=== PATIENT | female | born 1990 | race Caucasian/White ===

== ENCOUNTER 2023-08-25 13:23 | Observation (INO) ==
--- OUTSIDE RECORDS SUMMARY | 2023-08-25 13:31 | External Medical Summary | Summary of Care ---
Author Name Unknown Organization [facility] Address [address] [place] [address] Phone [phone] Care Team Providers Care Cement Mixer Driver Name Role Phone Jennifer Rodrigez MD Primary Care Provider [phone] Encounter Details Date Type Department Care Team (Late st Contact Info) Description 07/26/2023 Result Scan Unspecified Department <No scans attached> Allergies Active Allergy Reactions Criticality Noted Date Comments Cefaclor Edema Other 02/13/2023 Iodinated Contrast Media Nausea/vomiting Medium 2022 documented as of this encounter (statuses as of 07/30/2023) Medications Medication Sig Dispensed Refills Start Date End Date Status Tylenol 325 MG Oral Capsule (Acetaminophen)Indic ations:Synovial cyst of sacral region,Midline low back pain without sciatica, unspecified chronicity 2 caps 3-4times/d, max 3gm/d 02/22/2023 Active Ibuprofen 200 MG Oral Tablet (Motrin IB)Indications:Synov ial cyst of sacral region,Midline low back pain without sciatica, unspecified chronicity Take 2 Tablets by mouth every 8 hours as needed for Pain, Moderate. 02/22/2023 Active Fexofenadine HCl 60 MG Oral Tablet (Mary Allergy) Take 1 Tablet by mouth in the morning. Active Cyclobenzaprine HCl 5 MG Oral Tablet (Flexeril)Indication s:Meningocele spinal (HCC),Tethering of spinal cord (HCC),Lipoma of other specified sites,History of sciatica,Chronic bilateral low back pain with right-sided sciatica,Spasm of muscle Take 1 Tablet by mouth 3 times a day as needed for Muscle spasms. 30 Tablet 04/16/2023 Active Gabapentin 400 MG Oral Capsule (Neurontin) Take 1 Capsule by mouth at bedtime. Takes once by mouth at night before bed 07/12/2023 Active Gabapentin 300 MG Oral Capsule (Neurontin) Take 1 Capsule by mouth 2 times a day. Takes twice a day in the morning by breakfast and at lunch 07/17/2023 Active Pantoprazole Sodium 40 MG Oral Tablet Delayed Release (Protonix) Take 1 Tablet by mouth. 07/12/2023 Active traMADol HCl 50 MG Oral Tablet (Ultram) Take 1 Tablet by mouth. 07/12/2023 Active Tamsulosin HCl 0.4 MG Oral Capsule (Flomax) Take 1 Capsule by mouth. 07/12/2023 Active Docusate Sodium 50 MG Oral Capsule Take by mouth 2 times a day. Active Fluticasone Propionate 50 MCG/ACT Nasal Suspension (Flonase Allergy Relief) Administer 1 [place] into nostril in the morning. Active Magnesium Hydroxide 400 MG/5ML Oral Suspension (Milk of Magnesia) Take by mouth daily as needed for Constipation. Active Polyethylene Glycol 3350 17 GM Oral Packet (MiraLax) Take 1 Packet by mouth in the morning. Active documented as of this encounter (statuses as of 07/30/2023) Active Problems Problem Noted Date Diagnosed Date Neurological symptoms 04/29/2023 History of tethered spinal cord 04/29/2023 Functional gait disorder 04/29/2023 Vitamin D deficiency 04/19/2023 IFG (impaired fasting glucose) 04/19/2023 Mixed dyslipidemia 04/19/2023 Body mass index (BMI) of 45.0 to 49.9 in adult 0 03/18/2023 Overview: Per Obesity protocol PCOS (polycystic ovarian syndrome) 02/13/2023 documented as of this encounter (statuses as of 07/30/2023) Immunizations Name Administration Dates Next Due DTWP HIB - Dipth/Tet/Whole C ell Pert/HIB 05/31/1997,08/24/1993,1992,06/01,1992 Hepatitis A Vaccine 03/29/2010 Hepatitis B, 0-19 yrs 1992,1992,01/10 MMR - Measles/Mumps/Rubella Vaccine 05/31/1997,0 05/16/1993 Meningococcal MCV4O Conjugat e Vaccine (Menveo) 03/29/2010 OPV - Polio Virus Vaccine (Oral) 997,08/24/1993,1992,04/06 Seasonal Influenza, PF, 6 M & above, IM , (FluLaval or Fluzone) 04/05/2023 TDAP (age 11 and older)(Adacel) 12/10/2022,12/02 Varicella Vaccine (Chicken Pox) 12/02/2009,11/20 documented as of this encounter Social History Tobacco Use Types Packs/Day Years Used Date Smoking Tobacco: Never Smokeless Tobacco: Never Alcohol Use Standard Drinks/Week Comments Yes 0 (1 standard drink = 0.6 oz pur e alcohol) PHQ-2 Answer Date Recorded PHQ Adult Total Score 0 03/05/2023 Hunger Vital Sign Answer Date Recorded Within the past 12 months, y ou worried that your food would run out before you got the money to buy more. Patient declined Within the past 12 months, t he food you bought just didn't last and you didn't have money to get more. Patient declined Sex and Gender Information Value Date Recorded Sex Assigned at Female 02/19/2023 8:02 PM EST Gender Identity Not on file Sexual Orientation Straight 02/19/2023 8: 02 PM EST Job Start Date Occupation Industry Not on file Not on file Not on file documented as of this encounter Plan of Treatment Upcoming Encounters Date Type Department Care Team (Late st Contact Info) Description 01/21/2024 4:40 PM EST Office Visit General Internal Medicine [place] Karla Rouse [address] [place] [id number] Jennifer Rodrigez MD [address] [place] [id number] Health Maintenance Due Date Last Done Comments Hepatitis B (4 of 4 - 4-dose series) 1992 1992, 1992, 1992 Pap Smear 02/04/2013 Cervical Cancer Screening 02/04/2022 HPV/Co-Test 02/04/2022 COVID-19 Vaccine ( season) 2022 12/15/2020, 04/12/2020, 03/25/2020 Depression Screening 03/05/2024 03/05/2023 DTaP,Tdap,and Td Vaccines (8 - Td or Tdap) 12/10/2032 12/10/2022, 12/02/2009, 05/31/1997, Additional history exists MENINGOCOCCAL (MENACTRA/MENVEO) Completed 03/29/2010, 03/29/2010 Influenza Vaccine (FLU shot) Completed 04/05/2023 GARDASIL-HPV IMMUNIZATION SERIES Aged Out No longer eligible based on patient's age to complete this topic Pneumococcal Vaccine: Pediatrics (0 to 5 Years) and At-Risk Patients (6 to 64 Years) Aged Out No longer eligible based on patient's age to complete this topic documented as of this encounter Medical Devices Not on filedocumented as of this encounter Procedures Procedure Name Priority Date/Time Associated Diagnosis Comments OUTSIDE LAB RESULTS 07/26/2023 documented in this encounter Results * OUTSIDE LAB RESULTS (07/26/2023) 07/26/2023 No Physician Data Unknown LABORATORY documented in this encounter Care Teams Cement Mixer Driver Relationship Specialty Start Date End Date Jennifer Rodrigez MD [facility] [place] [address] PCP - General Internal Medicine 04/05/23 documented as of this encounter
--- OUTSIDE RECORDS SUMMARY | 2023-08-25 13:31 | External Medical Summary | Summary of Care ---
Author Name Unknown Organization [facility] Address [address] [place] [address] Phone [phone] Care Team Providers Care Control Clerk Name Role Phone Jennifer Rodrigez MD Primary Care Provider Reason for Visit * Reason Onset Date Comments Hospital Follow-Up Patient had a surgery recently in [facility] Hospital Follow-Up 07/17/2023 Encounter Details Date Type Department Care Team (Late st Contact Info) Description 07/17/2023 4:00 PM EDT Office Visit General Internal Medicine [facility] [place] [address] [place] [address] Jennifer Rodrigez MD [address] [place] [address] Hospital discharge follow-up*; Tethering of spinal cord (HCC); S/P laminectomy; History of tethered spinal cord; Bilateral leg numbness; Endometrial thickening on ultrasound; PCOS (polycystic ovarian syndrome); Vitamin D deficiency; BMI 45.0-49.9, adult ([facility]) Allergies Active Allergy Reactions Criticality Noted Date Comments Cefaclor Edema Other 02/13/2023 Iodinated Contrast Media Nausea/vomiting Medium 2022 documented as of this encounter (statuses as of 07/30/2023) Medications Medication Sig Dispensed Refills Start Date End Date Status Tylenol 325 MG Oral Capsule (Acetaminophen)I ndications:Synov ial cyst of sacral region,Midline low back pain without sciatica, unspecified chronicity 2 caps 3-4times/d, max 3gm/d 3 Active Ibuprofen 200 MG Oral Tablet (Motrin IB)Indications:S ynovial cyst of sacral region,Midline low back pain without sciatica, unspecified chronicity Take 2 Tablets by mouth every 8 hours as needed for Pain, Moderate. 3 Active Fexofenadine HCl 60 MG Oral Tablet (Mary Allergy) Take 1 Tablet by mouth in the morning. Active Cyclobenzaprine HCl 5 MG Oral Tablet (Flexeril)Indica tions:Meningocel e spinal (HCC),Tethering of spinal cord (HCC),Lipoma of other specified sites,History of sciatica,Chronic bilateral low back pain with right-sided sciatica,Spasm of muscle Take 1 Tablet by mouth 3 times a day as needed for Muscle spasms. 30 Tablet 4 Active Gabapentin 400 MG Oral Capsule (Neurontin) Take 1 Capsule by mouth at bedtime. Takes once by mouth at night before bed 4 Active Gabapentin 300 MG Oral Capsule (Neurontin) Take 1 Capsule by mouth 2 times a day. Takes twice a day in the morning by breakfast and at lunch 4 Active Pantoprazole Sodium 40 MG Oral Tablet Delayed Release (Protonix) Take 1 Tablet by mouth. 4 Active traMADol HCl 50 MG Oral Tablet (Ultram) Take 1 Tablet by mouth. 4 Active Tamsulosin HCl 0.4 MG Oral Capsule (Flomax) Take 1 Capsule by mouth. 4 Active Docusate Sodium 50 MG Oral Capsule Take by mouth 2 times a day. Active Fluticasone Propionate 50 MCG/ACT Nasal Suspension (Flonase Allergy Relief) Administer 1 [place] into nostril in the morning. Active Magnesium Hydroxide 400 MG/5ML Oral Suspension (Milk of Magnesia) Take by mouth daily as needed for Constipation. Active Polyethylene Glycol 3350 17 GM Oral Packet (MiraLax) Take 1 Packet by mouth in the morning. Active predniSONE 50 MG Oral Tablet (Deltasone) Take one tablet 13 hours prior, one tablet 7 hours prior, and one tablet 1 hour prior to procedure 3 Tablet 4 07/17/19 24 Discontinued(End of Procedure) diphenhydrAMINE HCl 25 MG Oral Tablet (Benadryl Allergy) Take two tablets 1 hour prior to procedure 2 Tablet 4 07/17/19 24 Discontinued(End of Procedure) Lidocaine 4 % External Patch (Aspercreme) Place 1 Patch over 12 hours topically on the skin daily. 30 Patch 4 07/17/19 24 Discontinued(Med ication List Clean Up) Vitamin D3 1.25 MG (73484 UT) Oral CapsuleIndicatio ns:Vitamin D deficiency Take 1 Capsule by mouth once a week. St 04/19/2023, after 3 mths OTC Vit D 1000 units daily 12 Capsule 4 07/18/19 24 Mirabegron ER 50 MG Oral Tablet Extended Release 24 Hour (Myrbetriq) Take 1 Tablet by mouth in the morning. 30 Tablet 6 4 07/17/19 24 Discontinued(Med ication List Clean Up) Gabapentin 300 MG Oral Capsule (Neurontin) Take 1 Capsule by mouth in the morning and 1 Capsule at noon and 1 Capsule before bedtime. Takes twice a day in the morning by breakfast and noon at lunch. 4 07/17/19 24 Discontinued Senna-Time 8.6 MG Oral Tablet Take 2 Tablets by mouth in the morning. Twice in the morning. 4 07/17/19 24 Discontinued(Med ication/Dose Changed) documented as of this encounter (statuses as [...] A Vaccine 03/29/2010 Hepatitis B, 0-19 yrs 1992,1992,11/2 10/1991 MMR - Measles/Mumps/Rubella Vaccine 05/31/1997,0 05/16/1993 Meningococcal [...] Date Smoking Tobacco: Never Smokeless Tobacco: Never Tobacco Cessation:Counseling Given: Not Answered Alcohol Use Standard Drinks/Week Comments Yes 0 [...] on file documented as of this encounter Last Filed Vital Signs Vital Sign Reading Time Taken Comments Blood Pressure 108/50 07/17/2023 4:31 PM EDT Pulse 107 07/17/2023 4:31 PM EDT Temperature 36.9 C (98.5 F) 07/17/2023 4:31 PM ED T Respiratory Rate 16 07/17/2023 4:31 PM EDT Oxygen Saturation 99% 07/17/2023 4:31 PM EDT Inhaled Oxygen Concentration - - Weight 120.7 kg (266 lb 3.2 oz) 07/17/2023 4:31 PM EDT Height - - Body Mass Index 45.67 04/18/2023 8:06 AM EST documented in this encounter Progress Notes * Jarrod Garcia MED ASSIST - 07/17/2023 5:08 PM EDT Phone call was made to both [facility] and [facility] regarding her meds, medical records, and post opp surgery charts. Left a message to [facility], [facility] told me to fill out a medical record request form for the patient to fill out and fax. * Jennifer Rodrigez MD - 07/17/2023 4:38 PM EDT SUBJECTIVE: Jacklyn Aldana is a 33 year old female. Chief Complaint Patient presents with Hospital Follow-Up Patient had a surgery recently in [facility] Nursing Notes: Jarrod Garcia MED ASSIST 07/17/23 1633 Signed Chief Complaint Patient presents with Hospital Follow-Up Patient had a surgery recently in [facility] Tethered spinal chord surgery. Cannot feel slower stomach after surgery. Balance is pretty good, walking feels good, can stand on her heels now. Before she had to stand on her toes. 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 HPI: Patient presents today for hospital follow-up appointment. Wt Readings from Last 6 Encounters: 07/17/23 120.7 kg (266 lb 3.2 oz) 04/29/23 122.9 kg (271 lb) 04/29/23 123.2 kg (271 lb 9.6 oz) 04/26/23 117.9 kg (260 lb) 04/18/23 121.8 kg (268 lb 8.3 oz) 04/05/23 121.8 kg (268 lb 8 oz) BP Readings from Last 6 Encounters: 07/17/23 108/50 04/29/23 128/59 04/27/23 128/76 04/18/23 107/71 04/09/23 112/82 04/05/23 108/72 Reviewed available hospital records. We do not have a discharge summary from [facility] yet . Was admitted to [facility] for surgery 07/01- and discharged to [facility] Rehab from 07/08/23 to Jacklyn is being seen in our office since February 2023-see prior notes. H/o chronic low back pain with right-sided sciatica, numbness of the right leg now having numbness of both legs, difficulty with ambulation, diagnosed with a tethered spinal cord, meningocele. MRI 03/02. Had history of intermittent incontinence, no difficulty with urination normal postvoid residual, had seen Urology in [place] who had recommended urodynamic testing. [facility], diagnosed to have associated urinary retention on urodynamic studies. 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 Per note from [facility]-. Additional findings in combination with CT showed right sided sacral hemiagenesis with an anterior sacral meningocele.- Preoperative labs-06/26/2023-normal CBC, CMP except total protein 8, normal coags, A1c 5.8%. EKG showed normal sinus rhythm., low voltage --repeat labs shown a normal LFT -- underwent S3 laminectomy and Intradural exploration with lysis of fatty filum and tethered cord release using intra-operative neurophysiologic monitoring, microscope, and microsurgical technique with Dr Yusuf on 07/02/2023. --had rehab at [facility], discharge with home health [facility], currently walking with a cane, also useswalker for longer distances. -has a discharge med list with her from [facility], nurse to update -states pain is improved, still has numbness of her left leg which feels different than the right. She still can feel the urge to urinate, urinalysis was normal in [place], having 2-3 bowel movements per day -had postoperative follow-up 07/16/2023 in [place], has a small amount of blood-tinged discharge the proximal end of her incision, was given Bactrim twice daily for 10 days -states pain is improved. Attributes sl high A1c to steroids injections. - taking tramadol 1-2 per day, Tylenol as needed, gabapentin 300 mg breakfast and lunch and taking 400 mg at bedtime, tamsulosin 0.5 mg daily, Protonix 40 mg daily, Flexeril as needed, stool softeners Currently off vitamin-D as was told by [facility] team to hold , to ch with them at f/u next week. Regarding PCOS, endometrial thickening on MRI apr 2023, had preferred to have US in [place] - [facility] Hemoglobin AIC Results: No results found for: "HEMOGLOBIN A1C" TSH Results: Lab Results Component Value Date/Time TSH - JEFFREY 2.46 04/17/2023 09:37 AM Lipid Panel Results: Results for orders placed or performed in visit on 04/17/23 LIPID PANEL WITH DIRECT LDL IF TG IS HIGH Result Value Ref Range Triglycerides 243 (H) <=174 mg/dL Cholesterol 229 (H) <200 mg/dL HDL Cholesterol 39 (L) >49 mg/dL Non-HDL Cholesterol 190 (H) <=159 mg/dL LDL Cholesterol 141 (H) <=129 mg/dL Patient Active Problem List Diagnosis Code PCOS (polycystic ovarian syndrome) E28.2 Body mass index (BMI) of 45.0 to 49.9 in adult ([facility]) Z68.42 Vitamin D deficiency E55.9 IFG (impaired fasting glucose) R73.01 Mixed dyslipidemia E78.2 Neurological symptoms R29.90 History of tethered spinal cord Z86.69 Functional gait disorder R26.9 Current Outpatient Medications Medication Sig Dispense Refill Tylenol 325 MG Oral Capsule (Acetaminophen) 2 caps 3-4times/d, max 3gm/d Cyclobenzaprine HCl 5 MG Oral Tablet (Flexeril) Take 1 Tablet by mouth 3 times a day as needed for Muscle spasms. 30 Tablet 0 Gabapentin 300 MG Oral Capsule (Neurontin) Take 1 Capsule by mouth in the morning and 1 Capsule at noon and 1 Capsule before bedtime. Takes twice a day in the morning by breakfast and noon at lunch. Gabapentin 400 MG Oral Capsule (Neurontin) Take 1 Capsule by mouth at bedtime. Takes once by mouth at night before bed Senna-Time 8.6 MG Oral Tablet Take 2 Tablets by mouth in the morning. Twice in the morning. Ibuprofen 200 MG Oral Tablet (Motrin IB) Take 2 Tablets by mouth every 8 hours as needed for Pain, Moderate. predniSONE 50 MG Oral Tablet (Deltasone) Take one tablet 13 hours prior, one tablet 7 hours prior, and one tablet 1 hour prior to procedure (Patient not taking: Reported on 05/01/2023) 3 Tablet 0 diphenhydrAMINE HCl 25 MG Oral Tablet (Benadryl Allergy) Take two tablets 1 hour prior to procedure(Patient not taking: Reported on 05/01/2023) 2 Tablet 0 Fexofenadine HCl 60 MG Oral Tablet (Mary Allergy) Take 1 Tablet by mouth in the morning. Vitamin D3 1.25 MG (23391 UT) Oral Capsule Take 1 Capsule by mouth once a week. St 04/19/2023, after 3 mths OTC Vit D 1000 units daily 12 Capsule 0 No current facility-administered medications for this visit. Review of patient's allergies indicates: Allergen Reactions Iodinated Contrast Media Nausea/vomiting Ceclor [Cefaclor] Edema Other Immunization History Administered Date(s) Administered COVID-19 mRNA, LNP-s, No Preserve, 2-Dose Series (Vascular Closure) 04/12/2020, 12/15/2020 DTWP HIB - Dipth/Tet/Whole Cell Pert/HIB 1992, 1992, 1992, 08/24/1993, 05/31/1997 Hepatitis A Vaccine 03/29/2010 Hepatitis B, 0-19 yrs 1992, 1992, 1992 MMR - Measles/Mumps/Rubella Vaccine 05/16/1993, 05/31/1997 Meningococcal MCV4O Conjugate Vaccine (Menveo) 03/29/2010 OPV - Polio Virus Vaccine (Oral) 1992, 1992, 08/24/1993, 03/02/1997 Seasonal Influenza, PF, 6 M & above, IM , (FluLaval or Fluzone) 04/05/2023 TDAP (age 11 and older)(Adacel) 12/02/2009, 12/10/2022 Varicella Vaccine (Chicken Pox) 11/20/1996, 12/02/2009 OBJECTIVE: BP 108/50 | Pulse 107 | Temp 36.9 C (98.5 F) (Tympanic) | Resp 16 | Wt 120.7 kg (266 lb 3.2 oz)| SpO2 99% | BMI 45.67 kg/m | BSA 2.33 m PHYSICAL EXAM: General: alert, healthy, no distress, well developed, M obesity, +xs facial chin hair Heart: regular rhythm and rate,No murmurs. Lungs: lungs clear to auscultation Extremities: no edema Back--scar lumbar area, dressing sl wet at superior aspect Gait-normal ASSESSMENT/PLAN: Hospital discharge follow-up (Primary) - DISCH MED RECON CUR MED LIS - COMPREHENSIVE METABOLIC PANEL; Future; Expected date: 01/17/2024 Tethering of spinal cord (HCC) - DISCH MED RECON CUR MED LIS S/P laminectomy - DISCH MED RECON CUR MED LIS - COMPREHENSIVE METABOLIC PANEL; Future; Expected date: 01/17/2024 History of tethered spinal cord - DISCH MED RECON CUR MED LIS - COMPREHENSIVE METABOLIC PANEL; Future; Expected date: 01/17/2024 Bilateral leg numbness - COMPREHENSIVE METABOLIC PANEL; Future; Expected date: 01/17/2024 Endometrial thickening on ultrasound PCOS (polycystic ovarian syndrome) - HEMOGLOBIN A1C; Future; Expected date: 01/17/2024 - COMPREHENSIVE METABOLIC PANEL; Future; Expected date: 01/17/2024 Vitamin D deficiency - 25-HYDROXY VITAMIN D; Future; Expected date: 01/17/2024 BMI 45.0-49.9, adult (HCC) ct current meds Ct f/u [facility], if can resume vit d Ct efforts at wt loss. Await machine strap buckler eval Follow Up: Return in 6 months (on 01/17/2024), or if symptoms worsen or fail to improve, for Return with Physician, Fasting Labs 2-5 Days Before Next Visit. | For: Return with Physician, Fasting Labs 2-5 Days Before Next Visit (This note was completed using the dictation program Fluency Direct. As such, there may be misspellings, word substitutions, or other variations that should not change the essence of the clinical content of this encounter note. If there is need for further clarification, please direct questions to the provider listed above.) Patient and / caregiver verbalizes understanding of above instructions and agrees with plan of care. Jennifer Rodrigez MD 07/17/2023 documented in this encounter Nursing Notes * Jarrod Garcia, MED ASSIST - 07/17/2023 4:22 PM EDT Chief Complaint Patient presents with Hospital Follow-Up Patient had a surgery recently in [facility] Tethered spinal chord surgery. Cannot feel slower stomach after surgery. Balance is pretty good, walking feels good, can stand on her heels now. Before she had to stand on her toes. 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 documented in this encounter Plan of Treatment Upcoming Encounters Date Type Department Care Team (Late st Contact Info) Description 01/21/2024 4:40 PM EST Office Visit General Internal Medicine [address] [place] [address] [facility] [place] [address] Jennifer Rodrigez MD [address] [facility] [place] [address] Scheduled Orders Name Type Priority Associated Diagnoses Orde r Schedule HEMOGLOBIN A1C Lab Routine PCOS (polycystic ovarian syndrome) Expected: 01/17/2024 (Approximate), Expires: 07/16/2024 COMPREHENSIVE METABOLIC PANEL Lab Routine S/P laminectomy History of tethered spinal cord Hospital discharge follow-up Bilateral leg numbness PCOS (polycystic ovarian syndrome) Expected: 01/17/2024 (Approximate), Expires: 07/16/2024 25-HYDROXY VITAMIN D Lab Routine Vitamin D deficiency Expected: 01/17/2024 (Approximate), Expires: 07/16/2024 Health Maintenance Due Date Last Done Comments [...] Not on filedocumented as of this encounter Visit Diagnoses Diagnosis Hospital discharge follow-up- Primary Other follow-up examination 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
--- OUTSIDE RECORDS SUMMARY | 2023-08-25 13:31 | External Medical Summary | Summary of Care ---
Author Name Unknown Organization [facility] Address [address] [place] [address] Phone [phone] Care Team Providers Care Insulation Worker Interior Surface Name Role Phone Jennifer Rodrigez MD Primary Care Provider [phone] Encounter Details Date Type Department Care Team (Late st Contact Info) Description 07/30/2023 Orders Only General Internal Medicine [facility] [address] [place] [address] Jennifer Rodrigez MD [address] [place] [address] Allergies Active Allergy Reactions Criticality Noted Date [...] Nasal Suspension (Flonase Allergy Relief) Administer 1 [place] into nostril in the morning. Active Magnesium [...] A Vaccine 03/29/2010 Hepatitis B, 0-19 yrs 1992,1992,11/10/1991 MMR - Measles/Mumps/Rubella Vaccine 05/31/1997,0 05/16/1993 Meningococcal [...] General Internal Medicine [place] [facility] [address] [place] [address] Jennifer Rodrigez MD [address] [place] [address] Health Maintenance Due Date Last Done Comments Hepatitis B (4 of 4 - 4-dose series) 1992 1992, 1992, 1992 Pap Smear 02/04/2013 Cervical Cancer Screening 02/04/2022 HPV/Co-Test 02/04/2022 COVID-19 Vaccine (4 - season) 2022 12/15/2020, 04/12/2020, 03/25/2020 Depression Screening [...] Procedure Name Priority Date/Time Associated Diagnosis Comments CHEMISTRY-OUTSIDE Routine 07/28/2023 documented in this encounter Results * (ABNORMAL) CHEMISTRY-OUTSIDE (07/28/2023) Not all results display below - see scan for full detail OUTSIDE LAB (SEE SCANNED REPORT) Comment:SCAN INCLUDES: [facility] ED LABS - HCG QUAL URINE, UA, CBCD, CMP, LACTIC ACID, SED RATE, CRP CREATININE-OUTSID E LAB 0.90 0.40 - 1.50 MG/DL OUTSIDE LAB (SEE SCANNED REPORT) EGFR-OUTSIDE LAB 88 >=60 ML/MIN/1. 73M2 OUTSIDE LAB (SEE SCANNED REPORT) POTASSIUM-OUTSIDE LAB 4.3 3.6 - 5.0 MMOL/L OUTSIDE LAB (SEE SCANNED REPORT) GLUCOSE-OUTSIDE LAB 128(A) 65 - 110 MG/DL OUTSIDE LAB (SEE SCANNED REPORT) HOURS FASTING OUTSID E LAB (SEE SCANNED REPORT) TRIGLYCERIDES-OUT SIDE LAB OUTSIDE LAB (SEE SCANNED REPORT) CHOLESTEROL-OUTSI DE LAB OUTSIDE LAB (SEE SCANNED REPORT) HDL-OUTSIDE LAB OUTS [place] (SEE SCANNED REPORT) CHOL/HDL RATIO-OUTSIDE LAB OUTSIDE LA B (SEE SCANNED REPORT) LDL (CALCULATED)-OUTS [place] OUTSIDE LAB (SEE SCANNED REPORT) LDL (DIRECT MEASURE)-OUTSIDE LAB OUTSIDE LAB (SEE SCANNED REPORT) HEMOGLOBIN, D1C-CRADMFJ LAB OUTSIDE LAB (SEE SCANNED REPORT) PHOSPHORUS-OUTSID E LAB OUTSIDE LAB (SEE SCANNED REPORT) PTH-OUTSIDE LAB OUTS [place] (SEE SCANNED REPORT) MICROALBUMIN RATIO-OUTSIDE LAB OUTSIDE LA B (SEE SCANNED REPORT) PROTEIN, UA-OUTSIDE LAB TRACE(A) OUTSIDE LAB (SEE SCANNED REPORT) HGB 11.2(A) 12 - 16 GM/DL OUTSIDE LAB (SEE SCANNED REPORT) 07/28/2023 Juan Beth MD LABORATORY OUTSIDE LAB (SEE SCANNED REPORT) documented in this encounter Care Teams Insulation Worker Interior Surface Relationship Specialty Start Date End Date Jennifer Rodrigez MD [address] [place] [address] PCP - General Internal Medicine 04/05/23 documented as of this encounter
--- OUTSIDE RECORDS SUMMARY | 2023-08-25 13:31 | External Medical Summary | Summary of Care ---
Author Name Unknown Organization [facility] Address [address] [place] [address] Phone [phone] Care Team Providers Care Creative Developer Name Role Phone Jennifer Rodrigez MD Primary Care Provider [phone] Reason for Visit * Reason Onset Date Comments Advice 08/06/2023 Encounter Details Date Type Department Care Team (Late st Contact Info) Description 08/06/2023 Telephone General Internal Medicine [facility] [address] [facility] [place] [address] Jennifer Rodrigez MD [address] [place] [address] Advice Allergies Active Allergy Reactions Criticality Noted Date Comments Cefaclor Edema Other 02/13/2023 Iodinated Contrast Media Nausea/vomiting Medium 2022 documented as of this encounter (statuses as of 08/06/2023) Medications Medication Sig Dispensed Refills Start Date [...] Nasal Suspension (Flonase Allergy Relief) Administer 1 [place] into nostril in the morning. Active Magnesium Hydroxide 400 MG/5ML Oral Suspension (Milk of Magnesia) Take by mouth daily as needed for Constipation. Active Polyethylene Glycol 3350 17 GM Oral Packet (MiraLax) Take 1 Packet by mouth in the morning. Active documented as of this encounter (statuses as of 08/06/2023) Active Problems Problem Noted Date Diagnosed Date Neurological symptoms 04/29/2023 History of tethered spinal cord 04/29/2023 Functional gait disorder 04/29/2023 Vitamin D deficiency 04/19/2023 IFG (impaired fasting glucose) 04/19/2023 Mixed dyslipidemia 04/19/2023 Body mass index (BMI) of 45.0 to 49.9 in adult 0 03/18/2023 Overview: Per Obesity protocol PCOS (polycystic ovarian syndrome) 02/13/2023 documented as of this encounter (statuses as of 08/06/2023) Immunizations Name Administration Dates Next Due DTWP [...] on file documented as of this encounter Miscellaneous Notes * Telephone Encounter - Yesica Hernandez OSA - 08/06/2023 1:12 PM EDT HIGH ED UTILIZER Reason for Call: schedule hospital follow up. Outcome: Appt Schedule - No transfer required documented in this encounter Plan of Treatment Upcoming Encounters Date Type Department Care Team (Late st Contact Info) Description 08/12/2023 10:20 AM EDT Office Visit General Internal Medicine [facility] [address] [facility] [address] [place], [place] [address] Jennifer Rodrigez MD [address] [facility] [address] [facility] [address] 01/21/2024 4:40 PM EST Office Visit General Internal Medicine [facility] [address] [place] [address] Jennifer Rodrigez MD [address] [facility] [place] [address] Health Maintenance Due Date Last Done Comments [...] Not on filedocumented as of this encounter Care Teams Creative Developer Relationship Specialty Start Date End Date Jennifer Rodrigez MD [facility] [place] [address] PCP - General Internal Medicine 04/05/23 documented as of this encounter
--- OUTSIDE RECORDS SUMMARY | 2023-08-25 13:32 | External Medical Summary | Summary of Care ---
Author Name Unknown Organization [facility] Address [address] [place] [address] Phone [phone] Care Team Providers Care Scientific Database Curator Name Role Phone Jennifer Rodrigez MD Primary Care Provider [phone] Encounter Details Date Type Department Care Team (Late st Contact Info) Description 06/25/2023 Result Scan Unspecified Department <No scans attached> Allergies Active Allergy Reactions Criticality Noted Date Comments Cefaclor Edema Other 02/13/2023 Iodinated Contrast Media Nausea/vomiting Medium 2022 documented as of this encounter (statuses as of 06/26/2023) Medications Medication Sig Dispensed Refills Start Date End Date Status Tylenol 325 MG Oral Capsule (Acetaminophen)Ind ications:Synovial cyst of sacral region,Midline low back pain without sciatica, unspecified chronicity 2 caps 3-4times/d, max 3gm/d 0 02/22/2023 Active Ibuprofen 200 MG Oral Tablet (Motrin IB)Indications:Syn ovial cyst of sacral region,Midline low back pain without sciatica, unspecified chronicity Take 2 Tablets by mouth every 8 hours as needed for Pain, Moderate. 0 02/22/2023 Active predniSONE 50 MG Oral Tablet (Deltasone) Take one tablet 13 hours prior, one tablet 7 hours prior, and one tablet 1 hour prior to procedure 3 Tablet 0 03/20/2023 Active Additional Information Patient not taking.Reported on 05/01/2023 diphenhydrAMINE HCl 25 MG Oral Tablet (Benadryl Allergy) Take two tablets 1 hour prior to procedure 2 Tablet 0 03/20/2023 Active Additional Information Patient not taking.Reported on 05/01/2023 Fexofenadine HCl 60 MG Oral Tablet (Mary Allergy) Take 1 Tablet by mouth in the morning. 0 Active Lidocaine 4 % External Patch (Aspercreme) Place 1 Patch over 12 hours topically on the skin daily. 30 Patch 0 04/16/2023 Active Cyclobenzaprine HCl 5 MG Oral Tablet (Flexeril)Indicati ons:Meningocele spinal (HCC),Tethering of spinal cord (HCC),Lipoma of other specified sites,History of sciatica,Chronic bilateral low back pain with right-sided sciatica,Spasm of muscle Take 1 Tablet by mouth 3 times a day as needed for Muscle spasms. 30 Tablet 0 04/16/2023 Active Vitamin D3 1.25 MG (65379 UT) Oral CapsuleIndications :Vitamin D deficiency Take 1 Capsule by mouth once a week. St 04/19/2023, after 3 mths OTC Vit D 1000 units daily 12 Capsule 0 04/19/2023 07/18/2023 Active Mirabegron ER 50 MG Oral Tablet Extended Release 24 Hour (Myrbetriq) Take 1 Tablet by mouth in the morning. 30 Tablet 6 05/23/2023 Active documented as of this encounter (statuses as of 06/26/2023) Active Problems Problem Noted Date Diagnosed Date Neurological symptoms 04/29/2023 History of tethered spinal cord 04/29/2023 Functional gait disorder 04/29/2023 Vitamin D deficiency 04/19/2023 IFG (impaired fasting glucose) 04/19/2023 Mixed dyslipidemia 04/19/2023 Body mass index (BMI) of 45.0 to 49.9 in adult 0 03/18/2023 Overview: Per Obesity protocol PCOS (polycystic ovarian syndrome) 02/13/2023 documented as of this encounter (statuses as of 06/26/2023) Immunizations Name Administration Dates Next Due DTWP [...] as of this encounter Plan of Treatment Health Maintenance Due Date Last Done Comments Hepatitis B (4 of 4 - 4-dose series) 1992 1992, 1992, 1992 Pap Smear 02/04/2013 Cervical Cancer Screening 02/04/2022 HPV/Co-Test 02/04/2022 COVID-19 Vaccine (3 - season) 2022 12/15/2020, 04/12/2020 Depression Screening 03/05/2024 03/05/2023 DTaP,Tdap,and Td Vaccines (8 - Td or Tdap) 12/10/2032 12/10/2022, 12/02/2009, 05/31/1997, Additional history exists MENINGOCOCCAL (MENACTRA/MENVEO) Completed 03/29/2010 Influenza Vaccine (FLU shot) Completed 04/05/2023 [...] Procedure Name Priority Date/Time Associated Diagnosis Comments RADIOLOGY SCANNED RESULT 06/25/2023 documented in this encounter Results * RADIOLOGY SCANNED RESULT (06/25/2023) 06/25/2023 No Physician Data Unknown [facility] documented in this encounter Care Teams Scientific Database Curator Relationship Specialty Start Date End Date Jennifer Rodrigez MD [address] [place] [address] PCP - General Internal Medicine 04/05/23 documented as of this encounter
--- OUTSIDE RECORDS SUMMARY | 2023-08-25 13:32 | External Medical Summary | Summary of Care ---
Author Name Unknown Organization [facility] Address [address] [place] [address] Phone [phone] Care Team Providers Care Booster Operator Name Role Phone Jennifer Rodrigez MD Primary Care Provider [phone] Reason for Visit * Reason Onset Date Comments Appointment 04/30/2023 Encounter Details Date Type Department Care Team (Late st Contact Info) Description 04/30/2023 Telephone Vascular Surgery, [facility] [address] [facility] [place] [address] Horace Acosta PA-C [address] [place] [address] Appointment Allergies Active Allergy Reactions Criticality Noted Date Comments Cefaclor Edema Other 02/13/2023 Iodinated Contrast Media Nausea/vomiting Medium 2022 documented as of this encounter (statuses as of 04/30/2023) Medications Medication Sig Dispensed Refills Start Date End Date Status Tylenol 325 MG Oral Capsule (Acetaminophen)Gina cations:Synovial cyst of sacral region,Midline low back pain without sciatica, unspecified chronicity 2 caps 3-4times/d, max 3gm/d 0 02/22/2023 Active Ibuprofen 200 MG Oral Tablet (Motrin IB)Indications:Syno vial cyst of sacral region,Midline low back pain without sciatica, unspecified chronicity Take 2 Tablets by mouth every 8 hours as needed for Pain, Moderate. 0 02/22/2023 Active predniSONE 50 MG Oral Tablet (Deltasone) Take one tablet 13 hours prior, one tablet 7 hours prior, and one tablet 1 hour prior to procedure 3 Tablet 0 03/20/2023 Active diphenhydrAMINE HCl 25 MG Oral Tablet (Benadryl Allergy) Take two tablets 1 hour prior to procedure 2 Tablet 0 03/20/2023 Active Fexofenadine HCl 60 MG Oral Tablet (Mary Allergy) Take 1 Tablet by mouth in the morning. 0 Active Mirabegron ER 50 MG Oral Tablet Extended Release 24 Hour (Myrbetriq) Take 1 Tablet by mouth in the morning. 30 Tablet 6 04/09/2023 Active Lidocaine 4 % External Patch (Aspercreme) Place 1 Patch over 12 hours topically on the skin daily. 30 Patch 0 04/16/2023 Active Cyclobenzaprine HCl 5 MG Oral Tablet (Flexeril)Indicatio ns:Meningocele spinal (HCC),Tethering of spinal cord (HCC),Lipoma of other specified sites,History of sciatica,Chronic bilateral low back pain with right-sided sciatica,Spasm of muscle Take 1 Tablet by mouth 3 times a day as needed for Muscle spasms. 30 Tablet 0 04/16/2023 Active Vitamin D3 1.25 MG (31446 UT) Oral CapsuleIndications: Vitamin D deficiency Take 1 Capsule by mouth once a week. St 04/19/2023, after 3 mths OTC Vit D 1000 units daily 12 Capsule 0 04/19/2023 07/18/2023 Active documented as of this encounter (statuses as of 04/30/2023) Active Problems Problem Noted Date Diagnosed Date Neurological symptoms 04/29/2023 History of tethered spinal cord 04/29/2023 Functional gait disorder 04/29/2023 Vitamin D deficiency 04/19/2023 IFG (impaired fasting glucose) 04/19/2023 Mixed dyslipidemia 04/19/2023 Body mass index (BMI) of 45.0 to 49.9 in adult 0 03/18/2023 Overview: Per Obesity protocol PCOS (polycystic ovarian syndrome) 02/13/2023 documented as of this encounter (statuses as of 04/30/2023) Immunizations Name Administration Dates Next Due DTWP HIB - Dipth/Tet/Whole C ell Pert/HIB 05/31/1997,08/24/1993,1992,06/01,1992 Hepatitis A Vaccine 03/29/2010 Hepatitis B, 0-19 yrs 1992,1992,/10/1991 MMR - Measles/Mumps/Rubella Vaccine 05/31/1997,0 05/16/1993 Meningococcal [...] Recorded PHQ Adult Total Score 0 03/05/2023 Sex and Gender Information Value Date Recorded Sex Assigned at Female 02/19/2023 8:02 PM EST Gender Identity Not on file Sexual Orientation Straight 02/19/2023 8: 02 PM EST Job Start Date Occupation Industry Not on file Not on file Not on file documented as of this encounter Miscellaneous Notes * Telephone Encounter - Mica Gomez OSA - 04/30/2023 12:02 PM EST Now it looks like our schedulers just scheduled her for 05/02 at [facility] with Dr. Crews * Telephone Encounter - Horace Ac[place] PA-C - 04/30/2023 11:39 AM EST Please call patient to move her 05/08/[address] Ely to 05/22/[address] Luque, open spots available for 12:50 or 2:30 PM Someone, from scheduling, double booked patient for 05/08. She does not need to be seen urgently, noneed for double booking OR, she is also already scheduled to see Angie on 05/16/23 for same issue When you speak with her, ask if she wants 05/15 @ [facility] or 05/21 @ [facility] Thank you documented in this encounter Plan of Treatment Upcoming Encounters Date Type Department Care Team (Late st Contact Info) Description 05/02/2023 10:10 AM EST Office Visit [address], [address] [place] [address] London Crews MD [address] [place] [address] 05/03/2023 9:00 AM EST Office Visit Urology, [place] [facility] [address] [place] [address] 05/08/2023 5:00 PM EST Office Visit General Internal Medicine [facility] 200 [place] [address] Jennifer Rodrigez MD [address] [place] [address] 05/16/2023 12:30 PM EST Office Visit Vascular Surgery, [address] [place] [address] London Crews MD [address] [place] [address] 05/21/2023 1:30 PM EDT Office Visit Interventional Pain Center, [facility] [address] [place] [address] Bradly Jones MD [address] [facility] [place] [address] 07/04/2023 5:00 PM EDT Office Visit Gynecology/Obstetrics [facility] [address] [place] [address] Irina Silva MD [address] [place] [address] 10/11/2023 3:00 PM EDT Office Visit Urology, [place] [facility] [address] [place] [address] Horace Pearl PA-C [address] [place] [address] Health Maintenance Due Date Last Done Comments Hepatitis B (4 of 4 - 4-dose series) 1992 1992, 1992, 1992 Pap Smear 02/04/2013 Cervical Cancer Screening 02/04/2022 HPV/Co-Test 02/04/2022 COVID-19 Vaccine ( season) 2022 12/15/2020, 04/12/2020 Depression Screening 03/05/2024 [...] filedocumented as of this encounter Care Teams Booster Operator Relationship Specialty Start Date End Date Jennifer Rodrigez MD 200 [place] [address] PCP - General Internal Medicine 04/05/23 documented as of this encounter
--- OUTSIDE RECORDS SUMMARY | 2023-08-25 13:32 | External Medical Summary | Summary of Care ---
Author Name Unknown Organization [facility] Address [address] [place] [address] Phone [phone] Care Team Providers Care Tenant Relations Coordinator Name Role Phone Jennifer Rodrigez MD Primary Care Provider [phone] Reason for Visit * Reason Onset Date Comments TRIAGE 04/30/2023 Encounter Details Date Type Department Care Team (Late st Contact Info) Description 04/30/2023 Telephone Vascular Surg [facility] [address] [place] [address] Pavel Claros CRNP [address] [place] [address] TRIAGE Allergies Active Allergy Reactions Criticality Noted Date [...] 0 04/16/2023 Active Vitamin D3 1.25 MG (01089 UT) Oral CapsuleIndications: Vitamin D deficiency Take [...] encounter Miscellaneous Notes * Telephone Encounter - Pavel Claros CRNP - 04/30/2023 7:51 AM EST Order Questions Question Answer Referral Priority Within 10 days (routine) Where should this appointment be scheduled? [facility] What condition is the patient being seen for? Leg Claudication / PAD / Ischemia ED 04/29/23 HISTORY OF PRESENT ILLNESS Jacklyn Aldana is a 33 year old female who presents to the ED for evaluation of Numbness in Extremity (Right leg, upper left leg since 04/24). The patient was seen at 04/29/23 1525. 33 year old female with history of PCOS, HLD among others presenting for evaluation of lower extremity weakness/numbness, urinary incontinence. Pt reports RLE numbness/weakness starting Saturday. Now w/ left thigh numbness. Pt reports urinary symptoms- able to sense full bladder but cannot sense when she is voiding. 04/29/23: BLE Venous: NO DVT 04/26/23: MRI L Spine: IMPRESSION 1. Limited evaluation of the thoracic spine as patient was unable to complete the axial images for the thoracic spine, however there is no evidence of acute pathology. 2. No significant change in the lumbar spine compared to 02/28/2023 with findings suspicious for tethered cord but no new acute findings. 3. The endometrial complex is markedly thickened measuring 2.2 cm. Pelvic ultrasound may be helpful. documented in this encounter Plan of Treatment Upcoming Encounters Date Type Department Care Team (Late st Contact Info) Description 05/03/2023 9:00 AM EST Office Visit Urology, [place] [address] [place] [address] 05/08/2023 5:00 PM EST Office Visit General Internal Medicine [facility] [address] [facility] [place] [address] Jennifer Rodrigez MD [address] [place] [address] 05/16/2023 2:00 PM EST Office Visit Vascular Surgery, [address] [address] London Crews MD [address] [place] [address] 05/21/2023 1:30 PM EDT Office Visit Interventional Pain Center, [address] [place] [address] Bradly Jones MD [address] [facility] [place] [address] 07/04/2023 5:00 PM EDT Office Visit Gynecology/Obstetrics [address] [place] [address] Irina Silva MD [address] [facility] [place] [address] 10/11/2023 3:00 PM EDT Office Visit Urology, [place] [address] [place] [address] Horace Pearl PA-C [address] [place] [address] Health Maintenance Due Date Last Done Comments [...] filedocumented as of this encounter Care Teams Tenant Relations Coordinator Relationship Specialty Start Date End Date Jennifer Rodrigez MD 200 [facility] [place] [address] PCP - General Internal Medicine 04/05/23 documented as of this encounter
--- OUTSIDE RECORDS SUMMARY | 2023-08-25 13:32 | External Medical Summary | Summary of Care ---
Author Name Unknown Organization [facility] Address [address] [place] [address] Phone [phone] Care Team Providers Care Plasma Center Technician Name Role Phone Jennifer Rodrigez MD Primary Care Provider [phone] Reason for Visit * Reason Onset Date Comments Excuse for Absence 05/02/2023 Encounter Details Date Type Department Care Team (Late st Contact Info) Description 05/02/2023 Telephone General Internal Medicine [facility] [address] [place] [address] Jennifer Rodrigez MD [address] [place] [address] Excuse for Absence Allergies Active Allergy Reactions Criticality Noted Date Comments Cefaclor Edema Other 02/13/2023 Iodinated Contrast Media Nausea/vomiting Medium 2022 documented as of this encounter (statuses as of 05/02/2023) Medications Medication Sig Dispensed Refills Start Date [...] 0 04/16/2023 Active Vitamin D3 1.25 MG (05106 UT) Oral CapsuleIndications :Vitamin D deficiency Take 1 Capsule by mouth once a week. St 04/19/2023, after 3 mths OTC Vit D 1000 units daily 12 Capsule 0 04/19/2023 07/18/2023 Active documented as of this encounter (statuses as of 05/02/2023) Active Problems Problem Noted Date Diagnosed Date Neurological symptoms 04/29/2023 History of tethered spinal cord 04/29/2023 Functional gait disorder 04/29/2023 Vitamin D deficiency 04/19/2023 IFG (impaired fasting glucose) 04/19/2023 Mixed dyslipidemia 04/19/2023 Body mass index (BMI) of 45.0 to 49.9 in adult 0 03/18/2023 Overview: Per Obesity protocol PCOS (polycystic ovarian syndrome) 02/13/2023 documented as of this encounter (statuses as of 05/02/2023) Immunizations Name Administration Dates Next Due DTWP [...] encounter Miscellaneous Notes * Telephone Encounter - Tyler Bryant LPN - 05/02/2023 12:59 PM EST Work excuse signed and sent as requested. documented in this encounter Plan of Treatment Upcoming Encounters Date Type Department Care Team (Late st Contact Info) Description 05/08/2023 5:00 PM EST Office Visit General Internal Medicine [address] [address] [place] [address] [place] [address] Jennifer Rodrigez MD 200 [place] [address] 05/16/2023 2:10 PM EST Office Visit Vascular Surgery, [address] [address] London Crews MD [address] [place] [address] 05/21/2023 1:30 PM EDT Office Visit Interventional Pain Center, [address] [address] Bradly Jones MD [address] [place] [phone] 07/04/2023 5:00 PM EDT Office Visit Gynecology/Obstetrics, [address] [address] Irina Silva MD [address] [place] [phone] 10/11/2023 3:00 PM EDT Office Visit Urology, [place] [address] [place], [place] [phone] Horace Pearl PA-C [address] [place] [address] Health Maintenance Due Date Last [...] filedocumented as of this encounter Care Teams Plasma Center Technician Relationship Specialty Start Date End Date Jennifer Rodrigez MD [address] [place] [address] PCP - General Internal Medicine 04/05/23 documented as of this encounter
--- OUTSIDE RECORDS SUMMARY | 2023-08-25 13:32 | External Medical Summary | Summary of Care ---
Author Name Unknown Organization [facility] Address [address] [place] [address] Phone [phone] Care Team Providers Care Tobacco Classer Name Role Phone Jennifer Rodrigez MD Primary Care Provider [phone] Reason for Visit * Reason Onset Date Comments Precert Denied 04/09/2023 Mri Brain, T Spi ne, C Spine denied, please call for p2p Encounter Details Date Type Department Care Team (Late st Contact Info) Description 04/09/2023 Telephone Neurosurgery, [place] [address] [place] [address] Matthias Newell MD [address] [place] [address] Precert Denied (Mri Brain, T Spine, C Spin... Allergies Active Allergy Reactions Criticality Noted Date Comments Cefaclor Edema Other 02/13/2023 Iodinated Contrast Media Nausea/vomiting Medium 2022 documented as of this encounter (statuses as of 07/09/2023) Medications Medication Sig Dispensed Refills Start Date [...] by mouth in the morning. 0 Active documented as of this encounter (statuses as of 07/09/2023) Active Problems Problem Noted Date Diagnosed Date Neurological symptoms 04/29/2023 History of tethered spinal cord 04/29/2023 Functional gait disorder 04/29/2023 Vitamin D deficiency 04/19/2023 IFG (impaired fasting glucose) 04/19/2023 Mixed dyslipidemia 04/19/2023 Body mass index (BMI) of 45.0 to 49.9 in adult 0 03/18/2023 Overview: Per Obesity protocol PCOS (polycystic ovarian syndrome) 02/13/2023 documented as of this encounter (statuses as of 07/09/2023) Immunizations Name Administration Dates Next Due DTWP [...] encounter Miscellaneous Notes * Telephone Encounter - Amandeep Stovall OSA - 04/09/2023 4:20 PM EST The Brain, C Spine and T Spine requested for Jacklyn Aldana is currently in Peer to Peer Review withNIA. Please have a Nurse, NETTIE, DRAG SEINER or Physician call , reference tracking # [id number] and speak with a Physician Reviewer to procure the required authorization. After reviewing your clinical notes, a Peer to Peer Review is required prior to approval of the requested study. Please call to obtain authorization. Alternatively, if the Peer to Peer will not be completed, please have a Clinician contact this patient to provide an alternative treatment plan. LINDSAY Uribe 04/09/2023, 4:20 PM documented in this encounter Plan of Treatment Health Maintenance [...] filedocumented as of this encounter Care Teams Tobacco Classer Relationship Specialty Start Date End Date Jennifer Rodrigez MD [address] [place] [address] PCP - General Internal Medicine 04/05/23 documented as of this encounter
--- OUTSIDE RECORDS SUMMARY | 2023-08-25 13:32 | External Medical Summary | Summary of Care ---
Author Name Unknown Organization [facility] Address [address] [place] [address] Phone [phone] Care Team Providers Care Publicity Person Name Role Phone Jennifer Rodrigez MD Primary Care Provider [phone] Reason for Referral * (Within 10 days (routine)) - Pending Review Specialty Diagnoses / Procedures Referred By Contac t Referred To Contact Radiology Diagnoses Endometrial thickening on ultrasound Procedures US PELVIS TRANS-VAGINAL NON-OB Jennifer Rodrigez MD [address] [place] [address] Referral ID Status Reason Start Date Expiration Date V isits Requested Visits Authorized [id number] Pending Review 05/01/2023 999 999 * (Within 10 days (routine)) - Pending Review Specialty Diagnoses / Procedures Referred By Contac t Referred To Contact Radiology Diagnoses Endometrial thickening on ultrasound Procedures US PELVIS TRANS-ABDOMINAL Jennifer Rodrigez MD [address] [place] [address] Referral ID Status Reason Start Date Expiration Date V isits Requested Visits Authorized [id number] Pending Review 05/01/2023 999 999 Reason for Visit * Reason Comments Return To Work Encounter Details Date Type Department Care Team (Late st Contact Info) Description 05/01/2023 4:00 PM EST Telemedicine General Internal Medicine [address] [place], [place] [address] Jennifer Rodrigez MD [address] [place], [place] [address] Tethering of spinal cord (HCC)*; Meningocele spinal (HCC); Endometrial thickening on ultrasound; Chronic bilateral low back pain with right-sided sciatica; Bilateral leg numbness Allergies Active Allergy Reactions Criticality Noted Date Comments Cefaclor Edema Other 02/13/2023 Iodinated Contrast Media Nausea/vomiting Medium 2022 documented as of this encounter (statuses as of 05/01/2023) Medications Medication Sig Dispensed Refills Start Date [...] 0 04/16/2023 Active Vitamin D3 1.25 MG (92389 UT) Oral CapsuleIndications :Vitamin D deficiency Take 1 Capsule by mouth once a week. St 04/19/2023, after 3 mths OTC Vit D 1000 units daily 12 Capsule 0 04/19/2023 07/18/2023 Active documented as of this encounter (statuses as of 05/01/2023) Active Problems Problem Noted Date Diagnosed Date Neurological symptoms 04/29/2023 History of tethered spinal cord 04/29/2023 Functional gait disorder 04/29/2023 Vitamin D deficiency 04/19/2023 IFG (impaired fasting glucose) 04/19/2023 Mixed dyslipidemia 04/19/2023 Body mass index (BMI) of 45.0 to 49.9 in adult 0 03/18/2023 Overview: Per Obesity protocol PCOS (polycystic ovarian syndrome) 02/13/2023 documented as of this encounter (statuses as of 05/01/2023) Immunizations Name Administration Dates Next Due DTWP [...] on file documented as of this encounter Progress Notes * Jennifer Rodrigez MD - 05/01/2023 4:23 PM EST SUBJECTIVE: Jacklyn Aldana is a 33 year old female. Chief Complaint Patient presents with Return To Work Nursing Notes: Liz Kelly, MASON 05/01/23 1610 Signed Patient presents today for issues with her leg and needing to get a note for her job. I was in a hospital or clinic location. After connecting through televideo, patient was verified with two unique identifiers. Patient (or authorized legal territory service representative) was then informed that this was a Telemedicine visit and being conducted confidentially over secure lines. Methods to assure confidentiality were taken. Patient acknowledged consent and understanding of privacy and security of the Telemedicine visit. The patient agreed to participate. HPI: This clinic encounter was completed utilizing remote or virtual means secondary to the COVID-19 outbreak. Patient with a history of chronic low back pain with right-sided sciatica, numbness of the right leg now having numbness of both legs, difficulty with ambulation, diagnosed with a tethered spinal cord, meningocele. 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 -was referred to spine clinic has appointment in July, was also referred for physical therapy and given Flexeril to use as needed for muscle spasm TM visit 03/19/23 after ER 03/18/23-h symptoms of right leg numbness and tingling after bending down tohelp her kid put on shoes. Was noted to have decreased sensation and strength of the right leg, numbness in her buttocks, no history of bowel dysfunction, intermittent bladder incontinence , no difficulty with urination, postvoid residual was normal. X-ray of the lumbar spine was normal, was given steroid injection and discharged on Medrol Dosepak. Appointment with pain clinic moves moved to 03/20/23.--saw Dr. Jones, is scheduled for L5-S1 interlaminar RAVINDER on 04/18/2023. Dr. Zapata evaluation 03/28/2023, refer to Neurosurgery. Neurosurgery TM evaluation 04/03/2023-recommended MRI brain, cervical thoracic spine--wild 04/17/23 Has urodynamic testing with Urology appointment 04/09/2023- Plan: Discussed neuro's concern for NGB given her recent worsening neurologic issues in the setting of a tethered cord and lifelong history of urgency/frequency. Her frequency is bothersome at this time, will start a trial of Mirabegron to see if this gives her any improvement although at this point a large part of this voiding is likely behavioral. Recent CT with a normal appearing bladder and no hydro bilaterally. Will schedule for CMG as requested by neuro, plan for 6 month follow up to review along with symptom check. Pt in agreement. Was seen in by Neurosurgery April 29 and sent to ED for evaluation, they repeated studies Specific workup as above in ED course- labs were unremarkable. Neurology was consulted as directed by neurosurgery team- recommended no further inpatient workup at this time but recommended rule out DVT. Bilateral duplex was obtained and was unremarkable- no evidence of DVT. Discussed w/ neurosurgery who recommended further workup as an outpatient. Urology appointment scheduled for this Saturday. Neurosurg to arrange further follow up with their team. MR I Ts and LS 1. Limited evaluation of the thoracic spine [...] 2.2 cm. Pelvic ultrasound may be helpful. LMP-04/17/2023, has appointment with nurse office in June, she prefers to have an ultrasound done at [place] and would like the orders placed sent to her. Advised that sometimes a machine adjuster leader case trim like to see the ultrasound films she would still like to have it done in [place]. Continues to have low back pain, numbness of both legs They need a work note that she is unable to return to work, they want an end date but I can not provide an end date given her recurrent symptoms until she is seen by the all the subspecialty. Had some swelling of the lower extremity felt to be dependent, has appointment with vascular tomorrow and also for urodynamic testing on May 03 Aunt says they are also looking into going to [facility] in [place] for 3 hr comprehensive evaluation . Immunization History Administered Date(s) Administered COVID-19 mRNA, LNP-s, No Preserve, 2-Dose Series (Lab4[facility]) 04/12/2020, 12/15/2020 DTWP HIB - Dipth/Tet/Whole Cell [...] 12/10/2022 Varicella Vaccine (Chicken Pox) 11/20/1996, 12/02/2009 Patient Active Problem List Diagnosis Code PCOS (polycystic ovarian syndrome) E28.2 Body mass index (BMI) of 45.0 to 49.9 in adult ([facility]) Z68.42 Vitamin D deficiency E55.9 IFG (impaired fasting glucose) R73.01 Mixed dyslipidemia E78.2 Neurological symptoms R29.90 History of tethered spinal cord Z86.69 Functional gait disorder R26.9 Current Outpatient Medications Medication Sig Dispense Refill Tylenol 325 MG Oral Capsule (Acetaminophen) 2 caps 3-4times/d, max 3gm/d Ibuprofen 200 MG Oral Tablet (Motrin IB) Take 2 Tablets by mouth every 8 hours as needed for Pain, Moderate. Fexofenadine HCl 60 MG Oral Tablet (Mary Allergy) Take 1 Tablet by mouth in the morning. Mirabegron ER 50 MG Oral Tablet Extended Release 24 Hour (Myrbetriq) Take 1 Tablet by mouth in the morning. 30 Tablet 6 Lidocaine 4 % External Patch (Aspercreme) Place 1 Patch over 12 hours topically on the skin daily. 30 Patch 0 Cyclobenzaprine HCl 5 MG Oral Tablet (Flexeril) Take 1 Tablet by mouth 3 times a day as needed for Muscle spasms. 30 Tablet 0 Vitamin D3 1.25 MG (28863 UT) Oral Capsule Take 1 Capsule by mouth once a week. St 04/19/2023, after 3 mths OTC Vit D 1000 units daily 12 Capsule 0 predniSONE 50 MG Oral Tablet (Deltasone) Take one tablet 13 hours prior, one tablet 7 hours prior, and one tablet 1 hour prior to procedure (Patient not taking: Reported on 05/01/2023) 3 Tablet 0 diphenhydrAMINE HCl 25 MG Oral Tablet (Benadryl Allergy) Take two tablets 1 hour prior to procedure(Patient not taking: Reported on 05/01/2023) 2 Tablet 0 No current facility-administered medications for this visit. Review of patient's allergies indicates: Allergen Reactions Iodinated Contrast Media Nausea/vomiting Ceclor [Cefaclor] Edema Other OBJECTIVE: No vitals were obtained for this appointment PHYSICAL EXAM: General: alert, healthy, no distress Head-normocephalic, no erythema or tenderness on patient exam Neuro-alert with fluent speech ASSESSMENT/PLAN: Tethering of spinal cord (HCC) (Primary) - RETURN TO WORK OR SCHOOL Meningocele spinal (HCC) - RETURN TO WORK OR SCHOOL Endometrial thickening on ultrasound - US PELVIS TRANS-ABDOMINAL - US PELVIS TRANS-VAGINAL NON-OB - RETURN TO WORK OR SCHOOL Chronic bilateral low back pain with right-sided sciatica - RETURN TO WORK OR SCHOOL Bilateral leg numbness - RETURN TO WORK OR SCHOOL Have A1c done soon Follow-up: Return if symptoms worsen or fail to improve. | Check-out note: Mail copy of US and email RTW note (This note was completed using the dictation [...] with plan of care. Jennifer Rodrigez MD 05/01/2023 documented in this encounter Nursing Notes * Liz Kelly LPN - 05/01/2023 4:09 PM EST Patient presents today for issues with her leg and needing to get a note for her job. documented in this encounter Plan of Treatment Upcoming Encounters Date Type Department Care Team (Late st Contact Info) Description 05/08/2023 5:00 PM EST Office Visit General Internal Medicine [facility] [address] [facility] [place] [address] Jennifer Rodrigez MD [address] [place] [address] 05/21/2023 1:30 PM EDT Office Visit Interventional Pain Center, [address] [address] Bradly Jones MD [address] [place] [address] 07/04/2023 5:00 PM EDT Office Visit Gynecology/Obstetrics [address] [address] Irina Silva MD [address] [place] [id number] 10/11/2023 3:00 PM EDT Office Visit Urology, [place] [address] [place], [place] [phone] Horace Pearl PA-C [address] [place], [place] [phone] Scheduled Orders Name Type Priority Associated Diagnoses Orde r Schedule US PELVIS TRANS-ABDOMINAL Medical Imaging Routine Endometrial thickening on ultrasound Ordered: 05/01/2023 US PELVIS TRANS-VAGINAL NON-OB Medical Imaging Routine Endometrial thickening on ultrasound Ordered: 05/01/2023 Health Maintenance Due Date Last Done Comments [...] as of this encounter Visit Diagnoses Diagnosis Tethering of spinal cord (HCC)- Primary 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
--- OUTSIDE RECORDS SUMMARY | 2023-08-25 13:32 | External Medical Summary | Summary of Care ---
Author Name Unknown Organization [facility] Address [address] [place] [address] Phone [phone] Care Team Providers Care Precision Layout Worker Name Role Phone Jennifer Rodrigez MD Primary Care Provider [phone] Encounter Details Date Type Department Care Team (Late st Contact Info) Description 04/15/2023 Telephone Neurosurgery, [place] [address] [place], [place] [id number] Services, [facility] [address] [place] [address] Allergies Active Allergy Reactions Criticality Noted Date Comments Cefaclor Edema Other 02/13/2023 Iodinated Contrast Media Nausea/vomiting Medium 2022 documented as of this encounter (statuses as of 07/12/2023) Medications Medication Sig Dispensed Refills Start Date [...] as of this encounter (statuses as of 07/12/2023) Active Problems Problem Noted Date Diagnosed Date Neurological symptoms 04/29/2023 History of tethered spinal cord 04/29/2023 Functional gait disorder 04/29/2023 Vitamin D deficiency 04/19/2023 IFG (impaired fasting glucose) 04/19/2023 Mixed dyslipidemia 04/19/2023 Body mass index (BMI) of 45.0 to 49.9 in adult 0 03/18/2023 Overview: Per Obesity protocol PCOS (polycystic ovarian syndrome) 02/13/2023 documented as of this encounter (statuses as of 07/12/2023) Immunizations Name Administration Dates Next Due DTWP [...] encounter Miscellaneous Notes * Telephone Encounter - Lubna Reeves OSA - 04/15/2023 12:14 PM EST Pts insurance [employer] needs a letter faxed to specify medically necessary the 3 tests scheduledin May. Can please call PT for any questions in regards Fax is [phone] documented in this encounter Plan of Treatment Upcoming Encounters Date Type Department Care Team (Late st Contact Info) Description 07/17/2023 4:00 PM EDT Office Visit General Internal Medicine [facility] 200 [facility] [place] [address] Jennifer Rodrigez MD [address] [place] [address] Health Maintenance Due Date Last Done Comments Hepatitis B (4 of 4 - 4-dose series) 1992 1992, 1992, 1992 Pap Smear 02/04/2013 Cervical Cancer Screening 02/04/2022 HPV/Co-Test 02/04/2022 COVID-19 Vaccine ( - season) 2022 12/15/2020, 04/12/2020, 03/25/2020 Depression [...] filedocumented as of this encounter Care Teams Precision Layout Worker Relationship Specialty Start Date End Date Jennifer Rodrigez MD 200 [place] [address] PCP - General Internal Medicine 04/05/23 documented as of this encounter
--- OUTSIDE RECORDS SUMMARY | 2023-08-25 13:32 | External Medical Summary ---
Author Name Unknown Address Unknown Organization K09[facility] [place] [address] Laboratory Report Ordering Provider Test Date Status SHANNAN CURRAN 07/09/2023 05:35:00 Final Observation Date Value Abnormality Reference (Units ) Status WBC, Total 07/09/2023 05:35:00 13.43 Above high normal 4 .00-10.80 (K/uL) Final RBC 07/09/2023 05:35:00 4.42 3.85-5.15 (M/uL) Final Hemoglobin 07/09/2023 05:35:00 12.0 12.0-15.3 (g/dL) Final HCT 07/09/2023 05:35:00 39.6 36.0-45.2 (%) Final MCV 07/09/2023 05:35:00 89.6 81.5-97.5 (fL) Final MCH 07/09/2023 05:35:00 27.1 27.0-34.0 (pg) Final MCHC 07/09/2023 05:35:00 30.3 32.0-36.0 (g/dL) Final RDW 07/09/2023 05:35:00 14.5 11.5-15.5 (%) Final Platelets 07/09/2023 05:35:00 404 Above high normal 14 0-400 (K/uL) Final MPV 07/09/2023 05:35:00 9.8 6.6-11.1 ( fL) Final Performing Location [facility] [place] [address]
--- OUTSIDE RECORDS SUMMARY | 2023-08-25 13:32 | External Medical Summary | Summary of Care ---
Author Name Unknown Organization [facility] Address [address] [place] [address] Phone [phone] Care Team Providers Care Air Purifier Servicer Name Role Phone Jennifer Rodrigez MD Primary Care Provider [phone] Reason for Visit * Reason Onset Date Comments Urinary Tract Infection Symptoms 05/01/2023 Encounter Details Date Type Department Care Team (Late st Contact Info) Description 05/01/2023 Telephone [facility]) Emergency Department ([facility]) [address] [place], [place] [phone] Terrance Toussaint, DO [address] [place], [place] [phone] Urinary Tract Infection Symptoms Allergies Active Allergy Reactions Criticality Noted Date [...] 0 04/16/2023 Active Vitamin D3 1.25 MG (13373 UT) Oral CapsuleIndications: Vitamin D deficiency Take [...] encounter Miscellaneous Notes * Telephone Encounter - Kenny Wakefield RPh - 05/01/2023 1:54 PM EST Patient has no symptoms, most likely a contaminant. Thanks, Kenny Wakefield, PharmD Clinical Pharmacist [facility] ([facility] (formerly Telepharm[facility]) [phone] 05/01/2023, 1:54 PM documented in this encounter Plan of Treatment Upcoming Encounters Date Type Department Care Team (Late st Contact Info) Description 05/01/2023 4:00 PM EST Telemedicine General Internal Medicine [address] [place] [address] Jennifer Rodrigez MD [address] [place] [address] 05/02/2023 10:10 AM EST Office Visit Vascular Surgery, [address] [address] London Crews MD [address] [place], [place] [phone] 05/03/2023 9:00 AM EST Office Visit Urology, [address] [phone] 05/08/2023 5:00 PM EST Office Visit General Internal Medicine [facility] [address] [place] [address] Jennifer Rodrigez MD [address] [place] [address] 05/21/2023 1:30 PM EDT Office Visit Interventional Pain Center, [address] [address] Bradly Jones MD [address] [place] [address] 07/04/2023 5:00 PM EDT Office Visit Gynecology/Obstetrics [address] [address] rIina Silva MD [address] [place] [address] 10/11/2023 3:00 PM EDT Office Visit Urology, [place] [address] [place], [place] [phone] Horace Pearl PA-C [address] [place] [address] Health Maintenance Due Date Last [...] as of this encounter Visit Diagnoses Diagnosis Suspected UTI- Primary documented in this encounter Care Teams Air Purifier Servicer Relationship Specialty Start Date End Date Jennifer Rodrigez MD [address] [place] [address] PCP - General Internal Medicine 04/05/23 documented as of this encounter
--- OUTSIDE RECORDS SUMMARY | 2023-08-25 13:32 | External Medical Summary | Summary of Care ---
Author Name Unknown Organization [facility] Address [address] [place] [address] Phone [phone] Care Team Providers Care Inset Cutter Name Role Phone Jennifer Rodrigez MD Primary Care Provider [phone] Reason for Visit * Reason Onset Date Comments Letter Requests 04/30/2023 Encounter Details Date Type Department Care Team (Late st Contact Info) Description 04/30/2023 Telephone General Internal Medicine [facility] [address] [facility] [place] [address] Jennifer Rodrigez MD [address] [place] [address] Letter Requests Allergies Active Allergy Reactions Criticality Noted Date [...] 0 04/16/2023 Active Vitamin D3 1.25 MG (61254 UT) Oral CapsuleIndications: Vitamin D deficiency Take [...] encounter Miscellaneous Notes * Telephone Encounter - Li Isabel LPN - 04/30/2023 4:14 PM EST Rescheduled to see Dr. Rodrigez 05/01 * Telephone Encounter - Jennifer Rodrigez MD - 04/30/2023 4:05 PM EST Has appt in office today for er f/u. * Telephone Encounter - Afshan Benedict OSA - 04/30/2023 1:23 PM EST Type of letter requested: excused from work due to health conditions Does the letter need to provide any specific information: pain in back and right leg, numbness and swelling , unable to perform work duties and every day tasks, difficulty walking. Excused from work from 05-01-23 until cleared by pcp. Would you like letter faxed or picked up?: submit in pt portal Fax number: - Number to be called when ready to be picked up: - Date needed: DERICK documented in this encounter Plan of Treatment Upcoming Encounters Date Type Department Care Team (Late st Contact Info) Description 05/01/2023 4:00 PM EST Telemedicine General Internal Medicine [facility] [address] [facility] [place] [address] Jennifer Rodrigez MD [address] [place] [address] 05/02/2023 10:10 AM EST Office Visit Vascular Surgery, [address] [address] London Crews MD [address] [place], [place] [phone] 05/03/2023 9:00 AM EST Office Visit Urology, [place] [address] [place] [address] 05/08/2023 5:00 PM EST Office Visit General Internal Medicine [facility] [address] [facility] [place] [address] Jennifer Rodrigez MD [address] [place] [address], [place] [address] 05/16/2023 12:30 PM EST Office Visit Vascular Surgery, [address] [address] London Crews MD [address] [place] [address] 05/21/2023 1:30 PM EDT Office Visit Interventional Pain Center, [address] [address] Bradly Jones MD [address] [place] [address] 07/04/2023 5:00 PM EDT Office Visit Gynecology/Obstetrics [address] [phone] Irina Silva MD [address] [place] [id number] 10/11/2023 3:00 PM EDT Office Visit Urology, [place] [address] [place], [place] [phone] Horace Pearl PA-C [address] [place], [place] [phone] Health Maintenance Due Date Last Done Comments [...] filedocumented as of this encounter Care Teams Inset Cutter Relationship Specialty Start Date End Date Jennifer Rodrigez MD 200 [place] [address] PCP - General Internal Medicine 04/05/23 documented as of this encounter
--- OUTSIDE RECORDS SUMMARY | 2023-08-25 13:32 | External Medical Summary | Summary of Care ---
Author Name Unknown Organization [facility] Address [address] [place] [address] Phone [phone] Care Team Providers Care Tufting Machine Fixer Name Role Phone Jennifer Rodrigez MD Primary Care Provider [phone] Reason for Visit * Reason Onset Date Comments Order Request 04/10/2023 Encounter Details Date Type Department Care Team (Late st Contact Info) Description 04/10/2023 Telephone General Internal Medicine [facility] [address] [place] [address] Jennifer Rodrigez MD [address] [place] [address] Order Request Allergies Active Allergy Reactions Criticality Noted Date Comments Cefaclor Edema Other 02/13/2023 Iodinated Contrast Media Nausea/vomiting Medium 2022 documented as of this encounter (statuses as of 07/10/2023) Medications Medication Sig Dispensed Refills Start Date [...] as of this encounter (statuses as of 07/10/2023) Active Problems Problem Noted Date Diagnosed Date Neurological symptoms 04/29/2023 History of tethered spinal cord 04/29/2023 Functional gait disorder 04/29/2023 Vitamin D deficiency 04/19/2023 IFG (impaired fasting glucose) 04/19/2023 Mixed dyslipidemia 04/19/2023 Body mass index (BMI) of 45.0 to 49.9 in adult 0 03/18/2023 Overview: Per Obesity protocol PCOS (polycystic ovarian syndrome) 02/13/2023 documented as of this encounter (statuses as of 07/10/2023) Immunizations Name Administration Dates Next Due DTWP HIB - Dipth/Tet/Whole C ell Pert/HIB 05/31/1997,08/24/1993,1992,06/01,1992 Hepatitis A Vaccine 03/29/2010 Hepatitis B, 0-19 yrs 1992,1992,1110/1991 MMR - Measles/Mumps/Rubella Vaccine 05/31/1997,0 05/16/1993 Meningococcal [...] encounter Miscellaneous Notes * Telephone Encounter - Renata Perdomo LPN - 04/11/2023 12:00 PM EST Patient calling. Informed order signed. Faxed to [facility] in [place] with confirmed receipt. * Telephone Encounter - Jennifer Rodrigez MD - 04/10/2023 1:38 PM EST She had said they have one at home. New dme signed.-pl fax * Telephone Encounter - Sara Dickson LPN - 04/10/2023 11:46 AM EST Patient calling back. She stated that her right leg has been going numb, she has fallen [address] Rodrigez told her that she should go from using a cane to a walker. Rollator Walker Pended for approval. Please fax to [facility] In [place] * Telephone Encounter - Tyler Bryant LPN - 04/10/2023 11:01 AM EST Order pended, LM for pt to call back to obtain more information * Telephone Encounter - Pepe Armenta OSA - 04/10/2023 7:31 AM EST An order was requested for this patient. Name of Requesting Provider: patient Order Requested: a rolling walker with wheels Diagnosis/Reason for Request: pt's R leg gives out If order request is for Mammogram: Is the patient having any breast symptoms? N/A Is there a chance of ? N/A Has the patient had any breast problems in the past? NA What location AND department does the patient wish to have their order completed at? [facility] Fax Number, if applicable: Call Back Number: [phone] If the caller is not a current patient, please advise the patient to call their current PCP to havethe order's prior to being seen in our office. The patient was informed that our providers would not order anything (medication, labs, etc.) prior to being seen. documented in this encounter Plan of Treatment [...] Other specified congenital anomaly of spinal cord Transient right leg weakness Numbness in right leg Disturbance of skin sensation Midline low back pain without sciatica, unspecified chronicity Meningocele (HCC) Spina bifida without mention of hydrocephalus, unspecified region Personal history of fall documented in this encounter Care Teams Tufting Machine Fixer Relationship Specialty Start Date End Date Jennifer Rodrigez MD [address] [place] [address] PCP - General Internal Medicine 04/05/23 documented as of this encounter
--- OUTSIDE RECORDS SUMMARY | 2023-08-25 13:32 | External Medical Summary | Summary of Care ---
Author Name Unknown Organization [facility] Address [address] [place] [address] Phone [phone] Care Team Providers Care Manager Machine Name Role Phone Jennifer Rodrigez MD Primary Care Provider [phone] Encounter Details Date Type Department Care Team (Late st Contact Info) Description 05/16/2023 Orders Only General Internal Medicine [facility] [address] [place] [address] Jennifer Rodrigez MD [address] [place] [address] Allergies Active Allergy Reactions Criticality Noted Date Comments Cefaclor Edema Other 02/13/2023 Iodinated Contrast Media Nausea/vomiting Medium 2022 documented as of this encounter (statuses as of 05/16/2023) Medications Medication Sig Dispensed Refills Start Date [...] 0 04/16/2023 Active Vitamin D3 1.25 MG (22857 UT) Oral CapsuleIndications :Vitamin D deficiency Take 1 Capsule by mouth once a week. St 04/19/2023, after 3 mths OTC Vit D 1000 units daily 12 Capsule 0 04/19/2023 07/18/2023 Active documented as of this encounter (statuses as of 05/16/2023) Active Problems Problem Noted Date Diagnosed Date Neurological symptoms 04/29/2023 History of tethered spinal cord 04/29/2023 Functional gait disorder 04/29/2023 Vitamin D deficiency 04/19/2023 IFG (impaired fasting glucose) 04/19/2023 Mixed dyslipidemia 04/19/2023 Body mass index (BMI) of 45.0 to 49.9 in adult 0 03/18/2023 Overview: Per Obesity protocol PCOS (polycystic ovarian syndrome) 02/13/2023 documented as of this encounter (statuses as of 05/16/2023) Immunizations Name Administration Dates Next Due DTWP [...] Care Team (Late st Contact Info) Description 07/04/2023 5:00 PM EDT Office Visit Gynecology/Obstetrics, [place] [address] [address] Irina Silva MD [address] [address] Health Maintenance Due Date Last Done Comments Hepatitis B (4 of 4 - 4-dose series) 1992 1992, 1992, 1992 Pap Smear 02/04/2013 Cervical Cancer Screening 02/04/2022 HPV/Co-Test 02/04/2022 COVID-19 Vaccine (3 season) 2022 12/15/2020, 04/12/2020 Depression Screening 03/05/2024 [...] Priority Date/Time Associated Diagnosis Comments CHEMISTRY-OUTSIDE Routine 04/24/2023 documented in this encounter Results * CHEMISTRY-OUTSIDE (04/24/2023) Not all results display below - see scan for full detail OUTSIDE LAB (SEE SCANNED REPORT) Comment:SCAN INCLUDES - HCG URINE, UA, CBCD, SED RATE, CMP, CRP CREATININE-OUTSI DE LAB 0.90 0.40 - 1.50 MG/DL OUTSIDE LAB (SEE SCANNED REPORT) EGFR-OUTSIDE LAB 88 >=60 ML/MIN O UTSIDE LAB (SEE SCANNED REPORT) POTASSIUM-OUTSID E LAB 3.7 3.6 - 5.0 MMOL/L OUTSIDE LAB (SEE SCANNED REPORT) GLUCOSE-OUTSIDE LAB 107 65 - 110 MG/DL OUTSIDE LAB (SEE SCANNED REPORT) HOURS FASTING OUTSID E LAB (SEE SCANNED REPORT) TRIGLYCERIDES-OU TSIDE LAB OUTSIDE LAB (SEE SCANNED REPORT) CHOLESTEROL-OUTS [place] [facility] OUTSIDE LAB (SEE SCANNED REPORT) HDL-OUTSIDE LAB OUTS [place] [facility] (SEE SCANNED REPORT) CHOL/HDL RATIO-OUTSIDE LAB OUTSIDE LAB (SEE SCANNED REPORT) LDL (CALCULATED)-OUT SIDE LAB OUTSIDE LAB (SEE SCANNED REPORT) LDL (DIRECT MEASURE)-OUTSIDE LAB OUTSIDE LAB (SEE SCANNED REPORT) HEMOGLOBIN, T3X-POMBIQH LAB OUTSIDE LAB (SEE SCANNED REPORT) PHOSPHORUS-OUTSI DE LAB OUTSIDE LAB (SEE SCANNED REPORT) PTH-OUTSIDE LAB OUTS [place] [facility] (SEE SCANNED REPORT) MICROALBUMIN RATIO-OUTSIDE LAB OUTSIDE LAB (SEE SCANNED REPORT) PROTEIN, UA-OUTSIDE LAB NEGATIVE NEGATIVE OUTSIDE LAB (SEE SCANNED REPORT) HEMOGLOBIN-OUTSI DE LAB 13.9 12.0 - 16.0 GM/DL OUTSIDE LAB (SEE SCANNED REPORT) 04/24/2023 Venu Guzman PA-C LABORATORY OUTSIDE LAB (SEE SCANNED REPORT) documented in this encounter Care Teams Manager Machine Relationship Specialty Start Date End Date Jennifer Rodrigez MD [address] [place] [address] PCP - General Internal Medicine 04/05/23 documented as of this encounter
--- OUTSIDE RECORDS SUMMARY | 2023-08-25 13:32 | External Medical Summary | Summary of Care ---
Author Name Unknown Organization [facility] Address [address] [place] [address] Phone [phone] Care Team Providers Care Production Lead Name Role Phone Jennifer Rodrigez MD Primary Care Provider [phone] Reason for Visit * Reason Onset Date Comments Appointment 04/30/2023 Encounter Details Date Type Department Care Team (Late st Contact Info) Description 04/30/2023 Telephone Vascular Surgery, [facility] [address] [facility] [place] [address] Horace Acosat PA-C [address] [place] [address] Appointment Allergies Active Allergy Reactions [...] 0 04/16/2023 Active Vitamin D3 1.25 MG (21401 UT) Oral CapsuleIndications: Vitamin D deficiency Take [...] encounter Miscellaneous Notes * Telephone Encounter - Horace Acosta PA-C [...] her, ask if she wants 05/15 @ [place] or 05/21 @ [facility] Thank you documented in this encounter Plan of Treatment Upcoming Encounters Date Type Department Care Team (Late st Contact Info) Description 05/02/2023 10:10 AM EST Office Visit Vascular Surgery, [address] [address] London Crews MD [address] [place] [address] 05/03/2023 9:00 AM EST Office Visit Urology, [place] [address] [place] [address] 05/08/2023 5:00 PM EST Office Visit General Internal Medicine [facility] [address] [place] [address] Jennifer Rodrigez MD [address] [place] [address] 05/16/2023 12:30 PM EST Office Visit Vascular Surgery, [address] [address] London Crews MD [address] [place] [address] 05/21/2023 1:30 PM EDT Office Visit Interventional Pain Center, [address] [address] Bradly Jones MD [address] [place] [address] 07/04/2023 5:00 PM EDT Office Visit Gynecology/Obstetrics [address] [address] Irina Silva MD [address] [place] [address] 10/11/2023 3:00 PM EDT Office Visit Urology, [place] [address] [place] [address] Horace Pearl PA-C [address] [place] [address] Health Maintenance Due Date Last Done Comments [...] filedocumented as of this encounter Care Teams Production Lead Relationship Specialty Start Date End Date Jennifer Rodrigez MD [address] [place] [address] PCP - General Internal Medicine 04/05/23 documented as of this encounter
--- OUTSIDE RECORDS SUMMARY | 2023-08-25 13:32 | External Medical Summary | Summary of Care ---
Author Name Unknown Organization [facility] Address [address] [place] [address] Phone [phone] Care Team Providers Care Equipment Tester Name Role Phone Jennifer Rodrigez MD Primary Care Provider [phone] Reason for Visit * Reason Onset Date Comments Advice 02/14/2023 Encounter Details Date Type Department Care Team (Late st Contact Info) Description 02/14/2023 Telephone General Internal Medicine [facility] 200 [facility] [place] [address] Sri Wiseman MD [address] [place] [address] Advice Allergies Active Allergy Reactions Criticality Noted Date Comments Cefaclor Edema Other 02/13/2023 Iodinated Contrast Media Nausea/vomiting Medium 2022 documented as of this encounter (statuses as of 05/16/2023) Medications Medication Sig Dispensed Refills Start Date End Date Status levoFLOXacin 750 MG Oral Tablet (Levaquin) Take 1 Tablet by mouth in the morning. 0 02/11/2023 02/22/2023 Discontinued documented as of this encounter (statuses as [...] OPV - Polio Virus Vaccine (Oral) 997,08/24/1993,1992,04/06 TDAP (age 11 and older)(Adacel) 12/10/2022,12/02 Varicella [...] Telephone Encounter - Tyler Bryant LPN - 02/15/2023 3:57 PM EST Pt agreeable to go to ED/urgent care. * Telephone Encounter - Jennifer Rodrigez MD - 02/15/2023 3:51 PM EST She needs pelvic exam--have her go to urgent care or ER * Telephone Encounter - Prosper Felix CMA - 02/15/2023 1:23 PM EST Patient aware and verbalized understanding, patient states she feels like something is getting stuck when she is trying to urinate and is in a lot of pain still, denied pain around ribs or in that region * Telephone Encounter - Jennifer Rodrigez MD - 02/15/2023 12:18 PM EST Labs-normal CBC, CMP, UA NO blood, urine culture negative, hep C antibody and HIV antibody negative. X-ray KUB suggestion of a nondisplaced fracture of the right 12th rib. There is no definite renal calculus. -office noticed pending but was seen for follow-up from urgent care for burning [facility] -check if any history of falls and where is location of pain; If yes--she will need right rib series with chest x-ray, please pend order if so * Telephone Encounter - Sara Dickson LPN - 02/14/2023 4:42 PM EST Patient calling in asking if her results are in. Advised that her culture is still in process but the rest of her labs are finalized but Sri Wiseman MD has not reviewed them yet. Patient stated that she thinks that she has a kidney stone that has not passed as she is in a lot of pain. Please review resulted labs. documented in this encounter Plan of Treatment Upcoming Encounters Date Type Department Care Team (Late st Contact Info) Description 07/04/2023 5:00 PM EDT Office Visit Gynecology/Obstetrics, [place] [address] [address] Irina Silva MD [address] [place] [address] [place] [id number] Health Maintenance Due Date Last Done Comments [...] filedocumented as of this encounter Care Teams Equipment Tester Relationship Specialty Start Date End Date Jennifer Rodrigez MD [address] [place] [address] PCP - General Internal Medicine 04/05/23 documented as of this encounter
--- OUTSIDE RECORDS SUMMARY | 2023-08-25 13:32 | External Medical Summary | Summary of Care ---
Author Name Unknown Organization [facility] Address [address] [place] [address] Phone [phone] Care Team Providers Care Media Assistant Name Role Phone Jennifer Rodrigez MD Primary Care Provider [phone] Reason for Visit * Reason Onset Date Comments Appointment 04/30/2023 Encounter Details Date Type Department Care Team (Late st Contact Info) Description 04/30/2023 Telephone Vascular Surgery, [facility] [address] [facility] [place] [address] Horace Acosta PA-C [address] [place] [address] Appointment Allergies Active Allergy Reactions [...] 0 04/16/2023 Active Vitamin D3 1.25 MG (11281 UT) Oral CapsuleIndications: Vitamin D deficiency Take [...] schedulers just scheduled her for 05/[address] [facility] with Dr. Crews and Jose L Benedict appts cancelled. * Telephone Encounter - Horace Acosta PA-C [...] her, ask if she wants 05/15 @ [facility] or 05/21 @ [facility] Thank you documented in this encounter Plan of Treatment Upcoming Encounters Date Type Department Care Team (Late st Contact Info) Description 05/02/2023 10:10 AM EST Office Visit Vascular Surgery, [address] [place] [address] London Crews MD [address] [place] [address] 05/03/2023 9:00 AM EST Office Visit Urology, [place] [address] [place] [address] 05/08/2023 5:00 PM EST Office Visit General Internal Medicine [facility] [address] [facility] [place] [address] Jennifer Rodrigez MD 200 [place] [address] 05/16/2023 12:30 PM EST Office Visit Vascular Surgery, [address] [place] [address] London Crews MD [address] [place] [address] 05/21/2023 1:30 PM EDT Office Visit Interventional Pain Center, [address] [place] [address] Bradly Jones MD [address] [place] [address] 07/04/2023 5:00 PM EDT Office Visit Gynecology/Obstetrics [facility] 400 [facility] [place] [phone] Irina Silva MD [address] [place], [place] [phone] 10/11/2023 3:00 PM EDT Office Visit Urology, [place] [address] [place] [address] Horace Pearl PA-C [address] [place] [address] Health Maintenance Due Date Last Done Comments [...] filedocumented as of this encounter Care Teams Media Assistant Relationship Specialty Start Date End Date Jennifer Rodrigez MD 200 [place] [address] PCP - General Internal Medicine 04/05/23 documented as of this encounter
--- OUTSIDE RECORDS SUMMARY | 2023-08-25 13:32 | External Medical Summary | Summary of Care ---
Author Name Unknown Organization [facility] Address [address] [place] [address] Phone [phone] Care Team Providers Care Narcotics Agent Name Role Phone Jennifer Rodrigez MD Primary Care Provider [phone] Reason for Visit * Reason Onset Date Comments Films 05/01/2023 Encounter Details Date Type Department Care Team (Late st Contact Info) Description 05/01/2023 Telephone Radiology Film File [address] [place], [place] [address] Jennifer Rodrigez MD [address] [place] [address] Films Allergies Active Allergy Reactions Criticality Noted Date [...] 0 04/16/2023 Active Vitamin D3 1.25 MG (10883 UT) Oral CapsuleIndications: Vitamin D deficiency Take [...] encounter Miscellaneous Notes * Telephone Encounter - Sara Croft OSA - 05/01/2023 8:50 AM EST Person identifying herself as a personal traffic workforce representative of patient (VIVIAN ALDANA per caller ID) requesting all [facility] be sent to [facility] in [place]. Person reports patient is with her and can give consent if necessary. [place] Authorization to Release form on file. Images pushed through PACS to [facility] All Sites. documented in this encounter Plan of Treatment Upcoming Encounters Date Type Department Care Team (Late st Contact Info) Description 05/01/2023 4:00 PM EST Telemedicine [facility] 200 [place] [address] Jennifer Rodrigez MD [address] [place] [address] 05/02/2023 10:10 AM EST Office Visit Vascular Surgery, [address] [address] London Crews MD [address] [place], [place] [phone] 05/03/2023 9:00 AM EST Office Visit Urology, [address] [phone] 05/08/2023 5:00 PM EST Office Visit General Internal Medicine [facility] [address] [place] [address] Jennifer Rodrigez MD [address] [place] [address] 05/21/2023 1:30 PM EDT Office Visit Interventional Pain Center, [address] [address] Bradly Jones MD [address] [place] [address] 07/04/2023 5:00 PM EDT Office Visit Gynecology/Obstetrics [address] [address] Irina Silva MD [address] [place] [address] 10/11/2023 3:00 PM EDT Office Visit Urology, [place] [address] [place] [address] Horace Pearl PA-C [address] [place], [place] [phone] Health Maintenance Due Date Last Done Comments [...] filedocumented as of this encounter Care Teams Narcotics Agent Relationship Specialty Start Date End Date Jennifer Rodrigez MD [address] [place] [address], [place] [address] PCP - General Internal Medicine 04/05/23 documented as of this encounter
--- OUTSIDE RECORDS SUMMARY | 2023-08-25 13:32 | External Medical Summary | Summary of Care ---
Author Name Unknown Organization [facility] Address [address] [place] [address] Phone [phone] Care Team Providers Care Product Marketing Engineer Name Role Phone Jennifer Rodrigez MD Primary Care Provider [phone] Reason for Visit * Reason Onset Date Comments Advice 07/15/2023 Home Health 07/15/2023 Encounter Details Date Type Department Care Team (Late st Contact Info) Description 07/15/2023 Telephone General Internal Medicine [facility] [address] [place] [address] Jennifer Rodrigez MD [address] [place] [address] Advice; Home Health Allergies Active Allergy Reactions Criticality Noted Date Comments Cefaclor Edema Other 02/13/2023 Iodinated Contrast Media Nausea/vomiting Medium 2022 documented as of this encounter (statuses as of 07/15/2023) Medications Medication Sig Dispensed Refills Start Date [...] 0 04/16/2023 Active Vitamin D3 1.25 MG (91050 UT) Oral CapsuleIndications :Vitamin D deficiency Take 1 Capsule by mouth once a week. St 04/19/2023, after 3 mths OTC Vit D 1000 units daily 12 Capsule 0 04/19/2023 07/18/2023 Active Mirabegron ER 50 MG Oral Tablet Extended Release 24 Hour (Myrbetriq) Take 1 Tablet by mouth in the morning. 30 Tablet 6 05/23/2023 Active documented as of this encounter (statuses as of 07/15/2023) Active Problems Problem Noted Date Diagnosed Date Neurological symptoms 04/29/2023 History of tethered spinal cord 04/29/2023 Functional gait disorder 04/29/2023 Vitamin D deficiency 04/19/2023 IFG (impaired fasting glucose) 04/19/2023 Mixed dyslipidemia 04/19/2023 Body mass index (BMI) of 45.0 to 49.9 in adult 0 03/18/2023 Overview: Per Obesity protocol PCOS (polycystic ovarian syndrome) 02/13/2023 documented as of this encounter (statuses as of 07/15/2023) Immunizations Name Administration Dates Next Due DTWP [...] Miscellaneous Notes * Telephone Encounter - Sara Dickson LPN - 07/15/2023 2:25 PM EDT HH Admission/Start of Care Admission/Start of Care: Paiton RN, Calling from: [facility] Referral ordered by: Lawson Referral received for: Longterm and PT Planned start of care date:Yes, Date 07/14 Start of care completed on: YES Report/Concerns of:None Symptoms: none Vitals: T 98.4 P 94 RR 18 BP 112/70 SP O2 98% RA Pain--None They will call with any updates or additional concerns from the upcoming HH visit. Last Office Visit: 04/05/2023 Has patient been scheduled or seen in the office for a follow up visit: Yes- on07/17/2023 Advised that orders will be signed by Jennifer Rodrigez MD and to fax to the office for signature. * Telephone Encounter - Cristela Silva OSA - 07/15/2023 2:23 PM EDT Reason for patient's call: [facility] HH Caller was transferred to Sara at the nurse line. documented in this encounter Plan of Treatment Upcoming Encounters Date Type Department Care Team (Late st Contact Info) Description 07/17/2023 4:00 PM EDT Office Visit General Internal Medicine [facility] [place] 200 [place] [address] Jennifer Rodrigez MD 200 [place] [address] Health Maintenance Due Date Last Done Comments Hepatitis B (4 of 4 - 4-dose series) 1992 1992, 1992, 1992 Pap Smear 02/04/2013 Cervical Cancer Screening 02/04/2022 HPV/Co-Test 02/04/2022 COVID-19 Vaccine ( - 2022- season) 2022 12/15/2020, 04/12/2020, 03/25/2020 Depression Screening [...] filedocumented as of this encounter Care Teams Product Marketing Engineer Relationship Specialty Start Date End Date Jennifer Rodrigez MD 200 [place] [address] PCP - General Internal Medicine 04/05/23 documented as of this encounter
--- OUTSIDE RECORDS SUMMARY | 2023-08-25 13:32 | External Medical Summary | Summary of Care ---
Author Name Unknown Organization [facility] Address [address] [place] [address] Phone [phone] Care Team Providers Care Chef Broiler Or Fry Name Role Phone Jennifer Rodrigez MD Primary Care Provider Reason for Visit * Reason Onset Date Comments Medication Refill 05/23/2023 Encounter Details Date Type Department Care Team (Late st Contact Info) Description 05/23/2023 Refill Urology, [place] [address] [place] [address] Horace Boone PA-C [address] [place], [place] [id number] Allergies Active Allergy Reactions Criticality Noted Date Comments Cefaclor Edema Other 02/13/2023 Iodinated Contrast Media Nausea/vomiting Medium 2022 documented as of this encounter (statuses as of 05/23/2023) Medications Medication Sig Dispensed Refills Start Date End Date Status Tylenol 325 MG Oral Capsule (Acetaminophen)In dications:Synovia l cyst of sacral region,Midline low back pain without sciatica, unspecified chronicity 2 caps 3-4times/d, max 3gm/d 0 02/22/2023 Active Ibuprofen 200 MG Oral Tablet (Motrin IB)Indications:Sy novial cyst of sacral region,Midline low back pain [...] Active Cyclobenzaprine HCl 5 MG Oral Tablet (Flexeril)Indicat ions:Meningocele spinal (HCC),Tethering of spinal cord (HCC),Lipoma of other specified sites,History of sciatica,Chronic bilateral low back pain with right-sided sciatica,Spasm of muscle Take 1 Tablet by mouth 3 times a day as needed for Muscle spasms. 30 Tablet 0 04/16/2023 Active Vitamin D3 1.25 MG (90819 UT) Oral CapsuleIndication s:Vitamin D deficiency Take 1 Capsule by mouth once a week. St 04/19/2023, after 3 mths OTC Vit D 1000 units daily 12 Capsule 0 04/19/2023 4 Active Mirabegron ER 50 MG Oral Tablet Extended Release 24 Hour (Myrbetriq) Take 1 Tablet by mouth in the morning. 30 Tablet 6 05/23/2023 Active Mirabegron ER 50 MG Oral Tablet Extended Release 24 Hour (Myrbetriq) Take 1 Tablet by mouth in the morning. 30 Tablet 6 04/09/2023 4 Discontinue d(Refill) documented as of this encounter (statuses as of 05/23/2023) Active Problems Problem Noted Date Diagnosed Date Neurological symptoms 04/29/2023 History of tethered spinal cord 04/29/2023 Functional gait disorder 04/29/2023 Vitamin D deficiency 04/19/2023 IFG (impaired fasting glucose) 04/19/2023 Mixed dyslipidemia 04/19/2023 Body mass index (BMI) of 45.0 to 49.9 in adult 0 03/18/2023 Overview: Per Obesity protocol PCOS (polycystic ovarian syndrome) 02/13/2023 documented as of this encounter (statuses as of 05/23/2023) Immunizations Name Administration Dates Next Due DTWP [...] Miscellaneous Notes * Telephone Encounter - Horace Boone PA-C - 05/23/2023 3:09 PM EDT Signed Prescriptions: Disp Refills Mirabegron ER 50 MG Oral Tablet Extended R*30 Tab*6 Sig: Take 1 Tablet by mouth in the morning. Authorizing Provider: HORACE BOONE * Telephone Encounter - Karuna Silva OSA - 05/23/2023 3:07 PM EDTPending Prescriptions: Disp Refills Mirabegron ER 50 MG Oral Tablet Extended R*30 Tab*6 Sig: Take 1Tablet by mouth in the morning. documented in this encounter Plan of Treatment Upcoming Encounters Date Type Department Care Team (Late st Contact Info) Description 07/04/2023 5:00 PM EDT Office Visit Gynecology/Obstetrics, [place] [address] [id number] Irina Silva MD [address] [id number] Health Maintenance Due Date Last Done Comments [...] filedocumented as of this encounter Care Teams Chef Broiler Or Fry Relationship Specialty Start Date End Date Jennifer Rodrigez MD [address] [facility] [place] [address] PCP - General Internal Medicine 04/05/23 documented as of this encounter
--- OUTSIDE RECORDS SUMMARY | 2023-08-25 13:32 | External Medical Summary | Summary of Care ---
Author Name Unknown Organization [facility] Address [address] [place] [address] Phone [phone] Care Team Providers Care Purchasing Coordinator Name Role Phone Jennifer Rodrigez MD Primary Care Provider [phone] Reason for Visit * Reason Onset Date Comments Advice 04/05/2023 Dr Jones Encounter Details Date Type Department Care Team (Late st Contact Info) Description 04/05/2023 Telephone Interventional [facility], [address] [address] Bradly Jones MD [address] [place] [phone] Advice ( Dr Jones) Allergies Active Allergy Reactions Criticality Noted Date Comments Cefaclor Edema Other 02/13/2023 Iodinated Contrast Media Nausea/vomiting Medium 2022 documented as of this encounter (statuses as of 07/01/2023) Medications Medication Sig Dispensed Refills Start Date [...] as of this encounter (statuses as of 07/01/2023) Active Problems Problem Noted Date Diagnosed Date Neurological symptoms 04/29/2023 History of tethered spinal cord 04/29/2023 Functional gait disorder 04/29/2023 Vitamin D deficiency 04/19/2023 IFG (impaired fasting glucose) 04/19/2023 Mixed dyslipidemia 04/19/2023 Body mass index (BMI) of 45.0 to 49.9 in adult 0 03/18/2023 Overview: Per Obesity protocol PCOS (polycystic ovarian syndrome) 02/13/2023 documented as of this encounter (statuses as of 07/01/2023) Immunizations Name Administration Dates Next Due DTWP [...] encounter Miscellaneous Notes * Telephone Encounter - Yolanda Vaca OSA - 04/05/2023 12:47 PM EST Pt calling in about injection please advise documented in this encounter Plan of Treatment [...] filedocumented as of this encounter Care Teams Purchasing Coordinator Relationship Specialty Start Date End Date Jennifer Rodrigez MD [address] [place] [address] PCP - General Internal Medicine 04/05/23 documented as of this encounter
--- OUTSIDE RECORDS SUMMARY | 2023-08-25 13:32 | External Medical Summary ---
Author Name Unknown Address Unknown Organization K09:[facility] [place] [address] Laboratory Report Ordering Provider Test Date Status SHANNAN CURRAN 07/09/2023 05:35:00 Final Observation Date Value Abnormality Reference (Units ) Status BUN 07/09/2023 05:35:00 18 6-20 (mg/dL) Final Creatinine 07/09/2023 05:35:00 0.8 0.5-1.0 (mg/dL) Final Glomerular filtration rate/1.73 sq M.predicted [Volume Rate/Area] in Serum, Plasma or Blood by Creatinine-based formula (CKD-EPI) 07/09/2023 05:35:00 >90 >=60 (mL/min) Final eGFR is calculated based on the CKD-EPI 2020 equation Sodium 07/09/2023 05:35:00 137 135-146 (m mol/L) Final Potassium 07/09/2023 05:35:00 4.8 3.5-5.1 (m mol/L) Final Cl 07/09/2023 05:35:00 101 98-107 (mm ol/L) Final CO2 07/09/2023 05:35:00 24 22-32 (mmo l/L) Final Anion gap 07/09/2023 05:35:00 12 7-15 (mmol /L) Final Glucose 07/09/2023 05:35:00 159 Above high normal 70 -120 (mg/dL) Final Calcium 07/09/2023 05:35:00 9.0 8.4-10.2 ( mg/dL) Final Performing Location [facility] [place] [address]
--- OUTSIDE RECORDS SUMMARY | 2023-08-25 13:32 | External Medical Summary | Summary of Care ---
Author Name Unknown Organization [facility] Address [address] [place] [address] Phone [phone] Care Team Providers Care Commercial Journeyman Electrician Name Role Phone Jennifer Rodrigez MD Primary Care Provider [phone] Reason for Visit * Reason Onset Date Comments Advice 03/18/2023 Pt is calling in about note off from work Encounter Details Date Type Department Care Team (Late st Contact Info) Description 03/18/2023 Telephone General Internal Medicine [facility] [address] [place] [address] Sri Wiseman MD [address] [place], [place] [phone] Advice (Pt is calling in about note off fr... Allergies Active Allergy Reactions Criticality Noted Date Comments Cefaclor Edema Other 02/13/2023 Iodinated Contrast Media Nausea/vomiting Medium 2022 documented as of this encounter (statuses as of 06/17/2023) Medications Medication Sig Dispensed Refills Start Date End Date Status Tylenol 325 MG Oral Capsule (Acetaminophen)Indicat ions:Synovial cyst of sacral region,Midline low back pain without sciatica, unspecified chronicity 2 caps 3-4times/d, max 3gm/d 0 02/22/2023 Active Ibuprofen 200 MG Oral Tablet (Motrin IB)Indications:Synovia l cyst of sacral region,Midline low back pain without sciatica, unspecified chronicity Take 2 Tablets by mouth every 8 hours as needed for Pain, Moderate. 0 02/22/2023 Active documented as of this encounter (statuses as of 06/17/2023) Active Problems Problem Noted Date Diagnosed Date Neurological symptoms 04/29/2023 History of tethered spinal cord 04/29/2023 Functional gait disorder 04/29/2023 Vitamin D deficiency 04/19/2023 IFG (impaired fasting glucose) 04/19/2023 Mixed dyslipidemia 04/19/2023 Body mass index (BMI) of 45.0 to 49.9 in adult 0 03/18/2023 Overview: Per Obesity protocol PCOS (polycystic ovarian syndrome) 02/13/2023 documented as of this encounter (statuses as of 06/17/2023) Immunizations Name Administration Dates Next Due DTWP [...] encounter Miscellaneous Notes * Telephone Encounter - Bridget Graham OSA - 03/18/2023 8:03 AM EST Patient calling states she has an appointment with Dr. Zapata on 08/02/23 for back pain and is requesting a sooner appointment. Patient was seen in physical therapy and was advised that it is her spinecausing the pain and to request a sooner appointment. Please advise: [phone] documented in this encounter Plan of Treatment [...] filedocumented as of this encounter Care Teams Commercial Journeyman Electrician Relationship Specialty Start Date End Date Jennifer Rodrigez MD [address] [place] [address] PCP - General Internal Medicine 04/05/23 documented as of this encounter
--- OUTSIDE RECORDS SUMMARY | 2023-08-25 13:33 | External Medical Summary ---
Author Name Unknown Address Unknown Organization K01:[facility] - [facility] [address] [facility] [place] [address] Laboratory Report Ordering Provider Test Date Status CHAYITO AMEZQUITA 04/29/2023 15:02:00 Final Observation Date Value Abnormality Reference (Units ) Status WBC, Total 04/29/2023 15:02:00 11.13 Above high normal 4.00-10.80 (K/uL) Final RBC 04/29/2023 15:02:00 4.95 3.85-5.15 (M/uL) Final Hemoglobin 04/29/2023 15:02:00 14.0 12.0-15.3 (g/dL) Final HCT 04/29/2023 15:02:00 43.3 36.0-45.2 (%) Final MCV 04/29/2023 15:02:00 87.5 81.5-97.5 (fL) Final MCH 04/29/2023 15:02:00 28.3 27.0-34.0 (pg) Final MCHC 04/29/2023 15:02:00 32.3 32.0-36.0 (g/dL) Final RDW 04/29/2023 15:02:00 13.9 11.5-15.5 (%) Final Platelets 04/29/2023 15:02:00 312 140-400 (K/uL) Final MPV 04/29/2023 15:02:00 9.6 6.6-11.1 (fL) Final Nucleated erythrocytes/100 leukocytes [Ratio] in Blood by Automated count 04/29/2023 15:02:00 0 <=0 (/100 WBCs) Final Performing Location [facility] - [address] [place] [address]
--- OUTSIDE RECORDS SUMMARY | 2023-08-25 13:33 | External Medical Summary | Summary of Care ---
Author Name Unknown Organization [facility] Address [address] [place] [address] Phone [phone] Care Team Providers Care House Servant Name Role Phone Jennifer Rodrigez MD Primary Care Provider Reason for Visit * Reason Onset Date Comments Appointment 04/29/2023 Today's appointm ent- returning phone call Encounter Details Date Type Department Care Team (Late st Contact Info) Description 04/29/2023 Telephone Neurosurgery, [place] [address] [place] [address] Services, [facility] [address] [place] [address] Appointment (Today's appointment- returnin... Allergies Active Allergy Reactions Criticality Noted Date Comments Cefaclor Edema Other 02/13/2023 Iodinated Contrast Media Nausea/vomiting Medium 2022 documented as of this encounter (statuses as of 04/29/2023) Medications Medication Sig Dispensed Refills Start Date [...] 0 04/16/2023 Active Vitamin D3 1.25 MG (85954 UT) Oral CapsuleIndications: Vitamin D deficiency Take 1 Capsule by mouth once a week. St 04/19/2023, after 3 mths OTC Vit D 1000 units daily 12 Capsule 0 04/19/2023 07/18/2023 Active documented as of this encounter (statuses as of 04/29/2023) Active Problems Problem Noted Date Diagnosed Date Vitamin D deficiency 04/19/2023 IFG (impaired fasting glucose) 04/19/2023 Mixed dyslipidemia 04/19/2023 Body mass index (BMI) of 45.0 to 49.9 in adult 0 03/18/2023 Overview: Per Obesity protocol PCOS (polycystic ovarian syndrome) 02/13/2023 documented as of this encounter (statuses as of 04/29/2023) Immunizations Name Administration Dates Next Due DTWP [...] encounter Miscellaneous Notes * Telephone Encounter - Lou Cardoso RN - 04/29/2023 12:07 PM EST Called patient back, she is arriving at hospital for visit. * Telephone Encounter - Nilsa Smith OSA - 04/29/2023 9:47 AM EST Requested Information from caller: Who is calling patient Provider patient is established with: Reece What is the concern or issue they are having: missed a phone call in regards to todays appointment.No notes found. States its a [address] so they are about to leave. Requests urgent phone call back with details as to why they are being called. How long has the issue been going on: n/a Any additional details to add: no Pts phone number for nurse to call back: [phone] Please make sure you verify pharmacy for anything medication related. Form to be used for established patients only (not new patients) documented in this encounter Plan of Treatment Upcoming Encounters Date Type Department Care Team (Late st Contact Info) Description 04/29/2023 1:00 PM EST Office Visit Neurosurgery, [place] [address] [place] [address] Matthias Newell MD [address] [place] [address] 05/03/2023 9:00 AM EST Office Visit Urology, [place] [address] [place] [address] 05/08/2023 5:00 PM EST Office Visit General Internal Medicine [facility] [address] [facility] [place] [address] Jennifer Rodrigez MD [address] [place] [address] 05/21/2023 1:30 PM EDT Office Visit Interventional Pain Center, [address] [address] Bradly Jones MD [address] [place] [address] 07/04/2023 5:00 PM EDT Office Visit Gynecology/Obstetrics [address] [address] Irina Silva MD [address] [place] [address] 10/11/2023 3:00 PM EDT Office Visit Urology, [place] [address] [place] [address] Horace Pearl PA-C [address] [place] [address] Health Maintenance Due Date Last Done Comments [...] filedocumented as of this encounter Care Teams House Servant Relationship Specialty Start Date End Date Jennifer Rodrigez MD [address] [facility] [place] [address] PCP - General Internal Medicine 04/05/23 documented as of this encounter
--- OUTSIDE RECORDS SUMMARY | 2023-08-25 13:33 | External Medical Summary | Summary of Care ---
Author Name Unknown Organization [facility] Address [address] [place] [address] Phone [phone] Care Team Providers Care Emergency Medical Services Coordinator Name Role Phone Jennifer Rodrigez MD Primary Care Provider [phone] Reason for Referral * Evaluate & Treat - Unlimited Visits (Within 10 days (routine)) - Pending Review Specialty Diagnoses / Procedures Referred By Contact Referred To Contact Vascular Surgery / Cardiovascular Surgery Tiera Connelly MD [address] [place] [address] Referral ID Status Reason Start Date Expiration Date Visits Requested Visits Authorized [id number] Pending Review Specialty Services Required 04/29/[phone] Question Answer Referral Priority Within 10 days (routine) Where should this appointment be scheduled? [facility] What condition is the patient being seen for? Leg Claudication / PAD / Ischemia Comments Discharge Order Reason for Visit * Reason Comments Numbness in Extremity Right leg, upper l eft leg since 04/24 * Auth/Cert Specialty Diagnoses / Procedures Referred By Contac t Referred To Contact Diagnoses Lower Extremity Weakness Referral ID Status Reason Start Date Expiration Date Visits Re quested Visits Authorized [id number] Encounter Details Date Type Department Care Team (Late st Contact Info) Description 04/29/2023 3:16 PM EST - 04/29/2023 6:28 PM EST Emergency [facility]) Emergency Department ([facility]) [address] [place] [address] Terrance Toussaint, DO [address] [place] [address] Discharge Disposition: Home - Self Care Allergies Active Allergy Reactions Criticality Noted Date [...] 0 04/16/2023 Active Vitamin D3 1.25 MG (02816 UT) Oral CapsuleIndications: Vitamin D deficiency Take [...] Sign Reading Time Taken Comments Blood Pressure 128/59 04/29/2023 6:26 PM EST Pulse 104 04/29/2023 6:26 PM EST Temperature 36.7 C (98.1 F) 04/29/2023 6:26 PM ES T Respiratory Rate 20 04/29/2023 6:26 PM EST Oxygen Saturation 94% 04/29/2023 6:26 PM EST Inhaled Oxygen Concentration - - Weight 122.9 kg (271 lb) 04/29/2023 2:55 PM EST Height - - Body Mass Index 46.49 04/18/2023 8:06 AM EST documented in this encounter Discharge Instructions * Discharge Instructions* Tiera Connelly MD - 04/29/2023 5:22 PM EST You have been evaluated in the Emergency Department today. You were evaluated by our neurology teamwho recommends no further inpatient workup at this time. You should follow up with urology and neurosurgery as scheduled. Return to the Emergency Department if you experience any ongoing symptoms concerning to you. Thank you for choosing us for your care. documented in this encounter Consult Notes * Clayton Jose MD - 04/29/2023 5:23 PM ESTAssociated Order(s): NEUROLOGY CONSULT IP CONSULT - Neurology [facility] [address] Name: Jacklyn Aldana Location: H02/X Date: 04/29/2023 Time: 5:23 PM Date and Time Neurology Team Notified of Consult: 04/29/2023 at 1500 REQUESTING SERVICE: Emergency Medicine REASON FOR CONSULT: weakness, gait disorder Person Providing History: Patient, Family, Chart Review HPI: 33 year old female with a hx of PCOS who is being seen by neurology for evaluation of LE weakness and numbness. She reports symptoms started in 02/2023 which RLE weakness and numbness that was intermittent at first, occurring a few times a weak involving the entire RLE. Symptoms progressively worsened, now affect the LLE from the knee up to the hip (non-dermatomal) with preserved sensation below the knee. She is also reporting numbness below the level of the umbilicus. She reports numbnesswhen she is wiping after using the bathroom denies incontinence or retention. She had MRI Brain, C,T L spine which showed a stable chronic tethered cord. Repeat MRI has shown no change in tethered cord but her symptoms continue to progress. She was seen by [facility] who recommended patient come to ED for further evaluation. Patient denies episodes of vision loss, symptoms with neck flexion, worseningof symptoms with change in temperature. She reports toes in her LLE will sometimes become blue. Aimeehaserge had some falls associated with weakness in her LE, walking with a walker now. PAST MEDICAL HISTORY: No past medical history on file. PAST SURGICAL HISTORY: Past Surgical History: Procedure Laterality Date INJECT DX/THER SUBSTANCE INTERLAMINAR LUMBAR/SACRAL W IMAGE GUIDE N/A 04/18/2023 INJECTION SPINE LUMBAR OR SACRAL performed by Bradly Jones MD at OR [facility] FAMILY HISTORY: No family history on file. SOCIAL HISTORY: Social History Tobacco Use Smoking status: Never Smokeless tobacco: Never Vaping Use Vaping Use: Never used Substance Use Topics Alcohol use: Yes Drug use: Never ALLERGIES: Iodinated contrast media and Ceclor [cefaclor] CURRENT MEDICATIONS: Note that completed medications (per the MAR) continue to display for 24 hours. Ordered medicationsto be given in the future also display. No current facility-administered medications for this encounter. Current Outpatient Medications Medication Vitamin D3 1.25 MG (13338 UT) Oral Capsule Cyclobenzaprine HCl 5 MG Oral Tablet (Flexeril) Lidocaine 4 % External Patch (Aspercreme) Mirabegron ER 50 MG Oral Tablet Extended Release 24 Hour (Myrbetriq) Fexofenadine HCl 60 MG Oral Tablet (Mary Allergy) diphenhydrAMINE HCl 25 MG Oral Tablet (Benadryl Allergy) predniSONE 50 MG Oral Tablet (Deltasone) Ibuprofen 200 MG Oral Tablet (Motrin IB) Tylenol 325 MG Oral Capsule (Acetaminophen) ROS: All negative other than as noted in HPI PHYSICAL EXAMINATION: Most Recent Vital Signs: BP: 133 mmHg/89 mmHg (04/29/231454) Pulse: 112 (04/29/231454) Temp: 37.39 C (04/29/231454) Temp Summary: Temp Min: 37.4 C (99.3 F) Max: 37.4 C (99.3 F) SpO2: 100 % (04/29/231454) O2 flow rate: Supplemental O2 Delivery: Room Air, None (04/29/231454) Weight: 122.9 kg (271 lb) (04/29/231454) Body mass index is 46.49 kg/m. Vital Signs Last 24 Hours: Systolic BP: Most Recent Systolic BP Av mmHg Min: 133 mmHg Max: 133 mmHg Temperature: Most Recent Temperature Av.39 C Min: 37.39 C Max: 37.39 C Pulse: Pulse Av Min: 112 Max: 112 Respirations: Resp Av Min: 20 Max: 20 SpO2: SpO2 Av % Min: 100 % Max: 100 % General Examination: Constitutional: appearance normally developed Head and Face: normocephalic and atraumatic Eyes: normal lids, normal schlera and normal conjunctiva Neck: symmetrical Respiratory: normal effort Cardiovascular: RRR Psychiatric: normal judgement and insight, normal mood and normal affect Neurologic Examination: Appearance: no acute distress Orientation: awake, alert and oriented x 3 Mental Status: alert Attention: normal Knowledge: appropriate Language: no aphasia Speech: no dysarthria Cranial Nerves: CN 2 - no visual defect on confrontation and pupils round, equal, reactive to light CN 3, 4, 6 - extra-ocular movements intact and no nystagmus CN 5 - facial sensation intact CN 7 - no facial asymmetry CN 8 - intact hearing CN 9, 10 - palate symmetric CN 11 - good shoulder shrug CN 12 - tongue midline Gait: walks on her toes in the LLE, exaggerating foot slapping in the RLE. Coordination: no ataxia with finger to nose testing Sensory: reduced to pinprick in the entire LLE, and RLE from hip to knee with intact sensation below the knee in the RLE. Reduced sensation below the umbilicus anteriorly and to the level of PSIS posteriorly. Admits to feeling noxious stim in the LLE. Muscle Tone: slightly increased in the LLE. Muscle Exam: Give away weakness in the LLE that improves with encouragement Arm Right Left Leg Right Left Deltoid 5/5 5/5 Iliopsoas 5/5 5/5 Biceps 5/5 5/5 Quads 5/5 5/5 Triceps 5/5 5/5 Hamstrings 5/5 5/5 Wrist Extension 5/5 5/5 Ankle Dorsi Flexion 5/5 5/5 Wrist Flexion 5/5 5/5 Ankle Plantar Flexion 5/5 5/5 Interossei 5/5 5/5 Abductor Pollicis Brevis (APB) 5/5 5/5 Reflexes: +cross adductor Brachioradialis Biceps Triceps Patellar Achilles Plantars Kd's Right 2+ 2+ 2+ 2+ 2+ Downgoing present Left 2+ 2+ 2+ 2+ 2+ Down going Present STUDIES: Labs: CBC, CMP, UA - unremarkable Imaging: MRI brain, C spine WO- No acute intracranial abnormalities MRI T L spine - tethered cord, 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 Symptoms started with LLE numbness and weakness, spread to the RLE but only above the knee in a non- dermatomal pattern and over the past 10 days reports perineal numbness without associated incontinence or retention. MRI of her neuroaxis shows tethered cord and congential abnormalities which is likely chronic and had been stable on subsequent imaging despite progression of her symptoms. Neurologic exam shows full strength in LE with intact reflexes. Entire LLE numbness, RLE upper leg numbness which does not fit dermatomal pattern. She reports sensory level that appears to be T10 when testing the anterior abdominal wall and L4 when testing posteriorly and gaitappears to be suggestive of a functional neurologic disorder. Normal reflexes, non-length dependent pattern makes neuropathy such as CIDP, GBS or nutritional def. causing neuropathy unlikely. Normal MRI Brain and C spine makes MS or tumor unlikely. Its possibletethered cord is contributing to symptoms but one would expect more obvious abnormalities in the physical exam such as abnormal reflexes or weakness which are not appreciated. Patients symptoms and presentation is suggestive of a functional neurologic disorder, with that said, I cannot say she doesnot have some degree of underlying weakness/numbness from tethered cord. RECOMMENDATIONS / PLAN: - Obtain B12 level - Consider LE doppler for LLE discoloration - Agree with urodynamic studies (ordered and scheduled for 05/03/23) - No role for EMG or LP at this time - Continue PT/OT The patient was examined and was discussed with Dr. Hall. Associated attestation - Julio Hall DO - 04/29/2023 6:56 PM EST I saw and evaluated the patient today. I have reviewed the trainee note and agree. 33 year old femaile with hx recently recognized tethered cord on imaging presenting with progressive neurologic deficits, referred by neurosurgery to ER for expedited additional eval. She reports worsening of symptoms 7-10 days after a spinal epidural L5-S1 injection 04/18/23. She has perineal saddle anesthesia by description, and mild single episode of incontinence and inability to sense voiding. She reports numbness of entire right leg and left leg to knee circumferentially. Her numbness does not fit with a physiologic neurologic pattern of dysfunction. She has fluctuation of her signs such as variable motor weakness and giveaway weakness that improves with best effort. She originally had sensory level at the umbilicus, but on pinprick testing her sensory level receded to her underwear line. Reflexes are intact and toes are downgoing bilaterally. Additionally her gait appears most consistent with a functional neurologic disorder. There may be antalgia contributing some portion to her gait. I cannot explain her pain and numbness other than the possible tethered cord on imaging. Her numbness in her left leg to the level of her knee circumferentially does not fit with typical expected symptoms of tethered cord due to lack of peripheral or dermatomal pattern of representation. Assessment is radiographic tethered cord, functional numbness and weakness. She may have anatomopathology that is overlayed with functional neurologic signs. To exclude additional causes of her symptoms I agree with the resident's recommendations and plans. After discussion with Dr. Newell, it appears urodynamics are a priority study. If for some reason the urodynamics test is unable to be completed while inpatient, then I would allow the patient if safe to be discharged in a time (05/02/23) that would allow her to get that test as a priority on an outpatient basis (scheduled 05/03/23). I spent a total of 60 minutes coordinating, documenting, and providing care for this patient excluding time spent in the performance of separately billed services or time spent by another provider/QHP. Julio Hall DO [facility] Emergency Department ([facility]) [address] [place] [address] documented in this encounter Miscellaneous Notes * Ancillary Progress Note - Ren Henry RVT - 04/29/2023 6:22 PM EST PROCEDURE - Vascular Lab [facility] [address] Name: Jacklyn Aldana [facility] Date: 04/29/2023 Time: 6:22 PM FINAL PHYSICIAN REPORT TO FOLLOW. PROCEDURE: Right side: Lower extremity venous duplex negative: no evidence of deep vein thrombosis Left side: Lower extremity venous duplex negative: no evidence of deep vein thrombosis TECH NAME: Ren Henry RVT documented in this encounter Plan of Treatment Upcoming Encounters Date Type Department Care Team (Late st Contact Info) Description 05/03/2023 9:00 AM EST Office Visit Urology, [place] [address] [place] [address] 05/08/2023 5:00 PM EST Office Visit General Internal Medicine [facility] [place] [address] [place] [address] Jennifer Rodrigez MD [address] [facility] [place] [address] 05/16/2023 2:00 PM EST Office Visit Vascular Surgery, [address] [place] [address] London Crews MD [address] [place] [address] 05/21/2023 1:30 PM EDT Office Visit [facility], [address] [address] Bradly Jones MD [address] [place] [address] 07/04/2023 5:00 PM EDT Office Visit Gynecology/Obstetrics [address] [address] Irina Silva MD [address] [place] [address] 10/11/2023 3:00 PM EDT Office Visit Urology, [place] [address] [place] [address] Horace Pearl PA-C [address], [place] [phone] Pending Results Name Type Priority Associated Diagnoses Date /Time CULTURE, URINE, QUANTITATIVE Lab STAT 04/29/2023 2:58 PM EST VASC DUPLEX VENOUS LE BILAT Medical Imaging STAT 04/29/2023 6:22 PM EST Scheduled Orders Name Type Priority Associated Diagnoses Order Schedule SPIROMETRY B/A BRONCHODILATOR Procedures Routine One Time for 1 Occurrences starting 04/29/2023 until 04/29/2023 CULTURE, URINE, QUANTITATIVE Lab STAT One Time for 1 Occurrences starting 04/29/2023 until 04/29/2023 VITAMIN B12 Lab Add-on Perform Now f or 1 Occurrences starting 04/29/2023 until 04/29/2023 VASC DUPLEX VENOUS LE BILAT Medical Imaging STAT One Time for 1 Occurrences starting 04/29/2023 until 04/29/2023 Scheduled Referrals Name Type Priority Associated Diagnoses Orde r Schedule VASCULAR SURGERY REFERRAL OP Referral Within 10 days (routine) Ordered: 04/29/2023 Health Maintenance Due Date Last Done Comments [...] Procedure Name Priority Date/Time Associated Diagnosis Comments DIFFERENTIAL, AUTOMATED STAT 04/29/2023 3:02 PM EST BETA-HCG, QUANTITATIVE STAT 3:02 PM EST COMPREHENSIVE METABOLIC PANEL STAT 04/29/2023 3:02 PM EST CBC STAT 04/29/2023 3:02 PM EST CBC STAT 04/29/2023 3:02 PM EST URINALYSIS, REFLEX TO CULTURE STAT 04/29/2023 2:58 PM EST URINALYSIS, REFLEX TO CULTURE (CUP ONLY) STAT 04/29/2023 2:58 PM EST URINALYSIS, REFLEX TO CULTURE (NOT FOR NEUTROPENIC PATIENTS) STAT 04/29/2023 2:58 PM EST documented in this encounter Results * (ABNORMAL) DIFFERENTIAL, AUTOMATED (04/29/2023 3:02 PM EST) WBC 11.13(H) 4.00 - 10.80 K/uL 04/29/2023 3:26 PM EST [facility] Neutrophils % 71.0 40.0 - 75.0 % 04/29/2023 3:26 PM EST [facility] Lymphocytes % 23.5 18.0 - 42.0 % 04/29/2023 3:26 PM EST [facility] Monocytes % 4.2 1.0 - 11.0 % 04/29/2023 3:26 PM EST [facility] Eosinophils % 0.5 0.0 - 6.0 % 04/29/2023 3:26 PM EST [facility] Basophils % 0.4 0.0 - 2.0 % 04/29/2023 3:26 PM EST [facility] Immature Granulocytes % 0.4 0.0 - 2.0 % 04/29/2023 3:26 PM EST [facility] Absolute Neutrophils 7.89(H) 1.80 - 7.70 K/uL 04/29/2023 3:26 PM EST [facility] Absolute Lymphocytes 2.62 1.00 - 4.80 K/ul 04/29/2023 3:26 PM EST [facility] Absolute Monocytes 0.47 0.00 - 1.10 K/uL 04/29/2023 3:26 PM EST [facility] Absolute Eosinophils 0.06 0.00 - 0.70 K/uL 04/29/2023 3:26 PM EST [facility] Absolute Basophils 0.04 0.00 - 0.20 K/uL 04/29/2023 3:26 PM EST [facility] Absolute Immature Granulocytes 0.05 0.00 - 0.20 K/uL 04/29/2023 3:26 PM EST [facility] Blood Venous blood specimen / Unknown Venipuncture / Unknown 04/29/2023 3:02 PM EST 04/29/2023 3:13 PM EST Lea Hall PA-C LAB BLOOD ORDERABL ES [facility] [address] [place] [address] * (ABNORMAL) CBC (04/29/2023 3:02 PM EST) WBC 11.13(H) 4.00 - 10.80 K/uL 04/29/2023 3:26 PM EST [facility] RBC 4.95 3.85 - 5.15 M/uL 04/29/2023 3:26 PM EST [facility] HGB 14.0 12.0 - 15.3 g/dL 04/29/2023 3:26 PM EST [facility] HCT 43.3 36.0 - 45.2 % 04/29/2023 3:26 PM EST [facility] MCV 87.5 81.5 - 97.5 fL 04/29/2023 3:26 PM EST [facility] MCH 28.3 27.0 - 34.0 pg 04/29/2023 3:26 PM EST [facility] MCHC 32.3 32.0 - 36.0 g/dL 04/29/2023 3:26 PM EST [facility] RDW 13.9 11.5 - 15.5 % 04/29/2023 3:26 PM EST [facility] PLT 312 140 - 400 K/uL 04/29/2023 3:26 PM EST [facility] MPV 9.6 6.6 - 11.1 fL 04/29/2023 3:26 PM EST [facility] nRBCs 0 <=0 /100 WBCs 04/29/2023 3:26 PM EST [facility] Blood Venous blood specimen / Unknown Venipuncture / Unknown 04/29/2023 3:02 PM EST 04/29/2023 3:13 PM EST Lea Hall PA-C LAB BLOOD ORDERABL ES [facility] [address] [place] [address] * BETA-HCG, QUANTITATIVE (04/29/2023 3:02 PM EST) Pathologist [facility] Beta-HCG, Quantitative <0.6 <=1.0 mIU/mL 04/29/2023 3:46 PM EST [facility] Blood Venous blood specimen / Unknown Venipuncture / Unknown 04/29/2023 3:02 PM EST 04/29/2023 3:[address] [facility] LAB[facility]ATORY [facility] - 04/29/2023 3:46 PM EST hCG can serve as a screening assay for . However, early may not give a positive hCG test result. In addition, some non- women may have a hCG result slightly higher than the reference limit. Careful interpretation of the hCG with clinical history is required to determine whether the patient may be . Lea Hall PA-C LAB BLOOD ORDERABL LABORATORY [facility] [address] [place] [address] * (ABNORMAL) COMPREHENSIVE METABOLIC PANEL (04/29/2023 3:02 PM EST) BUN 11 6 - 20 mg/dL 04/29/2023 3:40 PM EST LABORATORY [facility] Creatinine 0.8 0.5 - 1.0 mg/dL 04/29/2023 3:40 PM EST LAB[facility]ATORY [facility] Estimated Glomerular Filtration Rate >90 >=60 mL/min 04/29/2023 3:40 PM EST LABORATORY [facility] Comment:eGFR is calculated b ased on the CKD-EPI 2020 equation Sodium 137 135 - 146 mmol/L 04/29/2023 3:40 PM EST [facility] Potassium 4.2 3.5 - 5.1 mmol/L 04/29/2023 3:40 PM EST [facility] Chloride 101 98 - 107 mmol/L 04/29/2023 3:40 PM EST [facility] CO2 20(L) 22 - 32 mmol/L 04/29/2023 3:40 PM EST [facility] Anion Gap 16(H) 7 - 15 mmol/L 04/29/2023 3:40 PM EST [facility] Glucose 94 70 - 120 mg/dL 04/29/2023 3:40 PM EST [facility] Albumin 4.6 3.8 - 5.0 g/dL 04/29/2023 3:40 PM EST [facility] AST 32 10 - 35 U/L 04/29/2023 3:40 PM EST [facility] Alkaline Phosphatase 72 35 - 130 U/L 04/29/2023 3:40 PM EST [facility] Bilirubin, Total 0.3 <=1.2 mg/dL 04/29/2023 3:40 PM EST [facility] Calcium 10.0 8.4 - 10.2 mg/dL 04/29/2023 3:40 PM EST [facility] Protein 7.8 6.0 - 8.3 g/dL 04/29/2023 3:40 PM EST [facility] ALT 45(H) 10 - 35 U/L 04/29/2023 3:40 PM EST [facility] Blood Venous blood specimen / Unknown Venipuncture / Unknown 04/29/2023 3:02 PM EST 04/29/2023 3:13 PM EST Lea Hall PA-C LAB BLOOD ORDERABL ES LAB[facility]ATORY [facility] [address] [place] [address] * (ABNORMAL) URINALYSIS, REFLEX TO CULTURE (04/29/2023 2:58 PM EST) Color, Urine Colorless Colorless, Light Yellow, Yellow, Dark Yellow 04/29/2023 3:36 PM EST [facility] Clarity, Urine Clear Clear 04/29/2023 3:36 PM EST [facility] Glucose, Urine Negative Negative mg/dL 04/29/2023 3:36 PM EST [facility] Bilirubin, Urine Negative Negative 04/29/2023 3:36 PM EST [facility] Ketone, Urine Negative Negative mg/dL 04/29/2023 3:36 PM EST [facility] Specific [place], Urine 1.007 1.003 - 1.030 04/29/2023 3:36 PM EST [facility] Blood, Urine Negative Negative 04/29/2023 3:36 PM EST [facility] pH, Urine 6.5 5.0 - 7.5 Units 04/29/2023 3:36 PM EST [facility] Protein, Urine Negative Negative mg/dL 04/29/2023 3:36 PM EST [facility] Urobilinogen, Urine Normal Normal mg/dL 04/29/2023 3:36 PM EST [facility] Nitrite, Urine Negative Negative 04/29/2023 3:36 PM EST [facility] Esterase, Urine Small(A) Negative 04/29/2023 3:36 PM EST [facility] RBC, Urine 0-2 0 - 2 /HPF 04/29/2023 3:36 PM EST [facility] WBC, Urine 10-19(A) 0 - 2 /HPF 04/29/2023 3:36 PM EST [facility] Bacteria, Urine 51-100(A) 0 - 25 /HPF 04/29/2023 3:36 PM EST [facility] Culture, Urine 04/29/2023 3:36 PM EST [facility] Comment:Quantitative urine c ulture to be performed Urine Urine specimen obtained by clean catch procedure / Unknown 04/29/2023 2:58 PM EST 04/29/2023 3:05 PM EST Lea Hall PA-C LAB URINE ORDERABL ES Performing Organization Address City/[facility]/ZIP Co de Phone Number LABORATORY [facility] [address] [place] [address] * URINALYSIS, REFLEX TO CULTURE (CUP ONLY) (04/29/2023 2:58 PM EST) Urinalysis, Reflex to Culture Specimen Specimen collected and received 04/29/2023 5:01 PM EST LAB[facility]ATORY [facility] Urine Urine specimen obtained by clean catch procedure / Unknown 04/29/2023 2:58 PM EST 04/29/2023 3:05 PM EST Lea Hall PA-C LAB URINE ORDERABL ES Performing Organization Address City/[facility]/ZIP Co de Phone Number LABORATORY [facility] [address] [place] [address] documented in this encounter Care Teams Emergency Medical Services Coordinator Relationship Specialty Start Date End Date Jennifer Rodrigez MD [address] [place] [address] PCP - General Internal Medicine 04/05/23 documented as of this encounter
--- OUTSIDE RECORDS SUMMARY | 2023-08-25 13:33 | External Medical Summary ---
Author Name Unknown Address Unknown Organization K01:[facility] [address] [facility] [place] [address] Laboratory Report Ordering Provider Test Date Status ALIRIOSTRATTON 04/29/2023 15:02:00 Final Observation Date Value Abnormality Reference (Units ) Status BUN 04/29/2023 15:02:00 11 6-20 (mg/dL) Final Creatinine 04/29/2023 15:02:00 0.8 0.5-1.0 (mg/dL) Final Glomerular filtration rate/1.73 sq M.predicted [Volume Rate/Area] in Serum, Plasma or Blood by Creatinine-based formula (CKD-EPI) 04/29/2023 15:02:00 >90 >=60 (mL/min) Final eGFR is calculated based on the CKD-EPI 2020 equation SODIUM 04/29/2023 15:02:00 137 135-146 (m mol/L) Final Potassium 04/29/2023 15:02:00 4.2 3.5-5.1 (m mol/L) Final Cl 04/29/2023 15:02:00 101 98-107 (mm ol/L) Final CO2 04/29/2023 15:02:00 20 Below low normal 22- 32 (mmol/L) Final Anion gap 04/29/2023 15:02:00 16 Above high normal 7- 15 (mmol/L) Final Glucose 04/29/2023 15:02:00 94 70-120 (mg /dL) Final Albumin 04/29/2023 15:02:00 4.6 3.8-5.0 (g /dL) Final AST (Aspartate aminotransferase) 04/29/2023 15:02:00 32 10-35 (U/L) Fin al Alk Phos 04/29/2023 15:02:00 72 35-130 (U/ L) Final Bilirubin, Total 04/29/2023 15:02:00 0.3 <=1 .2 (mg/dL) Final Calcium 04/29/2023 15:02:00 10.0 8.4-10.2 ( mg/dL) Final Protein 04/29/2023 15:02:00 7.8 6.0-8.3 (g /dL) Final ALT (Alanine aminotransferase) 04/29/2023 15:02:00 45 Above high normal 10-35 (U/L) Final Performing Location LABORATORY [facility] [place] - [facility] [address]. [facility] [id number]
--- OUTSIDE RECORDS SUMMARY | 2023-08-25 13:33 | External Medical Summary ---
Author Name Unknown Address Unknown Organization K01:LABORATORY [facility] - [facility] [address] [facility] [place] [address] Laboratory Report Ordering Provider Test Date Status KASSIDY TOMLINSON 04/26/2023 19:43:44 Final Observation Date Value Abnormality Reference (Units ) Status Screen, Urine 04/26/2023 19:43:44 Negative Negative Final Performing Location LAB[facility]ATORY [facility] - [address] [facility] [address]
--- OUTSIDE RECORDS SUMMARY | 2023-08-25 13:33 | External Medical Summary | Summary of Care ---
Author Name Unknown Organization [facility] Address [address] [place] [address] Phone [phone] Care Team Providers Care Director Of Industrial Relations Name Role Phone Jennifer Rodrigez MD Primary Care Provider [phone] Reason for Visit * Reason Onset Date Comments TRIAGE 04/26/2023 Encounter Details Date Type Department Care Team (Late st Contact Info) Description 04/26/2023 Telephone Neurosurgery, [place] [address], [place] [id number] Services, [facility] [address] [place] [address] TRIAGE Allergies Active Allergy Reactions Criticality Noted Date Comments Cefaclor Edema Other 02/13/2023 Iodinated Contrast Media Nausea/vomiting Medium 2022 documented as of this encounter (statuses as of 04/26/2023) Medications Medication Sig Dispensed Refills Start Date [...] 0 04/16/2023 Active Vitamin D3 1.25 MG (07291 UT) Oral CapsuleIndications: Vitamin D deficiency Take 1 Capsule by mouth once a week. St 04/19/2023, after 3 mths OTC Vit D 1000 units daily 12 Capsule 0 04/19/2023 07/18/2023 Active documented as of this encounter (statuses as of 04/26/2023) Active Problems Problem Noted Date Diagnosed Date Vitamin D deficiency 04/19/2023 IFG (impaired fasting glucose) 04/19/2023 Mixed dyslipidemia 04/19/2023 Body mass index (BMI) of 45.0 to 49.9 in adult 0 03/18/2023 Overview: Per Obesity protocol PCOS (polycystic ovarian syndrome) 02/13/2023 documented as of this encounter (statuses as of 04/26/2023) Immunizations Name Administration Dates Next Due DTWP [...] encounter Miscellaneous Notes * Telephone Encounter - Jayden Ndiaye IV, PA-C - 04/26/2023 1:12 PM EST Called and spoke to Jacklyn directly. Patient states that she has been experiencing bladder incontinence and numbness in the groin area since this morning. She also reports accompanying left lower extremity numbness. She states she was on her way to the ED and I confirmed this as the correct choice given the persistence of her bladder incontinence and groin/ left leg numbness. She did not say thatbowel incontinence is accompanying her symptoms. Her most recent MRI L-spine did not show any significant compression on the conus or cauda equina. Jayden Ndiaye IV, PA-C * Telephone Encounter - Mona Costa OSA - 04/26/2023 10:39 AM EST Who is calling: Jacklyn Aldana R Pt is established with: Dr Newell Reason for call: Pt calling for status of return call from medical staff member. States has lost all feeling and can no longer control her bladder. Pt is requesting urgent return call. How long issue has been going on: began yesterday, is continuing to worsen Additional details: Call back number: [phone] Pharmacy (if applicable): * Telephone Encounter - Sara Wakefield OSA - 04/26/2023 8:33 AM EST Neuroscience Phone Call Form- Clinic has 24-48 hours to respond to caller If caller is calling back before that timeframe- There is no need to send another message to the pool, update current TE [facility] Neurology Pool- All messages go through the [facility] Neuro [place]- [id number] Neurology Pool Numbers- [place] and [place] patients - follow normal process Ops req [facility] [place] ([place])- [id number] Ops req ID Neurology ([place]- [facility] and [facility] clinics Only)- [id number] Neurosurgery Pool Numbers- [place] patients- follow normal process Ops req Neurosurgery [facility] [place])- [id number] Ops req Neurosurgery [facility] ([place] Only) [id number] Requested Information from caller: Who is calling patient Provider patient is established with: Dr Newell What is the concern or issue they are having: pt states that her rt leg and foot are numb and she can feel when she sits down to go to the bathroom How long has the issue been going on: for 2 months but got worse yesterday Any additional details to add: no Pts phone number for nurse to call back: [phone] Please make sure you verify pharmacy for anything medication related. Form to be used for established patients only (not new patients) documented in this encounter Plan of Treatment Upcoming Encounters Date Type Department Care Team (Late st Contact Info) Description 05/08/2023 5:00 PM EST Office Visit General Internal Medicine [facility] [address] [place] [address] Jennifer Rodrigez MD [address] [place] [place] [address] 05/09/2023 3:30 PM EST Office Visit Neurosurgery, [place] [address] [place] [address] Matthias Newell MD [address], [place] [id number] 05/21/2023 1:30 PM EDT Office Visit Interventional Pain Center, [address] [address] Bradly Jones MD [address] [place], [place] [phone] 07/04/2023 5:00 PM EDT Office Visit Gynecology/Obstetrics [address] [address] Irina Silva MD [address] [place] [phone] 10/11/2023 1:00 PM EDT Office Visit Urology, [place] [address], [place] [phone] 10/11/2023 3:00 PM EDT Office Visit Urology, [place] [address] [place] [address] Horace Pearl PA-C [address], [place] [phone] Health Maintenance Due Date Last Done Comments [...] filedocumented as of this encounter Care Teams Director Of Industrial Relations Relationship Specialty Start Date End Date Jennifer Rodrigez MD [address] [place] [address] PCP - General Internal Medicine 04/05/23 documented as of this encounter
--- OUTSIDE RECORDS SUMMARY | 2023-08-25 13:33 | External Medical Summary | Summary of Care ---
Author Name Unknown Organization [facility] Address [address] [place] [address] Phone [phone] Care Team Providers Care Piano Mechanic Name Role Phone Jennifer Rodrigez MD Primary Care Provider Reason for Visit * Reason Onset Date Comments Test Results 04/23/2023 Encounter Details Date Type Department Care Team (Late st Contact Info) Description 04/23/2023 Telephone Neurosurgery, [place] [address] [place] [address] Services, [facility] [address] [place] [address] Test Results Allergies Active Allergy Reactions Criticality Noted Date Comments Cefaclor Edema Other 02/13/2023 Iodinated Contrast Media Nausea/vomiting Medium 2022 documented as of this encounter (statuses as of 04/24/2023) Medications Medication Sig Dispensed Refills Start Date [...] 0 04/16/2023 Active Vitamin D3 1.25 MG (44636 UT) Oral CapsuleIndications: Vitamin D deficiency Take 1 Capsule by mouth once a week. St 04/19/2023, after 3 mths OTC Vit D 1000 units daily 12 Capsule 0 04/19/2023 07/18/2023 Active documented as of this encounter (statuses as of 04/24/2023) Active Problems Problem Noted Date Diagnosed Date Vitamin D deficiency 04/19/2023 IFG (impaired fasting glucose) 04/19/2023 Mixed dyslipidemia 04/19/2023 Body mass index (BMI) of 45.0 to 49.9 in adult 0 03/18/2023 Overview: Per Obesity protocol PCOS (polycystic ovarian syndrome) 02/13/2023 documented as of this encounter (statuses as of 04/24/2023) Immunizations Name Administration Dates Next Due DTWP [...] encounter Miscellaneous Notes * Telephone Encounter - Melyssa Roper RN - 04/24/2023 1:35 PM EST Nothing sooner at this time * Telephone Encounter - Shaina Carpio OSA - 04/24/2023 12:40 PM EST Scheduled video appt w Dr Newell. Pain is stating is having shooting pains up her legs. If cause for concern , please advise of a sooner appt for her. She is sched for 1st available for 05/09/23 as the soonest. * Telephone Encounter - Jacklyn Couch OSA - 04/23/2023 12:05 PM EST Neuroscience Phone Call Form- Clinic has 24-48 hours to respond to caller If caller is calling back before that timeframe- There is no need to send another message to the pool, update current TE [facility] Neurology Pool- All messages go through the [facility] Neuro [place]- [id number] Neurology Pool Numbers- [place] patients - follow normal process Ops req C Neurology ([place])- [id number] Ops req NE Neurology ([place]- [facility] and [facility] clinics Only)- [id number] Neurosurgery Pool Numbers- [place] patients- follow normal process Ops req Neurosurgery [facility] ([place])- [id number] Ops req Neurosurgery [facility] ([place] Only) [id number] Requested Information from caller: Who is calling Jacklyn (Patient) Provider patient is established with: Dr Newell What is the concern or issue they are having: Requesting MRI imaging results Pts phone number for nurse to call back: [phone] Please make sure you verify pharmacy for anything medication related. Form to be used for established patients only (not new patients) documented in this encounter Plan of Treatment Upcoming Encounters Date Type Department Care Team (Late st Contact Info) Description 05/08/2023 5:00 PM EST Office Visit General Internal Medicine [facility] [address] [facility] [place] [address] Jennifer Rodrigez MD [address] [facility] [place] [address] 05/09/2023 3:30 PM EST Telemedicine Neurosurgery, [place] [address] [place] [address] Matthias Newell MD [address] [place] [address] 05/21/2023 1:30 PM EDT Office Visit Interventional Pain Center, [address] [address] Bradly Jones MD [address] [place] [address] 07/04/2023 5:00 PM EDT Office Visit Gynecology/Obstetrics [address] [address] Irina Silva MD [address] [place] [id number] 10/11/2023 1:00 PM EDT Office Visit Urology, [place] [address] [place] [address] 10/11/2023 3:00 PM EDT Office Visit Urology, [place] [address] [place], [place] [phone] Horace Pearl PA-C [address] [place], [place] [phone] Health Maintenance Due Date Last Done Comments [...] filedocumented as of this encounter Care Teams Piano Mechanic Relationship Specialty Start Date End Date Jennifer Rodrigez MD [address] [place] [address] PCP - General Internal Medicine 04/05/23 documented as of this encounter
--- OUTSIDE RECORDS SUMMARY | 2023-08-25 13:33 | External Medical Summary ---
Author Name Unknown Address Unknown Organization K01:LABORATORY [facility] - [address] [place] [address] Laboratory Report Ordering Provider Test Date Status KASSIDY TOMLINSON 04/26/2023 15:48:00 Final Observation Date Value Abnormality Reference (Units ) Status CRP, low-sensitivity 04/26/2023 15:48:00 13 Above high normal <=5 (mg/L) Final Performing Location LABORATORY [facility] - [address] [place] [address]
--- OUTSIDE RECORDS SUMMARY | 2023-08-25 13:33 | External Medical Summary | Summary of Care ---
Author Name Unknown Organization [facility] Address [address] [place] [address] Phone [phone] Care Team Providers Care Warehouse Logistics Manager Name Role Phone Jennifer Rodrigez MD Primary Care Provider [phone] Reason for Visit * Reason Comments Tingling Bilateral legs Pain Back Pain Lower back * Auth/Cert Specialty Diagnoses / Procedures Referred By Selvin wright Referred To Contact Referral ID Status Reason Start Date Expiration Date Visits Re quested Visits Authorized [id number] Encounter Details Date Type Department Care Team (Late st Contact Info) Description 04/26/2023 7:23 PM EST - 04/27/2023 1:23 AM EST Emergency [facility] ([place] ([facility]) [address], [place] [id number] Paul Mcnamara, DO [facility] [place] [address] Numbness and tingling (Primary Dx) Discharge Disposition: Home - Self Care Allergies Active Allergy Reactions Criticality Noted Date Comments Cefaclor Edema Other 02/13/2023 Iodinated Contrast Media Nausea/vomiting Medium 2022 documented as of this encounter (statuses as of 04/27/2023) Medications Medication Sig Dispensed Refills Start Date [...] Active Fexofenadine HCl 60 MG Oral Tablet ([facility] Allergy) Take 1 Tablet by mouth in [...] 0 04/16/2023 Active Vitamin D3 1.25 MG (68005 UT) Oral CapsuleIndications: Vitamin D deficiency Take 1 Capsule by mouth once a week. St 04/19/2023, after 3 mths OTC Vit D 1000 units daily 12 Capsule 0 04/19/2023 07/18/2023 Active documented as of this encounter (statuses as of 04/27/2023) Active Problems Problem Noted Date Diagnosed Date Vitamin D deficiency 04/19/2023 IFG (impaired fasting glucose) 04/19/2023 Mixed dyslipidemia 04/19/2023 Body mass index (BMI) of 45.0 to 49.9 in adult 0 03/18/2023 Overview: Per Obesity protocol PCOS (polycystic ovarian syndrome) 02/13/2023 documented as of this encounter (statuses as of 04/27/2023) Immunizations Name Administration Dates Next Due DTWP [...] Sign Reading Time Taken Comments Blood Pressure 128/76 04/27/2023 1:00 AM EST Pulse 75 04/27/2023 1:00 AM EST Temperature 36.3 C (97.3 F) 04/27/2023 1:00 AM ES T Respiratory Rate 16 04/27/2023 1:00 AM EST Oxygen Saturation 98% 04/27/2023 1:00 AM EST Inhaled Oxygen Concentration - - Weight 117.9 kg (260 lb) 04/26/2023 3:35 PM EST Height - - Body Mass Index 44.61 04/18/2023 8:06 AM EST documented in this encounter Discharge Instructions * Discharge Instructions* Matthias Da Silva DO - 04/27/2023 12:06 AM EST You were seen in the ED for numbness and tingling. With the MRI was stable with no acute findings. 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 Neurosurgery will attempt to see you next week. Return to the ED if experience worsening headache, chest pain, shortness of breath or any other concerning features. documented in this encounter Plan of Treatment Upcoming Encounters Date Type Department Care Team (Late st Contact Info) Description 04/30/2023 10:30 AM EST [facility] [address] [place] [address] Matthias Newell MD [address] [place] [address] 05/08/2023 5:00 PM EST Office Visit General Internal Medicine [facility] [address] [place] [address] Jennifer Rodrigez MD [address] [place] [address] 05/21/2023 1:30 PM EDT Office Visit [facility], [address] [address] Bradly Jones MD [address] [place] [address] 07/04/2023 5:00 PM EDT Office Visit Gynecology/Obstetrics [address] [address] Irina Silva MD [address] [place] [id number] 10/11/2023 1:00 PM EDT Office Visit Urology, [place] [address] [place] [address] 10/11/2023 3:00 PM EDT Office Visit Urology, [place] [address] [place] [address] Horace Pearl PA-C [address] [place] [address] Health Maintenance Due Date Last Done Comments [...] Procedure Name Priority Date/Time Associated Diagnosis Comments GLUCOSE METER, POINT OF CARE DERICK 04/26/2023 10:01 PM EST MRI T SPINE WO CONTRAST STAT 04/26/2023 9:39 PM EST MRI L SPINE WO CONTRAST STAT 04/26/2023 9:38 PM EST URINALYSIS, REFLEX TO CULTURE STAT 04/26/2023 7:43 PM EST URINALYSIS, REFLEX TO CULTURE (CUP ONLY) STAT 04/26/2023 7:43 PM EST URINALYSIS, REFLEX TO CULTURE (NOT FOR NEUTROPENIC PATIENTS) STAT 04/26/2023 7:43 PM EST HCG QUALITATIVE, URINE STAT 7:43 PM EST LYME DISEASE ANTIBODY SCREEN STAT 04/26/2023 3:48 PM EST DIFFERENTIAL, AUTOMATED STAT 04/26/2023 3:48 PM EST LYME DISEASE ANTIBODY SCREEN WITH REFLEX TO CONFIRMATION STAT 04/26/2023 3:48 PM EST CRP (INFLAMMATORY MARKER) STAT 04/26/2023 3:48 PM EST COMPREHENSIVE METABOLIC PANEL STAT 04/26/2023 3:48 PM EST CBC STAT 04/26/2023 3:48 PM EST ERYTHROCYTE SEDIMENTATION RATE (ESR) STAT 04/26/2023 3:48 PM EST CBC STAT 04/26/2023 3:48 PM EST documented in this encounter Results * GLUCOSE METER, POINT OF CARE (04/26/2023 10:01 PM EST) [facility] Signature Glucose Meter 97 70 - 120 mg/dL 04/26/2023 10:05 PM EST [facility] [employer] Blood Whole blood specimen / Unknown 04/26/2023 10:01 PM EST 04/26/2023 10:05 PM EST Paul Mcnamara DO LAB POINT OF C ARE TEST DOCKED DEVICE UNSOLICITED RESULTS [facility] [address] [place] [address] * MRI T SPINE WO CONTRAST (04/26/2023 9:39 PM EST) Anatomical Region Laterality Modality Vertebra, Tspine Magnetic Resona nce 04/26/2023 10:3 3 PM EST Impressions 04/26/2023 10:50 PM EST IMPRESSION 1. Limited evaluation of the thoracic [...] 2.2 cm. Pelvic ultrasound may be helpful. I have personally reviewed this examination and agree with the resident/fellow physician's interpretation. Narrative 04/26/2023 10:50 PM EST EXAM MRI T SPINE WO CONTRAST; MRI L SPINE WO CONTRAST - 04/26/2023 HISTORY Worsening of neurologic symptoms post operatively; mid lumbar back pain with new bladder incontinence and saddle anesthesia COMPARISON MR lumbar spine dated 02/28/[address] dated 06/21/2021 CT abdomen/pelvis dated 01/24/2018 TECHNIQUE Multiplanar, multisequence MRI of the thoracic and lumbar spine was performed without contrast. The patient was unable to complete the axial images for the thoracic spine. FINDINGS THORACIC SPINE: Alignment is preserved. Vertebral bodies are normal in height. Probable hemangioma in the T9 vertebral body. No suspicious marrow lesion. The disc spaces are preserved. Probable posterior/inferior disc extrusion at the T1-T2 level with indentation on the thecal sac. The thoracic spinal cord is normal in size and signal intensity without discrete lesions on these sagittal only images. The visualized prevertebral and paraspinal soft tissues are unremarkable. LUMBAR SPINE: There are 5 [id number], lumbar-type vertebrae. Alignment is maintained with preservation of the normal lumbar lordosis. Lumbar vertebral bodies are maintained in height. There is disc desiccation at L4-L5 and L5-S1 with mild T2 hyperintensity in the endplates, consistent with degenerative disc disease. There are mild posterior disc bulges at L3-4-L5 and L5-S1. There is no significant spinal canal stenosis or neural foraminal narrowing at any level. The conus medullaris appears to be low lying, terminating at the L3-L4 disc space, similar to prior. 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 The endometrial complex is markedly thickened measuring 2.2 cm. Pelvic ultrasound may be helpful. Visualized prevertebral and paraspinal soft tissues are otherwise unremarkable. Procedure Note Zaira Delvalle MD - 04/26/2023 EXAM MRI T SPINE WO CONTRAST; MRI L SPINE WO CONTRAST - 04/26/2023 HISTORY Worsening of neurologic symptoms post operatively; mid lumbar back painwith new bladder incontinence and saddle anesthesia COMPARISON MR lumbar spine dated 02/28/[address] dated 06/21/2021 CT abdomen/pelvis dated 01/24/2018 TECHNIQUE Multiplanar, multisequence MRI of the thoracic and lumbar spine wasperformed without contrast. The patient was unable to complete the axialimages for the thoracic spine. FINDINGS THORACIC SPINE: Alignment is preserved. Vertebral bodies are normal in height. Probablehemangioma in the T9 vertebral body. No suspicious marrow lesion. Thedisc spaces are preserved. Probable posterior/inferior disc extrusion atthe T1-T2 level with indentation on the thecal sac. The thoracic spinalcord is normal in size and signal intensity without discrete lesions onthese sagittal only images. The visualized prevertebral and paraspinal soft tissues areunremarkable. LUMBAR SPINE: There are 5 ugm-ekj-rtoydap, lumbar-type vertebrae. Alignment ismaintained with preservation of the normal lumbar lordosis. Lumbarvertebral bodies are maintained in height. There is disc desiccation atL4-L5 and L5-S1 with mild T2 hyperintensity in the endplates, consistentwith degenerative disc disease. There are mild posterior disc bulges atL3-4-L5 and L5-S1. There is no significant spinal canal stenosis orneural foraminal narrowing at any level. The conus medullaris appears to be low lying, terminating at the L3-L4disc space, similar to prior. 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 Similar filum terminalislipoma. The endometrial complex is markedly thickened measuring 2.2 cm. Pelvicultrasound may be helpful. Visualized prevertebral and paraspinal softtissues are otherwise unremarkable. IMPRESSION IMPRESSION 1. Limited evaluation of the thoracic spine as patient was unable tocomplete the axial images for the thoracic spine, however there is noevidence of acute pathology. 2. No significant change in the lumbar spine compared to 02/28/2023 withfindings suspicious for tethered cord but no new acute findings. 3. The endometrial complex is markedly thickened measuring 2.2 cm. Pelvicultrasound may be helpful. I have personally reviewed this examination and agree with the resident/fellow physician's interpretation. Paul Veronika Lopeztha RAD MRI-MRA * MRI L SPINE WO CONTRAST (04/26/2023 9:38 PM EST) Anatomical Region Laterality Modality Vertebra, Lspine Magnetic Resona nce 04/26/2023 10:3 3 PM EST Impressions 04/26/2023 10:50 PM EST IMPRESSION 1. Limited evaluation of the thoracic [...] 2.2 cm. Pelvic ultrasound may be helpful. I have personally reviewed this examination and agree with the resident/fellow physician's interpretation. Narrative 04/26/2023 10:50 PM EST EXAM MRI T SPINE WO CONTRAST; MRI L SPINE WO CONTRAST - 04/26/2023 HISTORY Worsening of neurologic symptoms post operatively; mid lumbar back pain with new bladder incontinence and saddle anesthesia COMPARISON MR lumbar spine dated 02/28/[address] dated 06/21/2021 CT abdomen/pelvis dated 01/24/2018 TECHNIQUE Multiplanar, multisequence MRI of the thoracic and lumbar spine was performed without contrast. The patient was unable to complete the axial images for the thoracic spine. FINDINGS THORACIC SPINE: Alignment is preserved. Vertebral bodies are normal in height. Probable hemangioma in the T9 vertebral body. No suspicious marrow lesion. The disc spaces are preserved. Probable posterior/inferior disc extrusion at the T1-T2 level with indentation on the thecal sac. The thoracic spinal cord is normal in size and signal intensity without discrete lesions on these sagittal only images. The visualized prevertebral and paraspinal soft tissues are unremarkable. LUMBAR SPINE: There are 5 saj-law-vurwlty, lumbar-type vertebrae. Alignment is maintained with preservation of the normal lumbar lordosis. Lumbar vertebral bodies are maintained in height. There is disc desiccation at L4-L5 and L5-S1 with mild T2 hyperintensity in the endplates, consistent with degenerative disc disease. There are mild posterior disc bulges at L3-4-L5 and L5-S1. There is no significant spinal canal stenosis or neural foraminal narrowing at any level. The conus medullaris appears to be low lying, terminating at the L3-L4 disc space, similar to prior. 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 The endometrial complex is markedly thickened measuring 2.2 cm. Pelvic ultrasound may be helpful. Visualized prevertebral and paraspinal soft tissues are otherwise unremarkable. Procedure Note Zaira Delvalle MD - 04/26/2023 EXAM MRI T SPINE WO CONTRAST; MRI L SPINE WO CONTRAST - 04/26/2023 HISTORY Worsening of neurologic symptoms post operatively; mid lumbar back painwith new bladder incontinence and saddle anesthesia COMPARISON MR lumbar spine dated 02/28/[address] dated 06/21/2021 CT abdomen/pelvis dated 01/24/2018 TECHNIQUE Multiplanar, multisequence MRI of the thoracic and lumbar spine wasperformed without contrast. The patient was unable to complete the axialimages for the thoracic spine. FINDINGS THORACIC SPINE: Alignment is preserved. Vertebral bodies are normal in height. Probablehemangioma in the T9 vertebral body. No suspicious marrow lesion. Thedisc spaces are preserved. Probable posterior/inferior disc extrusion atthe T1-T2 level with indentation on the thecal sac. The thoracic spinalcord is normal in size and signal intensity without discrete lesions onthese sagittal only images. The visualized prevertebral and paraspinal soft tissues areunremarkable. LUMBAR SPINE: There are 5 [id number]-[id number], lumbar-type vertebrae. Alignment ismaintained with preservation of the normal lumbar lordosis. Lumbarvertebral bodies are maintained in height. There is disc desiccation atL4-L5 and L5-S1 with mild T2 hyperintensity in the endplates, consistentwith degenerative disc disease. There are mild posterior disc bulges atL3-4-L5 and L5-S1. There is no significant spinal canal stenosis orneural foraminal narrowing at any level. The conus medullaris appears to be low lying, terminating at the L3-L4disc space, similar to prior. 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 Similar filum terminalislipoma. The endometrial complex is markedly thickened measuring 2.2 cm. Pelvicultrasound may be helpful. Visualized prevertebral and paraspinal softtissues are otherwise unremarkable. IMPRESSION IMPRESSION 1. Limited evaluation of the thoracic spine as patient was unable tocomplete the axial images for the thoracic spine, however there is noevidence of acute pathology. 2. No significant change in the lumbar spine compared to 02/28/2023 withfindings suspicious for tethered cord but no new acute findings. 3. The endometrial complex is markedly thickened measuring 2.2 cm. Pelvicultrasound may be helpful. I have personally reviewed this examination and agree with the resident/fellow physician's interpretation. Gerry Verduzco DO RAD MRI-[facility] * HCG QUALITATIVE, URINE (04/26/2023 7:43 PM EST) HCG Qualitative, Urine Negative Negative 04/26/2023 8:39 PM EST [facility] Urine Urine specimen obtained by clean catch procedure / Unknown Non-blood Collection / Unknown 04/26/2023 7:43 PM EST 04/26/2023 7:50 PM EST Gerry Verduzco DO [facility] URINE ORDERABLES Performing Organization Address City/State/[facility] Co de Phone Number [facility] [address] [place] [address] * (ABNORMAL) URINALYSIS, REFLEX TO CULTURE (04/26/2023 7:43 PM EST) Color, Urine Light Yellow Colorless, Light Yellow, Yellow, Dark Yellow 04/26/2023 8:05 PM EST [facility] Clarity, Urine Clear Clear 04/26/2023 8:05 PM EST [facility] Glucose, Urine Negative Negative mg/dL 04/26/2023 8:05 PM EST LABORATORY [facility] Bilirubin, Urine Negative Negative 04/26/2023 8:05 PM EST LABORATORY C Ketone, Urine Negative Negative mg/dL 04/26/2023 8:05 PM EST [facility] Specific [place], Urine 1.016 1.003 - 1.030 04/26/2023 8:05 PM EST [facility] Blood, Urine Trace(A) Negative 04/26/2023 8:05 PM EST [facility] pH, Urine 5.5 5.0 - 7.5 Units 04/26/2023 8:05 PM EST [facility] Protein, Urine Negative Negative mg/dL 04/26/2023 8:05 PM EST [facility] Urobilinogen, Urine Normal Normal mg/dL 04/26/2023 8:05 PM EST [facility] Nitrite, Urine Negative Negative 04/26/2023 8:05 PM EST [facility] Esterase, Urine Negative Negative 04/26/2023 8:05 PM EST [facility] RBC, Urine 3-5(A) 0 - 2 /HPF 04/26/2023 8:05 PM EST [facility] WBC, Urine 0-2 0 - 2 /HPF 04/26/2023 8:05 PM EST [facility] Bacteria, Urine 0-25 0 - 25 /HPF 04/26/2023 8:05 PM EST [facility] Culture, Urine 04/26/2023 8:05 PM EST [facility] Comment:Culture not indicate d by urinalysis results Urine Urine specimen obtained by clean catch procedure / Unknown Non-blood Collection / Unknown 04/26/2023 7:43 PM EST 04/26/2023 7:49 PM EST Gerry Verduzco DO LAB URINE ORDERABLES Performing Organization Address City/State/[facility] Co de Phone Number [facility] [address] [place] [address] * URINALYSIS, REFLEX TO CULTURE (CUP ONLY) (04/26/2023 7:43 PM EST) Urinalysis, Reflex to Culture Specimen Specimen collected and received 04/26/2023 9:01 PM EST [facility] Urine Urine specimen obtained by clean catch procedure / Unknown Non-blood Collection / Unknown 04/26/2023 7:43 PM EST 04/26/2023 7:50 PM EST [facility] LAB URINE ORDERABLES [facility] [address] [place] [address] * LYME DISEASE ANTIBODY SCREEN (04/26/2023 3:48 PM EST) [facility] Lyme Disease Antibody Screen Negative Negative 04/27/2023 12:09 PM EST [facility] Blood Venous blood specimen / Unknown Venipuncture / Unknown 04/26/2023 3:48 PM EST 04/26/2023 3:54 PM EST [facility] BLOOD ORDERABLES Performing Organization Address City/[facility] Co de Phone Number [facility] [address] [place] [address] * DIFFERENTIAL, AUTOMATED (04/26/2023 3:48 PM EST) [facility] WBC 8.69 4.00 - 10.80 K/uL 04/26/2023 3:59 PM EST [facility] Neutrophils % 53.5 40.0 - 75.0 % 04/26/2023 3:59 PM EST [facility] Lymphocytes % 39.4 18.0 - 42.0 % 04/26/2023 3:59 PM EST [facility] Monocytes % 5.3 1.0 - 11.0 % 04/26/2023 3:59 PM EST [facility] Eosinophils % 0.8 0.0 - 6.0 % 04/26/2023 3:59 PM EST [facility] Basophils % 0.5 0.0 - 2.0 % 04/26/2023 3:59 PM EST [facility] Immature Granulocytes % 0.5 0.0 - 2.0 % 04/26/2023 3:59 PM EST [facility] Absolute Neutrophils 4.66 1.80 - 7.70 K/uL 04/26/2023 3:59 PM EST [facility] Absolute Lymphocytes 3.42 1.00 - 4.80 K/ul 04/26/2023 3:59 PM EST [facility] Absolute Monocytes 0.46 0.00 - 1.10 K/uL 04/26/2023 3:59 PM EST [facility] Absolute Eosinophils 0.07 0.00 - 0.70 K/uL 04/26/2023 3:59 PM EST [facility] Absolute Basophils 0.04 0.00 - 0.20 K/uL 04/26/2023 3:59 PM EST [facility] Absolute Immature Granulocytes 0.04 0.00 - 0.20 K/uL 04/26/2023 3:59 PM EST [facility] Blood Venous blood specimen / Unknown Venipuncture / Unknown 04/26/2023 3:48 PM EST 04/26/2023 3:54 PM EST Gerry Verduzco LAB BLOOD ORDERABLES [facility] [address] [place] [address] * CBC (04/26/2023 3:48 PM EST) WBC 8.69 4.00 - 10.80 K/uL 04/26/2023 3:59 PM EST [facility] RBC 4.90 3.85 - 5.15 M/uL 04/26/2023 3:59 PM EST [facility] HGB 13.7 12.0 - 15.3 g/dL 04/26/2023 3:59 PM EST [facility] HCT 43.8 36.0 - 45.2 % 04/26/2023 3:59 PM EST [facility] MCV 89.4 81.5 - 97.5 fL 04/26/2023 3:59 PM EST [facility] MCH 28.0 27.0 - 34.0 pg 04/26/2023 3:59 PM EST [facility] MCHC 31.3 32.0 - 36.0 g/dL 04/26/2023 3:59 PM EST [facility] RDW 14.4 11.5 - 15.5 % 04/26/2023 3:59 PM EST [facility] PLT 299 140 - 400 K/uL 04/26/2023 3:59 PM EST [facility] MPV 9.4 6.6 - 11.1 fL 04/26/2023 3:59 PM EST [facility] nRBCs 0 <=0 /100 WBCs 04/26/2023 3:59 PM EST [facility] Blood Venous blood specimen / Unknown Venipuncture / Unknown 04/26/2023 3:48 PM EST 04/26/2023 3:54 PM EST Gerry Verduzco DO LAB BLOOD ORDERABLES Performing Organization Address [facility] Co de Phone Number [facility] [address] [place] [address] * (ABNORMAL) CRP (INFLAMMATORY MARKER) (04/26/2023 3:48 PM EST) CRP (Inflammatory Marker) 13(H) <=5 mg/L 04/26/2023 4:14 PM EST [facility] Blood Venous blood specimen / Unknown Venipuncture / Unknown 04/26/2023 3:48 PM EST 04/26/2023 3:54 PM EST Gerry Verduzco DO LAB BLOOD ORDERABLES Performing Organization Address [facility] de Phone Number LABORATORY [facility] [address] [place] [address] * (ABNORMAL) ERYTHROCYTE SEDIMENTATION RATE (ESR) (04/26/2023 3:48 PM EST) ESR 39(H) <20 mm/hour 04/26/2023 4:05 PM EST [facility] Blood Venous blood specimen / Unknown Venipuncture / Unknown 04/26/2023 3:48 PM EST 04/26/2023 3:54 PM EST Gerry Verduzco DO LAB BLOOD ORDERABLES Performing Organization Address [facility] de Phone Number [facility]ORY [facility] [address] [place] [address] * COMPREHENSIVE METABOLIC PANEL (04/26/2023 3:48 PM EST) BUN 13 6 - 20 mg/dL 04/26/2023 4:14 PM EST [facility] Creatinine 0.8 0.5 - 1.0 mg/dL 04/26/2023 4:14 PM EST LABORATORY [facility] Estimated Glomerular Filtration Rate >90 >=60 mL/min 04/26/2023 4:14 PM EST [facility] Comment:eGFR is calculated b ased on the CKD-EPI 2020 equation Sodium 138 135 - 146 mmol/L 04/26/2023 4:14 PM EST [facility] Potassium 4.4 3.5 - 5.1 mmol/L 04/26/2023 4:14 PM EST [facility] Chloride 101 98 - 107 mmol/L 04/26/2023 4:14 PM EST [facility] CO2 23 22 - 32 mmol/L 04/26/2023 4:14 PM EST [facility] Anion Gap 14 7 - 15 mmol/L 04/26/2023 4:14 PM EST [facility] Glucose 98 70 - 120 mg/dL 04/26/2023 4:14 PM EST [facility] Albumin 4.5 3.8 - 5.0 g/dL 04/26/2023 4:14 PM EST [facility] AST 28 10 - 35 U/L 04/26/2023 4:14 PM EST [facility] Comment:Result may be falsel y elevated due to hemolysis. Alkaline Phosphatase 64 35 - 130 U/L 04/26/2023 4:14 PM EST [facility] Bilirubin, Total 0.2 <=1.2 mg/dL 04/26/2023 4:14 PM EST [facility] Calcium 10.2 8.4 - 10.2 mg/dL 04/26/2023 4:14 PM EST [facility] Protein 7.0 6.0 - 8.3 g/dL 04/26/2023 4:14 PM EST [facility] ALT 33 10 - 35 U/L 04/26/2023 4:14 PM EST [facility] Blood Venous blood specimen / Unknown Venipuncture / Unknown 04/26/2023 3:48 PM EST 04/26/2023 3:54 PM EST Gerry Dax LAB BLOOD ORDERABLES [facility] [address] [place] [address] documented in this encounter Visit Diagnoses Diagnosis Numbness and tingling- Primary Disturbance of skin sensation documented in this encounter Administered Medications Inactive Administered Medications - up to 3 most recent administrations Medication Order MAR Action Action Date Dose Rate Site Acetaminophen (Tylenol) tab 975 mg 975 mg, Oral, ONCE, On Sat04/26/23 at 2245, For 1 dose, Maximum of 4 grams (4000 mg) per day. Given 04/26/2023 10:18 PM EST 975 mg documented in this encounter Active and Recently Administered Medications Times are shown in EST. Scheduled Medication Order 04/25/2023 04/26/2023 04/27/2023 Acetaminophen (Tylenol) tab 975 mg (COMPLETED) 975 mg, Oral, ONCE, On Sat04/26/23 at 2245, For 1 dose, Maximum of 4 grams (4000 mg) per day. 2216 (Given - Provider: Rhiannon Leyva RN) documented in this encounter Care Teams Warehouse Logistics Manager Relationship Specialty Start Date End Date Jennifer Rodrigez MD [address] [place] [address] PCP - General Internal Medicine 04/05/23 documented as of this encounter
--- OUTSIDE RECORDS SUMMARY | 2023-08-25 13:33 | External Medical Summary | Summary of Care ---
Author Name Unknown Organization [facility] Address [address] [place] [address] Phone [phone] Care Team Providers Care Lifestyle Director Name Role Phone Jennifer Rodrigez MD Primary Care Provider [phone] Reason for Visit * Reason Onset Date Comments Advice 04/24/2023 Test Results 04/24/2023 Encounter Details Date Type Department Care Team (Late st Contact Info) Description 04/24/2023 Telephone General Internal Medicine [facility] [address] [place] [address] Jennifer Rodrigez MD [address] [place] [address] Advice; Test Results Allergies Active Allergy Reactions Criticality [...] 0 04/16/2023 Active Vitamin D3 1.25 MG (61250 UT) Oral CapsuleIndications: Vitamin D deficiency Take [...] encounter Miscellaneous Notes * Telephone Encounter - Jennifer Rodrigez MD - 04/24/2023 2:09 PM EST Neurosurgery will discuss MRI results with her. 04/18/23-sp Interlaminar Epidural Steroid Injection at the L5-S1 level If new difficulty bearing wt --to go to ER , if not f/u pain clinic/office for recheck. * Telephone Encounter - Meaghan Corbett E - No Ob/Or, LINDSAY - 04/24/2023 12:54 PM EST Pt is asking for advise about the pain she is having w her foot and can not bare weight on it. Alsowanting results for MRI .Please advise. Thank you ! documented in this encounter Plan of Treatment Upcoming Encounters Date Type Department Care Team (Late st Contact Info) Description 05/08/2023 5:00 PM EST Office Visit General Internal Medicine [facility] [address] [facility] [place] [address] Jennifer Rodrigez MD [address] [facility] [place] [address] 05/09/2023 3:30 PM EST Telemedicine Neurosurgery, [place] [address], [place] [phone] Matthias Newell MD [address] [place] [address] 05/21/2023 1:30 PM EDT Office Visit [facility], [address] [address] Bradly Jones MD [address] [place] [address] 07/04/2023 5:00 PM EDT Office Visit Gynecology/Obstetrics [address] [address] Irina Silva MD [address] [place] [phone] 10/11/2023 1:00 PM EDT Office Visit Urology, [place] [address], [place] [phone] 10/11/2023 3:00 PM EDT Office Visit Urology, [place] [address], [place] [phone] Horace Pearl PA-C [address], [place] [phone] Health Maintenance Due Date Last Done Comments [...] filedocumented as of this encounter Care Teams Lifestyle Director Relationship Specialty Start Date End Date Jennifer Rodrigez MD [address] [place] [id number] PCP - General Internal Medicine 04/05/23 documented as of this encounter
--- OUTSIDE RECORDS SUMMARY | 2023-08-25 13:33 | External Medical Summary ---
Author Name Unknown Address Unknown Organization [id number]:LABORATORY [facility] [place] - [address] [place] [address] Laboratory Report Ordering Provider Test Date Status KASSIDY TOMLINSON 04/26/2023 15:48:00 Final Observation Date Value Abnormality Reference (Units ) Status Erythrocyte sedimentation rate by Photometric method 04/26/2023 15:48:00 39 Above high normal <20 (mm/hour) Final Performing Location LABORATORY [facility] [place] - [address] [place] [address]
--- OUTSIDE RECORDS SUMMARY | 2023-08-25 13:33 | External Medical Summary ---
Author Name Unknown Address Unknown Organization : Laboratory Report Ordering Provider Test Date Status JOURDAN TOVAR 04/26/2023 22:01:54 Final Observation Date Value Abnormality Reference (Units ) Status Glucose Point of Care 04/26/2023 22:01:54 97 70-120 (mg/dL) Final Performing Location
--- OUTSIDE RECORDS SUMMARY | 2023-08-25 13:33 | External Medical Summary ---
Author Name Unknown Address Unknown Organization K01:[facility] [address] [facility] [place] [address] Laboratory Report Ordering Provider Test Date Status KASSIDY TOMLINSON 04/26/2023 15:48:00 Final Observation Date Value Abnormality Reference (Units ) Status SYNC LEUKOCYTES IN BLOOD BY AUTOMATED COUNT 04/26/2023 15:48:00 8.69 4.00-10.80 (K/uL) Final Segs 04/26/2023 15:48:00 53.5 40.0-75.0 (%) Final Lymphs % 04/26/2023 15:48:00 39.4 18.0-42.0 (%) Final Monos 04/26/2023 15:48:00 5.3 1.0-11.0 (%) Final Eosinophils 04/26/2023 15:48:00 0.8 0.0-6.0 (%) Final Basos 04/26/2023 15:48:00 0.5 0.0-2.0 (%) Final Immature Granulocyte, Percent 04/26/2023 15:48:00 0.5 0.0-2.0 (%) Final Absolute Segs 04/26/2023 15:48:00 4.66 1.80-7.70 (K/uL) Final Lymphs, absolute 04/26/2023 15:48:00 3.42 1.00-4.80 (K/ul) Final Monos, Abs 04/26/2023 15:48:00 0.46 0.00-1.10 (K/uL) Final Eos, Abs 04/26/2023 15:48:00 0.07 0.00-0.70 (K/uL) Final Basos, Abs 04/26/2023 15:48:00 0.04 0.00-0.20 (K/uL) Final Immature Granulocytes, Number 04/26/2023 15:48:00 0.04 0.00-0.20 (K/uL) Final Performing Location [facility]ORY [facility] - [address] [facility] [address]
--- OUTSIDE RECORDS SUMMARY | 2023-08-25 13:33 | External Medical Summary ---
Author Name Unknown Address Unknown Organization K01:[facility]ORATORY [facility] - [address] [facility] [place] [address] Laboratory Report Ordering Provider Test Date Status CHAYITO AMEZQUITA 04/29/2023 14:58:00 Final Observation Date Value Abnormality Reference (Units ) Status Color of Urine by Auto 04/29/2023 14:58:00 Colorless Colorless, Light Yellow, Yellow, Dark Yellow Final Clarity, Urine 04/29/2023 14:58:00 Clear Clear Final Glucose [Mass/volume] in Urine by Automated test strip 04/29/2023 14:58:00 Negative Negative (mg/dL) Final Bilirubin.total [Presence] in Urine by Automated test strip 04/29/2023 14:58:00 Negative Negative Final Ketones [Mass/volume] in Urine by Automated test strip 04/29/2023 14:58:00 Negative Negative (mg/dL) Final Specific gravity, Urine 04/29/2023 14:58:00 1.007 1.003-1.030 Final Hemoglobin [Presence] in Urine by Automated test strip 04/29/2023 14:58:00 Negative Negative Final pH, Urine 04/29/2023 14:58:00 6.5 5.0-7.5 (Units) Final Protein [Mass/volume] in Urine by Automated test strip 04/29/2023 14:58:00 Negative Negative (mg/dL) Final Urobilinogen [Mass/volume] in Urine by Automated test strip 04/29/2023 14:58:00 Normal Normal (mg/dL) Final Nitrite [Presence] in Urine by Automated test strip 04/29/2023 14:58:00 Negative Negative Final Leukocyte esterase [Presence] in Urine by Automated test strip 04/29/2023 14:58:00 Small Abnormal Negative Final RBC, Urine 04/29/2023 14:58:00 0-2 0-2 (/HPF) Final WBC, Urine 04/29/2023 14:58:00 10-19 Abnormal 0-2 (/HPF) Final Bacteria [#/area] in Urine sediment by Microscopy high power field 04/29/2023 14:58:00 51-100 Abnormal 0-25 (/HPF) Final CULTURE, URINE - [facility] 04/29/2023 14:58:00 Final Quantitative urine culture t o be performed Performing Location LABORATORY [facility] [place] - [address] [facility] [address]
--- OUTSIDE RECORDS SUMMARY | 2023-08-25 13:33 | External Medical Summary ---
Author Name Unknown Address Unknown Organization K01:[facility]ORATORY [facility] - [address] [facility]. [place] [address] Laboratory Report Ordering Provider Test Date Status ALIRIOCHAYITO 04/29/2023 15:02:00 Final Observation Date Value Abnormality Reference (Units ) Status SYNC LEUKOCYTES IN BLOOD BY AUTOMATED COUNT 04/29/2023 15:02:00 11.13 Above high normal 4.00-10.80 (K/uL) Final Segs 04/29/2023 15:02:00 71.0 40.0-75.0 (%) Final Lymphs % 04/29/2023 15:02:00 23.5 18.0-42.0 (%) Final Monos 04/29/2023 15:02:00 4.2 1.0-11.0 (%) Final Eosinophils 04/29/2023 15:02:00 0.5 0.0-6.0 (%) Final Basos 04/29/2023 15:02:00 0.4 0.0-2.0 (%) Final Immature Granulocyte, Percent 04/29/2023 15:02:00 0.4 0.0-2.0 (%) Final Absolute Segs 04/29/2023 15:02:00 7.89 Above high normal 1.80-7.70 (K/uL) Final Lymphs, absolute 04/29/2023 15:02:00 2.62 1.00-4.80 (K/ul) Final Monos, Abs 04/29/2023 15:02:00 0.47 0.00-1.10 (K/uL) Final Eos, Abs 04/29/2023 15:02:00 0.06 0.00-0.70 (K/uL) Final Basos, Abs 04/29/2023 15:02:00 0.04 0.00-0.20 (K/uL) Final Immature Granulocytes, Number 04/29/2023 15:02:00 0.05 0.00-0.20 (K/uL) Final Performing Location LABORATORY [facility] [place] - [address] [facility] [address]
--- OUTSIDE RECORDS SUMMARY | 2023-08-25 13:33 | External Medical Summary ---
Author Name Unknown Address Unknown Organization K01:[facility] [place] [facility] [address] [place] [address] Laboratory Report Ordering Provider Test Date Status KASSIDY TOMLINSON 04/26/2023 15:48:00 Final Observation Date Value Abnormality Reference (Units ) Status WBC, Total 04/26/2023 15:48:00 8.69 4.00-10.80 (K/uL) Final RBC 04/26/2023 15:48:00 4.90 3.85-5.15 (M/uL) Final Hemoglobin 04/26/2023 15:48:00 13.7 12.0-15.3 (g/dL) Final HCT 04/26/2023 15:48:00 43.8 36.0-45.2 (%) Final MCV 04/26/2023 15:48:00 89.4 81.5-97.5 (fL) Final MCH 04/26/2023 15:48:00 28.0 27.0-34.0 (pg) Final MCHC 04/26/2023 15:48:00 31.3 32.0-36.0 (g/dL) Final RDW 04/26/2023 15:48:00 14.4 11.5-15.5 (%) Final Platelets 04/26/2023 15:48:00 299 140-400 (K/uL) Final MPV 04/26/2023 15:48:00 9.4 6.6-11.1 (fL) Final Nucleated erythrocytes/100 leukocytes [Ratio] in Blood by Automated count 04/26/2023 15:48:00 0 <=0 (/100 WBCs) Final Performing Location [facility]ORY [facility] [place] [address] [place] [address]
--- OUTSIDE RECORDS SUMMARY | 2023-08-25 13:33 | External Medical Summary ---
Author Name Unknown Address Unknown Organization K01:LABORATORY [facility] [place] - [facility] [address] [place] [address] Laboratory Report Ordering Provider Test Date Status KASSIDY TOMLINSON 04/26/2023 15:48:00 Final Observation Date Value Abnormality Reference (Units ) Status Borrelia burgdorferi IgG and IgM [Interpretation] in Serum by Immunoassay 04/26/2023 15:48:00 Negative Negative Final Performing Location LABORATORY [facility] [place] - [address] [place] [address]
--- OUTSIDE RECORDS SUMMARY | 2023-08-25 13:33 | External Medical Summary ---
Author Name Unknown Address Unknown Organization K01:LABORATORY [facility] - [address] [facility] [place] [address] Laboratory Report Ordering Provider Test Date Status KASSIDY TOMLINSON 04/26/2023 19:43:44 Final Observation Date Value Abnormality Reference (Units ) Status Color of Urine by Auto 04/26/2023 19:43:44 Light Yellow Colorless, Light Yellow, Yellow, Dark Yellow Final Clarity, Urine 04/26/2023 19:43:44 Clear Clear Final Glucose [Mass/volume] in Urine by Automated test strip 04/26/2023 19:43:44 Negative Negative (mg/dL) Final Bilirubin.total [Presence] in Urine by Automated test strip 04/26/2023 19:43:44 Negative Negative Final Ketones [Mass/volume] in Urine by Automated test strip 04/26/2023 19:43:44 Negative Negative (mg/dL) Final Specific gravity, Urine 04/26/2023 19:43:44 1.016 1.003-1.030 Final Hemoglobin [Presence] in Urine by Automated test strip 04/26/2023 19:43:44 Trace Abnormal Negative Final pH, Urine 04/26/2023 19:43:44 5.5 5.0-7.5 (Units) Final Protein [Mass/volume] in Urine by Automated test strip 04/26/2023 19:43:44 Negative Negative (mg/dL) Final Urobilinogen [Mass/volume] in Urine by Automated test strip 04/26/2023 19:43:44 Normal Normal (mg/dL) Final Nitrite [Presence] in Urine by Automated test strip 04/26/2023 19:43:44 Negative Negative Final Leukocyte esterase [Presence] in Urine by Automated test strip 04/26/2023 19:43:44 Negative Negative Final RBC, Urine 04/26/2023 19:43:44 3-5 Abnormal 0-2 (/HPF) Final WBC, Urine 04/26/2023 19:43:44 0-2 0-2 (/HPF) Final Bacteria [#/area] in Urine sediment by Microscopy high power field 04/26/2023 19:43:44 0-25 0-25 (/HPF) Final [facility] 04/26/2023 19:43:44 Final Culture not indicated by uri nalysis results\[id number]\ Performing Location [facility] [facility] [place] [facility] [address] [facility] [address]
--- OUTSIDE RECORDS SUMMARY | 2023-08-25 13:33 | External Medical Summary ---
Author Name Unknown Address Unknown Organization K01:LABORATORY [address] [address] Laboratory Report Ordering Provider Test Date Status ALIRIOCHAYITO 04/29/2023 15:02:00 Final hCG can serve as a screening assay for . However, early may not give a positive hCG test result. In addition, some non- women may have a hCG result slightly higher than the reference limit. Careful interpretation of the hCG with clinical history is required to determine whether the patient may be . Observation Date Value Abnormality Reference (Units ) Status Choriogonadotropin.intact +Beta subunit [Units/volume] in Serum or Plasma 04/29/2023 15:02:00 <0.6 <=1.0 (mIU/mL) Final Performing Location LAB[facility]ATORY [facility] [address] [facility] [address]
--- OUTSIDE RECORDS SUMMARY | 2023-08-25 13:33 | External Medical Summary | Summary of Care ---
Author Name Unknown Organization [facility] Address [address] [place] [address] Phone [phone] Care Team Providers Care Payable Manager Name Role Phone Jennifer Rodrigez MD Primary Care Provider [phone] Reason for Visit * Auth/Cert Specialty Diagnoses / Procedures Referred By Selvin wright Referred To Contact Diagnoses Lumbar radiculopathy Lumbar radiculopathy [M54.16] Procedures INJECT DX/THER SUBSTANCE INTERLAMINAR LUMBAR/SACRAL W IMAGE GUIDE INJECTION SPINE LUMBAR OR SACRAL Referral ID Status Reason Start Date Expiration Date Visits Re quested Visits Authorized [id number] Encounter Details Date Type Department Care Team (Latest Contact Info) Description 04/18/2023 7:56 AM EST - 04/18/2023 9:34 AM EST Hospital Encounter OR [facility], Operating Room, [facility] - 4th Floor [address] [place] [id number] Bradly Jones MD [address] [place] [address] Discharge Disposition: Home - Self Care Allergies Active Allergy Reactions Criticality Noted Date Comments Cefaclor Edema Other 02/13/2023 Iodinated Contrast Media Nausea/vomiting Medium 2022 documented as of this encounter (statuses as of 04/18/2023) Medications Medication Sig Dispensed Refills Start Date [...] Muscle spasms. 30 Tablet 0 04/16/2023 Active documented as of this encounter (statuses as of 04/18/2023) Active Problems Problem Noted Date Diagnosed Date Body mass index (BMI) of 45.0 to 49.9 in adult 0 03/18/2023 Overview: Per Obesity protocol PCOS (polycystic ovarian syndrome) 02/13/2023 documented as of this encounter (statuses as of 04/18/2023) Immunizations Name Administration Dates Next Due Seasonal Influenza, PF, 6 M & above, IM , (FluLaval or Fluzone) 04/05/2023 documented as of this encounter Social History [...] Sign Reading Time Taken Comments Blood Pressure 107/71 04/18/2023 9:20 AM EST Pulse 104 04/18/2023 9:20 AM EST Temperature 37.4 C (99.3 F) 04/18/2023 9:20 AM ES T Respiratory Rate 18 04/18/2023 9:20 AM EST Oxygen Saturation 95% 04/18/2023 9:20 AM EST Inhaled Oxygen Concentration - - Weight 121.8 kg (268 lb 8.3 oz) 04/18/2023 8:06 AM EST Height 162.6 cm (5' 4.02") 04/18/2023 8:06 AM ES T Body Mass Index 46.07 04/18/2023 8:06 AM EST documented in this encounter Discharge Instructions * Discharge Instr - AVS* Bradly Jones MD - 04/18/2023 8:13 AM EST Discharge Date: 04/18/2023 Check your Patient Education Brochure for further information. If you have any further questions call your physician at [phone]. The information below provides you with the instructions and the list of medications you need to betaking following discharge from the hospital. If you have any questions, please ask before leaving.If you have questions after you leave, you can reach us at the number above. You had the following procedure performed: Epidural Steroid Injection Wound Care: You may shower normally, but be sure to keep the injection site clean and dry. No soaking in a bathfor 48 hours. Activity: You may resume your regular diet as tolerated. Return to normal activities slowly as tolerated. Walking is very important for healing and your rehabilitation. Initially, you should walk at least two to three times daily. Then slowly and gradually increase your distance as your tolerance for physical activity increases. You may go up and down stairs carefully. You may resume home medications. If you received sedation, for the next 24 hours, you should NOT: Drive a vehicle, operate power machinery or power equipment Drink alcoholic beverages, including beer Make important decisions, such as signing contracts, etc. Notify physician for: Temperature greater than 101 degrees F. Increased pain. Calf swelling or tenderness. Drainage or redness of the incision. Chest pain or shortness of breath (and go to the Emergency Department) Date you may return to work or school: today documented in this encounter H&P Notes * Bradly Jones MD - 04/18/2023 8:12 AM EST Today's Date: 04/18/23 Subjective: Thank you for the opportunity to see your patient. As you know Jacklyn Aldana is a 33 year old female who presents to our clinic with a chief complaint of NEW PATIENT (Synovial cyst of sacral region. Midline low back pain. ) and Pain (Intermittent sharp/shooting entire low back/bilateral buttocks/posterior thighs and calves. R>L. Intermittent numbness/tingling/burning/weakness right leg from thigh to ankle. Ongoing since 02/2023, no trauma.) She reports having pain since February 2023. She cannot recall any acute insult or inciting injury.She reports pain that starts in the middle of her low back and radiates down buttocks, the posterior and lateral aspect of her thighs, and calves to her feet. She reports weakness in her right leg aswell. 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 She has been seen twice in [facility] ED for this complaint and was most recently seen on 03/18/2022 and discharged with Medrol dose pack. Given the presence ofmeningocele, she was referred to orthopedic spine surgery as well. The patient is is able to do their ADLs. She is morbidly obese with a history of PCOS. Providers: PCP: Sri Wiseman MD Referring provider: Jennifer Rodrigez MD Investigations performed: MRI Lumbar Spine (02/28/2023): FINDINGS: The retroperitoneal tissues are unremarkable. There is a defect at the level of the sacrum at the S3 segment with no definite distal sacral elements beyond this level and the suggestion of a meningocele extending into the adjacent presacral space. There is thickening of the filum and there is fat signal within the distal filum extending into this meningocele seen well on the T1 weighted imaging the for example on sagittal image 8 of series 19. Post gadolinium imaging demonstrates no abnormal enhancement in the region. Alignment of the lumbar vertebral bodies is anatomic. Disc space heights are maintained and there are no focal marrow signal abnormalities in the lumbar spine. No thecal sac stenosis or foraminal compromise is evident. There is no abnormal enhancement in the lumbar spine on the post gadolinium imaging. 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 Non-interventional techniques: Physical Therapy: ongoing, helpful Massage: not participated Chiropractic: not participated Acupuncture: not participated Bracing: not participated Interventional Pain techniques: Injections: None Surgeries: None for pain Medications and Allergies: Current Outpatient Medications Medication Instructions cyclobenzaprine (FLEXERIL) 5 mg, Oral, TID PRN Ibuprofen (MOTRIN IB) 400 mg, Oral, Q8H PRN Lidocaine 4 % External Patch (Aspercreme) 1 Patch, Transdermal, Q24H methylPREDNISolone 4 MG Oral Tablet Therapy Pack (Medrol Dosepack) follow package directions Tylenol 325 MG Oral Capsule (Acetaminophen) 2 caps 3-4times/d, max 3gm/d Allergies Review of patient's allergies indicates: Allergen Reactions Iodinated Contrast Media Nausea/vomiting Ceclor [Cefaclor] Edema Other Past Medical History: Past Medical History No past medical history on file. Past Surgical History: Past Surgical History No past surgical history on file. Family History: No family history on file. 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 Objective: BP 125/83 | Pulse 122 | Temp 36.2 C (97.2 F) (Tympanic) | Resp 18 | Ht 1.626 m (5' 4.02") | Wt 121.8 kg (268 lb 8.3 oz) | LMP 02/21/2023 Comment: states she is not | SpO2 98% | BMI 46.07kg/m | BSA 2.35 m GENERAL APPEARANCE: Well-developed, well-nourished, in no acute distress. HEENT: Normocephalic and atraumatic. No scleral icterus. Pupils are equal.No conjunctival injectionis noted. LUNGS: Symmetric. No wheezes, rhonchi, or rales appreciated HEART: Regular rate and rhythm. ABDOMEN: Non-tender, non-distended. Bowel sounds are present. EXTREMITIES: No cyanosis, clubbing, or edema. NEUROLOGIC: Gait is normal. Cranial nerves II through XII are grossly intact. PSYCHIATRIC: The patient is awake, alert, and oriented x3. Appropriate mood and affect. SKIN: Warm, dry, and well perfused. Good turgor. No lesions, nodules or rashes are noted on exposedskin. MSK: Upon initial assessment, the patient is seated in a comfortable position. Upon inspection there is not scoliosis of the thoracolumbar spine. Muscle bulk appears adequate. Palpation exam does not reveal midline lumbar tenderness and does reveal lumbar paraspinous tenderness. There is not tenderness to palpation of the sacroiliac joints bilaterally Positive straight leg raise bilaterally ROM lumbar spine is limited. There is discomfort with back extension and rotation bilaterally. Motor strength exam reveals: hip flexion R 3/5 L 5/5 knee extension R 3/5 L 5/5 knee flexion R 4/5 L 5/5 ankle dorsiflexion R 5/5 L 5/5 ankle plantarflexion R 5/5 L 5/5 EHL R 5/5 L 5/5 Deep tendon reflexes, 2+ patellar, 2+ Achilles, no clonus. Sensory exam is intact to light touch and sharp stimulation grossly in the bilateral upper and lower extremities. Assessment: 33 year old year-old female presents with bilateral low back pain with radiation down the buttocks,posterior and lateral thigh, posterior and lateral calf to the top of the foot. She has also been referred to spine surgery. I informed her that the symptoms could be potentially related to her tethered cord. I personally reviewed the MRI images with her. 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 There is no significant evidence of central canal or neural foraminal stenosis. Physical exam reveals positive straight leg raisebilaterally. She has effort dependent weakness in her right lower extremity with hip flexion, knee e xtension/flexion. I informed her that her symptoms could be related to her tethered cord, but that an epidural steroid injection would only provide symptomatic treatment for this issue. It would be worthwhile to seek an opinion from spine surgery as well. Plan: Interventions: -L5-S1 interlaminar epidural steroid injection documented in this encounter OR Notes * OR Surgeon - Bradly Jones MD - 04/18/2023 9:34 AM EST Procedure Note Lumbar Interlaminar RAVINDER Procedure Date: 04/18/2023 Jacklyn Aldana Date of : 1990 Attending: Bradly Jones M.D. PREOPERATIVE DIAGNOSIS: Lumbar radicular pain POSTOPERATIVE DIAGNOSIS: SAME PROCEDURE PERFORMED: Interlaminar Epidural Steroid Injection at the L5-S1 level ESTIMATED BLOOD LOSS: None SPECIMENS AND DRAINS: None FLUOROSCOPY WAS USED. INDICATIONS FOR PROCEDURE: This is a 33 year old year old female with a clinical picture consistent with the above-mentioned diagnosis, resulting in lumbar radiculopathy. PROCEDURE AND FINDINGS: The patient was greeted in the pre procedure holding area. The risk, benefits and alternatives to the procedure were again reviewed with the patient and written informed consent was placed in the chart. Prior to the procedure a time out was completed, verifying correct patient, procedure, site, positioning, and implants and/or special equipment. The patient was taken to the procedure room and positioned prone on the fluoroscopy table. Then a streaming media specialist film was taken to identify the correct level. The skin was prepped and draped in the usual sterile fashion. The overlying skin and subcutaneous tissue was anesthetized using a 25-guage 1-1/2 inchneedle with 1% buffered lidocaine for a total volume of 2 mls. Then a 18g, 9 cm Tuohy needle was advanced under fluorosocpic guidance using an AP, oblique and lateral views into the interlaminar space. A loss of resistance syringe was attached and loss of resistance to saline and air occurred. Then1-2 mls of Isovue-M 200mg/mL was injected under AP and confirmed adequate spread in the epidural spa ce without DSA. There was no evidence of intravascular uptake or intrathecal spread on imaging. A contralateral oblique view was also taken confirming adequate epidural spread. Then 2mls of PFNS mixed with 1mL of 10mg/mL dexamethasone was injected without incident. The needlewas flushed with a small amount of saline, re-styletted and removed. The needle insertion site was dressed appropriately. The patient was taken to the recovery room where she was monitored for a brief period of time. She tolerated the procedure well and were discharged home in stable condition with post procedural instructions. Follow-up will be in clinic. COMPLICATIONS: None documented in this encounter Plan of Treatment Upcoming Encounters Date Type Department Care Team (Late st Contact Info) Description 05/08/2023 5:00 PM EST Office Visit General Internal Medicine [facility] [address] [facility] [place] [address] Jennifer Rodrigez MD [address] [place] [address] 05/21/2023 1:30 PM EDT Office Visit [facility], [address] [place] [address] Bradly Jones MD [address] [place] [address] 07/04/2023 5:00 PM EDT Office Visit Gynecology/[address]stetrics [address] [place] [address] Irina Silva MD [address] [place] [address] 10/11/2023 1:00 PM EDT Office Visit Urology, [place] [address] [place] [address] 10/11/2023 3:00 PM EDT Office Visit Urology, [place] [address], [place] [phone] Horace Pearl PA-C [address] [place] [address] Scheduled Procedures Name Priority Associated Diagnoses Date/Ti me INJECTION SPINE LUMBAR OR SACRAL Lumbar radiculopathy 04/18/2023 9:02 AM EST Health Maintenance Due Date Last Done Comments Hepatitis B (4 of 4 - 4-dose series) [birth year], [birth year] Pap Smear 02/04/2013 Cervical Cancer Screening 02/04/2022 HPV/Co-Test 02/04/2022 COVID-19 Vaccine ( season) 2022 12/15/2020, 04/12/2020 Depression Screening 03/05/2024 03/05/2023 DTaP,Tdap,and Td Vaccines (8 - Td or Tdap) 12/10/2032 12/10/2022, 12/02/2009, 05/31/1997, Additional history exists Influenza Vaccine (FLU shot) Completed 04/05/2023 GARDASIL-HPV IMMUNIZATION SERIES Aged Out No longer eligible based on patient's age to complete this topic MENINGOCOCCAL (MENACTRA/MENVEO) Aged Out No longer eligible based on patient's age to complete this topic Pneumococcal Vaccine: Pediatrics (0 to 5 Years) and At-Risk Patients (6 to 64 Years) Aged Out No longer eligible based on patient's age to complete this topic documented as of this encounter Medical Devices Not on filedocumented as of this encounter Procedures Procedure Name Priority Date/Time Associated Diagnosis Comments FLUORO INTERVENTIONAL PAIN PROCEDURE NONBILLABLE Routine 04/18/2023 9:18 AM EST documented in this encounter Results * FLUORO INTERVENTIONAL PAIN PROCEDURE NONBILLABLE (04/18/2023 9:18 AM EST) Narrative Scheduling, Silent - 04/18/2023 9:18 AM EST This procedure will not be read by a Radiologist. Please see operative note. Bradly Jones MD RAD FLUOROSCOPY documented in this encounter Active and Recently Administered Medications Times are shown in EST. PRN Medication Order 04/16/2023 04/17/2023 04/18/2023 buffered lidocaine 1 % inj (CANCELED) ONCE PRN INTRA PROCEDURE, Starting on Mya 24 at 0913, Until Mya 24 at 0917, Intra-Op 0913 (Given - Provid er: Bradly Jones MD) dexAMETHasone Sodium Phosphate 10 mg in NSS 2 mL inj (CANCELED) ONCE PRN INTRA PROCEDURE, Starting on Mya 24 at 0914, Until Mya 24 at 0917, Intra-Op 0914 (Given - Provid er: Bradly Jones MD) Iopamidol (Isovue M 200) inj (CANCELED) ONCE PRN INTRA PROCEDURE, Starting on Mya 24 at 0913, Until Mya 24 at 0917, Intra-Op 0913 (Given - Provid er: Bradly Jones MD) documented in this encounter Care Teams Payable Manager Relationship Specialty Start Date End Date Jennifer Rodrigez MD [address] [place] [address] PCP - General Internal Medicine 04/05/23 documented as of this encounter
--- OUTSIDE RECORDS SUMMARY | 2023-08-25 13:33 | External Medical Summary | Summary of Care ---
Author Name Unknown Organization [facility] Address [address] [place] [address] Phone [phone] Care Team Providers Care Stone Paver Name Role Phone Jennifer Rodrigez MD Primary Care Provider [phone] Reason for Visit * Reason Onset Date Comments Advice 04/24/2023 Test Results 04/24/2023 Encounter Details Date Type Department Care Team (Late st Contact Info) Description 04/24/2023 Telephone General Internal Medicine [facility] [address] [place] [address] Jennifer Rodrigez MD [address] [place] [address] Advice; Test Results Allergies Active Allergy Reactions [...] 0 04/16/2023 Active Vitamin D3 1.25 MG (88030 UT) Oral CapsuleIndications: Vitamin D deficiency Take [...] PM EST Office Visit [facility] Internal Medicine [facility] [address] [facility] [place] [address] Jennifer Rodrigez MD [address] [facility] [place] [address] 05/09/2023 3:30 PM EST Telemedicine Neurosurgery, [place] [address], [place] [phone] Matthias Newell MD [address] [place] [address] 05/21/2023 1:30 PM EDT Office Visit [facility] Center, [address] [address] Bradly Jones MD [address] [place] [id number] 07/04/2023 5:00 PM EDT Office Visit Gynecology/Obstetrics [address] [address] Irina Silva MD [address] [place] [id number] 10/11/2023 1:00 PM EDT Office Visit Urology, [place] [address], [place] [phone] 10/11/2023 3:00 PM EDT Office Visit Urology, [place] [address], [place] [phone] Horace Pearl PA-C [address], [place] [phone] Health Maintenance Due Date Last Done Comments [...] filedocumented as of this encounter Care Teams Stone Paver Relationship Specialty Start Date End Date Jennifer Rodrigez MD [address] [place] [id number] PCP - General Internal Medicine 04/05/23 documented as of this encounter
--- OUTSIDE RECORDS SUMMARY | 2023-08-25 13:33 | External Medical Summary | Summary of Care ---
Author Name Unknown Organization [facility] Address [address] [place] [address] Phone [phone] Care Team Providers Care Er Registrar Name Role Phone Yanet Rodrigez MD Primary Care Provider [phone] Reason for Referral * Evaluate & Treat - Unlimited Visits (Within 30 days (routine)) - Pending Review Specialty Diagnoses / Procedures Referred By Selvin t Referred To Contact Obstetrics/Gynecology / Gynecology Obstetrics Diagnoses PCOS (polycystic ovarian syndrome) Yanet Rodrigez MD [address] [facility] [place] [address] Referral ID Status Reason Start Date Expiration Date Visits Requested Visits Authorized [id number] Pending Review Specialty Services Required 04/05/[phone] Question Answer Referral Priority Within 30 days (routine) Where should this appointment be scheduled? [facility] What condition is the patient being seen for? Other - PCOS Reason for Visit * Reason Onset Date Comments Follow Up The pt stated deana brown is here regarding her leg and back pain that has been going on for a little over a month. The pt stated she has had multiple falls over the past month r/t numbness in her R leg. Medication Administration 04/05/2023 Flu an d/or Pneumo Inj Encounter Details Date Type Department Care Team (Late st Contact Info) Description 04/05/2023 10:20 AM EST Office Visit General Internal Medicine [facility] [address] [facility] [place] [address] Yanet Rodrigez MD [address] [place] [address], [place] [address] Tethering of spinal cord (HCC)*; Need for prophylactic vaccination and inoculation against influenza; Meningocele (HCC); Midline low back pain without sciatica, unspecified chronicity; Transient right leg weakness; Numbness in right leg; PCOS (polycystic ovarian syndrome); Screening for lipoid disorders; BMI 45.0-49.9, adult (HCC); Vitamin D deficiency; IFG (impaired fasting glucose); Mixed dyslipidemia Allergies Active Allergy Reactions Criticality Noted Date Comments Cefaclor Edema Other 02/13/2023 Iodinated Contrast Media Nausea/vomiting Medium 2022 documented as of this encounter (statuses as of 04/19/2023) Medications Medication Sig Dispensed Refills Start Date End Date Status Tylenol 325 MG Oral Capsule (Acetaminophen)I ndications:Synov ial cyst of sacral region,Midline low back pain without sciatica, unspecified chronicity 2 caps 3-4times/d, max 3gm/d 0 3 Active Ibuprofen 200 MG Oral Tablet (Motrin IB)Indications:S ynovial cyst of sacral region,Midline low back pain without sciatica, unspecified chronicity Take 2 Tablets by mouth every 8 hours as needed for Pain, Moderate. 0 3 Active predniSONE 50 MG Oral Tablet (Deltasone) Take one tablet 13 hours prior, one tablet 7 hours prior, and one tablet 1 hour prior to procedure 3 Tablet 0 4 Active diphenhydrAMINE HCl 25 MG Oral Tablet (Benadryl Allergy) Take two tablets 1 hour prior to procedure 2 Tablet 0 4 Active Fexofenadine HCl 60 MG Oral Tablet (Mary Allergy) Take 1 Tablet by mouth in the morning. 0 Active Vitamin D3 1.25 MG (06381 UT) Oral CapsuleIndicatio ns:Vitamin D deficiency Take 1 Capsule by mouth once a week. St 04/19/2023, after 3 mths OTC Vit D 1000 units daily 12 Capsule 0 4 07/18/19 24 Active Lidocaine 4 % External Patch (Aspercreme) Place 1 Patch over 12 hours topically on the skin daily. 30 Patch 0 3 04/11/19 24 Discontinued(Ref ill) Cyclobenzaprine HCl 5 MG Oral Tablet (Flexeril)Indica tions:Meningocel e spinal (HCC),Tethering of spinal cord (HCC),Lipoma of other specified sites,History of sciatica,Chronic bilateral low back pain with right-sided sciatica,Spasm of muscle Take 1 Tablet by mouth 3 times a day as needed for Muscle spasms. 30 Tablet 0 3 04/11/19 24 Discontinued(Ref ill) methylPREDNISolo ne 4 MG Oral Tablet Therapy Pack (Medrol Dosepack) follow package directions 21 Tablet 0 4 04/05/19 24 Discontinued documented as of this encounter (statuses as of 04/19/2023) Active Problems Problem Noted Date Diagnosed Date Vitamin D deficiency 04/19/2023 IFG (impaired fasting glucose) 04/19/2023 Mixed dyslipidemia 04/19/2023 Body mass index (BMI) of 45.0 to 49.9 in adult 0 03/18/2023 Overview: Per Obesity protocol PCOS (polycystic ovarian syndrome) 02/13/2023 documented as of this encounter (statuses as of 04/19/2023) Immunizations Name Administration Dates Next Due Seasonal [...] Sign Reading Time Taken Comments Blood Pressure 108/72 04/05/2023 10:43 AM EST Pulse 112 04/05/2023 10:43 AM EST Temperature 36.7 C (98 F) 04/05/2023 10:43 AM EST Respiratory Rate - - Oxygen Saturation 94% 04/05/2023 10:43 AM EST Inhaled Oxygen Concentration - - Weight 121.8 kg (268 lb 8 oz) 04/05/2023 10:43 A M EST Height - - Body Mass Index 46.09 03/28/2023 9:01 AM EST documented in this encounter Progress Notes * Yanet Rodrigez MD - 04/05/2023 10:58 AM EST SUBJECTIVE: Jacklyn Aldana is a 33 year old female. Chief Complaint Patient presents with Follow Up The pt stated she is here regarding her leg and back pain that has been going on for a little over a month. The pt stated she has had multiple falls over the past month r/t numbness in her R leg. Medication Administration Flu and/or Pneumo Inj HPI: Patient presents today accompanied by her aunt to discuss work note. Wt Readings from Last 6 Encounters: 04/05/23 121.8 kg (268 lb 8 oz) 03/28/23 113.4 kg (250 lb) 03/18/23 113.4 kg (250 lb) 03/05/23 124.1 kg (273 lb 9.6 oz) 02/22/23 124.9 kg (275 lb 4.8 oz) 02/15/23 123.7 kg (272 lb 9.6 oz) History of obesity, cholecystectomy status, chronic bilateral low back pain with right-sided sciatica I saw her for the 1st visit 02/22/23 for ER follow-up seen in clinic 02/13/2023 with right-sided flank pain. burning with urination with blood in the urine at [facility]- no falls, Had continued to complain of significant pain was sent to the ED for evaluation. Labs-02/13/2023 normal CBC, CMP, UA NO blood, urine culture negative, hep C antibody and HIV antibody negative. X-ray KUB suggestion of a nondisplaced fracture of the right 12th rib. There is no definite renal calculus. 02/15/23-ER -normal CBC, BMP UA negative, poor sample CT abdomen and pelvis without contrast :--cholecystectomy status, kidneys no hydronephrosis or stone. - Incomplete visualization of sacral developmental anomaly with associated rounded fluid collectionin the presacral space. Recommend further evaluation with magnetic resonance imaging with contrast. 2. Thickened endometrium. Findings may reflect patient's menstrual status. LMP-02/22/2023 -states she had a dimple in the sacral area for many years, has had previous MRI in [place]. Pain located in the mid back, no radiation down the legs. Pain is worse when she goes down the steps and especially on waking up in the morning. Currently taking ibuprofen 2 tablets at least 3 times a day, ER also advised her to take Tylenol which she has been and using the Salonpas patches. Seen 03/05/23>accompanied by mother for discussion of MRI results. States she saw chiropractor on the and had some adjustments done to the low back as due to leg length discrepancy and states symptoms are improved now. Prior to that pain was mainly located on either side of the back more so towards the right than left with occasional radiation down the leg. She has intermittent incontinence of urine, had fallen down few weeks ago due to weakness ofthe right leg but states her strength is back to normal now, walking without any aid. -has not had to use the Salonpas patches MRI results discussed as noted below. [facility] patient states she also had weakness of the right side of the face and arm 1 time and hadstudies done including an EMG and had seen a specialist in [place], no history of CVA 02/28/23-:- MRI showing partial sacral agenesis with [...] TM evaluation 04/03/2023-recommended MRI brain, cervical thoracic spine--[facility] 04/17/23 Has urodynamic testing with Urology appointment 04/09/2023 --currently undergoing physical therapy at [facility] in [place] scheduled for 5th session today. She works in [employer]. 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 She fell 03/19/23 and 04/02/23 in the parking lot of the school when her RT leg became numb and gave out. She is s using a cane, has a walker at home that belong to her GF. She does not qualify yet for FMLA per aunt. Her father undergoing CT. She needs to be seen to establish care , has morbid obesity, pcos. was followed by pesticide chemist in [place] TSH Results: No results found for: "TSH" Patient Active Problem List Diagnosis Code PCOS (polycystic ovarian syndrome) E28.2 Body mass index (BMI) of 45.0 to 49.9 in adult ([facility]) Z68.42 Current Outpatient Medications Medication Sig Dispense Refill Tylenol 325 MG Oral Capsule (Acetaminophen) 2 caps 3-4times/d, max 3gm/d Ibuprofen 200 MG Oral Tablet (Motrin IB) Take 2 Tablets by mouth every 8 hours as needed for Pain, Moderate. Lidocaine 4 % External Patch (Aspercreme) Place 1 Patch over 12 hours topically on the skin daily. 30 Patch 0 Cyclobenzaprine HCl 5 MG Oral Tablet (Flexeril) Take 1 Tablet by mouth 3 times a day as needed for Muscle spasms. 30 Tablet 0 predniSONE 50 MG Oral Tablet (Deltasone) Take one tablet 13 hours prior, one tablet 7 hours prior, and one tablet 1 hour prior to procedure 3 Tablet 0 diphenhydrAMINE HCl 25 MG Oral Tablet (Benadryl Allergy) Take two tablets 1 hour prior to procedure2 Tablet 0 Fexofenadine HCl 60 MG Oral Tablet (Mary Allergy) Take 1 Tablet by mouth in the morning. No current facility-administered medications for this visit. Review of patient's allergies indicates: Allergen Reactions Iodinated Contrast Media Nausea/vomiting Ceclor [Cefaclor] Edema Other OBJECTIVE: BP 108/72 | Pulse 112 | Temp 36.7 C (98 F) | Wt 121.8 kg (268 lb 8 oz) | LMP 02/21/2023 Comment: states she is not | SpO2 94% | BMI 46.09 kg/m | BSA 2.35 m PHYSICAL EXAM: General: alert, healthy, no distress, well developed, M obesity, +xs facial chin hair Heart: regular rhythm and rate,No murmurs. Lungs: lungs clear to auscultation Extremities: no edema Back----male pattern hair in the lower lumbar area, there is a dimple of the skin to the left of the sacral area neg SLR karishma, DTRs difficult to elicit of the knees and ankle. Rfuz-qbnh-cldb range of motion, with right hip abduction complains of pain in the right lumbar area ASSESSMENT/PLAN: Tethering of spinal cord (HCC) (Primary) - RETURN TO WORK OR SCHOOL -- Jacklyn seen in office today. She should use walker for ambulation. No lifting kids or getting them on/off bus, no ground level activities, may help kids seated in a chair. Need for prophylactic vaccination and inoculation against influenza - INFLUENZA VACC, QUAD, PF, 6 MONTHS & UP, 0.5 ML, IM Meningocele (HCC) - RETURN TO WORK OR SCHOOL Midline low back pain without sciatica, unspecified chronicity - RETURN TO WORK OR SCHOOL Transient right leg weakness - RETURN TO WORK OR SCHOOL - TSH WITH FREE T4 IF INDICATED; Future; Expected date: 04/06/2023 Numbness in right leg - RETURN TO WORK OR SCHOOL - 25-HYDROXY VITAMIN D; Future; Expected date: 04/06/2023 PCOS (polycystic ovarian syndrome) - GLUCOSE; Future; Expected date: 04/06/2023 - INSULIN; Future; Expected date: 04/06/2023 - [employer] REFERRAL OP - TSH WITH FREE T4 IF INDICATED; Future; Expected date: 04/06/2023 Screening for lipoid disorders - LIPID PANEL WITH DIRECT LDL IF TG IS HIGH; Future; Expected date: 04/06/2023 BMI 45.0-49.9, adult (HCC) - 25-HYDROXY VITAMIN D; Future; Expected date: 04/06/2023 - INSULIN; Future; Expected date: 04/06/2023 - TSH WITH FREE T4 IF INDICATED; Future; Expected date: 04/06/2023 Follow Up: Return in about 1 month (around 05/06/2023), or if symptoms worsen or fail to improve, for Return with Physician. | For: Return with Physician | Check-out note: Cancel appt Ronni 05/09/23 and change PCP Thai--wild 40 min new pt eval , address obesity,pcos etc -ROR immzn rec , PAP, labs prior PCP (This note was completed using the dictation program Fluency Direct. As such, there may be misspellings, word substitutions, or other variations that should not change the essence of the clinical content of this encounter note. If there is need for further clarification, please direct questions to the provider listed above.) Patient and / caregiver verbalize understanding of above instructions and agrees with plan of care. Yanet Rodrigez MD 04/05/2023 * Tyler Bryant LPN - 04/05/2023 10:46 AM EST PRE - ADMINISTRATION DOCUMENTATION Are you experiencing any cold symptoms or fever? No Have you had Guillain-[place]gartown Syndrome (an illness that causes paralysis) within the last 6 weeks? No Have you had the flu shot in the past? YES Have you ever had a reaction to the flu shot? No Tyler Bryant LPN, 04/05/2023 10:46 AM Immunization Administration Documentation Time Out Procedure Performed: Yes Patient Identified (Ask Name/Date of ): Yes Does the patient have a fever greater than 101 degrees today? No Patient allergic to latex? No VFC Stock: No Immunization(s) verified: Yes, Immunization Name: Flu, VIS Sheet(s) given: Yes Verified Side and Site: Yes Verified Shot(s) with Parent(s)/Patient: Yes documented in this encounter Nursing Notes * Tyler Bryant LPN - 04/05/2023 10:43 AM EST Chief Complaint Patient presents with Follow Up The pt stated she is here regarding her leg and back pain that has been going on for a little over a month. The pt stated she has had multiple falls over the past month r/t numbness in her R leg. documented in this encounter Miscellaneous Notes * Addendum Note - Yanet Rodrigez MD - 04/19/2023 4:37 PM ESTAddended by: YANET RODRIGEZ on: 04/19/2023 04:37 PM Modules accepted: Orders documented in this encounter Plan of Treatment Upcoming Encounters Date Type Department Care Team (Late st Contact Info) Description 05/08/2023 5:00 PM EST Office Visit General Internal Medicine [facility] [address] [facility] [place] [address] Yanet Rodrigez MD [address] [facility] [place] [address] 05/21/2023 1:30 PM EDT Office Visit [facility], [address] [place] [address] Bradly Jones MD [address] [place] [address] 07/04/2023 5:00 PM EDT Office Visit Gynecology/Obstetrics [address] [place] [address] Irina Silva MD [address] [place] [address] 10/11/2023 1:00 PM EDT Office Visit Urology[address] [address] 10/11/2023 3:00 PM EDT Office Visit Urology, [place] [address] [place] [address] Horace Pearl PA-C [address] [place] [address] Scheduled Orders Name Type Priority Associated Diagnoses Orde r Schedule 25-HYDROXY VITAMIN D Lab Routine Vitamin D deficiency Expected: 10/18/2023 (Approximate), Expires: 04/18/2024 HEMOGLOBIN A1C Lab Routine PCOS (polycystic ovarian syndrome) IFG (impaired fasting glucose) Expected: 10/18/2023 (Approximate), Expires: 04/18/2024 LIPID PANEL WITH DIRECT LDL IF TG IS HIGH Lab Routine PCOS (polycystic ovarian syndrome) Mixed dyslipidemia Expected: 10/18/2023, Expires: 04/19/2024 HEMOGLOBIN A1C, POINT OF CARE Point of Care Testing - Unsolicited Results Routine PCOS (polycystic ovarian syndrome) IFG (impaired fasting glucose) Expected: 05/08/2023, Expires: 05/17/2024 Scheduled Referrals Name Type Priority Associated Diagnoses Orde r Schedule [employer] REFERRAL OP Referral Within 30 days (routine) PCOS (polycystic ovarian syndrome) Ordered: 04/05/2023 Health Maintenance Due Date Last Done Comments [...] Not on filedocumented as of this encounter Results * TSH WITH FREE T4 IF INDICATED (04/17/2023 9:37 AM EST) TSH 2.46 0.27 - 4.20 uIU/mL 04/17/2023 5:47 PM EST [facility] [place] Venous blood specimen / Unknown Venipuncture / Unknown 04/17/2023 9:37 AM EST 04/17/2023 9:37 AM EST Yanet Rodrigez MD LAB BLOOD ORDERABLES [facility] [address] [place] [address] * (ABNORMAL) LIPID PANEL WITH DIRECT LDL IF TG IS HIGH (04/17/2023 9:37 AM EST) Triglycerides 243(H) <=174 mg/dL 04/17/2023 4:19 PM EST [facility] Comment: Triglyceride Reference Ranges (mg/dL): <150 Acceptable 150-174 Borderline high 175-499 High >=500 Very high Cholesterol 229(H) <200 mg/dL 04/17/2023 4:19 PM EST [facility] Comment: Total Cholesterol Reference Ranges (mg/dL): <200 Desirable 200-239 Borderline high >=240 High HDL Cholesterol 39(L) >49 mg/dL 4:19 PM EST [facility] Comment: HDL Cholesterol Reference Ranges (mg/dL): >=60 High (Desirable) <50 Low (Undesirable) For Females <40 Low (Undesirable) For Males Non-HDL Cholesterol 190(H) <=159 mg/dL 04/17/2023 4:19 PM EST [facility] Comment: Non-HDL Cholesterol Reference Range (mg/dL): <100 Target level for high risk ASCVD patient <130 Optimal for general population 130-159 Near optimal for general population 160-189 Borderline High 190-219 High >=220 Very High LDL Cholesterol 141(H) <=129 mg/dL 04/17/2023 4:19 PM EST [facility] Comment: LDL Cholesterol Reference Ranges (mg/dL): <70 Target level for high risk ASCVD patient <100 Optimal for general population 100-129 Near optimal for general population 130-159 Borderline high 160-189 High >=190 Very high Blood Venous blood specimen / Unknown Venipuncture / Unknown 04/17/2023 9:37 AM EST 04/17/2023 9:37 AM EST Yanet Rodrigez MD LAB BLOOD ORDERABLES Performing Organization Address [facility] Co de Phone Number LABORATORY [place] [address] [place] [address] * (ABNORMAL) INSULIN (04/17/2023 9:37 AM EST) Insulin 45(H) 3 - 25 uU/mL 04/17/2023 4:04 PM EST [facility] Comment:The above reference interval is based on fasting status. Blood Venous blood specimen / Unknown Venipuncture / Unknown 04/17/2023 9:37 AM EST 04/17/2023 9:37 AM EST Yanet Rodrigez MD LAB BLOOD ORDERABLES Performing Organization Address [facility] de Phone Number [facility] [place] [address] [place] [address] * (ABNORMAL) 25-HYDROXY VITAMIN D (04/17/2023 9:37 AM EST) 25-Hydroxy Vitamin D 17(L) >19 ng/mL 04/17/2023 5:47 PM EST [facility] Blood Venous blood specimen / Unknown Venipuncture / Unknown 04/17/2023 9:37 AM EST 04/17/2023 9:37 AM EST Narrative [facility] - 04/17/2023 5:47 PM EST Deficient: <20 ng/mL Insufficient: 20-29 ng/mL Recommended/Optimum:30-50 ng/mL Vitamin D intoxication is rare. If suspicious of Vitamin D toxicity, evaluation of serum Calcium and PTH is recommended. Yanet Rodrigez MD LAB BLOOD ORDERABLES Performing Organization Address City/[facility]/ZIP Co de Phone Number [facility] [address] [place] [address] * (ABNORMAL) GLUCOSE (04/17/2023 9:37 AM EST) Glucose 127(H) 70 - 120 mg/dL 04/17/2023 4:19 PM EST LAB[facility]ATORY [facility] Blood Venous blood specimen / Unknown Venipuncture / Unknown 04/17/2023 9:37 AM EST 04/17/2023 9:37 AM EST Yanet Rodrigez MD LAB BLOOD ORDERABLES Performing Organization Address [facility] Co de Phone Number [facility] [address] [place] [address] documented in this encounter Visit Diagnoses Diagnosis Tethering of spinal cord (HCC)- Primary Other specified congenital anomaly of spinal cord Need for prophylactic vaccination and inoculation against influenza Meningocele (HCC) Spina bifida without mention of hydrocephalus, unspecified region Midline low back pain without sciatica, unspecified chronicity Transient right leg weakness Numbness in right leg Disturbance of skin sensation PCOS (polycystic ovarian syndrome) Polycystic ovaries Screening for lipoid disorders BMI 45.0-49.9, adult (HCC) Body Mass Index 45.0-49.9, adult Vitamin D deficiency Unspecified vitamin D deficiency IFG (impaired fasting glucose) Impaired fasting glucose Mixed dyslipidemia Mixed hyperlipidemia documented in this encounter Care Teams Er Registrar Relationship Specialty Start Date End Date Yanet Rodrigez MD [address] [place] [address] [place] [address] PCP - General Internal Medicine 04/05/23 documented as of this encounter
--- OUTSIDE RECORDS SUMMARY | 2023-08-25 13:33 | External Medical Summary ---
Author Name Unknown Address Unknown Organization [id number]:LABORATORY [facility] [place] - [address] [facility] [facility] Laboratory Report Ordering Provider Test Date Status CHAYITO AMEZQUITA 04/29/2023 14:58:00 Final <10,000 colonies/ml mixed no rmal jerrell Observation Date Value Abnormality Reference (Units ) Status Bacteria identified in Specimen by Culture 04/29/2023 14:58:00 [id number]^STREPTO COCCUS VIRIDANS GROUP Abnormal Final 10,000 to 100,000 colonies/m L Streptococcus viridans group
Test: Culture, Urine, Quantitative
Specimen Source: Urine, Clean Catch
Specimen Type: Urine
Specimen Date: 04/29/2023 2:58 PM
Result Date: 05/01/2023 1:30 PM
Result Status: Final result
Abnormal: Yes
Resulting Lab: LABORATORY [facility]
[address]
[place] [address]

CULTURE

10,000 to 100,000 colonies/mL Streptococcus viridans group (Abnormal)

<10,000 colonies/ml mixed normal jerrell

null Performing Location LABORATORY [facility] - [address] [place] [address]
--- OUTSIDE RECORDS SUMMARY | 2023-08-25 13:33 | External Medical Summary ---
Author Name Unknown Address Unknown Organization K01:LABORATORY C - [address] [facility]. [place] [address] Laboratory Report Ordering Provider Test Date Status KASSIDY TOMLINSON 04/26/2023 15:48:00 Final Observation Date Value Abnormality Reference (Units ) Status BUN 04/26/2023 15:48:00 13 6-20 (mg/dL) Final Creatinine 04/26/2023 15:48:00 0.8 0.5-1.0 (mg/dL) Final Glomerular filtration rate/1.73 sq M.predicted [Volume Rate/Area] in Serum, Plasma or Blood by Creatinine-based formula (CKD-EPI) 04/26/2023 15:48:00 >90 >=60 (mL/min) Final eGFR is calculated based on the CKD-EPI 2020 equation SODIUM 04/26/2023 15:48:00 138 135-146 (m mol/L) Final Potassium 04/26/2023 15:48:00 4.4 3.5-5.1 (m mol/L) Final Cl 04/26/2023 15:48:00 101 98-107 (mm ol/L) Final CO2 04/26/2023 15:48:00 23 22-32 (mmo l/L) Final Anion gap 04/26/2023 15:48:00 14 7-15 (mmol /L) Final Glucose 04/26/2023 15:48:00 98 70-120 (mg /dL) Final Albumin 04/26/2023 15:48:00 4.5 3.8-5.0 (g /dL) Final AST (Aspartate aminotransferase) 04/26/2023 15:48:00 28 10-35 (U/L) Final Result may be falsely elevat ed due to hemolysis. Alk Phos 04/26/2023 15:48:00 64 35-130 (U/ L) Final Bilirubin, Total 04/26/2023 15:48:00 0.2 <=1 .2 (mg/dL) Final Calcium 04/26/2023 15:48:00 10.2 8.4-10.2 ( mg/dL) Final Protein 04/26/2023 15:48:00 7.0 6.0-8.3 (g /dL) Final ALT (Alanine aminotransferase) 04/26/2023 15:48:00 33 10-35 (U/L) Final Performing Location [facility] [place] [facility] [address] [facility] [address]
--- OUTSIDE RECORDS SUMMARY | 2023-08-25 13:33 | External Medical Summary | Summary of Care ---
Author Name Unknown Organization [facility] Address [address] [place] [address] Phone [phone] Care Team Providers Care Mastic Worker Name Role Phone Jennifer Rodrigez MD Primary Care Provider [phone] Reason for Visit * Reason Comments Return Neuro Encounter Details Date Type Department Care Team (Late st Contact Info) Description 04/29/2023 1:00 PM EST Office Visit Neurosurgery, [place] [address] [place] [address] Matthias Newell MD [address] [place], [place] [id number] Low lying conus medullaris (HCC)* Allergies Active Allergy Reactions Criticality Noted Date [...] 0 04/16/2023 Active Vitamin D3 1.25 MG (98532 UT) Oral CapsuleIndications: Vitamin D deficiency Take [...] Sign Reading Time Taken Comments Blood Pressure - - Pulse - - Temperature 36.3 C (97.4 F) 04/29/2023 1 2:59 PM EST Respiratory Rate - - Oxygen Saturation - - Inhaled Oxygen Concentration - - Weight 123.2 kg (271 lb 9.6 oz) 024 12:59 PM EST Height - - Body Mass Index 46.6 04/18/2023 8:06 AM EST documented in this encounter Progress Notes * Matthias Newell MD - 04/29/2023 2:46 PM EST PROGRESS NOTE - [place] [facility] [place] [address] Name: Jacklyn Aldana Date: 04/29/2023 Time: 2:46 PM 33-year-old woman that I met previously in a video teleconference encounter. Since February she is had not back pain and radiating numbness down the right leg. She reports more recently that she has been experiencing worsening weakness with the distal right foot and some bladder dysfunction. I initially saw in teleconference back on April 03. She presented for evaluation of a lumbar MRI, that demonstrates a low-lying conus, retroperitoneal meningocele, and some degree of sacral agenesis. She never had symptoms throughout her life until February 15 where she had an increase in the back pain with radiation down the legs. The upset of back pain led to a CT of the abdomen being obtained to rule out a kidney stone. 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 We did plan to evaluate the neuro axis and see her back in the office. These MRIs are complete without any obvious abnormalities elsewhere and no pathologic enhancement. She came to the ER this past weekend with worsening symptoms, she was discharged. She was seen by Urology on an outpatient basis, the symptoms were felt not to represent tethered cord syndrome however the urodynamics were not scheduled until October of 2023. Today on exam the patient does have some weakness with the distal right lower extremity, no pathologic reflexes. She has some mottling of the right foot that she seems quite distressed about, I am not entirely sure what to make of this. The patient might have a symptomatic tethered cord but she really needs urodynamic testing and a Neurology assessment. I called the triage officer here at the hospital an effort to arrange for this in a more expedited manner. She is feels the symptoms have been worsening over the past week to 10 days. I did instruct the patient to go to the ER where short-term follow-up with Urology and Neurologywill be arranged. If all signs and symptoms point towards a tethered cord I would obviously offer arelease. But I think the picture is quite unclear and she has other issues going on that need additional testing. The patient and her family voiced understanding. They will proceed to the ER for the additional testing. I will follow her closely in the office pending these results. All questions answered. PAST MEDICAL HISTORY: No past medical history on file. PAST SURGICAL HISTORY: Past Surgical History: Procedure Laterality Date INJECT DX/THER SUBSTANCE INTERLAMINAR LUMBAR/SACRAL W IMAGE GUIDE N/A 04/18/2023 INJECTION SPINE LUMBAR OR SACRAL performed by Bradly Jones MD at OR [facility] FAMILY HISTORY: No family history on file. SOCIAL HISTORY: Social History Tobacco Use Smoking status: Never Smokeless tobacco: Never Vaping Use Vaping Use: Never used Substance Use Topics Alcohol use: Yes Drug use: Never Current Outpatient Medications: Vitamin D3 1.25 MG (46876 UT) Oral Capsule, Take 1 Capsule by mouth once a week. St 04/19/2023, after3 mths OTC Vit D 1000 units daily, Disp: 12 Capsule, Rfl: 0 Cyclobenzaprine HCl 5 MG Oral Tablet (Flexeril), Take 1 Tablet by mouth 3 times a day as needed forMuscle spasms., Disp: 30 Tablet, Rfl: 0 Lidocaine 4 % External Patch (Aspercreme), Place 1 Patch over 12 hours topically on the skin daily., Disp: 30 Patch, Rfl: 0 Mirabegron ER 50 MG Oral Tablet Extended Release 24 Hour (Myrbetriq), Take 1 Tablet by mouth in themorning., Disp: 30 Tablet, Rfl: 6 Fexofenadine HCl 60 MG Oral Tablet (Mary Allergy), Take 1 Tablet by mouth in the morning., Disp:, Rfl: diphenhydrAMINE HCl 25 MG Oral Tablet (Benadryl Allergy), Take two tablets 1 hour prior to procedure, Disp: 2 Tablet, Rfl: 0 predniSONE 50 MG Oral Tablet (Deltasone), Take one tablet 13 hours prior, one tablet 7 hours prior,and one tablet 1 hour prior to procedure, Disp: 3 Tablet, Rfl: 0 Ibuprofen 200 MG Oral Tablet (Motrin IB), Take 2 Tablets by mouth every 8 hours as needed for Pain,Moderate., Disp: , Rfl: Tylenol 325 MG Oral Capsule (Acetaminophen), 2 caps 3-4times/d, max 3gm/d, Disp: , Rfl: ALLERGIES: Iodinated contrast media and Ceclor [cefaclor] VITALS: Temp 36.3 C (97.4 F) (Tympanic) | Wt 123.2 kg (271 lb 9.6 oz) | BMI 46.60 kg/m | BSA 2.36 m [facility] Neurosurgery This document was dictated using voice recognition software. Please excuse any errors. * Swati Hardy PA-C - 04/29/2023 1:15 PM EST NEUROSURGERY ROUTINE FOLLOW-UP CLINIC NOTE Jacklyn Aldana [id number] 04/29/2023 1:25 PM CC: Follow up for incontinence with known tethered cord HPI: Jacklyn Aldana is a 33 year old female who returns to neurosurgery clinic with above stated CC.She was referred for urodynamic testing, which has not been completed as of today. With updated MRIs there is still no clear and convincing evidence of structural impingement to explain the newest symptoms. She reports new onset symptoms occurring last Saturday (6-days ago) of numbness from just below the belly button (t10ish level) into the right anterior thigh with progression to the left anterior thigh. She reports she can sense a full bladder, but is unable to discern when she is actually urinating. She reports numbness in the perineal area noted when wiping. She reports on Saturday (3-days ago) she reported to the ED ago as the numbness has spread to the entire right leg and into the left upper leg. She is also experiencing right >left foot edema and toe cyanosis. She noted significant and distinct CAPONE with ADLs along with tiring more easily since Saturday, as well. ROS: A review of ten systems was discussed and any positive findings are noted in the above HPI. The patient describes: No fevers or chills No nausea or vomiting No headache No blurred vision or double vision No weakness No numbness or tingling in the extremities No difficulty swallowing No chest pain No shortness of breath No constipation or loose stools No pain on urination and no difficulty urinating PHYSICAL EXAM Temp 36.3 C (97.4 F) (Tympanic) | Wt 123.2 kg (271 lb 9.6 oz) | BMI 46.60 kg/m | BSA 2.36 m General: Patient is awake and alert and conversant Pulm: Breathing unlabored Extremities: Warm and well-perfused Right great toe with subtle coloring, not cyanotic Mild pitting edema appreciated today HEENT: Eyes anicteric CN II-XII grossly intact Strength: Lower Extremity Strength (out of 5) Illiopsoas (L2/L3) Quad (L3/L4) Hamstring (L5) TA (L5) EHL (L5/S1) Gastroc (S1) Right 4 3 3 4- 4 4 Left 5 5 5 4 5 5 Sensation intact to light touch BUE and BLE Reflexes 2+ throughout left patella; 1+ left achilles; absent right patella and achilles No clonus; some tonicity of right ankle passive movement Gait Seated walker, with right leg limp COUNSELING: I spent a total of 45 minutes on the date of service in preparation, delivery, and documentation of the care provided to the patient, excluding any time spent on the performance of any procedure or separately billable services. ASSESSMENT AND PLAN: Patient Active Problem List Diagnosis Code PCOS (polycystic ovarian syndrome) E28.2 Body mass index (BMI) of 45.0 to 49.9 in adult (HCC) Z68.42 Vitamin D deficiency E55.9 IFG (impaired fasting glucose) R73.[address] Newell has informed the patient of this information along with eye-to-eye review of the MRI Lspine. He is recommending admission to consolidate her consultations and evaluation. General Internal Medicine has been contacted to coordinate this care. By recommendations provided to us, she is being referred through the ED for workup including at minimum Urology, Neurology, possibly rheumatologyand vascular. Swati Hardy PA-C Neurosurgery, [address] [address] 04/29/2023 1:25 PM documented in this encounter Plan of Treatment Upcoming Encounters Date Type Department Care Team (Late st Contact Info) Description 05/03/2023 9:00 AM EST Office Visit Urology, [address] [address] 05/08/2023 5:00 PM EST Office Visit General Internal Medicine [employer] [address] [place] [address] Jennifer Rodrigez MD [address] [place] [address] 05/21/2023 1:30 PM EDT Office Visit Interventional Pain Center, [address] [address] Bradly Jones MD [address] [place] [address] 07/04/2023 5:00 PM EDT Office Visit Gynecology/Obstetrics [address] [address] Irina Silva MD [address] [place] [address] 10/11/2023 3:00 PM EDT Office Visit Urology, [place] [address] [place] [address] Horace Pearl PA-C [address], [place] [phone] Health Maintenance Due Date Last Done Comments [...] as of this encounter Visit Diagnoses Diagnosis 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
--- OUTSIDE RECORDS SUMMARY | 2023-08-25 13:34 | External Medical Summary | Summary of Care ---
Author Name Unknown Organization [facility] Address [address] [place] [address] Phone [phone] Care Team Providers Care Fisher Lobster Name Role Phone Sri Wisemna MD Primary Care Provider [phone] Reason for Visit * Reason Onset Date Comments Advice 04/03/2023 Encounter Details Date Type Department Care Team (Late st Contact Info) Description 04/03/2023 Telephone General Internal Medicine [facility] [address] [place] [address] Sri Wiseman MD [address] [place] [address] Advice Allergies Active Allergy Reactions Criticality Noted Date Comments Cefaclor Edema Other 02/13/2023 Iodinated Contrast Media Nausea/vomiting Medium 2022 documented as of this encounter (statuses as of 04/04/2023) Medications Medication Sig Dispensed Refills Start Date [...] needed for Pain, Moderate. 0 02/22/2023 Active Lidocaine 4 % External Patch (Aspercreme) Place 1 Patch over 12 hours topically on the skin daily. 30 Patch 0 02/25/2023 Active Cyclobenzaprine HCl 5 MG Oral Tablet (Flexeril)Indication s:Meningocele spinal (HCC),Tethering of spinal cord (HCC),Lipoma of other specified sites,History of sciatica,Chronic bilateral low back pain with right-sided sciatica,Spasm of muscle Take 1 Tablet by mouth 3 times a day as needed for Muscle spasms. 30 Tablet 0 03/05/2023 Active methylPREDNISolone 4 MG Oral Tablet Therapy Pack (Medrol Dosepack) follow package directions 21 Tablet 0 03/18/2023 Active predniSONE 50 MG Oral Tablet (Deltasone) Take one tablet 13 hours prior, one tablet 7 hours prior, and one tablet 1 hour prior to procedure 3 Tablet 0 03/20/2023 Active diphenhydrAMINE HCl 25 MG Oral Tablet (Benadryl Allergy) Take two tablets 1 hour prior to procedure 2 Tablet 0 03/20/2023 Active documented as of this encounter (statuses as of 04/04/2023) Active Problems Problem Noted Date Diagnosed Date Body mass index (BMI) of 45.0 to 49.9 in adult 0 03/18/2023 Overview: Per Obesity protocol PCOS (polycystic ovarian syndrome) 02/13/2023 documented as of this encounter (statuses as of 04/04/2023) Social History Tobacco Use Types Packs/Day Years [...] encounter Miscellaneous Notes * Telephone Encounter - Katt Rachel OSA - 04/04/2023 11:16 AM EST Reason for patient's call: pt returning call stating that she was advised by previous nurse or agent to return call if she didn't get return call within 1 hour Caller was transferred to [facility] at the nurse line. * Telephone Encounter - Renata Perdomo LPN - 04/04/2023 11:05 AM EST Patient is calling. Given message. Informed of need for an appt. To be evaluated for the excuse. She has an appt. For tomorrow at 10:30 it is for 20 minutes. Patient states "She told Tyler she needs an excuse by the end of the day today. Tyler is aware of this and if there was no answer in an hourto have him call her." * Telephone Encounter - Jennifer Rodrigez MD - 04/04/2023 10:40 AM EST Denise appt as requested to decide on note., use 2 acute slots or hosp f/u slot * Telephone Encounter - Tyler Bryant LPN - 04/04/2023 10:00 AM EST See note below * Telephone Encounter - Debbie Braun LPN - 04/04/2023 9:55 AM EST Pt is calling and states that per her employer, the pt needs something in writing stating how many days she is supposed to be off, by the end of the day to day. No appt's available with Dr. Rodrigez today. Called PCP office, spoke with Tyler and made him aware. Please advise. * Telephone Encounter - Sara Dickson LPN - 04/04/2023 9:47 AM EST Patient is aware and verbalizes understanding. Appointment scheduled for 04/05/2023 * Telephone Encounter - Prosper Felix CMA - 04/04/2023 8:03 AM EST Called, left message for patient to return call. Please inform patient of message below and assist with scheduling * Telephone Encounter - Jennifer Rodrigez MD - 04/03/2023 7:04 PM EST Denise appt PCP/me 40 min appt for review sub specialty evaluations and to decide on work note. She should talk to her employer reg FMLA form and bring it in. 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, she was off from Saturday 04/01 and for an extended period of time but doesn't know how long she needs to be off Please advise and contact pt at [phone] documented in this encounter Plan of Treatment Upcoming Encounters Date Type Department Care Team (Latest Contact Info) Description 04/05/2023 10:20 AM EST Office Visit General Internal Medicine [facility] [place] [address] [place], [place] [address] Jennifer Rodrigez MD [address] [place], [place] [address] 04/09/2023 1:00 PM EST Office Visit Urology, [place] [address] [place] [address] Horace Pearl PA-C [address] [place] [address] 04/18/2023 12:22 PM EST Hospital Encounter OR [facility], Operating Room, [facility] - 4th Floor [address] [place] [address] Bradly Jones MD [address] [place] [address] 04/18/2023 12:22 PM EST - 04/18/2023 12:41 PM EST Surgery OR [facility], Operating Room, [facility] - 4th Floor [address] [place] [address] Bradly Jnoes MD [address] [place] [address] INJECTION SPINE LUMBAR OR SACRAL 05/09/2023 5:40 PM EST Office Visit General Internal Medicine [facility] [place] [address] [place], [place] [address] Sri Wiseman MD 200 [facility] [place] [address] 05/21/2023 1:30 PM EDT Office Visit Interventional Pain Center, [facility] [address] [place] [address] Bradly Jones MD [address] [place] [address] Scheduled Procedures Name Priority Associated Diagnoses Date/Ti me INJECTION SPINE LUMBAR OR SACRAL Lumbar radiculopathy 04/18/2023 12:22 PM EST Health Maintenance Due Date Last Done Comments Hepatitis B (4 of 4 - 4-dose series) 1992 1992, 1992, 1992 Pap Smear 02/04/2013 Cervical Cancer Screening 02/04/2022 HPV/Co-Test 02/04/2022 COVID-19 Vaccine ( season) 2022 12/15/2020, 04/12/2020 Influenza Vaccine (FLU shot) (#1) 2022 Depression Screening 03/05/2024 03/05/2023 DTaP,Tdap,and Td Vaccines (8 - Td or Tdap) 12/10/2032 12/10/2022, 12/02/2009, 05/31/1997, Additional history exists GARDASIL-HPV IMMUNIZATION SERIES Aged Out No longer [...] filedocumented as of this encounter Care Teams Fisher Lobster Relationship Specialty Start Date End Date Sri Wiseman MD 200 [place] [address] PCP - General Internal Medicine 02/13/23 documented as of this encounter
--- OUTSIDE RECORDS SUMMARY | 2023-08-25 13:34 | External Medical Summary | Summary of Care ---
Author Name Unknown Organization [facility] Address [address] [place] [address] Phone [phone] Care Team Providers Care Nursing Technician Name Role Phone Jennifer Rodrigez MD Primary Care Provider Reason for Visit * Precert (Within 10 days (routine)) - Pending Review Specialty Diagnoses / Procedures Referred By Selvin wright Referred To Contact Radiology Diagnoses Tethered cord (HCC) Meningocele (HCC) Sacral agenesis Arachnoid cyst Procedures MRI T SPINE W WO CONTRAST Selene Colbert PA-C [address] [place] [address] Referral ID Status Reason Start Date Expiration Date Visits Requested Visits Authorized [id number] Pending Review Precert 04/05/2023 06/04/2023 [id number] Encounter Details Date Type Department Care Team (Latest Contact Info) Description 04/17/2023 7:12 AM EST - 04/17/2023 11:59 PM EST Hospital Encounter Radiology, [address] [id number] Arrived Discharge Disposition: Home - Self Care Allergies [...] PM EST Office Visit General Internal Medicine [facility] [place] 200 [facility] [place] [address] Jennifer Rodrigez MD [address] [place] [address] 05/21/2023 1:30 PM EDT Office Visit Interventional Pain Center, [address] [address] Bradly Jones MD [address] [place] [address] 07/04/2023 5:00 PM EDT Office Visit Gynecology/Obstetrics [address] [address] Irina Silva MD [address] [place] [address] 10/11/2023 1:00 PM EDT Office Visit Urology, [place] [address] [place], [place] [phone] 10/11/2023 3:00 PM EDT Office Visit Urology, [place] [address] [place], [place] [phone] Horace Pearl PA-C [address] [place], [place] [phone] Scheduled Procedures Name Priority Associated Diagnoses Date/Ti [...] Procedure Name Priority Date/Time Associated Diagnosis Comments MRI T SPINE W WO CONTRAST Routine 04/17/2023 9:36 AM EST Tethered cord (HCC) Meningocele (HCC) Sacral agenesis Arachnoid cyst documented in this encounter Administered Medications Inactive Administered Medications - up to 3 most recent administrations Medication Order MAR Action Action Date Dose Rate Site gadobutrol (Gadavist) inj 12.2 mL 12.2 mL (rounded from 12.18 mL = 0.1 mL/kg 121.8 kg), Intravenous, ONCE, On Sat04/17/23 at 0903, For 1 dose, Radiology Medication Routing (Non-IR) Given 04/17/2023 9:03 AM EST 10 mL H and Right documented in this encounter Care Teams Nursing Technician Relationship Specialty Start Date End Date Jennifer Rodrigez MD [address] [place] [address] PCP - General Internal Medicine 04/05/23 documented as of this encounter
--- OUTSIDE RECORDS SUMMARY | 2023-08-25 13:34 | External Medical Summary | Summary of Care ---
Author Name Unknown Organization [facility] Address [address] [place] [address] Phone [phone] Care Team Providers Care Pig Machine Supervisor Name Role Phone Jennifer Rodrigez MD Primary Care Provider [phone] Reason for Visit * Reason Onset Date Comments note for school 04/16/2023 Encounter Details Date Type Department Care Team (Late st Contact Info) Description 04/16/2023 Telephone Urology, [place] [address] [place], [place] [phone] Horace Pearl PA-C [address] [place] [address] note for school Allergies Active Allergy Reactions Criticality Noted Date Comments Cefaclor Edema Other 02/13/2023 Iodinated Contrast Media Nausea/vomiting Medium 2022 documented as of this encounter (statuses as of 04/16/2023) Medications Medication Sig Dispensed Refills Start Date [...] Muscle spasms. 30 Tablet 0 03/05/2023 Active predniSONE 50 MG Oral Tablet (Deltasone) [...] the morning. 30 Tablet 6 04/09/2023 Active documented as of this encounter (statuses as of 04/16/2023) Active Problems Problem Noted Date Diagnosed Date Body mass index (BMI) of 45.0 to 49.9 in adult 0 03/18/2023 Overview: Per Obesity protocol PCOS (polycystic ovarian syndrome) 02/13/2023 documented as of this encounter (statuses as of 04/16/2023) Immunizations Name Administration Dates Next Due Seasonal [...] encounter Miscellaneous Notes * Telephone Encounter - Liz Ceron OSA - 04/16/2023 9:03 AM EST Pt needs a note to excuse her from work. Please write one from 04/09/23. Please send it through to her MY Chart. Thank you Liz documented in this encounter Plan of Treatment Upcoming Encounters Date Type Department Care Team (Latest Contact Info) Description 04/17/2023 8:00 AM EST Appointment Radiology, [address] [place] [address] 04/17/2023 9:30 AM EST Appointment Radiology, [address] [place] [address] 04/17/2023 10:15 AM EST Appointment Radiology, [address] [place] [address] 04/18/2023 10:51 AM EST Hospital Encounter OR [facility], Operating Room, [facility] - 4th Floor [address] [place], [place] [address] [address] Bradly Jones MD [address] [place], [place] [address] [place] [address] 04/18/2023 10:51 AM EST - 04/18/2023 11:10 AM EST Surgery OR [facility], Operating Room, [facility] - 4th Floor [address] [place], [place] [address] [address] Bradly Jones MD [address] [place], [place] [address] [address] INJECTION SPINE LUMBAR OR SACRAL 05/08/2023 5:00 PM EST Office Visit General Internal Medicine [address] [place] [address] [place] [address] Jennifer Rodrigez MD [address] [place] [address] 05/21/2023 1:30 PM EDT Office Visit Interventional Pain Center, [address] [address] Bradly Jones MD [address] [place] [id number] 07/04/2023 5:00 PM EDT Office Visit Gynecology/Obstetr ics [address] [phone] Irina Silva MD [address] [place] [address] 10/11/2023 1:00 PM EDT Office Visit Urology, [place] [address] [place] [address] 10/11/2023 3:00 PM EDT Office Visit Urology, [place] [address] [place] [address] Horace Pearl PA-C [address] [place], [place] [phone] Scheduled Procedures Name Priority Associated Diagnoses Date/Ti me INJECTION SPINE LUMBAR OR SACRAL Lumbar radiculopathy 04/18/2023 10:51 AM EST Health Maintenance Due Date Last [...] filedocumented as of this encounter Care Teams Pig Machine Supervisor Relationship Specialty Start Date End Date Jennifer Rodrigez MD 200 [facility] [place] [address] PCP - General Internal Medicine 04/05/23 documented as of this encounter
--- OUTSIDE RECORDS SUMMARY | 2023-08-25 13:34 | External Medical Summary | Summary of Care ---
Author Name Unknown Organization [facility] Address [address] [place] [address] Phone [phone] Care Team Providers Care Communications Supervisor Name Role Phone Jennifer Rodrigez MD Primary Care Provider [phone] Reason for Referral * Evaluate & Treat - Unlimited Visits (Within 30 days (routine)) - Pending Review Specialty Diagnoses / Procedures Referred By Selvin t Referred To Contact Obstetrics/Gynecology / Gynecology Obstetrics Diagnoses PCOS (polycystic ovarian syndrome) Jennifer Rodrigez MD 200 [facility] [place] [address] Referral ID Status Reason Start Date Expiration Date Visits Requested Visits Authorized [id number] Pending Review Specialty Services Required 04/05/2023 999 [...] AM EST Office Visit General Internal Medicine [facility] [address] [place] [address] Jennifer Rodrigez MD 200 [place] [address] Tethering of spinal cord (HCC)*; Need for prophylactic vaccination and inoculation against influenza; Meningocele (HCC); Midline low back pain without sciatica, unspecified chronicity; Transient right leg weakness; Numbness in right leg; PCOS (polycystic ovarian syndrome); Screening for lipoid disorders; BMI 45.0-49.9, adult (HCC) Allergies Active Allergy Reactions Criticality Noted Date Comments Cefaclor Edema Other 02/13/2023 Iodinated Contrast Media Nausea/vomiting Medium 2022 documented as of this encounter (statuses as of 04/14/2023) Medications Medication Sig Dispensed Refills Start Date [...] by mouth in the morning. 0 Active methylPREDNISolon e 4 MG Oral Tablet Therapy Pack (Medrol Dosepack) follow package directions 21 Tablet 0 03/18/2023 4 Discontinued documented as of this encounter (statuses as of 04/14/2023) Active Problems Problem Noted Date Diagnosed Date Body mass index (BMI) of 45.0 to 49.9 in adult 0 03/18/2023 Overview: Per Obesity protocol PCOS (polycystic ovarian syndrome) 02/13/2023 documented as of this encounter (statuses as of 04/14/2023) Immunizations Name Administration Dates Next Due Seasonal [...] documented in this encounter Progress Notes * Jennifer Rodrigez MD - 04/05/2023 10:58 AM EST [...] urination with blood in the urine at [facility]- no falls, Had continued to complain [...] many years, has had previous MRI in [place]. Pain located in the mid back, no [...] [facility] states she also had weakness of the right side of the face and arm 1 time and hadstudies done including an EMG and had seen a specialist in [place], no history of CVA 02/28/23-:- MRI showing [...] TM evaluation 04/03/2023-recommended MRI brain, cervical thoracic spine--[facility] 04/17/23 Has urodynamic testing with Urology appointment 04/09/2023 --currently undergoing physical therapy at [facility] in [place] scheduled for 5th session today. She works in [place]. She drives her car 2 miles to [...] has morbid obesity, pcos. was followed by company secretary in [facility] Results: No results found for: "TSH" Patient Active Problem List Diagnosis Code PCOS (polycystic ovarian syndrome) E28.2 Body mass index (BMI) of 45.0 to 49.9 in adult ([facility]) Z68.42 Current Outpatient Medications Medication Sig [...] to elicit of the knees and ankle. Fxsy-[id number] range of motion, with right hip abduction [...] - INSULIN; Future; Expected date: 04/06/2023 - CAR CLEANER REFERRAL OP - TSH WITH FREE T4 [...] with plan of care. Jennifer Rodrigez MD 04/05/2023 * Tyler Bryant LPN - 04/05/2023 10:46 AM EST PRE - ADMINISTRATION DOCUMENTATION Are you experiencing any cold symptoms or fever? No Have you had Guillain-[place] Syndrome (an illness that causes paralysis) within [...] her R leg. documented in this encounter Plan of Treatment Upcoming Encounters Date Type Department Care Team (Latest Contact Info) Description 04/17/2023 8:00 AM EST Appointment Radiology, [address] [place] [address] 04/17/2023 9:30 AM EST Appointment Radiology, [address] [place] [address] 04/17/2023 10:15 AM EST Appointment Radiology, [address] [place] [address] 04/18/2023 10:51 AM EST Hospital Encounter OR [facility], Operating Room, [facility] - 4th Floor [address] [place] [address] Bradly Jones MD [address] [place] [address] 04/18/2023 10:51 AM EST - 04/18/2023 11:10 AM EST Surgery OR [facility], Operating Room, [facility] - [facility] Floor [address] [place] [address] [place] [address] Bradly Jones MD [address] [place] [address] INJECTION SPINE LUMBAR OR SACRAL 05/08/2023 5:00 PM EST Office Visit General Internal Medicine [facility] [place] [address] Jennifer Rodrigez MD 200 [facility] [place] [address] 05/21/2023 1:30 PM EDT Office Visit Interventional Pain Center, [address] [place] [address] Bradly Jones MD [address] [place] [address] 07/04/2023 5:00 PM EDT Office Visit Gynecology/Obstetr ics [place] [address] [place] [address] Irina Silva MD [address] [place] [address] 10/11/2023 1:00 PM EDT Office Visit Urology, [place] [address] [place] [address] 10/11/2023 3:00 PM EDT Office Visit Urology, [place] [address] [place], [place] [phone] Horace Pearl PA-C [address] [place], [place] [phone] Scheduled Orders Name Type Priority Associated Diagnoses Orde r Schedule GLUCOSE Lab Routine PCOS (polycystic ovarian syndrome) Expected: 04/06/2023 (Approximate), Expires: 04/05/2024 25-HYDROXY VITAMIN D Lab Routine Numbness in right leg BMI 45.0-49.9, adult (HCC) Expected: 04/06/2023 (Approximate), Expires: 04/05/2024 INSULIN Lab Routine PCOS (polycystic ovarian syndrome) BMI 45.0-49.9, adult (HCC) Expected: 04/06/2023 (Approximate), Expires: 04/05/2024 LIPID PANEL WITH DIRECT LDL IF TG IS HIGH Lab Routine Screening for lipoid disorders Expected: 04/06/2023, Expires: 04/05/2024 TSH WITH FREE T4 IF INDICATED Lab Routine Transient right leg weakness PCOS (polycystic ovarian syndrome) BMI 45.0-49.9, adult (HCC) Expected: 04/06/2023 (Approximate), Expires: 04/05/2024 Scheduled Procedures Name Priority Associated Diagnoses Date/Ti me INJECTION SPINE LUMBAR OR SACRAL Lumbar radiculopathy 04/18/2023 10:51 AM EST Scheduled Referrals Name Type Priority Associated Diagnoses Orde r Schedule CAR CLEANER REFERRAL OP Referral Within 30 days (routine) [...] adult (HCC) Body Mass Index 45.0-49.9, adult Lumbar radiculopathy Thoracic or lumbosacral neuritis or radiculitis, unspecified documented in this encounter Care Teams Communications Supervisor Relationship Specialty Start Date End Date Jennifer Rodrigez MD 200 [place] [address] PCP - General Internal Medicine 04/05/23 documented as of this encounter
--- OUTSIDE RECORDS SUMMARY | 2023-08-25 13:34 | External Medical Summary | Summary of Care ---
Author Name Unknown Organization [facility] Address [address] [place] [address] Phone [phone] Care Team Providers Care Breaker Table Worker Name Role Phone Jennifer Rodrigez MD Primary Care Provider [phone] Reason for Visit * Reason Onset Date Comments Precert Denied 04/16/2023 Brain C Spine T Spine Mri denied, please call for p2p Encounter Details Date Type Department Care Team (Late st Contact Info) Description 04/16/2023 Telephone Neurosurgery, [place] [address] [place] [address] Selene Colbert PAPatricia [address] [place] [address] Precert Denied (Brain C Spine T Spine Mri ... Allergies Active Allergy Reactions Criticality Noted Date [...] Telephone Encounter - Amandeep Stovall OSA - 04/16/2023 8:43 AM EST SECOND REQUEST The Brain, C Spine and T Spine requested for Jacklyn R Jovan is currently in Peer to Peer Review withNIA. Please have a Nurse, NETTIE, DEN or Physician call , reference tracking # [id number] and speak with a Physician Reviewer to [...] Description 04/17/2023 8:00 AM EST Appoint[address], [address] [address] 04/17/2023 9:30 AM EST Appointment Radiology, [address] [place] [address] 04/17/2023 10:15 AM EST Appointment Radiology, [address] [place] [address] 04/18/2023 10:51 AM EST Hospital Encounter OR [facility], Operating Room, [facility] - 4th Floor [facility] [place] [address] Bradly Jones MD [address] [place] [address] 04/18/2023 10:51 AM EST - 04/18/2023 11:10 AM EST Surgery OR [facility], Operating Room, [facility] - 4th Floor [address] [place] [address] Bradly Jones MD 400 [place] [address] INJECTION SPINE LUMBAR OR SACRAL 05/08/2023 5:00 PM EST Office Visit General Internal Medicine Jeanette [place] 200 [facility] [place] [address] Jennifer Rodrigez MD 200 [facility] [place] [address] 05/21/2023 1:30 PM EDT Office Visit Interventional Pain Center, [address] [address] Bradly Jones MD [address] [place] [address] 07/04/2023 5:00 PM EDT Office Visit Gynecology/Obstetr ics [address] [address] Irina Silva MD [address] [place] [address] 10/11/2023 1:00 PM EDT Office Visit Urology, [place] [address] [place], [place] [phone] 10/11/2023 3:00 PM EDT Office Visit Urology, [place] [address] [place], [place] [phone] Horace Pearl PA-C [address] [place] [address] Scheduled Procedures Name Priority Associated Diagnoses Date/Ti me INJECTION SPINE LUMBAR OR SACRAL Lumbar radiculopathy 04/18/2023 10:51 AM EST Health Maintenance Due Date Last Done Comments Hepatitis B (4 of 4 - 4-dose series) 1992 1992, 1992, 1992 Pap Smear 02/04/2013 Cervical Cancer Screening 02/04/2022 HPV/Co-Test 02/04/2022 COVID-19 Vaccine (3 - 2022- season) 2022 12/15/2020, 04/12/2020 Depression Screening 03/05/2024 [...] filedocumented as of this encounter Care Teams Breaker Table Worker Relationship Specialty Start Date End Date Jennifer Rodrigez MD 200 [place] [address] PCP - General Internal Medicine 04/05/23 documented as of this encounter
--- OUTSIDE RECORDS SUMMARY | 2023-08-25 13:34 | External Medical Summary ---
Author Name Unknown Address Unknown Organization : Laboratory Report Ordering Provider Test Date Status MELY BOWIE 04/09/2023 13:38:00 Final Observation Date Value Abnormality Reference (Units ) Status Color of Urine by Auto 04/09/2023 13:38:00 Yellow Light Yellow, Yellow Final Clarity, Urine 04/09/2023 13:38:00 Clear Clear Final Glucose [Mass/volume] in Urine by Automated test strip 04/09/2023 13:38:00 Negative Negative (mg/dL) Final Bilirubin.total [Presence] in Urine by Automated test strip 04/09/2023 13:38:00 Negative Negative Final Ketones [Mass/volume] in Urine by Automated test strip 04/09/2023 13:38:00 Negative Negative (mg/dL) Final Specific gravity, Urine 04/09/2023 13:38:00 1.020 1.003-1.030 Final Hemoglobin [Presence] in Urine by Automated test strip 04/09/2023 13:38:00 Trace-intact Abnormal Negative Final pH, Urine 04/09/2023 13:38:00 5.5 5.0, 5.5, 6.0, 6.5, 7.0, 7.5 (units) Final Protein [Mass/volume] in Urine by Automated test strip 04/09/2023 13:38:00 Negative Negative (mg/dL) Final Urobilinogen, Urine 04/09/2023 13:38:00 0.2 0.2, 1.0 (mg/dL) Final Nitrite [Presence] in Urine by Automated test strip 04/09/2023 13:38:00 Negative Negative Final Leukocyte esterase [Presence] in Urine by Automated test strip 04/09/2023 13:38:00 Negative Negative Final Performing Location
--- OUTSIDE RECORDS SUMMARY | 2023-08-25 13:34 | External Medical Summary | Summary of Care ---
Author Name Unknown Organization [facility] Address [address] [place] [address] Phone [phone] Care Team Providers Care Carton Stamper Name Role Phone Sri Wiseman MD Primary Care Provider [phone] Reason for Visit * Reason Onset Date Comments Advice 04/03/2023 Encounter Details Date Type Department Care Team (Late st Contact Info) Description 04/03/2023 Telephone General Internal Medicine [facility] 200 [facility] [place] [address] Sri Wiseman MD 200 [place] [address] Advice Allergies Active Allergy Reactions Criticality Noted [...] as of this encounter Miscellaneous Notes * Addendum Note - Prosper Felix CMA - 04/04/2023 2:44 PM ESTAddended by: PROSPER FELIX on: 04/04/2023 02:44 PM Modules accepted: Orders * Telephone Encounter - Prosper Felix CMA - 04/04/2023 2:[address] Rodrigez, can write a work excuse for today and will re-evaluate time off work tomorrow at patient's appt. Patient is aware and letter sent via my at patient's request. * Telephone Encounter - Rich Yeung OSA - 04/04/2023 1:04 PM EST Pt calling in regards to previous message. Please advise. * Telephone Encounter - Prosper Felix CMA - 04/04/2023 12:02 PM EST Message sent to Dr Rodrigez, no available left at all today, capacity manager double checked as well. Please advise * Telephone Encounter - Katt Rachel OSA - 04/04/2023 11:16 AM EST Reason for patient's call: pt returning call stating that she was advised by previous nurse or agent to return call if she didn't get return call within 1 hour Caller was transferred to [facility] at the nurse line. * Telephone Encounter [...] off Please advise and contact pt at [phone] documented in this encounter Plan of Treatment Upcoming Encounters Date Type Department Care Team (Latest Contact Info) Description 04/05/2023 10:20 AM EST Office Visit [facility] [address] [place] [address] Jennifer Rodrigez MD 200 [facility] [place] [address] 04/09/2023 1:00 PM EST Office Visit Urology, [place] [address] [place] [address] Horace Pearl PA-C [address] [place] [address] 04/17/2023 8:00 AM EST Appointment Radiology, [address] [place] [address] 04/17/2023 9:30 AM EST Appointment Radiology, [address] [place] [address] 04/17/2023 10:15 AM EST Appointment Radiology, [address] [place] [address] 04/18/2023 11:31 AM EST Hospital Encounter OR [facility], Operating Room, [facility] - 4th Floor [address] [place], [place] [address] [address] Bradly Jones MD [address] [place], [place] [address] [address] 04/18/2023 11:31 AM EST - 04/18/2023 11:50 AM EST Surgery OR [facility], Operating Room, [facility] - [facility] Floor [address] [place] [address] [place] [address] Bradly Jones MD [address] [place], [place] [address] [address] INJECTION SPINE LUMBAR OR SACRAL 05/09/2023 5:40 PM EST Office Visit General Internal Medicine [facility] 200 [facility] [place] [address] Sri Wiseman MD 200 [place] [address] 05/21/2023 1:30 PM EDT Office Visit Interventional Pain Center, [address] [place] [address] Bradly Jones MD [address] [place], [place] [address] [address] Scheduled Procedures Name Priority Associated Diagnoses Date/Ti me INJECTION SPINE LUMBAR OR SACRAL Lumbar radiculopathy 04/18/2023 11:31 AM EST Health Maintenance Due Date Last Done Comments Hepatitis B (4 of 4 - 4-dose series) 1992 1992, 1992, 1992 Pap Smear 02/04/2013 Cervical Cancer Screening 02/04/2022 HPV/Co-Test 02/04/2022 COVID-19 Vaccine (3 - season) 2022 12/15/2020, 04/12/2020 Influenza Vaccine (FLU [...] Other specified congenital anomaly of spinal cord Lumbar radiculopathy Thoracic or lumbosacral neuritis or radiculitis, unspecified documented in this encounter Care Teams Carton Stamper Relationship Specialty Start Date End Date Sri Wiseman MD [address] [place] [address] PCP - General Internal Medicine 02/13/23 documented as of this encounter
--- OUTSIDE RECORDS SUMMARY | 2023-08-25 13:34 | External Medical Summary | Summary of Care ---
Author Name Unknown Organization [facility] Address [address] [place] [address] Phone [phone] Care Team Providers Care Visual Merchandising Specialist Name Role Phone Jennifer Rodrigez MD Primary Care Provider [phone] Reason for Visit * Precert (Within 10 days (routine)) - Pending Review Specialty Diagnoses / Procedures Referred By Selvin wright Referred To Contact Radiology Diagnoses Tethered cord (HCC) Meningocele (HCC) Sacral agenesis Arachnoid cyst Procedures MRI BRAIN W WO CONTRAST Selene Colbert PA-C [address] [place] [address] Referral ID Status Reason Start Date Expiration Date Visits Requested Visits Authorized [id number] Pending Review Precert 04/05/2023 06/04/2023 999 999 Encounter Details Date Type Department Care Team (Latest Contact Info) Description 04/17/2023 7:12 AM EST - 04/17/2023 11:59 PM EST Hospital Encounter Radiology, [address] [address] Arrived Discharge Disposition: Home - Self Care [...] PM EST Office Visit General Internal Medicine [facility] [place] 200 [place] [address] Jennifer Rodrigez MD 200 [place] [address] 05/21/2023 1:30 PM EDT Office Visit Interventional Pain Center, [address] [address] Bradly Jones MD [address] [place] [address] 07/04/2023 5:00 PM EDT Office Visit Gynecology/Obstetrics [address] [address] Irina Silva MD [address] [place] [address] 10/11/2023 1:00 PM EDT Office Visit Urology, [place] [address] [address] [place], [place] [address] 10/11/2023 3:00 PM EDT Office Visit Urology, [place] [address] [place] [address] Horace Pearl PA-C [address] [place], [place] [address] Scheduled Procedures Name Priority Associated Diagnoses Date/Ti [...] Name Priority Date/Time Associated Diagnosis Comments MRI BRAIN W WO CONTRAST Routine 04/17/2023 9:38 AM EST Tethered cord (HCC) Meningocele (HCC) Sacral agenesis Arachnoid cyst documented in this encounter Administered Medications Inactive Administered Medications - up to 3 most recent administrations Medication Order MAR Action Action Date Dose Rate Site gadobutrol (Gadavist) inj 12.2 mL 12.2 mL (rounded from 12.18 mL = 0.1 mL/kg 121.8 kg), Intravenous, ONCE, On Sat04/17/23 at 0940, For 1 dose, Radiology Medication Routing (Non-IR) Given 04/17/2023 9:40 AM EST 12.2 mL Hand Right documented in this encounter Care Teams Visual Merchandising Specialist Relationship Specialty Start Date End Date Jennifer Rodrigez MD 200 [facility] [place] [address] PCP - General Internal Medicine 04/05/23 documented as of this encounter
--- OUTSIDE RECORDS SUMMARY | 2023-08-25 13:34 | External Medical Summary | Summary of Care ---
Author Name Unknown Organization [facility] Address [address] [place] [address] Phone [phone] Care Team Providers Care Counter Tender Name Role Phone Sri Wiseman MD Primary Care Provider [phone] Reason for Visit * Reason Onset Date Comments Advice 04/03/2023 Encounter Details Date Type Department Care Team (Late st Contact Info) Description 04/03/2023 Telephone General Internal Medicine [facility] 200 [facility] [place] [address] Sri Wiseman MD 200 [place] [address] Advice Allergies Active Allergy Reactions Criticality Noted [...] encounter Miscellaneous Notes * Telephone Encounter - Rich Yeung OSA - 04/04/2023 1:04 PM EST Pt calling in regards to previous message. Please advise. * Telephone Encounter - Prosper Felix CMA - 04/04/2023 12:02 PM EST Message sent to Dr Rodrigez, no available left at all today, staffing branch manager double checked as well. Please advise * Telephone Encounter - Katt Rachel OSA - 04/04/2023 11:16 AM EST Reason for patient's call: pt returning call stating that she was advised by previous nurse or agent to return call if she didn't get return call within 1 hour Caller was transferred to [facility] at the nurse line. * [...] off Please advise and contact pt at [phone] documented in this encounter Plan of Treatment Upcoming Encounters Date Type Department Care Team (Latest Contact Info) Description 04/05/2023 10:20 AM EST Office Visit General Internal Medicine Jeanette [place] 200 [facility] [place] [address] Jennifer Rodrigez MD 200 [facility] [place] [address] 04/09/2023 1:00 PM EST Office Visit Urology, [place] [address] [place] [address] Horace Pearl PA-C [address] [place] [address] 04/17/2023 8:00 AM EST Appointment Radiology, [address] [place] [address] 04/17/2023 9:30 AM EST Appointment Radiology, [address] [place] [address] 04/17/2023 10:15 AM EST Appointment Radiology, [address] [place] [address] 04/18/2023 11:31 AM EST Hospital Encounter OR [facility], Operating Room, [facility] - 4th Floor [address] [place] [address] Bradly Jones MD [address] [facility] [place] [address] 04/18/2023 11:31 AM EST - 04/18/2023 11:50 AM EST Surgery OR [facility], Operating Room, [facility] - 4th Floor [address] [place] [address] Bradly Jones MD 400 [place] [address] INJECTION SPINE LUMBAR OR SACRAL 05/09/2023 5:40 PM EST Office Visit General Internal Medicine [facility] [place] 200 [facility] [place] [address] Sri Wiseman MD 200 [facility] [place] [address] 05/21/2023 1:30 PM EDT Office Visit Interventional Pain Center, [facility] [address] [place] [address] Bradly Jones MD 400 [place] [address] Scheduled Procedures Name Priority Associated Diagnoses Date/Ti [...] filedocumented as of this encounter Care Teams Counter Tender Relationship Specialty Start Date End Date Sri Wismean MD 200 [place] [address] PCP - General Internal Medicine 02/13/23 documented as of this encounter
--- OUTSIDE RECORDS SUMMARY | 2023-08-25 13:34 | External Medical Summary | Summary of Care ---
Author Name Unknown Organization [facility] Address [address] [place] [address] Phone [phone] Care Team Providers Care Quantitative Analyst Name Role Phone Jennifer Rodrigez MD Primary Care Provider [phone] Reason for Visit * Reason Onset Date Comments Precert Denied 04/16/2023 Brain C Spine T Spine Mri denied, please call for p2p Encounter Details Date Type Department Care Team (Late st Contact Info) Description 04/16/2023 Telephone Neurosurgery, [place] [address] [place] [address] Selene Colbert PAPatricia [address] [place] [address] Precert Denied (Brain C Spine [...] 2 caps 3-4times/d, max 3gm/d 0 02/22/2023 Suspended Additional Information Ibuprofen 200 MG Oral Tablet (Motrin IB)Indications:Syn ovial cyst of sacral region,Midline low back pain without sciatica, unspecified chronicity Take 2 Tablets by mouth every 8 hours as needed for Pain, Moderate. 0 02/22/2023 Suspended predniSONE 50 MG Oral Tablet (Deltasone) Take one tablet 13 hours prior, one tablet 7 hours prior, and one tablet 1 hour prior to procedure 3 Tablet 0 03/20/2023 Suspended Additional Information diphenhydrAMINE HCl 25 MG Oral Tablet (Benadryl Allergy) Take two tablets 1 hour prior to procedure 2 Tablet 0 03/20/2023 Suspended Additional Information Fexofenadine HCl 60 MG Oral Tablet (Mary Allergy) Take 1 Tablet by mouth in the morning. 0 Suspended Mirabegron ER 50 MG Oral Tablet Extended Release 24 Hour (Myrbetriq) Take 1 Tablet by mouth in the morning. 30 Tablet 6 04/09/2023 Suspended Additional Information Lidocaine 4 % External Patch (Aspercreme) Place 1 Patch over 12 hours topically on the skin daily. 30 Patch 0 04/16/2023 Suspended Additional Information Cyclobenzaprine HCl 5 MG Oral Tablet (Flexeril)Indicati ons:Meningocele spinal (HCC),Tethering of spinal cord (HCC),Lipoma of other specified sites,History of sciatica,Chronic bilateral low back pain with right-sided sciatica,Spasm of muscle Take 1 Tablet by mouth 3 times a day as needed for Muscle spasms. 30 Tablet 0 04/16/2023 Suspended Additional Information documented as of this encounter (statuses as [...] encounter Miscellaneous Notes * Telephone Encounter - Selene Colbert PA-C - 04/18/2023 8:33 AM EST Peer to peer completed All imaging approved on 04/17/2023 - Fax with confirmation to be sent * Telephone Encounter - Amandeep Stovall OSA - 04/16/2023 8:43 AM EST SECOND REQUEST The Brain, C Spine and T Spine requested for Jacklyn Powell Jovan is currently in Peer to Peer Review withNIA. Please have a Nurse, NETTIE, DEN or Physician call , reference tracking # [id number] and speak with a Physician Reviewer to [...] Office Visit General Internal Medicine [facility] [place] [address] [place] [address] Jennifer Rodrigez MD [address] [place] [address] 05/21/2023 1:30 PM EDT Office Visit Interventional Pain Center, [facility] [address] [place] [address] Bradly Jones MD [address] [place] [address] 07/04/2023 5:00 PM EDT Office Visit Gynecology/Obstetrics [address] [address] Irina Silva MD [address] [place] [address] [id number] 10/11/2023 1:00 PM EDT Office Visit Urology, [place] [address] [place] [address] 10/11/2023 3:00 PM EDT Office Visit Urology, [place] [address], [place] [phone] Horace Pearl PA-C [address], [place] [phone] Scheduled Procedures Name Priority Associated Diagnoses Date/Ti me INJECTION SPINE LUMBAR OR SACRAL Lumbar radiculopathy 04/18/2023 9:08 AM EST Health Maintenance Due Date Last [...] filedocumented as of this encounter Care Teams Quantitative Analyst Relationship Specialty Start Date End Date Jennifer Rodrigez MD 200 [place] [address] PCP - General Internal Medicine 04/05/23 documented as of this encounter
--- OUTSIDE RECORDS SUMMARY | 2023-08-25 13:34 | External Medical Summary | Summary of Care ---
Author Name Unknown Organization [facility] Address [address] [place] [address] Phone [phone] Care Team Providers Care Nurse Clinical Name Role Phone Jennifer Rodrigez MD Primary Care Provider [phone] Reason for Visit * Precert (Within 10 days (routine)) - Pending Review Specialty Diagnoses / Procedures Referred By Selvin wright Referred To Contact Radiology Diagnoses Tethered cord (HCC) Meningocele (HCC) Sacral agenesis Arachnoid cyst Procedures MRI C SPINE W WO CONTRAST Selene Colbert, NETTIE [address] [place] [address] Referral ID Status Reason Start Date Expiration Date Visits Requested Visits Authorized [id number] Pending Review Precert 04/05/2023 06/04/2023 [id number] Encounter Details Date Type Department Care Team (Latest Contact Info) Description 04/17/2023 7:12 AM EST - 04/17/2023 11:59 PM EST Hospital Encounter Radiology, [address] [id number] Arrived Discharge Disposition: Home - Self Care [...] PM EST Office Visit General Internal Medicine [facility] 200 [place] [address] Jennifer Rodrigez MD 200 [place] [address] 05/21/2023 1:30 PM EDT Office Visit Interventional Pain Center, [address] [address] Bradly Jones MD [address] [place] [address] 07/04/2023 5:00 PM EDT Office Visit Gynecology/Obstetrics [address] [address] Irina Silva MD [address] [place] [address] 10/11/2023 1:00 PM EDT Office Visit Urology, [place] [address] [place], [place] [phone] 10/11/2023 3:00 PM EDT Office Visit Urology, [place] [address] [place], [place] [phone] Horace Pearl PA-C [address] [place], [place] [phone] Scheduled Procedures Name Priority Associated Diagnoses Date/Ti [...] Name Priority Date/Time Associated Diagnosis Comments MRI C SPINE W WO CONTRAST Routine 04/17/2023 9:36 [...] 121.8 kg), Intravenous, ONCE, On Sat04/17/23 at 0939, For 1 dose, Radiology Medication Routing (Non-IR) Given 04/17/2023 9:39 AM EST 12.2 mL Hand Right documented in this encounter Care Teams Nurse Clinical Relationship Specialty Start Date End Date Jennifer Rodrigez MD [address] [place] [address] PCP - General Internal Medicine 04/05/23 documented as of this encounter
--- OUTSIDE RECORDS SUMMARY | 2023-08-25 13:34 | External Medical Summary ---
Author Name Unknown Address Unknown Organization [id number]:LABORATORY C - 100 [facility] [place] [address] Laboratory Report Ordering Provider Test Date Status YVONNE HOLT 04/17/2023 09:37:57 Final Observation Date Value Abnormality Reference (Units ) Status Triglyceride 04/17/2023 09:37:57 243 Above high normal <=174 (mg/dL) Final Triglyceride Reference Range s (mg/dL):
<150 Acceptable
150-174 Borderline high
175-499 High
>=500 Very high Cholesterol 04/17/2023 09:37:57 229 Above high normal <200 (mg/dL) Final Total Cholesterol Reference Ranges (mg/dL):
<200 Desirable
200-239 Borderline high
>=240 High HDL 04/17/2023 09:37:57 39 Below low normal >49 (mg/dL) Final HDL Cholesterol Reference Ra nges (mg/dL):
>=60 High (Desirable)
<50 Low (Undesirable) For Females
<40 Low (Undesirable) For Males NON-HDL CHOLESTEROL 04/17/2023 09:37:57 190 Above high normal <=159 (mg/dL) Final Non-HDL Cholesterol Referenc e Range (mg/dL):
<100 Target level for high risk ASCVD patient
<130 Optimal for general population
130-159 Near optimal for general population
160-189 Borderline High
190-219 High
>=220 Very High LDL, (calculated) 04/17/2023 09:37:57 141 Above high n ormal <=129 (mg/dL) Final LDL Cholesterol Reference Ra nges (mg/dL):
<70 Target level for high risk ASCVD patient
<100 Optimal for general population
100-129 Near optimal for general population
130-159 Borderline high
160-189 High
>=190 Very high Performing Location [facility] [place] [address] [facility] [address]
--- OUTSIDE RECORDS SUMMARY | 2023-08-25 13:34 | External Medical Summary | Summary of Care ---
Author Name Unknown Organization [facility] Address [address] [place] [address] Phone [phone] Care Team Providers Care Bleach Packer Name Role Phone Jennifer Rodrigez MD Primary Care Provider [phone] Reason for Visit * Reason Comments Outpatient Testing Encounter Details Date Type Department Care Team (Late st Contact Info) Description 04/17/2023 11:00 AM EST Laboratory Laboratory, [facility] [address] [place] [address] [facility], Lab [address] [place] [address] PCOS (polycystic ovarian syndrome); Numbness in right leg; BMI 45.0-49.9, adult (HCC); Screening for lipoid disorders; Transient right leg weakness Allergies Active Allergy Reactions Criticality Noted Date Comments Cefaclor Edema Other 02/13/2023 Iodinated Contrast Media Nausea/vomiting Medium 2022 documented as of this encounter (statuses as of 04/17/2023) Medications Medication Sig Dispensed Refills Start Date [...] as of this encounter (statuses as of 04/17/2023) Active Problems Problem Noted Date Diagnosed Date Body mass index (BMI) of 45.0 to 49.9 in adult 0 03/18/2023 Overview: Per Obesity protocol PCOS (polycystic ovarian syndrome) 02/13/2023 documented as of this encounter (statuses as of 04/17/2023) Immunizations Name Administration Dates Next Due Seasonal [...] Contact Info) Description 04/17/2023 7:12 AM EST Hospital Encounter Radiology, [address] [place] [address] Arrived 04/18/2023 9:08 AM EST Hospital Encounter OR [facility], Operating Room, [facility] - 4th Floor [address] [place], [place] [address] [address] Bradly Jones MD [address] [place], [place] [address] [address] 04/18/2023 9:08 AM EST - 04/18/2023 9:27 AM EST Surgery OR [facility], Operating Room, [facility] - 4th Floor [address] [place] [address] [place] [address] Bradly Jones MD [address] [place] [address] [place] [address] INJECTION SPINE LUMBAR OR SACRAL 05/08/2023 5:00 PM EST Office Visit General Internal Medicine [address] [place] [address] Jennifer Rodrigez MD [address] [place] [address] 05/21/2023 1:30 PM EDT Office Visit Interventional Pain Center, [address] [place] [address] Bradly Jones MD [address] [place], [place] [address] [address] 07/04/2023 5:00 PM EDT Office Visit Gynecology/Obstetri [address] [place] [address] Irina Silva MD [address] [place] [address] 10/11/2023 1:00 PM EDT Office Visit Urology, [place] [address] [place] [address] 10/11/2023 3:00 PM EDT Office Visit Urology, [place] [address] [place] [address] Horace Pearl PA-C [address] [place], [place] [phone] Pending Results Name Type Priority Associated Diagnoses Date /Time GLUCOSE Lab Routine PCOS (polycystic ovarian syndrome) 04/17/2023 9:37 AM EST 25-HYDROXY VITAMIN D Lab Routine Numbness in right leg BMI 45.0-49.9, adult ([facility]) 04/17/2023 9:37 AM EST INSULIN Lab Routine PCOS (polycystic ovarian syndrome) BMI 45.0-49.9, adult ([facility]) 04/17/2023 9:37 AM EST LIPID PANEL WITH DIRECT LDL IF TG IS HIGH Lab Routine Screening for lipoid disorders 04/17/2023 9:37 AM EST TSH WITH FREE T4 IF INDICATED Lab Routine Transient right leg weakness PCOS (polycystic ovarian syndrome) BMI 45.0-49.9, adult ([facility]) 04/17/2023 9:37 AM EST Scheduled Procedures Name Priority Associated Diagnoses Date/Ti [...] as of this encounter Visit Diagnoses Diagnosis PCOS (polycystic ovarian syndrome) Polycystic ovaries Numbness in right leg Disturbance of skin sensation BMI 45.0-49.9, adult (HCC) Body Mass Index 45.0-49.9, adult Screening for lipoid disorders Transient right leg weakness Lumbar radiculopathy Thoracic or lumbosacral neuritis or radiculitis, unspecified documented in this encounter Care Teams Bleach Packer Relationship Specialty Start Date End Date Jennifer Rodrigez MD [address] [place] [address] PCP - General Internal Medicine 04/05/23 documented as of this encounter
--- OUTSIDE RECORDS SUMMARY | 2023-08-25 13:34 | External Medical Summary ---
Author Name Unknown Address Unknown Organization K01:[facility] - [address] [place] [address] Laboratory Report Ordering Provider Test Date Status YVONNE HOLT 04/17/2023 09:37:57 Final Observation Date Value Abnormality Reference (Units ) Status Glucose 04/17/2023 09:37:57 127 Above high normal 70 -120 (mg/dL) Final Performing Location [facility] - [address] [place] [address]
--- OUTSIDE RECORDS SUMMARY | 2023-08-25 13:34 | External Medical Summary ---
Author Name Unknown Address Unknown Organization K01:LABORATORY [facility] - [address] [place] [address] Laboratory Report Ordering Provider Test Date Status YVONNE HOLT 04/17/2023 09:37:57 Final Deficient: <20 ng/mL
Ins ufficient: 20-29 ng/mL
Recommended/Optimum:30-50 ng/mL

Vitamin D intoxication is rare. If suspicious of Vitamin D toxicity, evaluation of serum Calcium and PTH is recommended. Observation Date Value Abnormality Reference (Units ) Status 25-OH Vitamin D total 04/17/2023 09:37:57 17 Below low normal >19 (ng/mL) Final Performing Location LABORATORY C - [address] [place] [address]
--- OUTSIDE RECORDS SUMMARY | 2023-08-25 13:34 | External Medical Summary ---
Author Name Unknown Address Unknown Organization K01:LABORATORY [facility] [place] - [address] [facility] [address] [address] [place] [address] Laboratory Report Ordering Provider Test Date Status YVONNE HOLT 04/17/2023 09:37:57 Final Observation Date Value Abnormality Reference (Units ) Status Insulin level 04/17/2023 09:37:57 45 Above high bob l 3-25 (uU/mL) Final The above reference interval is based on fasting status. Performing Location [facility] - [address] [place] [address]
--- OUTSIDE RECORDS SUMMARY | 2023-08-25 13:34 | External Medical Summary | Summary of Care ---
Author Name Unknown Organization [facility] Address [address] [place] [address] Phone [phone] Care Team Providers Care Shipping Clerk/Admin Name Role Phone Sri Wiseman MD Primary Care Provider [phone] Reason for Visit * Reason Onset Date Comments Advice 04/03/2023 Encounter Details Date Type Department Care Team (Late st Contact Info) Description 04/03/2023 Telephone General Internal Medicine [facility] 200 [facility] [place] [address] Sri Wiseman MD [address] [place] [address] Advice Allergies Active Allergy Reactions Criticality Noted [...] 1 hour Caller was transferred to [facility] at the nurse line. * Telephone [...] off Please advise and contact pt at [phone] documented in this encounter Plan of Treatment Upcoming Encounters Date Type Department Care Team (Latest Contact Info) Description 04/05/2023 10:20 AM EST Office Visit General Internal Medicine [facility] [place] [address] [place], [place] [address] Jennifer Rodrigez MD [address] [place], [place] [address] 04/09/2023 1:00 PM EST Office Visit Urology, [place] [address] [place] [address] Horace Pearl PA-C [address] [place] [address] 04/18/2023 12:22 PM EST Hospital Encounter OR [facility], Operating Room, [facility] - 4th Floor [address] [place] [address] Bradly Jones MD [address] [place] [address] 04/18/2023 12:22 PM EST - 04/18/2023 12:41 PM EST Surgery OR [facility], Operating Room, [facility] - 4th Floor [address] [place] [address] Bradly Jones MD [address] [place] [address] INJECTION SPINE LUMBAR OR SACRAL 05/09/2023 5:40 PM EST Office Visit General Internal Medicine [facility] [place] [address] [place], [place] [address] Sri Wiseman MD 200 [facility] [place] [address] 05/21/2023 1:30 PM EDT Office Visit Interventional Pain Center, [facility] [address] [place] [address] Bradly Jones MD [address] [place] [address] Scheduled Procedures Name Priority Associated Diagnoses Date/Ti [...] filedocumented as of this encounter Care Teams Shipping Clerk/Admin Relationship Specialty Start Date End Date Sri Wiseman MD 200 [place] [address] PCP - General Internal Medicine 02/13/23 documented as of this encounter
--- OUTSIDE RECORDS SUMMARY | 2023-08-25 13:34 | External Medical Summary | Summary of Care ---
Author Name Unknown Organization [facility] Address [address] [facility] [place] [address] Phone [phone] Care Team Providers Care School Child Care Attendant Name Role Phone Jennifer Rodrigez MD Primary Care Provider [phone] Encounter Details Date Type Department Care Team (Late st Contact Info) Description 04/08/2023 Orders Only PATIENT PORTAL DO NOT DELETE THIS DEPT USED BY [place] [id number] Allergies Active Allergy Reactions Criticality Noted Date Comments Cefaclor Edema Other 02/13/2023 Iodinated Contrast Media Nausea/vomiting Medium 2022 documented as of this encounter (statuses as of 04/08/2023) Medications Medication Sig Dispensed Refills Start Date [...] as of this encounter (statuses as of 04/08/2023) Active Problems Problem Noted Date Diagnosed Date Body mass index (BMI) of 45.0 to 49.9 in adult 0 03/18/2023 Overview: Per Obesity protocol PCOS (polycystic ovarian syndrome) 02/13/2023 documented as of this encounter (statuses as of 04/08/2023) Immunizations Name Administration Dates Next Due Seasonal [...] Department Care Team (Latest Contact Info) Description 04/09/2023 1:00 PM EST Office Visit [facility], [place] [facility] [address] Horaec Pearl PA-C [address] [facility] [phone] 04/17/2023 8:00 AM EST Appointment Radiology, [address] [address] 04/17/2023 9:30 AM EST Appointment Radiology, [address] [address] 04/17/2023 10:15 AM EST Appointment Radiology, [address] [address] 04/18/2023 11:31 AM EST Hospital Encounter OR [facility], Operating Room, [facility] - 4th Floor [address] [place] [address] Bradly Jones MD [address] [place] [address] 04/18/2023 11:31 AM EST - 04/18/2023 11:50 AM EST Surgery OR [facility], Operating Room, [facility] Floor [address] [place] [address] [place] [address] Bradly Jones MD [address] [place] [address] INJECTION SPINE LUMBAR OR SACRAL 04/19/2023 11:00 AM EST Office Visit Gynecology/Obstetr ics [address] [address] Irina Silva MD [address] [place] [address] 05/08/2023 5:00 PM EST Office Visit General Internal Medicine [facility] [place] 200 [facility] [place], [place] [address] Jennifer Rodrigez MD 200 [facility] [place] [address] 05/09/2023 5:40 PM EST Office Visit General Internal Medicine [place] 200 [facility] [place] [address] Sri Wiseman MD 200 [facility] [place] [address] 05/21/2023 1:30 PM EDT Office Visit Interventional Pain Center, [facility] 400 [place] [address] Bradly Jones MD 400 [place] [address] Scheduled Procedures Name Priority Associated Diagnoses Date/Ti [...] filedocumented as of this encounter Care Teams School Child Care Attendant Relationship Specialty Start Date End Date Jennifer Rodrigez MD 200 [facility] [place] [address] PCP - General Internal Medicine 04/05/23 documented as of this encounter
--- OUTSIDE RECORDS SUMMARY | 2023-08-25 13:34 | External Medical Summary ---
Author Name Unknown Address Unknown Organization K01:LABORATORY [facility] - [address] [facility] [place] [address] Laboratory Report Ordering Provider Test Date Status YVONNE HOLT 04/17/2023 09:37:57 Final Observation Date Value Abnormality Reference (Units ) Status TSH 04/17/2023 09:37:57 2.46 0.27-4.20 (uIU/mL) Final Performing Location LAB[facility]ORY [facility] [place] - [address] [place] [address]
--- OUTSIDE RECORDS SUMMARY | 2023-08-25 13:34 | External Medical Summary | Summary of Care ---
Author Name Unknown Organization [facility] Address [address] [place] [address] Phone [phone] Care Team Providers Care Sales Program Manager Name Role Phone Sri Wiseman MD Primary Care Provider [phone] Reason for Visit * Reason Onset Date Comments Advice 04/03/2023 Encounter Details Date Type Department Care Team (Late st Contact Info) Description 04/03/2023 Telephone General Internal Medicine [facility] 200 [facility] [place] [address] Sri Wiseman MD 200 [place] [address] Advice Allergies Active Allergy Reactions Criticality Noted [...] encounter Miscellaneous Notes * Telephone Encounter - Prosper Felix CMA - 04/04/2023 12:02 PM EST Message sent to Dr Rodrigez, no available left at all today, demand generation manager double checked as well. Please advise * Telephone Encounter - Katt Rachel OSA - 04/04/2023 11:16 AM EST Reason for patient's call: pt returning call stating that she was advised by previous nurse or agent to return call if she didn't get return call within 1 hour Caller was transferred to [facility] at the nurse line. * Telephone [...] him call her." * Telephone Encounter - Jennifre Rodrigez MD - 04/04/2023 10:40 AM EST [...] off Please advise and contact pt at [phone] documented in this encounter Plan of Treatment Upcoming Encounters Date Type Department Care Team (Latest Contact Info) Description 04/05/2023 10:20 AM EST Office Visit General Internal Medicine [facility] 200 [facility] [place] [address] Jennifer Rodrigez MD 200 [facility] [place] [address] 04/09/2023 1:00 PM EST Office Visit Urology, [place] [address] [place] [address] Horace Pearl PA-C [address] [place] [address] 04/17/2023 8:00 AM EST Appointment Radiology, [address] [place] [address] 04/17/2023 9:30 AM EST Appointment Radiology, [address] [address] 04/17/2023 10:15 AM EST Appointment Radiology, [address] [place] [address] 04/18/2023 12:22 PM EST Hospital Encounter OR [facility], Operating Room, [facility] - 4th Floor [address] [place], [place] [address] [address] Bradly Jones MD [address] [place] [address] [place] [address] 04/18/2023 12:22 PM EST - 04/18/2023 12:41 PM EST Surgery OR [facility], Operating Room, [facility] - 4th Floor [address] [facility] [place] [address] Bradly Jones MD 400 [place] [address] INJECTION SPINE LUMBAR OR SACRAL 05/09/2023 5:40 PM EST Office Visit General Internal Medicine [facility] [place] 200 [facility] [place] [address] Sri Wiseman MD 200 [facility] [place] [address] 05/21/2023 1:30 PM EDT Office Visit Interventional Pain Center, [facility] [place] [address] Bradly Jones MD 400 [place] [address] Scheduled Procedures Name Priority Associated Diagnoses Date/Ti [...] filedocumented as of this encounter Care Teams Sales Program Manager Relationship Specialty Start Date End Date Sri Wiseman MD [address] [place] [address] [place] [address] PCP - General Internal Medicine 02/13/23 documented as of this encounter
--- OUTSIDE RECORDS SUMMARY | 2023-08-25 13:34 | External Medical Summary | Summary of Care ---
Author Name Unknown Organization [facility] Address [address] [place] [address] Phone [phone] Care Team Providers Care Wire Strander Name Role Phone Sri Wiseman MD Primary Care Provider [phone] Reason for Visit * Reason Onset Date Comments Advice 04/03/2023 Encounter Details Date Type Department Care Team (Late st Contact Info) Description 04/03/2023 Telephone General Internal Medicine [facility] 200 [facility] [place] [address] Sri Wiseman MD 200 [place] [address] Advice Allergies Active Allergy Reactions Criticality Noted [...] within 1 hour Caller was transferred to [facility] at the nurse line. [...] off Please advise and contact pt at [phone] documented in this encounter Plan of Treatment Upcoming Encounters Date Type Department Care Team (Latest Contact Info) Description 04/05/2023 10:20 AM EST Office Visit General Internal Medicine [facility] [place] [address] [place], [place] [address] Jennifer Rodrigez MD [address] [place], [place] [address] 04/09/2023 1:00 PM EST Office Visit Urology, [place] [address] [place] [address] Horace Pearl PA-C [address] [place] [address] 04/18/2023 12:22 PM EST Hospital Encounter OR [facility], Operating Room, [facility] - 4th Floor [address] [place] [address] Bradly Jones MD [address] [place] [address] 04/18/2023 12:22 PM EST - 04/18/2023 12:41 PM EST Surgery OR [facility], Operating Room, [facility] - 4th Floor [address] [place] [address] Bradly Jones MD [address] [place] [address] INJECTION SPINE LUMBAR OR SACRAL 05/09/2023 5:40 PM EST Office Visit General Internal Medicine [facility] [place] [address] [place], [place] [address] Sri Wiseman MD 200 [facility] [place], [place] [address] 05/21/2023 1:30 PM EDT Office Visit Interventional Pain Center, [facility] [address] [place] [address] Bradly Jones MD [address] [place] [address] Scheduled Procedures Name Priority Associated Diagnoses Date/Ti [...] filedocumented as of this encounter Care Teams Wire Strander Relationship Specialty Start Date End Date Sri Wiseman MD 200 [facility] [place] [address] PCP - General Internal Medicine 02/13/23 documented as of this encounter
--- OUTSIDE RECORDS SUMMARY | 2023-08-25 13:34 | External Medical Summary | Summary of Care ---
Author Name Unknown Organization [facility] Address [address] [place] [address] Phone [phone] Care Team Providers Care Retrieval Specialist Name Role Phone Jennifer Rodrigez MD Primary Care Provider [phone] Reason for Visit * Reason Comments NEW PATIENT * Evaluate & Treat - Unlimited Visits (Within 10 days (routine)) - Authorized Specialty Diagnoses / Procedures Referred By Selvin wright Referred To Contact Urology Diagnoses Tethered cord (HCC) Meningocele (HCC) Sacral agenesis Arachnoid cyst Selene Colbert PA-C [address] [place] [address] Referral ID Status Reason Start Date Expiration Date Visits Requested Visits Authorized [id number] Authorized Specialty Services Required 04/03/2023 04/03/2024 [id number] Encounter Details Date Type Department Care Team (Late st Contact Info) Description 04/09/2023 1:00 PM EST Office Visit Urology, [place] [address] [place] [address] Horace Pearl PA-C [address] [place] [address] Urinary frequency* Allergies Active Allergy Reactions Criticality Noted Date Comments Cefaclor Edema Other 02/13/2023 Iodinated Contrast Media Nausea/vomiting Medium 2022 documented as of this encounter (statuses as of 04/09/2023) Medications Medication Sig Dispensed Refills Start Date [...] as of this encounter (statuses as of 04/09/2023) Active Problems Problem Noted Date Diagnosed Date Body mass index (BMI) of 45.0 to 49.9 in adult 0 03/18/2023 Overview: Per Obesity protocol PCOS (polycystic ovarian syndrome) 02/13/2023 documented as of this encounter (statuses as of 04/09/2023) Immunizations Name Administration Dates Next Due Seasonal [...] Sign Reading Time Taken Comments Blood Pressure 112/82 04/09/2023 1:10 PM EST Pulse - - Temperature 36.3 C (97.4 F) 04/09/2023 1:10 PM ES T Respiratory Rate - - Oxygen Saturation - - Inhaled Oxygen Concentration - - Weight - - Height - - Body Mass Index - - documented in this encounter Progress Notes * Horace Pearl PA-C - 04/09/2023 1:26 PM EST NEW PATIENT EXAMINATION - Urology Name: Jacklyn Aldana Date: 04/09/2023 Time: 1:27 PM Location: Urology Clinic PCP: JENNIFER RODRIGEZ [address] [place] [address] [phone] Chief Complaint: Concern for NGB Jacklyn Aldana is a 33 year old female presents in consultation from Jennifer Rodrigez MD for evaluation of the above. I extensively reviewed the patient's record prior to the appointment. The patient presents to the clinic today with her mother who provided portions of the patient's history. Jacklyn presents to clinic today in referral from neurosurgery due to recently found tethered cord in the context of new onset LE weakness. She does have a lifelong history of urgency/frequency so neuro referred her to urology due to concerns of NGB and requesting urodynamics. Jacklyn states that she has a lifelong history of urgency/frequency, often times voids every 15 minutes or so although if she is busy she may be able to extend it out slightly longer than this. She does report some associated incontinence, primarily during stressful maneuvers like coughing/sneezing although does note some UUI as well. She has never been evaluated by urology previously. Did recently have a CT which showed no signs of hydro bilaterally and a normal appearing bladder. Drinks ~80z of water per day, occasional soda or coffee but no other caffeine. Denies hematuria or UTI. No past medical history on file. No past surgical history on file. 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 Current Outpatient Medications Medication Sig Dispense Refill [...] Contrast Media Nausea/vomiting Ceclor [Cefaclor] Edema Other ROS EXAM: CONSTITUTIONAL: No change in weight, No weakness, No fatigue and No fevers, sweats, or chills PULMONARY: No cough, No wheezing, No shortness of breath and No recent change in breathing CARDIOVASCULAR: No chest pain, No shortness of breath, No dyspnea on exertion, No edema and No syncope GASTROINTESTINAL: No abdominal pain, No significant change in appetite and No nausea, vomiting, diarrhea, or constipation FEMALE: See HPI NEUROLOGIC: (+) LE weakness PHYSICAL EXAM: VITAL SIGNS: BP 112/82 (BP Site: Right Arm, BP Position: Sitting, BP Cuff Size: Regular) | Temp 36.3 C (97.4 F) (Tympanic) | LMP 02/21/2023 Comment: states she is not PSYCH/GENERAL APPEARANCE: no apparent distress, well - nourished, well developed MSK: no CVA tenderness RESPIRATORY: non-labored breathing, no audible coughing or wheezing CARDIAC: no peripheral edema GASTRO-INTESTINAL: soft, non - distended NEUROLOGIC: no focal deficits and gait normal SKIN: no obvious cyanosis or ulcerations Imaging: I have personally viewed the following images and reviewed the results with the patients: Exam: CT Abdomen And Pelvis Without Contrast Exam date and time: 02/15/2023 7:01 PM Age: 33 years old Clinical indication: Abdominal pain; Flank; Right; Additional info: Right flank pain TECHNIQUE: Imaging protocol: Computed tomography of the abdomen and pelvis without contrast. Radiation optimization: All CT scans at this facility use at least one of these dose optimization techniques: automated exposure control; mA and/or kV adjustment per patient size (includes targeted exams where dose is matched to clinical indication); or iterative reconstruction. REPORTING DATA: Count of CT and Cardiac NM exams in prior 12 months: This patient has received 0 known CTs and 0 known cardiac nuclear medicine studies in the 12 months prior to the current study. COMPARISON: CR ABDOMEN SUPINE 02/13/2023 3:30 PM FINDINGS: Liver: Hepatic steatosis Gallbladder and bile ducts: Cholecystectomy Pancreas: Pancreas unremarkable Spleen: The spleen is unremarkable. Adrenal glands: Adrenal glands unremarkable. Kidneys and ureters: No hydronephrosis. Stomach and bowel: Unremarkable. No obstruction. No mucosal thickening. Appendix: No evidence of appendicitis. Intraperitoneal space: Unremarkable. No free air. No significant fluid collection. Vasculature: Unremarkable. No abdominal aortic aneurysm. Lymph nodes: Unremarkable. No enlarged lymph nodes. Urinary bladder: Unremarkable as visualized. Reproductive: Thickened endometrium. Findings may reflect patient's menstrual status. Bones/joints: Incomplete visualization of sacral developmental anomaly. There is a associated rounded fluid collection located in the presacral space which appears to connect with the distal sacral canal. Findings not optimally visualized however could be better evaluated with magnetic resonance imaging with contrast. Soft tissues: Unremarkable. IMPRESSION IMPRESSION: 1. Incomplete visualization of sacral developmental anomaly with associated rounded fluid collection in the presacral space. Recommend further evaluation with magnetic resonance imaging with contrast. 2. Thickened endometrium. Findings may reflect patient's menstrual status. Impression: 1. 33 year old female with concern for NGB Plan: Discussed neuro's concern for NGB given [...] along with symptom check. Pt in agreement. Horace Pearl PA-C Department of Urology [facility] 04/09/2023 1:27 PM documented in this encounter Plan of Treatment Upcoming Encounters Date Type Department Care Team (Latest Contact Info) Description 04/17/2023 8:00 AM EST Appointment Radiology, [address] [place] [address] 04/17/2023 9:30 AM EST Appointment Radiology, [address] [place] [address] 04/17/2023 10:15 AM EST Appointment Radiology, [address] [place] [address] 04/18/2023 11:31 AM EST Hospital Encounter OR [facility], Operating Room, [facility] - 4th Floor [facility] [place] [address] Bradly Jones [facility] [address] 04/18/2023 11:31 AM EST - 04/18/2023 11:50 AM EST Surgery OR [facility], Operating Room, [facility] - 4th Floor 400 [place] [address] Bradly Jones MD [address] [place] [address] INJECTION SPINE LUMBAR OR SACRAL 05/08/2023 5:00 PM EST Office Visit General Internal Medicine [facility] 200 [facility] [place] [address] Jennifer Rodrigez MD 200 [facility] [place] [address] 05/09/2023 5:40 PM EST Office Visit General Internal Medicine [facility] 200 [facility] [place] [address] Sri Wiseman MD 200 [facility] [place] [address] 05/21/2023 1:30 PM EDT Office Visit Interventional Pain Center, [address] [address] Bradly Jones MD [address] [place] [address] 07/04/2023 5:00 PM EDT Office Visit Gynecology/Obstetr ics [address] [address] Irina Silva MD [address] [place] [address] 10/11/2023 1:00 PM EDT Office Visit Urology, [address] [address] 10/11/2023 3:00 PM EDT Office Visit Urology, [place] [address] [place] [address] Horace Pearl PA-C [address] [place] [address] Scheduled Procedures Name Priority Associated Diagnoses Date/Ti [...] Procedure Name Priority Date/Time Associated Diagnosis Comments URINALYSIS, POINT OF CARE DERICK 04/09/2023 1:38 PM EST documented in this encounter Results * (ABNORMAL) URINALYSIS, POINT OF CARE (04/09/2023 1:38 PM EST) Color, Urine Yellow Light Yellow, Yellow 04/09/2023 1:41 PM EST [employer] Clarity, Urine Clear Clear 04/09/2023 1:41 PM EST [employer] Glucose, Urine Negative Negative mg/dL 04/09/2023 1:41 PM EST [facility] Bilirubin, Urine Negative Negative 04/09/2023 1:41 PM EST [facility] Ketone, Urine Negative Negative mg/dL 04/09/2023 1:41 PM EST [facility] Specific [place], Urine 1.020 1.003 - 1.030 04/09/2023 1:41 PM EST [facility] Blood, Urine Trace-intact (A) Negative 04/09/2023 1:41 PM EST [facility] pH, Urine 5.5 5.0, 5.5, 6.0, 6.5, 7.0, 7.5 units 04/09/2023 1:41 PM EST [facility] Protein, Urine Negative Negative mg/dL 04/09/2023 1:41 PM EST [facility] Urobilinogen, Urine 0.2 0.2, 1.0 mg/dL 04/09/2023 1:41 PM EST [facility] Nitrite, Urine Negative Negative 04/09/2023 1:41 PM EST [facility] Esterase, Urine Negative Negative 04/09/2023 1:41 PM EST [facility] Urine 04/09/2023 1:38 PM EST 04/09/2023 1:40 PM EST Horace Pearl PA-C LAB POINT OF CARE TEST DOCKED DEVICE UNSOLICITED RESULTS Performing Organization Address City/State/[facility] Co de Phone Number [facility] [address] [place] [address] documented in this encounter Visit Diagnoses Diagnosis Urinary frequency- Primary Lumbar radiculopathy Thoracic or lumbosacral neuritis or radiculitis, unspecified documented in this encounter Care Teams Retrieval Specialist Relationship Specialty Start Date End Date Jennifer Rodrigez MD 200 [facility] [place] [address] PCP - General Internal Medicine 04/05/23 documented as of this encounter"
--- OUTSIDE RECORDS SUMMARY | 2023-08-25 13:34 | External Medical Summary | Summary of Care ---
Author Name Unknown Organization [facility] Address [address] [place] [address] Phone [phone] Care Team Providers Care Right Of Way Worker Name Role Phone Jennifer Rodrigez MD Primary Care Provider [phone] Reason for Visit * Reason Onset Date Comments note for school 04/16/2023 Encounter Details Date Type Department Care Team (Late st Contact Info) Description 04/16/2023 Telephone Urology, [place] [address] [place], [place] [id number] Horace Boone PA-C [address] [place] [address] note for school Allergies Active [...] the skin daily. 30 Patch 0 02/25/2023 04/11/2023 Discontinued (Refill) Cyclobenzaprine HCl 5 MG Oral Tablet (Flexeril)Indicat ions:Meningocele spinal (HCC),Tethering of spinal cord (HCC),Lipoma of other specified sites,History of sciatica,Chronic bilateral low back pain with right-sided sciatica,Spasm of muscle Take 1 Tablet by mouth 3 times a day as needed for Muscle spasms. 30 Tablet 0 03/05/2023 04/11/2023 Discontinued (Refill) documented as of this encounter (statuses as [...] encounter Miscellaneous Notes * Addendum Note - Horace Boone PA-C - 04/16/2023 12:38 PM ESTAddended by: HORACE BOONE on: 04/16/2023 12:38 PM Modules accepted: Orders * Telephone Encounter - Liz Ceron OSA - 04/16/2023 9:03 AM EST Pt needs a note to excuse her from work. Please write one from 04/09/23. Please send it through to her MY Chart. Thank you Liz documented in this encounter Plan of Treatment Upcoming Encounters Date Type Department Care Team (Latest Contact Info) Description 04/17/2023 8:00 AM EST Appointment Radiology, [address] [place] [address] 04/17/2023 9:30 AM EST [address], [address] [place] [address] 04/17/2023 10:15 AM EST Appointment Radiology, [address] [place] [address] 04/18/2023 10:51 AM EST Hospital Encounter OR [facility], Operating Room, [facility] - 4th Floor [address] [place], [place] [address] [address] Bradly Jones MD [address] [place] [address] [place] [address] 04/18/2023 10:51 AM EST - 04/18/2023 11:10 AM EST Surgery OR [facility], Operating Room, [facility] - 4th Floor [address] [place] [address] Bradly Jones MD [address] [place] [address] INJECTION SPINE LUMBAR OR SACRAL 05/08/2023 5:00 PM EST Office Visit General Internal Medicine [facility] 200 [facility] [place] [address] Jennifer Rodrigez MD 200 [place] [address] 05/21/2023 1:30 PM EDT Office Visit Interventional Pain Center, [address] [address] Bradly Jones MD [address] [place] [address] 07/04/2023 5:00 PM EDT Office Visit Gynecology/Obstetr ics [address] [address] Irina Silva MD [address] [place] [address] 10/11/2023 1:00 PM EDT Office Visit Urology, [place] [address] [place] [address] 10/11/2023 3:00 PM EDT Office Visit Urology, [place] [address] [place] [address] Horace Booen PA-C [address] [place], [place] [id number] Scheduled Procedures Name Priority Associated Diagnoses Date/Ti [...] as of this encounter Visit Diagnoses Diagnosis Urinary frequency- Primary Lumbar radiculopathy Thoracic or lumbosacral neuritis or radiculitis, unspecified documented in this encounter Care Teams Right Of Way Worker Relationship Specialty Start Date End Date Jennifer Rodrigez MD 200 [place] [address] PCP - General Internal Medicine 04/05/23 documented as of this encounter
--- OUTSIDE RECORDS SUMMARY | 2023-08-25 13:35 | External Medical Summary | Summary of Care ---
Author Name Unknown Organization [facility] Address [address] [place] [address] Phone [phone] Care Team Providers Care Drywall Worker Name Role Phone Sri Wiseman MD Primary Care Provider [phone] Encounter Details Date Type Department Care Team (Latest Contact Info) Description 03/28/2023 9:09 AM EST - 03/28/2023 11:59 PM EST Hospital Encounter Orthopaedics, [address], [place] [address] [place] [address] [place], [place] [id number] Arrived Discharge Disposition: Home - Self Care Allergies Active Allergy Reactions Criticality Noted Date Comments Cefaclor Edema Other 02/13/2023 Iodinated Contrast Media Nausea/vomiting Medium 2022 documented as of this encounter (statuses as of 03/29/2023) Medications Medication Sig Dispensed Refills Start Date [...] as of this encounter (statuses as of 03/29/2023) Active Problems Problem Noted Date Diagnosed Date Body mass index (BMI) of 45.0 to 49.9 in adult 0 03/18/2023 Overview: Per Obesity protocol PCOS (polycystic ovarian syndrome) 02/13/2023 documented as of this encounter (statuses as of 03/29/2023) Social History Tobacco Use Types Packs/Day Years [...] Department Care Team (Latest Contact Info) Description 04/04/2023 1:00 PM EST Office Visit [facility] [address] [place] [address] Matthias Newell MD [address] [place] [facility] [place] [address] 04/18/2023 12:22 PM EST Hospital Encounter OR [facility], Operating Room, [facility] - 4th Floor [address] [place] [address] Bradly Jones MD [address] [place] [address] 04/18/2023 12:22 PM EST - 04/18/2023 12:41 PM EST Surgery OR [facility], Operating Room, [facility] - 4th Floor [address] [place] [address] Bradly Jones MD [address] [place] [address] INJECTION SPINE LUMBAR OR SACRAL 05/09/2023 5:40 PM EST Office Visit General [facility] 200 [place] [address] Sri Wiseman MD 200 [place] [address] 05/21/2023 1:30 PM EDT Office Visit Interventional Pain Center, [address] [address] Bradly Jones MD [address] [place] [address] Scheduled Procedures Name Priority Associated Diagnoses Date/Ti [...] Procedure Name Priority Date/Time Associated Diagnosis Comments XR L SPINE COMPLETE Routine 03/28/2023 9 :25 AM EST Chronic right-sided low back pain with right-sided sciatica documented in this encounter Results * XR L SPINE COMPLETE (03/28/2023 9:25 AM EST) Anatomical Region Laterality Modality Vertebra, Lspine Digital Radiogr aphy 03/28/2023 11:3 4 PM EST Impressions 03/28/2023 11:31 PM EST IMPRESSION No evidence of instability on the provided views. Narrative 03/28/2023 11:31 PM EST EXAM XR L SPINE COMPLETE-03/28/2023 9:25 am HISTORY lower back pain TECHNIQUE AP, lateral, flexion, and extension views of the lumbar spine were provided. COMPARISON Multiple, most recently radiographs of the lumbar spine dated 03/18/2023 FINDINGS There are 5 rbp-bok-jzbivmc lumbar type vertebrae. Vertebral body height and alignment are maintained. No evidence of instability on the provided views. No acute fracture or subluxation. Bone mineralization is appropriate for age. No lytic or blastic osseous lesion. Intervertebral disc spaces are preserved. No facet arthropathy. The bilateral sacroiliac joints are preserved. Surgical clips in the right upper abdomen. Procedure Note Alexander Gomez MD - 03/28/2023 EXAM XR L SPINE COMPLETE-03/28/2023 9:25 am HISTORY lower back pain TECHNIQUE AP, lateral, flexion, and extension views of the lumbar spine wereprovided. COMPARISON Multiple, most recently radiographs of the lumbar spine dated 03/18/2023 FINDINGS There are 5 sbl-uuv-jxujuov lumbar type vertebrae. Vertebral body height and alignment are maintained. No evidence ofinstability on the provided views. No acute fracture or subluxation. Bone mineralization is appropriate for age. No lytic or blastic osseouslesion. Intervertebral disc spaces are preserved. No facet arthropathy. The bilateral sacroiliac joints are preserved. Surgical clips in theright upper abdomen. IMPRESSION IMPRESSION No evidence of instability on the provided views. Lamonte Zapata MD RADIOLOGY (RAD GENERAL) documented in this encounter Care Teams Drywall Worker Relationship Specialty Start Date End Date Sri Wiseman MD [address] [place] [address] [place] [address] PCP - General Internal Medicine 02/13/23 documented as of this encounter
--- OUTSIDE RECORDS SUMMARY | 2023-08-25 13:35 | External Medical Summary | Summary of Care ---
Author Name Unknown Organization [facility] Address [address] [place] [address] Phone [phone] Care Team Providers Care Bioinformatics Assistant Name Role Phone Sri Wiseman MD Primary Care Provider [phone] Reason for Visit * Reason Onset Date Comments Advice 04/03/2023 Encounter Details Date Type Department Care Team (Late st Contact Info) Description 04/03/2023 Telephone General Internal Medicine [facility] 200 [facility] [place] [address] Sri Wiseman MD [address] [place] [address] Advice Allergies Active Allergy Reactions Criticality Noted [...] encounter Miscellaneous Notes * Telephone Encounter - Reanta Perdomo LPN - 04/04/2023 11:05 AM EST [...] assist with scheduling * Telephone Encounter - Jennfier Rodrigez MD - 04/03/2023 7:04 PM EST [...] off Please advise and contact pt at [phone] documented in this encounter Plan of Treatment Upcoming Encounters Date Type Department Care Team (Latest Contact Info) Description 04/05/2023 10:20 AM EST Office Visit General Internal Medicine [facility] [address] [place] [address] [address] Jennifer Rodrigez MD [address] [place] [address] 04/09/2023 1:00 PM EST Office Visit Urology, [place] [address] [facility] [place] [address] Horace Pearl PA-C [address] [place] [address] 04/18/2023 12:22 PM EST Hospital Encounter OR [facility], Operating Room, [facility] - 4th Floor [address] [place] [address] Bradly Jones MD [address] [place] [address] 04/18/2023 12:22 PM EST - 04/18/2023 12:41 PM EST Surgery OR [facility], Operating Room, [facility] - 4th Floor [address] [place] [address] Bradly Jones MD [address] [place] [address] INJECTION SPINE LUMBAR OR SACRAL 05/09/2023 5:40 PM EST Office Visit General Internal Medicine [facility] 200 [place] [address] Sri Wiseman MD [address] [place] [address] 05/21/2023 1:30 PM EDT Office Visit Interventional Pain Center, [address] [address] Bradly Jones MD [address] [place] [address] Scheduled Procedures Name Priority Associated Diagnoses Date/Ti [...] filedocumented as of this encounter Care Teams Bioinformatics Assistant Relationship Specialty Start Date End Date Sri Wiseman MD [address] [place] [address] PCP - General Internal Medicine 02/13/23 documented as of this encounter
--- OUTSIDE RECORDS SUMMARY | 2023-08-25 13:35 | External Medical Summary | Summary of Care ---
Author Name Unknown Organization [facility] Address [address] [place] [address] Phone [phone] Care Team Providers Care Digital Advisor Name Role Phone Sri Wiseman MD Primary Care Provider [phone] Reason for Visit * Reason Onset Date Comments FYI 03/25/2023 Encounter Details Date Type Department Care Team (Late st Contact Info) Description 03/25/2023 Telephone Orthopaedics Spine Surgery, [facility] [place] [address] [place] [place], [place] [id number] Lamonte Zapata MD [address] [place] [place] [id number] FY Allergies Active Allergy Reactions Criticality Noted Date Comments Cefaclor Edema Other 02/13/2023 Iodinated Contrast Media Nausea/vomiting Medium 2022 documented as of this encounter (statuses as of 03/26/2023) Medications Medication Sig Dispensed Refills Start Date [...] as of this encounter (statuses as of 03/26/2023) Active Problems Problem Noted Date Diagnosed Date Body mass index (BMI) of 45.0 to 49.9 in adult 0 03/18/2023 Overview: Per Obesity protocol PCOS (polycystic ovarian syndrome) 02/13/2023 documented as of this encounter (statuses as of 03/26/2023) Social History Tobacco Use Types Packs/Day Years [...] encounter Miscellaneous Notes * Telephone Encounter - Anastasiia Segal OSA - 03/26/2023 9:35 AM EST Patient called and LMOM stating that she was returning a call from our office that was made yesterday. * Telephone Encounter - Mikki Ng LPN - 03/25/2023 12:57 PM EST New Referring physician:Dr. Rodrigez HPI: Back Which side extremity: into right leg at times Injury and date:no Onset, progress and duration: several months Balance problems:no Bladder or bowel disturbances:no Hand dominance for cervical and hand function: Workman 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/ Litigation/ Cable Inspector: Spine investigations done and date: Xray:03/18/2023 MRI:02/28/2023 CT scan: EMG/ NCV: Spine treatment so far: Medications: flexeril, lidocaine patches, ibuprofen ,tylenol Physical therapy within last year:[facility] Chiropractor therapy: Brace use: Pain management and Spinal epidural injections:03/20/[address] 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 documented in this encounter Plan of Treatment Upcoming Encounters Date Type Department Care Team (Late st Contact Info) Description 03/28/2023 9:00 AM EST Office Visit Orthopaedics Spine Surgery, [place] [address] [place] [address] Lamonte Zapata MD [address] [place] [address] 04/18/2023 12:22 PM EST Hospital Encounter OR [facility], Operating Room, [facility] - 4th Floor [address] [address] Bradly Jones MD [address] [address] 04/18/2023 12:22 PM EST - 04/18/2023 12:41 PM EST Surgery OR [facility], Operating Room, [facility] - 4th Floor [address] [place] [address] Bradly Jones MD [address] [place] [address] INJECTION SPINE LUMBAR OR SACRAL 05/09/2023 5:40 PM EST Office Visit General Internal Medicine [facility] [place] 200 [facility] [place] [address] Sri Wiseman MD 200 [facility] [place] [address] 08/02/2023 11:30 AM EDT Office Visit Orthopaedics Spine Surgery, [facility] 132 [facility] [place] [address] Lamonte Zapata MD 310 [facility] [address] [place] [address] Scheduled Procedures Name Priority Associated Diagnoses Date/Ti me INJECTION SPINE LUMBAR OR SACRAL Lumbar radiculopathy 04/18/2023 12:22 PM EST Health Maintenance Due Date Last Done Comments Hepatitis B (1 of 3 - 3-dose series) 1992 COVID-19 Vaccine (#1) 1992 DTaP,Tdap,and Td Vaccines (1 - Tdap) 02/04/2011 Pap Smear 02/04/2013 Cervical Cancer Screening 02/04/2022 HPV/Co-Test 02/04/2022 Influenza Vaccine (FLU shot) (#1) 2022 Depression Screening 03/05/2024 03/05/2023 GARDASIL-HPV IMMUNIZATION SERIES Aged Out No longer eligible based on patient's age to complete this topic MENINGOCOCCAL (MENACTRA/MENVEO) Aged Out No longer eligible based on patient's age to complete this topic Pneumococcal Vaccine: Pediat rics (0 to 5 Years) and At-Risk Patients (6 to 64 Years) Aged Out No longer eligi ble based on patient's age to complete this topic documented as of this encounter Medical Devices Not on filedocumented as of this encounter Care Teams Digital Advisor Relationship Specialty Start Date End Date Sri Wiseman MD 200 [place] [address] PCP - General Internal Medicine 02/13/23 documented as of this encounter
--- OUTSIDE RECORDS SUMMARY | 2023-08-25 13:35 | External Medical Summary | Summary of Care ---
Author Name Unknown Organization [facility] Address [address] [place] [address] Phone [phone] Care Team Providers Care Operations Tech Name Role Phone Sri Wiseman MD Primary Care Provider [phone] Reason for Visit * Reason Onset Date Comments Appointment 03/18/2023 Encounter Details Date Type Department Care Team (Late st Contact Info) Description 03/18/2023 Telephone Orthopaedics Spine Surgery, [address] [address] Services, Scheduling [address] [place] [address] Appointment Allergies Active Allergy Reactions Criticality Noted Date Comments Cefaclor Edema Other 02/13/2023 Iodinated Contrast Media Nausea/vomiting Medium 2022 documented as of this encounter (statuses as of 03/19/2023) Medications Medication Sig Dispensed Refills Start Date [...] Muscle spasms. 30 Tablet 0 03/05/2023 Active documented as of this encounter (statuses as of 03/19/2023) Active Problems Problem Noted Date Diagnosed Date PCOS (polycystic ovarian syndrome) 02/13/2023 documented as of this encounter (statuses as of 03/19/2023) Social History Tobacco Use Types Packs/Day Years [...] encounter Miscellaneous Notes * Telephone Encounter - Mikki Ng LPN - 03/19/2023 4:06 PM EST Hold had been placed on 03/28/2023 at 9 AM, a close in release spot, now able to place on schedule. Patient called and was made aware. * Telephone Encounter - Marium Vargas OSA - 03/19/2023 2:26 PM EST Pt calling to confirm appt date and time with office as she was seen today, 03/19/23, in which she was told there is no appt for her scheduled on 03/28/[address] Zapata. Office will have to contact thept with a time for the appt as I am unable to schedule. Best call back number for pt is [phone]. Thank you, Marium Powell * Telephone Encounter - Mikki Ng LPN - 03/18/2023 11:36 AM EST Patient called for additional information. 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 Is able towalk, no acute neurological deficits, no bowel or bladder disturbances other than occasional urinary urgency. Offered and accepted 03/28/[address] Zapata. Is scheduled to see pain management 03/20/[address] Zapata to review imaging and see if appt date and time are adequate. * Telephone Encounter - Maricruz Hale OSA - 03/18/2023 11:10 AM EST Patient has an appointment with Dr Zapata on 08/02/2023, she is calling to request a sooner appointment. The patient was seen in PT and they told her that it is her spine causing her pain. She said when she used the bathroom today she was unable to stand to pull up her pull-up. She had a MRI on 02/28/23. FINDINGS: The retroperitoneal tissues are unremarkable. There [...] into the meningocele reflecting tethered spinal cord. Please call [phone]. documented in this encounter Plan of Treatment Upcoming Encounters Date Type Department Care Team (Late st Contact Info) Description 03/20/2023 1:00 PM EST Office Visit Interventional Pain Center, [facility] 400 [facility] [place] [address] Bradly Jones MD 400 [place] [address] 03/28/2023 9:00 AM EST Office Visit Orthopaedics Spine Surgery, [place] [address] [place] [address] Lamonte Zapata MD [address] [place] [address] 05/09/2023 5:40 PM EST Office Visit General Internal Medicine [facility] 200 [facility] [place] [address] Sri Wiseman MD 200 [facility] [place] [address] 08/02/2023 11:30 AM EDT Office Visit Orthopaedics Spine Surgery, [address] [place] [address] Lamonte Zapata MD [address] [place] [address] Health Maintenance Due Date Last Done Comments [...] filedocumented as of this encounter Care Teams Operations Tech Relationship Specialty Start Date End Date Sri Wiseman MD 200 [place] [address] PCP - General Internal Medicine 02/13/23 documented as of this encounter
--- OUTSIDE RECORDS SUMMARY | 2023-08-25 13:35 | External Medical Summary | Summary of Care ---
Author Name Unknown Organization [facility] Address [address] [place] [address] Phone [phone] Care Team Providers Care Die Set Up Worker Name Role Phone Sri Wiseman MD Primary Care Provider [phone] Reason for Visit * Reason Onset Date Comments Pre Cert/Prior Auth 02/27/2023 Encounter Details Date Type Department Care Team (Late st Contact Info) Description 02/27/2023 Telephone General Internal Medicine [facility] 200 [place] [address] Outpatient, Precert DO NOT CHANGE - JS Pre Cert/Prior Auth Allergies Active Allergy Reactions Criticality Noted Date Comments Cefaclor Edema Other 02/13/2023 Iodinated Contrast Media Nausea/vomiting Medium 2022 documented as of this encounter (statuses as of 02/28/2023) Medications Medication Sig Dispensed Refills Start Date End Date Status Tylenol 325 MG Oral Capsule (Acetaminophen)Indica tions:Synovial cyst of sacral region,Midline low back pain without sciatica, unspecified chronicity 2 caps 3-4times/d, max 3gm/d 0 02/22/2023 Active Ibuprofen 200 MG Oral Tablet (Motrin IB)Indications:Synovi al cyst of sacral region,Midline low back pain without sciatica, unspecified chronicity Take 2 Tablets by mouth every 8 hours as needed for Pain, Moderate. 0 02/22/2023 Active Lidocaine 4 % External Patch (Aspercreme) Place 1 Patch over 12 hours topically on the skin daily. 30 Patch 0 02/25/2023 Active documented as of this encounter (statuses as of 02/28/2023) Active Problems Problem Noted Date Diagnosed Date PCOS (polycystic ovarian syndrome) 02/13/2023 documented as of this encounter (statuses as of 02/28/2023) Social History Tobacco Use Types Packs/Day Years Used Date Smoking Tobacco: Never Smokeless Tobacco: Never Alcohol Use Standard Drinks/Week Comments Yes 0 (1 standard drink = 0.6 oz pur e alcohol) Sex and Gender Information Value Date Recorded Sex Assigned at Female 02/19/2023 8:02 PM EST Gender Identity Not on file Sexual Orientation Straight 02/19/2023 8: 02 PM EST Job Start Date Occupation Industry Not on file Not on file Not on file documented as of this encounter Miscellaneous Notes * Telephone Encounter - Prosper Felix CMA - 02/28/2023 2:22 PM EST Report has been faxed to the number provided * Telephone Encounter - Jennifer Rodrigez MD - 02/28/2023 1:46 PM EST Called number below, entered all the data requested, person on the phone requested all the information again, transferred to physician. -discussed with - She is asking if patient had previous physical therapy ,advised that MRI was ordered due to recommendation by Radiology on CT report and due to patient's persistent pain. As mentioned in the note. Informed she already had the MRI done today They want copy of the CT abdomen and pelvis report faxed to [phone] with a tracking number onthe cover sheet and they will approve MRI due to previous imaging abnormality * Telephone Encounter - Prosper Felix CMA - 02/28/2023 11:48 AM EST Patient has MRI completed this morning, please complete peer 2 peer * Telephone Encounter - Prosper Felix CMA - 02/27/2023 3:14 PM EST Spoke to rep at Peer to peer office, she states they do have all clinical information, but they need something stating if patient completed 6 weeks of back exercises that did not improve the symptomsand they will want dates provided for this, and why further imaging is needed. She is stating we have 5 days to complete peer to peer and if past those 5 days then will have to appeal. * Telephone Encounter - Jnenifer Rodrigez MD - 02/27/2023 2:55 PM EST Please call no below and check if they have all our notes for review., including ER * Telephone Encounter - Aric Mercado OSA - 02/27/2023 8:54 AM EST The MRI L Spinerequested for Jacklyn Aldana is currently in Peer to Peer Review with [facility]. Please have a Nurse, NETTIE, DEN or Physician call , reference tracking # [id number] and speak with a Physician Reviewer to procure the required authorization. After reviewing your clinical notes, a Peer to Peer Review is required prior to approval of the requested study. Please call to obtain authorization. This study is scheduled for 02/28/2023 and will need a P2P to be done in order to obtain approval. Alternatively, if the Peer to Peer will not be completed, please have a Clinician contact this patient to provide an alternative treatment plan. LINDSAY Mariscal 02/27/2023, 8:54 AM documented in this encounter Plan of Treatment Upcoming Encounters Date Type Department Care Team (Late st Contact Info) Description 03/05/2023 2:00 PM EST Office Visit General Internal Medicine [facility] [place] [address] [place] [address] Jennifer Rodrigez MD 200 [facility] [place] [address] 03/27/2023 1:00 PM EST Office Visit Interventional Pain Center, [facility] [address] [place] [address] Jonathon Finnegan MD 400 [facility] [place] [address] 05/09/2023 5:40 PM EST Office Visit General Internal Medicine [place] Karla Rouse [address] [place] [address] Sri Wiseman MD [address] [place] [place] [address] Health Maintenance Due Date Last Done Comments Hepatitis B (1 of 3 - 3-dose series) 1992 COVID-19 Vaccine (#1) 1992 Depression Screening 2004 DTaP,Tdap,and Td Vaccines (1 - Tdap) 02/04/2011 Pap Smear 02/04/2013 Cervical Cancer Screening 02/04/2022 HPV/Co-Test 02/04/2022 Influenza Vaccine (FLU shot) (#1) 2022 GARDASIL-HPV IMMUNIZATION SERIES Aged Out No longer eligible based on patient's age to complete this topic MENINGOCOCCAL (MENACTRA/MENVEO) Aged Out No longer eligible based on patient's age to complete this topic Pneumococcal Vaccine: Pediat rics (0 to 5 Years) and At-Risk Patients (6 to 64 Years) Aged Out No longer eligible b ased on patient's age to complete this topic documented as of this encounter Medical Devices Not on filedocumented as of this encounter Care Teams Die Set Up Worker Relationship Specialty Start Date End Date Sri Wiseman MD [address] [place] [address] PCP - General Internal Medicine 02/13/23 documented as of this encounter
--- OUTSIDE RECORDS SUMMARY | 2023-08-25 13:35 | External Medical Summary | Summary of Care ---
Author Name Unknown Organization [facility] Address [address] [place] [address] Phone [phone] Care Team Providers Care Standpipe Tender Name Role Phone Sri Wiseman MD Primary Care Provider [phone] Reason for Visit * Reason Onset Date Comments Appointment 04/03/2023 Encounter Details Date Type Department Care Team (Late st Contact Info) Description 04/03/2023 Telephone Neurosurgery, [place] [address] [place], [place] [id number] Services, [facility] [address] [place] [address] Appointment Allergies Active Allergy Reactions Criticality Noted Date Comments Cefaclor Edema Other 02/13/2023 Iodinated Contrast Media Nausea/vomiting Medium 2022 documented as of this encounter (statuses as of 04/03/2023) Medications Medication Sig Dispensed Refills Start Date [...] as of this encounter (statuses as of 04/03/2023) Active Problems Problem Noted Date Diagnosed Date Body mass index (BMI) of 45.0 to 49.9 in adult 0 03/18/2023 Overview: Per Obesity protocol PCOS (polycystic ovarian syndrome) 02/13/2023 documented as of this encounter (statuses as of 04/03/2023) Social History Tobacco Use Types Packs/Day Years [...] Telephone Encounter - Lou Cardoso RN - 04/03/2023 1:35 PM EST Message to provider to return call. * Telephone Encounter - Alize Chan OSA - 04/03/2023 1:10 PM EST Requested Information from caller: Who is calling patient Provider patient is established with: Reece What is the concern or issue they are having: couldn't get in to the video; he called but she missed it is asking for a call back if possible Any additional details to add: no Pts phone number for nurse to call back: [phone] documented in this encounter Plan of Treatment Upcoming Encounters Date Type Department Care Team (Latest Contact Info) Description 04/18/2023 12:22 PM EST Hospital Encounter OR [facility], Operating Room, [facility] - 4th Floor [address] [place] [address] Bradly Jones MD [address] [place] [address] 04/18/2023 12:22 PM EST - 04/18/2023 12:41 PM EST Surgery OR [facility], Operating Room, [facility] Floor [address] [place] [address] [place] [id number] Bradly Jones MD [address] [place] [address] INJECTION SPINE LUMBAR OR SACRAL 05/09/2023 5:40 PM EST Office Visit General Internal Medicine [facility] [place] 200 [place] [address] Sri Wiseman MD 200 [place] [address] 05/21/2023 1:30 PM EDT Office Visit Interventional Pain Center, [address] [address] Bradly Jones MD [address] [place] [address] Scheduled Procedures Name Priority Associated Diagnoses Date/Ti [...] filedocumented as of this encounter Care Teams Standpipe Tender Relationship Specialty Start Date End Date Sri Wiseman MD [address] [place] [address] PCP - General Internal Medicine 02/13/23 documented as of this encounter
--- OUTSIDE RECORDS SUMMARY | 2023-08-25 13:35 | External Medical Summary | Summary of Care ---
Author Name Unknown Organization [facility] Address [address] [place] [address] Phone [phone] Care Team Providers Care Information Security Analyst Name Role Phone Sri Wiseman MD Primary Care Provider [phone] Reason for Visit * Reason Comments Emergency Department Follow-Up The pt st funk she is here to follow up after a recent trip to the ED at [facility] on 03/18/2022 Encounter Details Date Type Department Care Team (Late st Contact Info) Description 03/19/2023 1:40 PM EST Telemedicine General Internal Medicine [facility] [address] [place] [address] Jennifer Rodrigez MD [address] [place] [address] Chronic bilateral low back pain with right-sided sciatica*; Meningocele spinal (HCC); Tethering of spinal cord (HCC); Lipoma of other specified sites; Intermittent daytime urinary incontinence Allergies Active Allergy Reactions Criticality Noted Date [...] package directions 21 Tablet 0 03/18/2023 Active documented as of this encounter (statuses [...] Progress Notes * Jennifer Rodrigez MD - 03/19/2023 1:39 PM EST SUBJECTIVE: Jacklyn Aldana is a 33 year old female. Chief Complaint Patient presents with Emergency Department Follow-Up The pt stated she is here to follow up after a recent trip to the ED at [facility] on 03/18/2022 I was in a hospital or clinic location. After connecting through televideo, patient was verified with two unique identifiers. Patient (or authorized legal sales representative livestock) was then informed that this was a Telemedicine visit and being conducted confidentially over secure lines. Methods to assure confidentiality were taken. Patient acknowledged consent and understanding of privacy and security of the Telemedicine visit. The patient agreed to participate. HPI: This clinic encounter was completed utilizing remote or virtual means secondary to the COVID-19 outbreak. Patient being seen for ER follow-up from yesterday. I saw her in February for ER follow-up and to discuss MRI results. 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 -was referred to spine clinic has appointment in July, was also referred for physical therapy and given Flexeril to use as needed for muscle spasm -she was seen in the ER yesterday with symptoms of right leg numbness and tingling after bending down to help her kid put on shoes. Was noted to have decreased sensation and strength of the right leg, numbness in her buttocks, no history of bowel dysfunction, intermittent bladder incontinence , no difficulty with urination, postvoid residual was normal. X-ray of the lumbar spine was normal, was given steroid injection and discharged on Medrol Dosepak. Appointment with pain clinic moves moved up to tomorrow There is no immunization history on file for this patient. Patient Active Problem List Diagnosis Code PCOS (polycystic ovarian syndrome) E28.2 Current Outpatient Medications Medication Sig Dispense Refill [...] needed for Muscle spasms. 30 Tablet 0 methylPREDNISolone 4 MG Oral Tablet Therapy Pack (Medrol Dosepack) follow package directions 21 Tablet 0 No current facility-administered medications for this visit. Review of patient's allergies indicates: Allergen Reactions Iodinated Contrast Media Nausea/vomiting Ceclor [Cefaclor] Edema Other OBJECTIVE: No vitals were obtained for this appointment PHYSICAL EXAM: General: alert, healthy, no distress Head-normocephalic Eyes-sclera clear. OP- Mm Moist Neck-supple Lungs: able to take deep breaths Neuro-limited by Telemed visit Able to walk in her home. 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 Keep appointment with pain clinic tomorrow. Would resume physical therapy for strengthening Appointment with Ortho Spine Clinic may need to be moved up after pain clinic evaluation Follow Up: Return if symptoms worsen or fail to improve. (This note was completed using the dictation [...] with plan of care. Jennifer Rodrigez MD 03/19/2023 documented in this encounter Nursing Notes * Tyler Bryant LPN - 03/19/2023 1:18 PM EST Chief Complaint Patient presents with Emergency Department Follow-Up The pt stated she is here to follow up after a recent trip to the ED at [facility] on 03/18/2022 documented in this encounter Plan of Treatment Upcoming Encounters Date Type Department Care Team (Late st Contact Info) Description 03/20/2023 1:00 PM EST Office Visit Interventional Pain Center, [facility] [address] [place] [address] Bradly Jones MD [address] [place] [id number] 05/09/2023 5:40 PM EST Office Visit General Internal Medicine [address] [place] [address] Sri Wiseman MD 200 [facility] [place] [address] 08/02/2023 11:30 AM EDT Office Visit Orthopaedics Spine Surgery, [facility] 132 [facility] [place] [address] Lamonte Zapata MD [address] [place] [address] [place] [address] Health Maintenance Due Date Last Done Comments [...] as of this encounter Visit Diagnoses Diagnosis Chronic bilateral low back pain with right-sided sciatica- Primary Meningocele spinal (HCC) Spina bifida without mention of hydrocephalus, unspecified region 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
--- OUTSIDE RECORDS SUMMARY | 2023-08-25 13:35 | External Medical Summary | Summary of Care ---
Author Name Unknown Organization [facility] Address [address] [place] [address] Phone [phone] Care Team Providers Care Wire Photo Operator News Name Role Phone Sri Wiseman MD Primary Care Provider [phone] Reason for Visit * Reason Onset Date Comments Advice 03/20/2023 Pt is calling in about note for work Encounter Details Date Type Department Care Team (Late st Contact Info) Description 03/20/2023 Telephone General Internal Medicine [facility] 200 [facility] [place] [address] Sri Wiseman MD [address] [place] [address] Advice (Pt is calling in about note for wo... Allergies Active Allergy Reactions Criticality Noted Date Comments Cefaclor Edema Other 02/13/2023 Iodinated Contrast Media Nausea/vomiting Medium 2022 documented as of this encounter (statuses as of 03/22/2023) Medications Medication Sig Dispensed Refills Start Date [...] as of this encounter (statuses as of 03/22/2023) Active Problems Problem Noted Date Diagnosed Date Body mass index (BMI) of 45.0 to 49.9 in adult 0 03/18/2023 Overview: Per Obesity protocol PCOS (polycystic ovarian syndrome) 02/13/2023 documented as of this encounter (statuses as of 03/22/2023) Social History Tobacco Use Types Packs/Day Years [...] encounter Miscellaneous Notes * Telephone Encounter - Sri Wiseman MD - 03/22/2023 3:54 PM EST Done * Telephone Encounter - Cami Bangura LPN - 03/22/2023 3:20 PM EST Note pended. Please review. * Telephone Encounter - Sri Wiseman MD - 03/22/2023 3:06 PM EST Okay * Telephone Encounter - Marium Goss OSA - 03/20/2023 2:48 PM EST Pt is calling in because pain management told her to call pcp about note for work due to the fact she can't lift anythings on 10 lbs documented in this encounter Plan of Treatment Upcoming Encounters Date Type Department Care Team (Late st Contact Info) Description 03/28/2023 9:00 AM EST Office Visit Orthopaedics Spine Surgery, [facility] [address] [place] [address] Lamonte Zapata MD [address] [place] [address] [place] [address] 04/18/2023 12:22 PM EST Hospital Encounter OR [facility], Operating Room, [facility] - 4th Floor [address] [place] [address] Bradly Jones MD [address] [place] [address] 04/18/2023 12:22 PM EST - 04/18/2023 12:41 PM EST Surgery OR [facility], Operating Room, [facility] - 4th Floor [address] [place] [address] Bradly Jones MD [address] [place], [place] [address] [address] INJECTION SPINE LUMBAR OR SACRAL 05/09/2023 5:40 PM EST Office Visit General Internal Medicine [facility] [place] [address] [facility] [place] [address] Sri Wiseman MD 200 [facility] [place] [address] 08/02/2023 11:30 AM EDT Office Visit Orthopaedics Spine Surgery, [facility] 132 [facility] [place] [address] Lamonte Zapata MD [address] [place] [address] [place] [address] Scheduled Procedures Name Priority Associated Diagnoses Date/Ti [...] as of this encounter Visit Diagnoses Diagnosis Meningocele (HCC)- Primary Spina bifida without mention of hydrocephalus, unspecified region Lumbar radiculopathy Thoracic or lumbosacral neuritis or radiculitis, unspecified documented in this encounter Care Teams Wire Photo Operator News Relationship Specialty Start Date End Date Sri Wiseman MD 200 [facility] [place] [address] PCP - General Internal Medicine 02/13/23 documented as of this encounter
--- OUTSIDE RECORDS SUMMARY | 2023-08-25 13:35 | External Medical Summary | Summary of Care ---
Author Name Unknown Organization [facility] Address [address] [place] [address] Phone [phone] Care Team Providers Care Animal Treatment Investigator Name Role Phone Sri Wiseman MD Primary Care Provider [phone] Reason for Visit * Reason Onset Date Comments Appointment 04/03/2023 Encounter Details Date Type Department Care Team (Late st Contact Info) Description 04/03/2023 Telephone Neurosurgery, [facility] [address] [place], [place] [id number] Services, [facility] [address] [place] [address] Appointment Allergies Active Allergy Reactions Criticality Noted [...] encounter Miscellaneous Notes * Telephone Encounter - Alize Chan OSA [...] phone number for nurse to call back: [phone] documented in this encounter Plan of Treatment Upcoming Encounters Date Type Department Care Team (Latest Contact Info) Description 04/18/2023 12:22 PM EST Hospital Encounter OR [facility], Operating Room, [facility] - 4th Floor [address] [place] [address] Bradly Jones MD [address] [place], [place] [address] [address] 04/18/2023 12:22 PM EST - 04/18/2023 12:41 PM EST Surgery OR [facility], Operating Room, [facility] - 4th Floor [address] [place] [address] Bradly Jones MD [address] [place], [place] [address] [place] [address] INJECTION SPINE LUMBAR OR SACRAL 05/09/2023 5:40 PM EST Office Visit General Internal Medicine [facility] [address] [place] [address] Sri Wiseman MD [address] [place] [address] 05/21/2023 1:30 PM EDT Office Visit Interventional Pain Center, [address] [place] [address] Bradly Jones MD [address] [place], [place] [address] [address] Scheduled Procedures Name Priority Associated Diagnoses Date/Ti [...] filedocumented as of this encounter Care Teams Animal Treatment Investigator Relationship Specialty Start Date End Date Sri Wiseman MD 200 [place] [address] PCP - General Internal Medicine 02/13/23 documented as of this encounter
--- OUTSIDE RECORDS SUMMARY | 2023-08-25 13:35 | External Medical Summary | Summary of Care ---
Author Name Unknown Organization [facility] Address [address] [place] [address] Phone [phone] Care Team Providers Care Storage Brine Worker Name Role Phone Sri Wiseman MD Primary Care Provider [phone] Reason for Referral * Evaluate & Treat - Unlimited Visits (Within 10 days (routine)) - Pending Review Specialty Diagnoses / Procedures Referred By Selvin wright Referred To Contact Urology Diagnoses Tethered cord (HCC) Meningocele (HCC) Sacral agenesis Arachnoid cyst Selene Colbert PA-C [address] [facility] [place] [address] Referral ID Status Reason Start Date Expiration Date Visits Requested Visits Authorized [id number] Pending Review Specialty Services Required 04/03/2023 999 [id number] Question Answer Referral Priority Within 10 days (routine) Where should this appointment be scheduled? [facility] What is the patient being referred for? Urinary Concerns Comments Urodynamic testing Tethered cord symptoms * Precert (Within 10 days (routine)) - Pending Review Specialty Diagnoses / Procedures Referred By Selvin wright Referred To Contact Radiology Diagnoses Tethered cord (HCC) Meningocele (HCC) Sacral agenesis Arachnoid cyst Procedures MRI T SPINE W WO CONTRAST Selene Colbert PA-C [address] [facility] [place] [address] Referral ID Status Reason Start Date Expiration Date V isits Requested Visits Authorized [id number] Pending Review 04/03/2023 999 999 * Precert (Within 10 days (routine)) - Pending Review Specialty Diagnoses / Procedures Referred By Contac t Referred To Contact Radiology Diagnoses Tethered cord (HCC) Meningocele (HCC) Sacral agenesis Arachnoid cyst Procedures MRI C SPINE W WO CONTRAST Selene Colbert PA-C [address] [place] [address] Referral ID Status Reason Start Date Expiration Date V isits Requested Visits Authorized [id number] Pending Review 04/03/2023 999 999 * Precert (Within 10 days (routine)) - Pending Review Specialty Diagnoses / Procedures Referred By Contac t Referred To Contact Radiology Diagnoses Tethered cord (HCC) Meningocele (HCC) Sacral agenesis Arachnoid cyst Procedures MRI BRAIN W WO CONTRAST Selene Colbert PA-C [address] [place] [address] Referral ID Status Reason Start Date Expiration Date V isits Requested Visits Authorized [id number] Pending Review 04/03/2023 999 999 Reason for Visit * Evaluate & Treat - Unlimited Visits (Within 10 days (routine)) - Authorized Specialty Diagnoses / Procedures Referred By Contac t Referred To Contact Neurological Surgery Diagnoses 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 Tethered cord (HCC) Lamonte Zapata MD [address] [place] [place] [address] Referral ID Status Reason Start Date Expiration Date Visits Requested Visits Authorized [id number] Authorized Specialty Services Required 03/28/2023 03/28/2024 999 999 Encounter Details Date Type Department Care Team (Late st Contact Info) Description 04/03/2023 1:00 PM EST [facility] [address] [place] [address] Matthias Newell MD [address] [place] [address] Tethered cord (HCC)*; Meningocele (HCC); Sacral agenesis; Arachnoid cyst Allergies Active Allergy Reactions Criticality Noted Date [...] as of this encounter Progress Notes * Selene Colbert PA-C - 04/03/2023 1:36 PM EST After connecting to the patient via telephone, the patient was identified by name and date of . Patient was then informed that this was a telephone call only visit. The patient agreed to participate. Visit Disposition: Routine follow-up Total call duration was 12 minutes. PROGRESS NOTE - Neurosurgery [address] [address] Name: Jacklyn Aldana Date: 04/03/2023 Time: 1:36 PM INTERVAL HISTORY: Jacklyn Aldana is a 33 year old female that Presents to the clinic via telephone appointment for evaluation of her lumbar spine MRI that shows a tethered cord, meningocele, sacral agenesis as well as a possible arachnoid cyst. Jacklyn states that she has been symptoms free through most of her life but as of February 15 she has had an increase in back pain with radiation into her legs. PAST MEDICAL HISTORY: No past medical history on file. PAST SURGICAL HISTORY: No past surgical history on file. FAMILY HISTORY: No family history on file. SOCIAL HISTORY: Social History Tobacco Use Smoking status: Never Smokeless tobacco: Never Substance Use Topics Alcohol use: Yes Drug use: Not on file MEDICATIONS: Current Outpatient Medications Medication Instructions cyclobenzaprine (FLEXERIL) 5 mg, Oral, TID PRN diphenhydrAMINE HCl 25 MG Oral Tablet (Benadryl Allergy) Take two tablets 1 hour prior to procedure Ibuprofen (MOTRIN IB) 400 mg, Oral, Q8H PRN Lidocaine 4 % External Patch (Aspercreme) 1 Patch, Transdermal, Q24H methylPREDNISolone 4 MG Oral Tablet Therapy Pack (Medrol Dosepack) follow package directions predniSONE 50 MG Oral Tablet (Deltasone) Take one tablet 13 hours prior, one tablet 7 hours prior, and one tablet 1 hour prior to procedure Tylenol 325 MG Oral Capsule (Acetaminophen) 2 caps 3-4times/d, max 3gm/d ALLERGIES: Iodinated contrast media and Ceclor [cefaclor] ROS: ROS negative unless stated otherwise in HPI VITALS: LMP 02/21/2023 Comment: states she is not PHYSICAL EXAM: Limited due to telephone appointment Awake, alert, oriented No acute distress Respirations unlabored IMAGING: MRI L-spine 02/28/2023 IMPRESSION: 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 IMPRESSION: Jacklyn Aldana is a 33 year old female that Presents to the clinic via telephone appointment for evaluation of her lumbar spine MRI that shows a tethered cord, meningocele, sacral agenesis as well as a possible arachnoid cyst. Jacklyn states that she has been symptoms free through most of her life but as of February 15 she has had an increase in back pain with radiation into her legs. PLAN: All questions and concerns addressed Imaging reviewed MRI w/wo contrast for C/T and Brain ordered RTC after completion of MRI Urology referral placed for urodynamic testing Encouraged to call with any questions or concerns Patient is spoke with Dr. Newell today Selene Colbert PA-C [facility] [place] [address] [place] [address] 04/03/2023 1:39 PM * Matthias Newell MD - 04/03/2023 1:33 PM EST Patient location: HOME. I was in a hospital or clinic location. After connecting through [employer],patient was verified with two unique identifiers. Patient (or authorized legal arborist representative) was then informed that this was a Telemedicine visit and being conducted confidentially over secure lines. Methods to assure confidentiality were taken. Patient acknowledged consent and understanding of pr ivacy and security of the Telemedicine visit. The patient agreed to participate. 33-year-old female presents for review of an MRI demonstrating a low-lying conus with possible arachnoid cyst. She reports that she was asymptomatic prior to February 15 when she developed some backpain the numbness into the left leg. 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 With questioning, prior to February 15, she really denies any other symptoms that might be consistent with an adult tethered cord. She also denies any weakness atthis time. Plan to evaluate the neuro axis with brain C and T-spine with gadolinium, and refer for urodynamic testing. She may also warrant rheumatologic assessment in the future for possible connective tissue disease if other arachnoid cysts are found elsewhere. Patient voices understanding requests to proceed as I have outlined. She will follow up once this additional testing has been completed. Matthias Newell [facility] Neurosurgery Insert Dragon documented in this encounter Plan of Treatment Upcoming Encounters Date Type Department Care Team (Latest Contact Info) Description 04/18/2023 12:22 PM EST Hospital Encounter OR [facility], Operating Room, [facility] - 4th Floor [address] [place] [address] Bradly Jones MD [address] [place], [place] [address] [address] 04/18/2023 12:22 PM EST - 04/18/2023 12:41 PM EST Surgery OR [facility], Operating Room, [facility] - 4th Floor [address] [place] [address] Bradly Jones MD [address] [place] [address] [place] [address] INJECTION SPINE LUMBAR OR SACRAL 05/09/2023 5:40 PM EST Office Visit General Internal Medicine [employer] [facility] [place], [place] [address] Sri Wiseman MD 200 [facility] [place], [place] [address] 05/21/2023 1:30 PM EDT Office Visit Interventional Pain Center, [facility] [address] [facility] [place] [address] Bradly Jones MD [address] [place] [address] Scheduled Orders Name Type Priority Associated Diagnoses Orde r Schedule MRI BRAIN W WO CONTRAST Medical Imaging Routine Tethered cord (HCC) Meningocele (HCC) Sacral agenesis Arachnoid cyst Ordered: 04/03/2023 MRI C SPINE W WO CONTRAST Medical Imaging Routine Tethered cord (HCC) Meningocele (HCC) Sacral agenesis Arachnoid cyst Ordered: 04/03/2023 MRI T SPINE W WO CONTRAST Medical Imaging Routine Tethered cord (HCC) Meningocele (HCC) Sacral agenesis Arachnoid cyst Ordered: 04/03/2023 Scheduled Procedures Name Priority Associated Diagnoses Date/Ti me INJECTION SPINE LUMBAR OR SACRAL Lumbar radiculopathy 04/18/2023 12:22 PM EST Scheduled Referrals Name Type Priority Associated Diagnoses Orde r Schedule UROLOGY REFERRAL OP Referral Within 10 da ys (routine) Tethered cord (HCC) Meningocele (HCC) Sacral agenesis Arachnoid cyst Ordered: 04/03/2023 Health Maintenance Due Date Last Done Comments [...] as of this encounter Visit Diagnoses Diagnosis Tethered cord (HCC)- Primary Other specified congenital anomaly of spinal cord Meningocele (HCC) Spina bifida without mention of hydrocephalus, unspecified region Sacral agenesis Congenital absence of vertebra Arachnoid cyst Cerebral cysts Lumbar radiculopathy Thoracic or lumbosacral neuritis or radiculitis, unspecified documented in this encounter Care Teams Storage Brine Worker Relationship Specialty Start Date End Date Sri Wiseman MD 200 [place] [address] PCP - General Internal Medicine 02/13/23 documented as of this encounter
--- OUTSIDE RECORDS SUMMARY | 2023-08-25 13:35 | External Medical Summary | Summary of Care ---
Author Name Unknown Organization [facility] Address [address] [place] [address] Phone [phone] Care Team Providers Care Milker Machine Name Role Phone Sri Wiseman MD Primary Care Provider [phone] Reason for Visit * Reason Comments Back Pain * Auth/Cert Specialty Diagnoses / Procedures Referred By Selvin wright Referred To Contact Referral ID Status Reason Start Date Expiration Date Visits Re quested Visits Authorized [id number] Encounter Details Date Type Department Care Team (Late st Contact Info) Description 03/18/2023 5:25 PM EST - 03/18/2023 9:50 PM EST Emergency [facility] Emergency Department ([facility]) [address] [place] [address] Gerry Trinh, DO [address] [place] [address] Low back pain, unspecified back pain laterality, unspecified chronicity, unspecified whether sciatica present (Primary Dx); Right leg numbness Discharge Disposition: Home - Self Care Allergies [...] Sign Reading Time Taken Comments Blood Pressure 119/71 03/18/2023 8:00 PM EST Pulse 104 03/18/2023 8:00 PM EST Temperature 36.9 C (98.4 F) 03/18/2023 1:50 PM ES T Respiratory Rate 18 03/18/2023 8:00 PM EST Oxygen Saturation 96% 03/18/2023 7:30 PM EST Inhaled Oxygen Concentration - - Weight 113.4 kg (250 lb) 03/18/2023 1:50 PM EST Height 162.6 cm (5' 4") 03/18/2023 1:50 PM EST Body Mass Index 42.91 03/18/2023 1:50 PM EST documented in this encounter Discharge Instructions * Discharge Instructions* Gerry Trinh DO - 03/18/2023 9:17 PM EST Make sure you use the Flexeril prescription as prescribed that you already have at home. Take the steroid Dosepak as prescribed. Please use ibuprofen and Tylenol to help with your discomfort. Make sure you follow the instructions. You can alternate between Tylenol and ibuprofen every 3 hours. So 1st take 650 mg Tylenol, 3 hours later take 400 mg ibuprofen, 3 hours later take Tylenol, and so on. Make sure you eat something when you take ibuprofen. Do not lift anything over 10 lb and make sure if you bend down you are keeping her back straight, flexing her core and bending with your knees. Follow-up with your primary care doctor and at the pain management appointment to discuss her symptoms further and the best plan going forward. If your symptoms are worsening at all you need to contact the spine clinic. I have included the number for the clinic. If you develop any new or concerning symptoms such as numbness or weakness in the left leg as well,inability to control your urine or bowels, significantly worsening weakness in your right leg or any other concerning symptoms please return to the emergency department for evaluation. documented in this encounter ED Notes * Gerry Trinh DO - 03/18/2023 8:18 PM EST HISTORY OF PRESENT ILLNESS Jacklyn Aldana is a 33 year old female who presents to the ED for evaluation of Back Pain. The patient was seen at 03/18/231803. 33-year-old female presenting to the emergency department with low back pain and right leg pain. She bent down to help her kids with her shoes and developed more pain in her right leg as well as a numbness and tingling. She denies any bowel or bladder dysfunction. She do es report that she has been dealing with low back pain and was found to have an abnormal sacral outpouching that she says is connected to her spinal canal. She has persistent numbness and tingling inthe leg and feels like it is weak. The weakness has been present though and she has been told this at her physical therapy appointments. He is scheduled to follow-up with spine already. She denies any fevers or other complaints of discomfort. History provided by: patient biometrics head used: No Back Pain Review of Systems Musculoskeletal: Positive for back pain. The patient's allergies, past history, and medications were reviewed. PHYSICAL EXAM Initial Vitals (see all): BP 146/93 | Pulse 129 | Resp 16 | Temp 98.4 | O2 98 %, Room Air, None | Weight 113.4 kg | Height 162.6 cm | BMI 42.91 kg/m2 Initial Pain Assessment (see all): 8 (severe pain)/10, location: lower back ([facility] Adult Scale 0-10) Physical Exam Vitals and nursing note reviewed. Constitutional: General: She is not in acute distress. Appearance: Normal appearance. She is well-developed. She is not ill-appearing or diaphoretic. HENT: Head: Normocephalic and atraumatic. Nose: Nose normal. Mouth/Throat: Mouth: Mucous membranes are moist. Eyes: Extraocular Movements: Extraocular movements intact. Cardiovascular: Rate and Rhythm: Regular rhythm. Tachycardia present. Pulmonary: Effort: Pulmonary effort is normal. No respiratory distress. Breath sounds: Normal breath sounds. No wheezing or rales. Abdominal: General: Bowel sounds are normal. There is no distension. Palpations: Abdomen is soft. Tenderness: There is no abdominal tenderness. There is no guarding. Musculoskeletal: General: Normal range of motion. Cervical back: Normal range of motion. Comments: There is mild midline tenderness without deformity and primarily right low back muscular and right upper buttock tenderness with palpation without swelling or bruising Negative straight leg raise bilaterally Skin: General: Skin is warm. Neurological: General: No focal deficit present. Mental Status: She is alert. Comments: 1+ patellar reflex on the right, no significant reaction on the left but likely due to anticipation Decreased sensation in the right leg compared to the left, also with saddle anesthesia testing vannesa does not feel the left side but can feel the right side With strength testing in the left leg there is 5/5 strength with all movement In the right leg there is about 4/5 strength it is slightly decreased compared to the left Psychiatric: Mood and Affect: Mood normal. PROCEDURES AND TREATMENTS ED Orders | ED Results MEDICAL DECISION MAKING Nursing notes and vital signs were reviewed. ED Course as of 03/18/232118Mar 18, [id number] Patient reports that her symptoms have overall improved but she is still having the weakness and numbness. She persistently complains of anesthesia on the left perineal region compared to the right on retesting as well. I did review the patient's MRI that did not show any disc bulging. Her postvoid residual was normal. [AT] 2109 I spoke with Tyler Sears with the orthopedic service and he has worked with Dr. Zapata the spine provider here and is not concerned about this pt's exam at this time with her mild left buttock region numbness but no other numbness in the leg. He agrees with the plan for Medrol Dosepak and follow-up as an outpatient the patient does have an interventional pain management appointment in 2 days. I will give her strict return precautions. On her x-ray I do not see any concerning acute abnormalities. [AT] 2114 Patient agreement with the plan for discharge and I will provide return precautions. [AT] 2117 Patient's lumbar x-ray is negative. [AT] ED Course User Index [AT] Gerry Trinh, Differential Diagnoses Based on my history, physical exam, and evaluation, the differential includes, but is not limited, to the following diagnoses: Lumbar radiculopathy, sciatica, low suspicion for cauda equina, musculoskeletal pain, muscle spasm. 33-year-old female presenting to the emergency department with right leg numbness and tingling. Shedoes have decreased sensation and strength in the right leg. Does not involve the left. There is some slight saddle anesthesia she is reporting on the left side but not the right where her pain and numbness is in the right leg. Some tenderness over the right low back. MRI did not show any disc herniations. She was bending down to help her children with her shoes. No severe mechanism and there is no bowel or bladder incontinence. I will get a postvoid residual and give her medication to help with her pain. Amount and/or Complexity of Data Reviewed Radiology: ordered. Risk OTC drugs. Prescription drug management. Clinical Impressions Low back pain, unspecified back pain laterality, unspecified chronicity, unspecified whether sciatica present Right leg numbness Disposition Discharged. The patient's condition at disposition was: stable. Discharge Medications Disp Refills Start End methylPREDNISolone 4 MG Oral Tablet Therapy Pack (Medrol Dosepack) 21 Tablet 0 03/18/2023 -- Sig: follow package directions Class: ePrescribing Renewals Renewal requests to authorizing provider (Gerry Trinh DO) <b>prohibited</b> Gerry Trinh * Eloisa Ashby RN - 03/18/2023 1:52 PM EST Patient complaining of lower back pain. States this has been an ongoing issue but when she bent down today she was unable to get up. Reports numbness/pain radiating down the right leg. Ambulates witha cane and a steady gait into triage. Recent MRI. documented in this encounter Miscellaneous Notes * ED Nursing Home Director Note - Estefania Denton RN - 03/18/2023 9:31 PM EST Patient given discharge instructions and information on where to flower buncher or picker prescriptions,. Verbalizesunderstand and discharged to home with family * Pt Handout (on AVS) - Gerry Trinh DO - 03/18/2023 9:18 PM EST Images from the original note were not included. [id number] Back Care Tips Caring for your back These are things you can do to prevent a recurrence of acute back pain and to reduce symptoms from chronic back pain: Stay at a healthy weight. If you are overweight, losing weight will help most types of back pain. Exercise is an important part of recovery from most types of back pain. The muscles behind and in front of the spine support the back. This means strengthening both the back muscles and the belly (abdominal) muscles will provide better support for your spine. Swimming and brisk walking are good overall exercises to improve your fitness level. Practice safe lifting methods (see below). Practice good posture when sitting, standing, and walking. Don't sit for a long time. This puts more stress on the low back than standing or walking. Wear quality shoes with good arch support. Foot and ankle alignment can affect back symptoms. Don't wear high heels. Therapeutic massage can help relax the back muscles without stretching them. During the first 24 to 72 hours after an acute injury or flare-up of chronic back pain, put an ice pack on the painful area for 20 minutes and then remove it for 20 minutes. Do this over a period of 60 to 90 minutes, or several times a day. As a safety precaution, don't use a heating pad at bedtime. Sleeping on a heating pad can lead to skin chamberlain or tissue damage. You can alternate using ice and heat. Medicines Talk with your healthcare provider before using medicines, especially if you have other health problems or are taking other medicines. You may use uxau-ero-ketdxpa medicines, such as acetaminophen, ibuprofen, or naproxen to controlpain, unless your healthcare provider prescribed other pain medicine. Talk with your provider before taking any medicines if you have a long-term (chronic) condition, such as diabetes, liver or kidney disease, stomach ulcers, or digestive bleeding, or are taking blood thinners. Be careful if you are given prescription pain medicines, opioids, or medicine for muscle spasm. They can cause drowsiness, and affect your coordination, reflexes, and judgment. Don't drive or operate heavy machinery while taking these types of medicines. Take prescription pain medicine only as prescribed by your provider. Lumbar stretch This simple stretch will help relax muscle spasm and keep your back more limber. If exercise makes your back pain worse, don?t do it. Lie on your back with your knees bent and both feet on the ground. Slowly raise your left knee to your chest as you flatten your low back against the floor. Hold for 5 seconds. Relax and repeat the exercise with your right knee. Do 10 of these exercises for each leg. Safe lifting method Don?t bend over at the waist to lift an object off the floor. Instead, bend your knees and hips in a squat. Keep your back and head upright Hold the object close to your body, directly in front of you. Straighten your legs to lift the object. Lower the object to the floor in the reverse fashion. If you must slide something across the floor, push it. Posture tips Sitting Sit in chairs with straight backs or low-back support. Keep your knees lower than your hips, with your feet flat on the floor. When driving, sit up straight. Adjust the seat forward so you are not leaning toward the steering wheel. A small pillow or rolled towel behind your low back may help if you are driving long distances. Standing When standing for long periods, shift most of your weight to one leg at a time. Switch legs every few minutes. Sleeping The best way to sleep is on your side with your knees bent. Put a low pillow under your head to support your neck in a neutral spine position. Don't use thick pillows that bend your neck to one side.Put a pillow between your legs to further relax your low back. If you sleep on your back, put pillows under your knees to support your legs in a slightly flexed position. Use a firm mattress. If yourmattress sags, replace it, or use a 1/2-inch plywood board under the mattress to add support. Follow-up care Follow up with your healthcare provider as advised. If X-rays, a CT scan, or an MRI scan were taken, they may be reviewed by a radiologist. You will betold of any new findings that may affect your care. Call 911 Call 911 if any of the following occur: Trouble breathing Confusion Very drowsy Fainting or loss of consciousness Very fast or very slow heart rate Loss of bowel or bladder control When to get medical advice Call your healthcare provider right away if any of these occur: Pain becomes worse or spreads to your arms or legs Weakness or numbness in 1 or both arms or legs Numbness in the groin area Last Reviewed Date: 10/09/202119991946-7802 [employer]. All rights reserved. This information is not intended as a substitute for professional medical care. Always follow your healthcare professional's instructions. * ED Nursing Home Director Note - Gerry Barron RN - 03/18/2023 5:37 PM EST Pt reports to the ED with complaints lower back pain that radiates up her spine. Pt reports that she was on her hands and knees bent over when she got shooting pain in her back. Pt has hx of back problems. Pt reports hx of spine issues. Pt has pain management appt on Saturday, Spine surgery consultation on the and was seeing PT on Saturday. Pt reports she was fine after PT on Saturday and over the weekend. Pt describes pain as 10/10 and sharp. Pt is able to pull knee to the chest causing morepain in the right side than the left. documented in this encounter Plan of Treatment Upcoming Encounters Date Type Department Care Team (Late st Contact Info) Description 03/19/2023 1:40 PM EST Telemedicine General Internal Medicine [facility] [address] [facility] [place] [address] Jennifer Rodrigez MD [address] [place] [address] 03/20/2023 1:00 PM EST Office Visit Interventional Pain Center, [facility] [address] [facility] [place] [address] Bradly Jones MD [address] [place] [address] 05/09/2023 5:40 PM EST Office Visit General Internal Medicine [facility] [address] [facility] [place] [address] Sri Wiseman MD [address] [facility] [place] [address] 08/02/2023 11:30 AM EDT Office Visit Orthopaedics Spine Surgery, [facility] [address] [facility] [place] [address] Lamonte Zapata MD [address] [place] [address] [place] [address] Health Maintenance Due Date Last Done Comments [...] Date/Time Associated Diagnosis Comments XR L SPINE AP AND LATERAL STAT 03/18/2023 8:34 PM EST documented in this encounter Results * XR L SPINE AP AND LATERAL (03/18/2023 8:34 PM EST) Anatomical Region Laterality Modality Vertebra, Lspine Digital Radiogr aphy 03/18/2023 8:51 PM EST Impressions 03/18/2023 9:14 PM EST IMPRESSION: No acute findings. THIS DOCUMENT HAS BEEN ELECTRONICALLY SIGNED BY BJ PUENTES MD Narrative 03/18/2023 9:14 PM EST PROCEDURE INFORMATION: Exam: XR Lumbosacral Spine Exam date and time: 03/18/2023 8:51 PM Age: 33 years old Clinical indication: Other: Low back pain TECHNIQUE: Imaging protocol: Radiologic exam of the lumbosacral spine. Views: 2 or 3 views. COMPARISON: MRI L SPINE W WO CONTRAST 02/28/2023 7:34 AM FINDINGS: Bones/joints: Normal. No acute fracture. Normal alignment. Soft tissues: Unremarkable. Procedure Note Bj Puentes MD - 03/18/2023 PROCEDURE INFORMATION: Exam: XR Lumbosacral Spine Exam date and time: 03/18/2023 8:51 PM Age: 33 years old Clinical indication: Other: Low back pain TECHNIQUE: Imaging protocol: Radiologic exam of the lumbosacral spine. Views: 2 or 3 views. COMPARISON: MRI L SPINE W WO CONTRAST 02/28/2023 7:34 AM FINDINGS: Bones/joints: Normal. No acute fracture. Normal alignment. Soft tissues: Unremarkable. IMPRESSION IMPRESSION: No acute findings. THIS DOCUMENT HAS BEEN ELECTRONICALLY SIGNED BY BJ PUENTES MD Gerry Trinh DO RADIOLOGY (RAD GENE RAL) documented in this encounter Visit Diagnoses Diagnosis Low back pain, unspecified back pain laterality, unspecified chronicity, unspecified whether sciatica present- Primary Right leg numbness Disturbance of skin sensation documented in this encounter Administered Medications Inactive Administered Medications - up to 3 most recent administrations Medication Order MAR Action Action Date Dose Rate Site Acetaminophen (Tylenol) tab 975 mg 975 mg, Oral, ONCE, On Sat03/18/23 at 1930, For 1 dose, Maximum of 4 grams (4000 mg) per day. Given 03/18/2023 6:57 PM EST 975 mg cyclobenzaprine (Flexeril) tab 10 mg 10 mg, Oral, ONCE, On Sat03/18/23 at 1930, For 1 dose Given 03/18/2023 6:58 PM EST 10 mg ketorolac (Toradol) 30 MG/ML inj 15 mg 15 mg, IV Push, ONCE, On Sat03/18/23 at 1930, For 1 dose Given 03/18/2023 6:59 PM EST 15 mg Deltoid Left Upper methylPREDNISolone sodium succ (SOLU-Medrol) inj 60 mg 60 mg, Intramuscular, ONCE, On Sat03/18/23 at 1930, For 1 dose Given 03/18/2023 7:05 PM EST 60 mg Deltoid Left Lower documented in this encounter Active and Recently Administered Medications Times are shown in EST. Scheduled Medication Order 03/16/2023 03/17/2023 03/18/2023 Acetaminophen (Tylenol) tab 975 mg (COMPLETED) 975 mg, Oral, ONCE, On Sat03/18/23 at 1930, For 1 dose, Maximum of 4 grams (4000 mg) per day. 1857 (Given - Provid er: Gerry Barron RN) cyclobenzaprine (Flexeril) tab 10 mg (COMPLETED) 10 mg, Oral, ONCE, On Sat03/18/23 at 1930, For 1 dose 185 (Given - Provid er: Gerry Barron RN) ketorolac (Toradol) 30 MG/ML inj 15 mg (COMPLETED) 15 mg, IV Push, ONCE, On Sat03/18/23 at 1930, For 1 dose 185 (Given - Provid er: Gerry Barron RN - Comment: IM per verbal from Dr. Trinh) methylPREDNISolone sodium succ (SOLU-Medrol) inj 60 mg (COMPLETED) 60 mg, Intramuscular, ONCE, On Sat03/18/23 at 1930, For 1 dose 190 (Given - Provid er: Gerry Barron RN) documented in this encounter Care Teams Milker Machine Relationship Specialty Start Date End Date Sri Wiseman MD [address] [place] [address] PCP - General Internal Medicine 02/13/23 documented as of this encounter
--- OUTSIDE RECORDS SUMMARY | 2023-08-25 13:35 | External Medical Summary | Summary of Care ---
Author Name Unknown Organization [facility] Address [address] [place] [address] Phone [phone] Care Team Providers Care Tug Boat Captain Name Role Phone Sri Wiseman MD Primary Care Provider Reason for Visit * Reason Onset Date Comments FYI 03/25/2023 Encounter Details Date Type Department Care Team (Late st Contact Info) Description 03/25/2023 Telephone Orthopaedics Spine Surgery, [place] [address] [place] [address] [place], [place] [id number] Lamonte Zapata MD [address] [place] [place] [phone] FY Allergies Active Allergy Reactions Criticality Noted [...] cervical and hand function: Workman 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/ 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: Spine investigations done and date: Xray:03/18/2023 MRI:02/28/2023 [...] [address] [place] [address] Lamonte Zapata MD [address] [place] [address] [place] [address] 04/18/2023 12:22 PM EST Hospital Encounter OR [facility], Operating Room, [facility] - 4th Floor [address] [place] [address] Bradly Jones MD [address] [place] [address] 04/18/2023 12:22 PM EST - 04/18/2023 12:41 PM EST Surgery OR [facility], Operating Room, [facility] - 4th Floor [address] [place] [address] Bradly Jones MD [address] [place] [address] INJECTION SPINE LUMBAR OR SACRAL 05/09/2023 5:40 PM EST Office Visit General Internal Medicine [facility] [place] [address] [facility] [place] [address] Sri Wiseman MD 200 [facility] [place] [address] 08/02/2023 11:30 AM EDT Office Visit Orthopaedics Spine Surgery, [facility] 132 [facility] [place] [address] Lamonte Zapata MD 310 [facility] [address] [place] [address] Scheduled Procedures Name Priority Associated Diagnoses Date/Ti [...] filedocumented as of this encounter Care Teams Tug Boat Captain Relationship Specialty Start Date End Date Sri Wiseman MD [address] [place] [address] PCP - General Internal Medicine 02/13/23 documented as of this encounter
--- OUTSIDE RECORDS SUMMARY | 2023-08-25 13:35 | External Medical Summary | Summary of Care ---
Author Name Unknown Organization [facility] Address [address] [place] [address] Phone [phone] Care Team Providers Care Oncology Nurse Name Role Phone Sri Wiseman MD Primary Care Provider [phone] Reason for Visit * Reason Onset Date Comments Advice 04/03/2023 Encounter Details Date Type Department Care Team (Late st Contact Info) Description 04/03/2023 Telephone General Internal Medicine [facility] [address] [facility] [address] Sri Wiseman MD [address] [place] [address] Advice Allergies Active Allergy Reactions Criticality Noted [...] off Please advise and contact pt at [phone] documented in this encounter Plan of Treatment Upcoming Encounters Date Type Department Care Team (Latest Contact Info) Description 04/05/2023 10:20 AM EST Office Visit General Internal Medicine [facility] [place] [address] [facility] [place] [address] Jennifer Rodrigez MD 200 [place] [address] 04/09/2023 1:00 PM EST Office Visit Urology, [place] [address] [place] [address] Horace Pearl PA-C [address] [place] [address] 04/18/2023 12:22 PM EST Hospital Encounter OR [facility], Operating Room, [facility] Floor [address] [place] [address] Bradly Jones MD [address] [place] [address] 04/18/2023 12:22 PM EST - 04/18/2023 12:41 PM EST Surgery OR [facility], Operating Room, [facility] Floor [address] [place] [address] Bradly Jones MD [address] [place] [address] INJECTION SPINE LUMBAR OR SACRAL 05/09/2023 5:40 PM EST Office Visit General Internal Medicine [place] [address] [facility] [place], [place] [address] Sri Wiseman MD [address] [facility] [place] [address] 05/21/2023 1:30 PM EDT Office Visit Interventional Pain Center, [facility] [address] [place] [address] Bradly Jones MD [address] [place] [address] Scheduled Procedures Name Priority Associated Diagnoses Date/Ti [...] filedocumented as of this encounter Care Teams Oncology Nurse Relationship Specialty Start Date End Date Sri Wiseman MD [address] [place] [address] PCP - General Internal Medicine 02/13/23 documented as of this encounter
--- OUTSIDE RECORDS SUMMARY | 2023-08-25 13:35 | External Medical Summary | Summary of Care ---
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 [facility] * Evaluate & Treat - Unlimited Visits (Within 10 days (routine)) - Pending Review Specialty Diagnoses / Procedures Referred By Contdomingo t Referred To Contact Neuro/Ortho Surgery - Spine. 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 [facility] Select spine region: Back - Thoracic/Lumbar Do you have any recent complete loss of bladder or bowel function? No Reason for Visit * Reason Comments Follow Up Patient presents for MRI test results per provider. Encounter Details Date Type Department Care Team (Late st Contact Info) Description 03/05/2023 2:00 PM EST Office Visit General Internal Medicine Jeanette [place] [address] [facility] [place] [address] Jennifer Rodrigez MD [address] [facility] [place] [address] Meningocele spinal (HCC)*; Tethering of spinal cord (HCC); Lipoma of other specified sites; History of sciatica; Chronic bilateral low back pain with right-sided sciatica; Spasm of muscle Allergies Active Allergy Reactions Criticality Noted Date Comments Cefaclor Edema Other 02/13/2023 Iodinated Contrast Media Nausea/vomiting Medium 2022 documented as of this encounter (statuses as of 03/05/2023) Medications Medication Sig Dispensed Refills Start Date [...] as of this encounter (statuses as of 03/05/2023) Active Problems Problem Noted Date Diagnosed Date PCOS (polycystic ovarian syndrome) 02/13/2023 documented as of this encounter (statuses as of 03/05/2023) Social History Tobacco Use Types Packs/Day Years [...] Sign Reading Time Taken Comments Blood Pressure 110/68 03/05/2023 2:02 PM EST Pulse 87 03/05/2023 2:02 PM EST Temperature 36.2 C (97.2 F) 03/05/2023 2:02 PM ES T Respiratory Rate - - Oxygen Saturation 99% 03/05/2023 2:02 PM EST Inhaled Oxygen Concentration - - Weight 124.1 kg (273 lb 9.6 oz) 03/05/2023 2:02 PM EST Height 162.6 cm (5' 4") 03/05/2023 2:02 PM EST Body Mass Index 46.96 03/05/2023 2:02 PM EST documented in this encounter Progress Notes * Jennifer Rodrigez MD - 03/05/2023 1:57 PM EST SUBJECTIVE: Jacklyn Aldana is a 33 year old female. Chief Complaint Patient presents with Follow Up Patient presents for MRI test results per provider. HPI: Patient presents today for discussion of MRI results. Wt Readings from Last 5 Encounters: 03/05/23 124.1 kg (273 lb 9.6 oz) 02/22/23 124.9 kg (275 lb 4.8 oz) 02/15/23 123.7 kg (272 lb 9.6 oz) 02/13/23 114.3 kg (252 lb) BP Readings from Last 5 Encounters: 03/05/23 110/68 02/22/23 114/74 02/15/23 115/68 02/13/23 110/70 Seen 03/07/23-for-- ER follow-up appointment from 02/15/2023. Seen as a new patient in clinic by Dr. Wiseman 02/13/2023 with right-sided flank pain. Labs-02/13/2023 normal CBC, CMP, UA NO blood, urine culture negative, hep C antibody and HIV antibody negative. X-ray KUB suggestion of a nondisplaced fracture of the right 12th rib. There is no definite renal calculus. -office noticed pending but was seen for follow-up [facility] care for burning with urination with blood in the urine at [facility]- she denied any history of falls. Had continued to complain of significant pain was sent to the ED for evaluation. Repeat labs in the ER-normal CBC, BMP UA negative, poor sample CT abdomen and pelvis without contrast --cholecystectomy status, kidneys no hydronephrosis or stone. - Incomplete visualization of sacral developmental anomaly with associated rounded fluid collection in the presacral space. Recommend further evaluation with magnetic resonance imaging with contrast. 2. Thickened endometrium. Findings may reflect patient's menstrual status. LMP-02/22/2023 -states she had a dimple in the sacral area for many years, has had previous MRI in [place]. Pain located in the mid back, no radiation down the legs. Pain is worse when she goes down the steps and especially on waking up in the morning. Currently taking ibuprofen 2 tablets at least 3 times a day, ER also advised her to take Tylenol which she has been and using the Salonpas patches. 03/05/2023-patient presents today accompanied by mother for discussion of MRI results. [...] [facility] patient states she also had weakness of the right side of the face and arm 1 time and hadstudies done including an EMG and had seen a specialist in [place], no history of CVA EXAM: MRI LUMBAR SPINE WITHOUT AND WITH CONTRAST HISTORY: mid back pain, abn CT COMPARISON: CT February 15, 2023. TECHNIQUE: Multiplanar multisequence MRI of the lumbar spine without and with intravenous contrast was performed and reviewed. FINDINGS: The retroperitoneal tissues are unremarkable. There [...] into the meningocele reflecting tethered spinal cord. States was followed by driver at [place] There is no immunization history on file [...] on the skin daily. 30 Patch 0 No current facility-administered medications for this visit. Review of patient's allergies indicates: Allergen Reactions Iodinated Contrast Media Nausea/vomiting Ceclor [Cefaclor] Edema Other OBJECTIVE: BP 110/68 | Pulse 87 | Temp 36.2 C (97.2 F) | Ht 1.626 m (5' 4") | Wt 124.1 kg (273 lb 9.6 oz) | LMP 2023 | SpO2 99% | BMI 46.96 kg/m | BSA 2.37 m PHYSICAL EXAM: General: alert, healthy, no [...] to elicit of the knees and ankle. [id number] range of motion, with right hip abduction complains of pain in the right lumbar area ASSESSMENT/PLAN: Meningocele spinal (HCC) (Primary) - SPINE SURGERY REFERRAL OP - PHYSICAL THERAPY REFERRAL OP - Cyclobenzaprine HCl 5 MG Oral Tablet (Flexeril); Take 1 Tablet by mouth 3 times a day as needed for Muscle spasms. Tethering of spinal cord (HCC) - SPINE SURGERY REFERRAL OP - PHYSICAL THERAPY REFERRAL OP - Cyclobenzaprine HCl 5 MG Oral Tablet (Flexeril); Take 1 Tablet by mouth 3 times a day as needed for Muscle spasms. Lipoma of other specified sites - SPINE SURGERY REFERRAL OP - PHYSICAL THERAPY REFERRAL OP - Cyclobenzaprine HCl 5 MG Oral Tablet (Flexeril); Take 1 Tablet by mouth 3 times a day as needed for Muscle spasms. History of sciatica - PHYSICAL THERAPY REFERRAL OP - Cyclobenzaprine HCl 5 MG Oral Tablet (Flexeril); Take 1 Tablet by mouth 3 times a day as needed for Muscle spasms. Chronic bilateral low back pain with right-sided sciatica - SPINE SURGERY REFERRAL OP - PHYSICAL THERAPY REFERRAL OP - Cyclobenzaprine HCl 5 MG Oral Tablet (Flexeril); Take 1 Tablet by mouth 3 times a day as needed for Muscle spasms. Spasm of muscle - PHYSICAL THERAPY REFERRAL OP - Cyclobenzaprine HCl 5 MG Oral Tablet (Flexeril); Take 1 Tablet by mouth 3 times a day as needed for Muscle spasms. Discussed and agrees with physical therapy, use Flexeril as needed for muscle spasm she has uses inthe past for TMJ type symptoms. Referral to Neurosurgery, advised that if any worsening symptoms or if any sudden onset of weaknessor numbness of the legs or incontinence then to go to the ER. Follow Up: Return if symptoms worsen or [...] with plan of care. Jennifer Rodrigez MD 03/05/2023 documented in this encounter Nursing Notes * Prosper Felix CMA - 03/05/2023 2:01 PM EST Chief Complaint Patient presents with Follow Up Patient presents for MRI test results per provider. documented in this encounter Plan of Treatment Upcoming Encounters Date Type Department Care Team (Late st Contact Info) Description 03/27/2023 1:00 PM EST Office Visit Interventional Pain Center, [facility] [address] [place] [address] Jonathon Finnegan MD [address] [place] [address] 05/09/2023 5:40 PM EST Office Visit General Internal Medicine [facility] [address] [facility] [place] [address] Sri Wiseman MD [address] [facility] [place] [address] 08/02/2023 11:30 AM EDT Office Visit Orthopaedics Spine Surgery, [facility] [address] [facility] [place] [address] Lamonte Zapata MD [address] [place] [address] [place] [address] Scheduled Referrals Name Type Priority Associated Diagnoses Orde r Schedule SPINE SURGERY REFERRAL OP Referral Within 10 days (routine) 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) Lipoma of other specified sites Chronic bilateral low back pain with right-sided sciatica Ordered: 03/05/2023 PHYSICAL THERAPY REFERRAL OP Referral Within 10 days (routine) 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) Lipoma of other specified sites History of sciatica Chronic bilateral low back pain with right-sided sciatica Spasm of muscle Ordered: 03/05/2023 Health Maintenance Due Date Last Done Comments [...] of this encounter Visit Diagnoses Diagnosis Meningocele spinal (HCC)- Primary Spina bifida without mention of hydrocephalus, unspecified region Tethering of spinal cord (HCC) Other specified congenital anomaly of spinal cord Lipoma of other specified sites History of sciatica Personal history of other disorders of nervous system and sense organs Chronic bilateral low back pain with right-sided sciatica Spasm of muscle documented in this encounter Care Teams Police Inspector Relationship Specialty Start Date End Date Sri Wiseman MD [address] [place] [address], [place] [address] PCP - General Internal Medicine 02/13/23 documented as of this encounter
--- OUTSIDE RECORDS SUMMARY | 2023-08-25 13:35 | External Medical Summary | Summary of Care ---
Author Name Unknown Organization [facility] Address [address] [place] [address] Phone [phone] Care Team Providers Care Solid Waste Analyst Name Role Phone Sri Wiseman MD Primary Care Provider [phone] Reason for Referral * Evaluate & Treat - Unlimited Visits (Within 10 days (routine)) - Pending Review Specialty Diagnoses / Procedures Referred By Selvin wright Referred To Contact Neurological Surgery Diagnoses 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 Tethered cord (HCC) Lamonte Zapata MD [address] [place] [address] [facility] [place] [address] Referral ID Status Reason Start Date Expiration Date Visits Requested Visits Authorized [id number] Pending Review Specialty Services Required 03/28/[phone] Question Answer Referral Priority Within 10 days (routine) Where should this appointment be scheduled? [facility] What condition is the patient being seen for? 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 Reason for Visit * Reason Comments NEW PATIENT Lower back pain Encounter Details Date Type Department Care Team (Late st Contact Info) Description 03/28/2023 9:00 AM EST Office Visit Orthopaedics Spine Surgery, [facility] [address] [place] [address] [place] [address] Lamonte Zapata MD [address] [place] [address] [place] [address] Sacral agenesis*; Chronic right-sided low back pain with right-sided sciatica; Tethered cord (HCC) Allergies Active Allergy Reactions Criticality Noted Date Comments Cefaclor Edema Other 02/13/2023 Iodinated Contrast Media Nausea/vomiting Medium 2022 documented as of this encounter (statuses as of 03/28/2023) Medications Medication Sig Dispensed Refills Start Date [...] as of this encounter (statuses as of 03/28/2023) Active Problems Problem Noted Date Diagnosed Date Body mass index (BMI) of 45.0 to 49.9 in adult 0 03/18/2023 Overview: Per Obesity protocol PCOS (polycystic ovarian syndrome) 02/13/2023 documented as of this encounter (statuses as of 03/28/2023) Social History Tobacco Use Types Packs/Day Years Used Date Smoking Tobacco: Never Smokeless Tobacco: Never Tobacco Cessation:Counseling Given: No Alcohol Use Standard Drinks/Week Comments Yes 0 [...] Pressure - - Pulse - - Temperature - - Respiratory Rate - - Oxygen Saturation - - Inhaled Oxygen Concentration - - Weight 113.4 kg (250 lb) 03/28/2023 9:01 AM EST Height 162.6 cm (5' 4") 03/28/2023 9:01 AM EST Body Mass Index 42.91 03/28/2023 9:01 AM EST documented in this encounter Progress Notes * Lamonte aZpata MD - 03/28/2023 9:41 AM EST Date of service: 03/28/2023 CHIEF COMPLAINT: Jacklyn Aldana is a 33 year old female presents with complaints/concerns of back pain with right-sided radiculopathy. She also complains of right-sided leg weakness and has to use a cane. This has been going on for the past several months. Patient denies any acute progressive neurolo gical deficit, bowel bladder disturbances or constitutional symptoms. Patient has a known history of sacral agenesis with meningomyelocele. New Referring physician:Dr. 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/ Litigation/ Mold Polisher: Spine investigations done and date: Xray:03/18/2023 MRI:02/28/2023 CT scan: EMG/ NCV: Spine treatment so far: Medications: flexeril, lidocaine patches, ibuprofen ,tylenol Medrol dose pack, helped Physical therapy within last year:Hamlet Schneider working right leg weakness and back has had 3 sessions is helping Chiropractor therapy: Brace use: Pain management and Spinal epidural injections:03/20/[address] 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 ROS: Negative except as outlined in HPI Vitals: Ht 1.626 m (5' 4") | Wt 113.4 kg (250 lb) | LMP 02/21/2023 Comment: states she is not | BMI 42.91 kg/m | BSA 2.26 m Body mass index is 42.91 kg/m. Physical Exam: General: alert, healthy and no distress Constitutional: The general appearance appears normal. Respiratory: Breathing is nonlabored, thoracic. No use of accessory muscles. Cardiovascular system: Vascularity grossly preserved Spine evaluation Cervical, thoracic and lumbar spine: No paraspinal swelling. No deformity. Tuft of hair with a dimple in the sacral region skin. Neurological examination: Motor power upper extremities - Bilateral shoulder abductors, elbow flexors, triceps, wrist flexorsand extensors and intrinsic muscles of the hand is 5/5. Motor power lower extremities - Bilateral hip flexors, knee extensors, ankle dorsiflexors, plantar flexors, EHL/EDL, FHL/FDL is 5/5. The deep tendon reflexes - Bilateral Biceps, triceps, brachioradialis, Patellar tendon, Achilles tendon are 2+ Sensation are grossly preserved bilaterally in upper extremities. Sensation are grossly preserved bilaterally in the lower extremities. Radiological imaging: I independently reviewed the relevant radiological imaging including x-rays ordered at this visit X-rays of the lumbar spine including dynamic view show evidence of early degenerative changes. Spinal alignment is well maintained. MRI lumbar 02/28/2023: No significant stenosis. Sacral age in his with a lipoma and filum terminalethickening concern for tethered cord. 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 Assessment & Plan: Pt is a 33 year old female here for the following problems/concerns: Tethered cord syndrome Sacral age in his Lumbar back pain Lumbar radiculopathy We discussed the diagnosis, the natural history and the treatment options. Based on the clinical and radiological findings various treatment options including the risks, benefits and alternatives were discussed. Patient is neurologically stable but appears to be symptomatic in relation to the tethered cord. As she is having weakness in the right leg, a neurosurgery referral for further evaluation and treatment would be appropriate. No orthopedic spine intervention is indicated. Additional recommendations: Activity modification as tolerated Pain medications as per the primary care. Adverse effects and appropriate precautions were discussed. If the patient has persistence or worsening of symptoms additional investigations will be recommended. Warning signs have been discussed. Follow up: Neurosurgery referral made The patient expressed understanding and agreement to the plan. Complexity of decision making: High I spent 45 minutes on 03/28/2023 in preparation, delivery and documentation of the care provided to the patient, excluding any time spent on the performance of the procedure are separately billable service. Lamonte Zapata MD This chart was completed in part utilizing [employer] Voice Recognition Software. Grammatical errors, random word insertions, prounoun errors and incomplete sentences are an occasional consequence of this system due to software limitations, ambient noise, and hardware issues. Any formal questions or concerns about the content, text, or information contained within the body of this dictation should be directly addressed to the provider for clarification. documented in this encounter Nursing Notes * Beth Trinidad LPN - 03/28/2023 9:01 AM EST New Referring physician:Dr. 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/ Litigation/ Mold Polisher: Spine investigations done and date: Xray:03/18/2023 MRI:02/28/2023 CT scan: EMG/ NCV: Spine treatment so far: Medications: flexeril, lidocaine patches, ibuprofen ,tylenol Medrol dose pack, helped Physical therapy within last year:Hamlet Schneider working right leg weakness and back has had 3 sessions is helping Chiropractor therapy: Brace use: Pain management and [...] Description 04/04/2023 1:00 PM EST Office Visit Neurosurgery, [facility] [address] [place] [address] Matthias Newell MD [address] [place] [address] 04/18/2023 12:22 PM EST Hospital Encounter OR GL, Operating Room, [facility] - 4th Floor [address] [place] [address] Bradly Jones MD [address] [place] [address] [place] [address] 04/18/2023 12:22 PM EST - 04/18/2023 12:41 PM EST Surgery OR [facility], Operating Room, [facility] - 4th Floor [address] [place] [address] Bradly Jones MD [address] [place] [address] [place] [id number] INJECTION SPINE LUMBAR OR SACRAL 05/09/2023 5:40 PM EST Office Visit General Internal Medicine [employer] [address] [facility] [place] [address] Sri Wiseman MD [address] [facility] [place] [address] 05/21/2023 1:30 PM EDT Office Visit Interventional Pain Center, [facility] [address] [place] [address] Bradly Jones MD [address] [place] [address] Pending Results Name Type Priority Associated Diagnoses Date /Time XR L SPINE COMPLETE Medical Imaging Routine Chronic right-sided low back pain with right-sided sciatica 03/28/2023 9:25 AM EST Scheduled Procedures Name Priority Associated Diagnoses Date/Ti me INJECTION SPINE LUMBAR OR SACRAL Lumbar radiculopathy 04/18/2023 12:22 PM EST Scheduled Referrals Name Type Priority Associated Diagnoses Order Schedule NEUROSURGERY ADULT REFERRAL OP Referral Within 10 days (routine) 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 Tethered cord (HCC) Ordered: 03/28/2023 Health Maintenance Due Date Last Done Comments [...] as of this encounter Visit Diagnoses Diagnosis Sacral agenesis- Primary Congenital absence of vertebra Chronic right-sided low back pain with right-sided sciatica Tethered cord (HCC) Other specified congenital anomaly of spinal cord Lumbar radiculopathy Thoracic or lumbosacral neuritis or radiculitis, unspecified documented in this encounter Care Teams Solid Waste Analyst Relationship Specialty Start Date End Date Sri Wiseman MD [address] [facility] [place] [address] PCP - General Internal Medicine 02/13/23 documented as of this encounter
--- OUTSIDE RECORDS SUMMARY | 2023-08-25 13:35 | External Medical Summary | Summary of Care ---
Author Name Unknown Organization [facility] Address [address] [place] [address] Phone [phone] Care Team Providers Care Seed Buyer Name Role Phone Sri Wiseman MD Primary Care Provider [phone] Reason for Visit * Reason Onset Date Comments Advice 03/12/2023 Encounter Details Date Type Department Care Team (Late st Contact Info) Description 03/12/2023 Telephone General Internal Medicine [facility] 200 [place] [address] Jennifer Rodrigez MD 200 [place] [address] Advice Allergies Active Allergy Reactions Criticality Noted Date Comments Cefaclor Edema Other 02/13/2023 Iodinated Contrast Media Nausea/vomiting Medium 2022 documented as of this encounter (statuses as of 03/13/2023) Medications Medication Sig Dispensed Refills Start Date [...] as of this encounter (statuses as of 03/13/2023) Active Problems Problem Noted Date Diagnosed Date PCOS (polycystic ovarian syndrome) 02/13/2023 documented as of this encounter (statuses as of 03/13/2023) Social History Tobacco Use Types Packs/Day Years [...] encounter Miscellaneous Notes * Telephone Encounter - Faith Evans OSA - 03/13/2023 1:31 PM EST Printed and faxed 03/13 * Telephone Encounter - Pepe Jarvis OSA - 03/12/2023 10:17 AM EST Caller requesting the following information to be faxed: Name/Company of caller: patient Information requested to be faxed: PT referral Fax number: not given Attention to Name/Company: [employer] Any additional information?: documented in this encounter Plan of Treatment Upcoming Encounters Date Type Department Care Team (Late st Contact Info) Description 03/20/2023 1:00 PM EST Office Visit Interventional Pain Center, [facility] 400 [place] [address] Bradly Jones MD 400 [place] [address] 05/09/2023 5:40 PM EST Office Visit General Internal Medicine [place] Karla Rouse [address] [place] [address] Sri Wiseman MD 200 [facility] [place] [address] 08/02/2023 11:30 AM EDT Office Visit Orthopaedics Spine Surgery, [facility] 132 [facility] [place] [address] Lamonte Zapata MD 310 [facility] [address] [place] [phone] Health Maintenance Due Date Last Done Comments [...] filedocumented as of this encounter Care Teams Seed Buyer Relationship Specialty Start Date End Date Sri Wiseman MD [address] [place] [address] Dr [place] [address] PCP - General Internal Medicine 02/13/23 documented as of this encounter
--- OUTSIDE RECORDS SUMMARY | 2023-08-25 13:35 | External Medical Summary | Summary of Care ---
Author Name Unknown Organization [facility] Address [address] [place] [address] Phone [phone] Care Team Providers Care Diesel Automotive Technician Name Role Phone Sri Wiseman MD Primary Care Provider [phone] Reason for Visit * Reason Comments NEW PATIENT Synovial cyst of sac ral region. Midline low back pain. Pain Intermittent sharp/s hooting entire low back/bilateral buttocks/posterior thighs and calves. R>L. Intermittent numbness/tingling/burning/weakness right leg from thigh to ankle. Ongoing since 02/2023, no trauma. * Evaluate & Treat - Unlimited Visits (Within 10 days (routine)) - Pending Review Specialty Diagnoses / Procedures Referred By Selvin wright Referred To Contact Pain Management / Pain Medicine Diagnoses Synovial cyst of sacral region Midline low back pain without sciatica, unspecified chronicity Jennifer Rodrigez MD [address] [place] [address] Referral ID Status Reason Start Date Expiration Date Visits Requested Visits Authorized [id number] Pending Review Specialty Services Required 3 [phone] Encounter Details Date Type Department Care Team (Late st Contact Info) Description 03/20/2023 1:00 PM EST Office Visit Interventional Pain Center, [address] [place] [address] Bradly Jones MD 400 [place], [place] [id number] Lumbar radicular pain* Allergies Active Allergy Reactions Criticality Noted Date Comments Cefaclor Edema Other 02/13/2023 Iodinated Contrast Media Nausea/vomiting Medium 2022 documented as of this encounter (statuses as of 03/20/2023) Medications Medication Sig Dispensed Refills Start Date [...] as of this encounter (statuses as of 03/20/2023) Active Problems Problem Noted Date Diagnosed Date PCOS (polycystic ovarian syndrome) 02/13/2023 documented as of this encounter (statuses as of 03/20/2023) Social History Tobacco Use Types Packs/Day Years [...] Sign Reading Time Taken Comments Blood Pressure 130/81 03/20/2023 12:52 PM EST Pulse 101 03/20/2023 12:52 PM EST Temperature 36.4 C (97.5 F) 03/20/2023 12:[address] Respiratory Rate - - Oxygen Saturation 98% 03/20/2023 12:52 PM EST Inhaled Oxygen Concentration - - Weight - - Height - - Body Mass Index - - documented in this encounter Progress Notes * Bradly Jones MD - 03/20/2023 1:03 PM EST Subjective: Thank you for the opportunity to [...] cord. She has been seen twice in [facility] ED for this complaint and was most [...] Capsule (Acetaminophen) 2 caps 3-4times/d, max 3gm/d Review of patient's allergies indicates: Allergen Reactions Iodinated Contrast Media Nausea/vomiting Ceclor [Cefaclor] Edema Other Past Medical History: No past medical history on file. Past Surgical History: No past surgical history on file. Family History: No family history on file. 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 Objective: Filed Vitals: 03/20/23 1252 BP: 130/81 Pulse: 101 Temp: 36.4 C (97.5 F) TempSrc: Temporal Artery SpO2: 98% GENERAL APPEARANCE: Well-developed, well-nourished, in no acute [...] opinion from spine surgery as well. Plan: Investigations: - None ordered for this visit Interventions: -L5-S1 interlaminar epidural steroid injection Physical Therapy: - Continue physical thearpy as tolerated Consults: - Spine surgery consult scheduled on 03/28 Follow Up: -after procedure Thank you for you allowing us to participate in the care of your patient. If you have any questions, please feel free to contact us. I spent a total of 40-54 minutes (exact time 45 mins) on the date of service in preparation, delivery, and documentation of the care provided to Jacklyn Aldana excluding any time spent in the performance of separately billed services. documented in this encounter Nursing Notes * Kay Haines RN - 03/20/2023 12:38 PM EST Chief Complaint Patient presents with NEW PATIENT Synovial cyst of sacral region. Midline low back pain. Pain Intermittent sharp/shooting entire low back/bilateral buttocks/posterior thighs and calves. R>L.Intermittent numbness/tingling/burning/weakness right leg from thigh to ankle. Ongoing since 02/2023, no trauma. Iodine allergy ER 03/18/23 for LBP- Prednisone injection and rx. Aggravating factors / limitations: getting down/hunkering down to care for child, prolonged sitting/standing, shifting weight side to side. Alleviating factors: uses cane to ambulate. Lidocaine patches, tylenol/ibupfrofen. Ice, heat. Previous Injections: no Imaging: XR L spine 03/18/23; MRI L spine 02/28/23 Neck/spine Surgery: no Joint replacement Surgery: no Blood thinners: none Pain medications: Flexeril, lidocaine patch, ibupfrofen, tylenol Diabetic: no Referrals: Jennifer Rodrigez Consults: ortho spine Physical Therapy: Hamlet Schneider, has attended 1 session documented in this encounter Plan of Treatment Upcoming Encounters Date Type Department Care Team (Late st Contact Info) Description 03/28/2023 9:00 AM EST Office Visit Orthopaedics Spine Surgery, Jolene Cueva [address] [place] [address] [place] [address] Lamonte Zapata MD [address] [place] [address] [place] [address] 04/18/2023 Hospital Encounter [facility] [address] Bradly Jones MD 400 [facility] [address] 05/09/2023 5:40 PM EST Office Visit [facility] [employer] [facility] [address] [place] [address] Sri Wiseman MD 200 [facility] [place] [place] [address] 08/02/2023 11:30 AM EDT Office Visit Orthopaedics Spine Surgery, [address] [place] [address] Lamonte Zapata MD [address] [place] [address] [place] [address] Scheduled Procedures Name Priority Associated Diagnoses Date/Ti me INJECTION SPINE LUMBAR OR SACRAL Lumbar radiculopathy Health Maintenance Due Date Last Done Comments [...] as of this encounter Visit Diagnoses Diagnosis Lumbar radicular pain- Primary Thoracic or lumbosacral neuritis or radiculitis, unspecified documented in this encounter Care Teams Diesel Automotive Technician Relationship Specialty Start Date End Date Sri Wiseman MD [address] [place] [address] PCP - General Internal Medicine 02/13/23 documented as of this encounter
--- OUTSIDE RECORDS SUMMARY | 2023-08-25 13:35 | External Medical Summary | Summary of Care ---
Author Name Unknown Organization [facility] Address [address] [place] [address] Phone [phone] Care Team Providers Care Accountant Tax Name Role Phone Sri Wiseman MD Primary Care Provider [phone] Reason for Visit * Reason Onset Date Comments Appointment 03/18/2023 Encounter Details Date Type Department Care Team (Late st Contact Info) Description 03/18/2023 Telephone Orthopaedics Spine Surgery, [address] [address] Services, Scheduling [address] [place] [address] Appointment Allergies Active Allergy Reactions Criticality Noted Date Comments Cefaclor Edema Other 02/13/2023 Iodinated Contrast Media Nausea/vomiting Medium 2022 documented as of this encounter (statuses as of 03/18/2023) Medications Medication Sig Dispensed Refills Start Date [...] as of this encounter (statuses as of 03/18/2023) Active Problems Problem Noted Date Diagnosed Date PCOS (polycystic ovarian syndrome) 02/13/2023 documented as of this encounter (statuses as of 03/18/2023) Social History Tobacco Use Types Packs/Day Years [...] meningocele reflecting tethered spinal cord. Please call [phone]. documented in this encounter Plan of Treatment Upcoming Encounters Date Type Department Care Team (Late st Contact Info) Description 03/19/2023 1:40 PM EST Telemedicine General Internal Medicine [place] [address] [address] [place] [address] Jennifer Rodrigez MD [address] [place] [address] [place] [address] 03/20/2023 1:00 PM EST Office Visit Interventional Pain Center, [address] [place] [address] Bradly Jones MD [address] [facility] [address] 05/09/2023 5:40 PM EST Office Visit General Internal Medicine [address] [place] [address] Sri Wiseman MD 200 [facility] [place] [address] 08/02/2023 11:30 AM EDT Office Visit Orthopaedics Spine Surgery, [facility] 132 [facility] [place] [address] Lamonte Zapata MD [address] [place] [address] [place] [id number] Health Maintenance Due Date Last Done Comments [...] filedocumented as of this encounter Care Teams Accountant Tax Relationship Specialty Start Date End Date Sri Wiseman MD [address] [address] PCP - General Internal Medicine 02/13/23 documented as of this encounter
--- OUTSIDE RECORDS SUMMARY | 2023-08-25 13:35 | External Medical Summary | Summary of Care ---
Author Name Unknown Organization [facility] Address [address] [place] [address] Phone [phone] Care Team Providers Care Sign Maker Name Role Phone Sri Wiseman MD Primary Care Provider [phone] Reason for Visit * Reason Onset Date Comments Appointment 03/18/2023 Encounter Details Date Type Department Care Team (Late st Contact Info) Description 03/18/2023 Telephone Orthopaedics Spine Surgery, [address] [address] Services, Scheduling [address] [place] [address] Appointment Allergies Active Allergy Reactions Criticality Noted [...] encounter Miscellaneous Notes * Telephone Encounter - Marium Vargas OSA [...] Best call back number for pt is [phone]. Thank you, Marium Powell * Telephone Encounter [...] Zapata. Is scheduled to see pain management 03/20/19. Will update Dr. Zapata to review imaging [...] meningocele reflecting tethered spinal cord. Please call [phone]. documented in this encounter Plan of Treatment Upcoming Encounters Date Type Department Care Team (Late st Contact Info) Description 03/20/2023 1:00 PM EST Office Visit Interventional Pain Center, [address] [place] [address] Bradly Jones MD 400 [place] [address] 05/09/2023 5:40 PM EST Office Visit General Internal Medicine [employer] 200 [facility] [place] [address] Sri Wiseman MD 200 [facility] [place] [address] 08/02/2023 11:30 AM EDT Office Visit Orthopaedics Spine Surgery, [facility] 132 [facility] [place] [address] Lamonte Zapata MD 310 [facility] 240 [facility] [place] [address] Health Maintenance Due Date Last Done Comments [...] filedocumented as of this encounter Care Teams Sign Maker Relationship Specialty Start Date End Date Sri Wiseman MD 200 [facility] [place] [address] PCP - General Internal Medicine 02/13/23 documented as of this encounter
--- OUTSIDE RECORDS SUMMARY | 2023-08-25 13:35 | External Medical Summary | Summary of Care ---
Author Name Unknown Organization [facility] Address [address] [place] [address] Phone [phone] Care Team Providers Care Yarn Handler Name Role Phone Sri Wiseman MD Primary Care Provider [phone] Encounter Details Date Type Department Care Team (Late st Contact Info) Description 03/25/2023 Telephone Orthopaedics Spine Surgery, [place]olene Ceuva [address] [place] [place], [place] [id number] Lamonte Zapata MD [address] [place] [address] [place] [address] Allergies Active Allergy Reactions Criticality Noted Date Comments Cefaclor Edema Other 02/13/2023 Iodinated Contrast Media Nausea/vomiting Medium 2022 documented as of this encounter (statuses as of 03/25/2023) Medications Medication Sig Dispensed Refills Start Date [...] as of this encounter (statuses as of 03/25/2023) Active Problems Problem Noted Date Diagnosed Date Body mass index (BMI) of 45.0 to 49.9 in adult 0 03/18/2023 Overview: Per Obesity protocol PCOS (polycystic ovarian syndrome) 02/13/2023 documented as of this encounter (statuses as of 03/25/2023) Social History Tobacco Use Types Packs/Day Years [...] cervical and hand function: Workman 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/ Litigation/ Varnish Thinner: Spine investigations done and date: Xray:03/18/2023 MRI:02/28/2023 [...] Cueva [address] [place] [place] [address] Lamonte Zapata MD [address] [place] [address] [place] [address] 04/18/2023 12:22 PM EST Hospital Encounter OR [facility], Operating Room, [facility] - 4th Floor 400 [place] [address] Bradly Jones MD [address] [place] [address] 04/18/2023 12:22 PM EST - 04/18/2023 12:41 PM EST Surgery OR [facility], Operating Room, [facility] - 4th Floor 400 [place] [address] Bradly Jones MD [address] [place] [address] INJECTION SPINE LUMBAR OR SACRAL 05/09/2023 5:40 PM EST Office Visit General Internal Medicine [place] Karla Rouse 200 [facility] [place] [address] Sri Wiseman MD 200 [facility] [place] [address] 08/02/2023 11:30 AM EDT Office Visit Orthopaedics Spine Surgery, [facility] 132 [facility] [place] [address] Lamonte Zapata MD [address] [place] [address] [place] [address] Scheduled Procedures Name Priority Associated Diagnoses Date/Ti [...] filedocumented as of this encounter Care Teams Yarn Handler Relationship Specialty Start Date End Date Sri Wiseman MD [address] [address] PCP - General Internal Medicine 02/13/23 documented as of this encounter
--- OUTSIDE RECORDS SUMMARY | 2023-08-25 13:35 | External Medical Summary | Summary of Care ---
Author Name Unknown Organization [facility] Address [address] [place] [address] Phone [phone] Care Team Providers Care General Operations Manager Name Role Phone Sri Wiseman MD Primary Care Provider [phone] Reason for Visit * Reason Onset Date Comments FYI 03/25/2023 Encounter Details Date Type Department Care Team (Late st Contact Info) Description 03/25/2023 Telephone Orthopaedics Spine Surgery, [place] [address] [place] [place], [place] [phone] Lamonte Zapata MD [address] [place] [address] [place] [id number] FY Allergies Active Allergy Reactions Criticality Noted [...] Miscellaneous Notes * Telephone Encounter - Mikki gN LPN - 03/26/2023 9:48 AM EST LM to return call. Need a bit more information for the new patient intake prior to 03/28/2023 appt if able. * Telephone Encounter - Anastasiia Segal OSA [...] cervical and hand function: Workman 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/ Litigation/ Fire Official: Spine investigations done and date: Xray:03/18/2023 MRI:02/28/2023 [...] Orthopaedics Spine Surgery, [place]olene Cueva [address] [place] [address] [place] [address] Lamonte Zapata MD [address] [place] [address] [place] [address] 04/18/2023 12:22 PM EST Hospital Encounter OR [facility], Operating Room, [facility] - 4th Floor [address] [place] [address] Bradly Jones MD [address] [place] [address] 04/18/2023 12:22 PM EST - 04/18/2023 12:41 PM EST Surgery OR [facility], Operating Room, [facility] - 4th Floor [address] [place] [address] Bradly Jones MD [address] [place] [address] [place] [address] INJECTION SPINE LUMBAR OR SACRAL 05/09/2023 5:40 PM EST Office Visit General Internal Medicine [facility] 200 [facility] [place] [address] Sri Wiseman MD 200 [facility] [place] [address] 08/02/2023 11:30 AM EDT Office Visit Orthopaedics Spine Surgery, [address] [place] [address] Lamonte Zapata MD [address] [place] [address] [place] [address] Scheduled Procedures Name Priority Associated Diagnoses Date/Ti [...] filedocumented as of this encounter Care Teams General Operations Manager Relationship Specialty Start Date End Date Sri Wiseman MD 200 [facility] [place] [address] PCP - General Internal Medicine 02/13/23 documented as of this encounter
--- OUTSIDE RECORDS SUMMARY | 2023-08-25 13:35 | External Medical Summary | Summary of Care ---
Author Name Unknown Organization [facility] Address [address] [place] [address] Phone [phone] Care Team Providers Care Deputy Sheriff Civil Division Name Role Phone Sri Wiseman MD Primary Care Provider [phone] Reason for Visit * Reason Onset Date Comments Advice 04/03/2023 Encounter Details Date Type Department Care Team (Late st Contact Info) Description 04/03/2023 Telephone General Internal Medicine [facility] 200 [facility] [address] Sri Wiseman MD 200 [place] [address] Advice Allergies Active Allergy Reactions Criticality Noted [...] off Please advise and contact pt at [phone] documented in this encounter Plan of Treatment Upcoming Encounters Date Type Department Care Team (Latest Contact Info) Description 04/05/2023 10:20 AM EST Office Visit General Internal Medicine [facility] 200 [facility] [place] [address] Jennifer Rodrigez MD 200 [facility] [place] [address] 04/09/2023 1:00 PM EST Office Visit Urology, [place] [address] [place] [address] Horace Pearl PA-C [address] [place] [address] 04/18/2023 12:22 PM EST Hospital Encounter OR [facility], Operating Room, [facility] - 4th Floor 400 [place] [id number] Bradly Jones MD 400 [place] [address] 04/18/2023 12:22 PM EST - 04/18/2023 12:41 PM EST Surgery OR [facility], Operating Room, [facility] - 4th Floor 400 [place] [address] Bradly Jones MD 400 [place] [address] INJECTION SPINE LUMBAR OR SACRAL 05/09/2023 5:40 PM EST Office Visit [facility] Internal Medicine [facility] 200 [facility] [place] [address] Sri Wiseman MD 200 [facility] [place], [place] [address] 05/21/2023 1:30 PM EDT Office Visit Interventional Pain Center, [facility] 400 [place] [address] Bradly Jones MD 400 [place] [address] Scheduled Procedures Name Priority Associated Diagnoses Date/Ti [...] filedocumented as of this encounter Care Teams Deputy Sheriff Civil Division Relationship Specialty Start Date End Date Sri Wiseman MD 200 [facility] [place] [address] PCP - General Internal Medicine 02/13/23 documented as of this encounter
--- OUTSIDE RECORDS SUMMARY | 2023-08-25 13:36 | External Medical Summary | Summary of Care ---
Author Name Unknown Organization [facility] Address [address] [place] [address] Phone [phone] Care Team Providers Care Baggage Inspector Name Role Phone Sri Wiseman MD Primary Care Provider [phone] Reason for Visit * Reason Onset Date Comments Advice 02/26/2023 Returning Call 02/26/2023 Pt returning mis sed call. Advised 03-05-23 apt. Encounter Details Date Type Department Care Team (Late st Contact Info) Description 02/26/2023 Telephone General Internal Medicine [facility] [address] [facility] [place] [address] Sri Wiseman MD [address] [place] [address] Advice; Returning Call (Pt returning misse... Allergies Active Allergy Reactions Criticality Noted Date Comments Cefaclor Edema Other 02/13/2023 Iodinated Contrast Media Nausea/vomiting Medium 2022 documented as of this encounter (statuses as of 02/27/2023) Medications Medication Sig Dispensed Refills Start Date [...] as of this encounter (statuses as of 02/27/2023) Active Problems Problem Noted Date Diagnosed Date PCOS (polycystic ovarian syndrome) 02/13/2023 documented as of this encounter (statuses as of 02/27/2023) Social History Tobacco Use Types Packs/Day Years [...] encounter Miscellaneous Notes * Telephone Encounter - Sandra Valdes OSA - 02/27/2023 1:00 PM EST Pt returning missed call. Advised 03-05-23 apt. * Telephone Encounter - Alyssa Evans OSA - 02/27/2023 8:16 AM EST Date: 03/05/2023 Status: Denise Time: 2:00 PM Length: 20 Visit Type: RETURN [facility] [[id number]] Reg Status: Verified Copay: $0.00 Provider: Jennifer Rodrigez MD Department: GEN INT [facility] Thank You ! Pt is scheduled. * Telephone Encounter - Jennifer Rodrigez MD - 02/26/2023 5:51 PM EST My schedule is open on 03/05, use acute slot * Telephone Encounter - Alyssa Evans OSA - 02/26/2023 3:40 PM EST I understand that pt would need to wait till after , but First opening is Mar 19. * Telephone Encounter - Cami Bangura LPN - 02/26/2023 3:35 PM EST Patient will need to be scheduled after the holiday since 2 days after will be weekend and day. * Telephone Encounter - Anila Barone OSA - 02/26/2023 3:25 PM EST Patient follow up on earlier message about appt for . * Telephone Encounter - Alyssa Evans OSA - 02/26/2023 3:22 PM EST MRI is scheduled 02/28 - there are no appointments to offer ... Anyone willing to overbook ? Or usea private slot ? Please advise. Thank You * Telephone Encounter - Jennifer Rodrigez MD - 02/26/2023 1:00 PM EST We did not get results of MRI of the same day. Schedule with any provider in the system 2d after MRI for review of results. * Telephone Encounter - Bhavya Roach OSA - 02/26/2023 8:14 AM EST Pt is calling in stating that she was told to get her MRI on Saturday and then come directly into theoffice the same day to review results. Turn around times for radiology was shared. She states that they were pushing it through as stat and needing to review it that day due to the amount of pain she's in. Checked schedule and was unable to fnd any open slots. Please advise documented in this encounter Plan of Treatment Upcoming Encounters Date Type Department Care Team (Late st Contact Info) Description 02/28/2023 8:00 AM EST Imaging Radiology [address], [place] [address] [place] [address] 03/05/2023 2:00 PM EST Office Visit General Internal Medicine [facility] [address] [facility] [place] [address] Jennifer Rodrigez MD [address] [facility] [place] [address] 03/27/2023 1:00 PM EST Office Visit [facility], [facility] [address] [place] [address] Jonathon Finnegan MD [address] [place] [address] 05/09/2023 5:40 PM EST Office Visit General Internal Medicine [facility] [address] [facility] [place] [address] Sri Wiseman MD [address] [facility] [place] [address] Health Maintenance Due Date Last Done Comments [...] filedocumented as of this encounter Care Teams Baggage Inspector Relationship Specialty Start Date End Date Sri Wiseman MD [address] [facility] [place] [address] PCP - General Internal Medicine 02/13/23 documented as of this encounter
--- OUTSIDE RECORDS SUMMARY | 2023-08-25 13:36 | External Medical Summary | Summary of Care ---
Author Name Unknown Organization [facility] Address [address] [place] [address] Phone [phone] Care Team Providers Care Simonizer Name Role Phone Sri Wiseman MD Primary Care Provider [phone] Reason for Visit * Reason Onset Date Comments Advice 02/26/2023 Encounter Details Date Type Department Care Team (Late st Contact Info) Description 02/26/2023 Telephone General Internal Medicine [facility] [address] [place] [address] Sri Wiseman MD [address] [place] [address] Advice Allergies Active Allergy Reactions Criticality Noted [...] encounter Miscellaneous Notes * Telephone Encounter - Alyssa Evans OSA - 02/27/2023 8:16 AM EST Date: 03/05/2023 Status: Denise Time: 2:00 PM Length: 20 Visit Type: RETURN [facility] [[id number]] Reg Status: Verified Copay: $0.00 Provider: Jennifer Rodrigez MD Department: GEN INT [facility] P[facility] Thank You ! Pt is scheduled. [...] up on earlier message about appt for th. * Telephone Encounter - Alyssa Evans OSA [...] Description 02/28/2023 8:00 AM EST Imaging Radiology [address], [address] [place] [address] 03/05/2023 2:00 PM EST Office Visit General Internal Medicine [facility] 200 [facility] [place], [place] [address] Jennifer Rodrigez MD [address] [facility] [place] [address] 03/27/2023 1:00 PM EST Office Visit [facility], [facility] [address] [facility] [place] [address] Jonathon Finnegan MD [address] [place] [address] 05/09/2023 5:40 PM EST Office Visit General Internal Medicine [facility] [address] [facility] [place] [address] Sri Wiseman MD [address] [facility] [place] [address] Health Maintenance Due Date Last Done Comments [...] filedocumented as of this encounter Care Teams Simonizer Relationship Specialty Start Date End Date Sri Wiseman MD [address] [facility] [place] [address] PCP - General Internal Medicine 02/13/23 documented as of this encounter
[2023-08-25] MEDS: diphenhydrAMINE 50 MG/ML VIAL IV STA (14:17)
[2023-08-25] MEDS: FAMOTIDINE 20MG IV PUSH 20 MG/5 ML SYR IV STA (14:17)
[2023-08-25] MEDS: methylPREDNISolone 125 MG/2 ML VIAL IV STA (14:17)
[2023-08-25] MEDS: SODIUM CHLORIDE 0.9% 1,000 ML IV SCH (14:21)
[2023-08-25 14:30] LABS: Basophils # (auto) 0.04 K/uL (0.00-0.20); Basophils % (auto) 0.5 %; Eosinophils # (auto) 0.06 K/uL (0.00-0.50); Eosinophils % (auto) 0.7 %; Hematocrit (blood only) 34.7 % (37.0-47.0); Hemoglobin 10.9 g/dl (12.0-16.0); Immature Granulocytes # (auto) 0.02 K/uL (0.01-0.20); Immature Granulocytes % (auto) 0.2 %; Lymphocytes # (auto) 2.01 K/uL (1.20-3.40); Lymphocytes % (auto) 24.6 %; Mean Corpuscular Hemoglobin 26.1 pg (25.0-34.0); Mean Corpuscular Hgb Conc 31.4 g/dL (32.0-36.0); Mean Corpuscular Volume 83.2 fL (80.0-100.0); Mean Platelet Volume 9.9 fL (9.4-12.4); Monocytes # (auto) 0.46 K/uL (0.11-0.59); Monocytes % (auto) 5.6 %; Neutrophils # (auto) 5.57 K/uL (1.40-6.50); Neutrophils % (auto) 68.4 %; Platelet Count 235 K/uL (130-400); RDW Coefficient of Variation 14.7 % (11.5-14.5); RDW Standard Deviation 44.4 fL (36.4-46.3); Red Blood Count 4.17 M/uL (4.20-5.40); White Blood Count 8.16 K/ul (4.8-10.8)
--- NOTE | 2023-08-25 14:32 | XRay Report ---
XR chest 1V portable HISTORY: 33 years-old Female SOB acute shortness of breath COMPARISON: None TECHNIQUE: AP view the chest FINDINGS: Cardiac silhouette is within normal limits. Lungs are clear. No pneumothorax or pleural effusion. Bon es appear grossly intact. IMPRESSION: No acute process. ACT 112: Negative or not required by law. The above report was generated using voice recognition software. It may contain grammatical, syntax o r spelling errors. Electronically signed by: Venu Jerez M.D. 08/25/2023 2:30 PM
[2023-08-25 15:06] LABS: Albumin Globulin Ratio 1.1 (0.9-2); Albumin Level 4.2 gm/dl (3.4-5.0); BUN Creatinine Ratio 11.4 (10-20); Bilirubin,Total 0.4 mg/dl (0.2-1.0); Calcium 9.3 mg/dl (8.6-10.3); Creatinine Clr Calc Pharmacy 136.1 ml/min; Est GFR (African American) 115.6 ml/min; Est GFR (Non-African American) 99.8 ml/min; Globulin 3.7 gm/dl (2.5-4.0); Potassium 4.3 mmol/L (3.5-5.1); Total Protein 7.9 gm/dl (6.0-8.3)
[2023-08-25] MEDS ORDERED: ONDANSETRON 4 MG OD TAB PO PRN (16:27)
[2023-08-25] MEDS ORDERED: CYCLOBENZAPRINE HCL 5 MG TAB PO PRN (16:27)
[2023-08-25] MEDS ORDERED: traMADol HCL 50 MG TABLET PO PRN (16:27)
[2023-08-25] MEDS ORDERED: ACETAMINOPHEN 325 MG TAB PO PRN (16:28)
[2023-08-25] MEDS ORDERED: ALUMINUM/MAGNESIUM SUSP 30 ML UDC PO PRN (16:28)
--- NOTE | 2023-08-25 16:49 | History & Physical Report ---
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 Patient was started on vancomycin, at 2 weeks jaja of vancomycin therapy patient had ongoing/worsening hives and hence vancomycin was discontinued. She was switched to daptomycin, as of today she got 12 days worth of daptomycin [last dose last evening] but she comes in with lip swelling/throat tightness/right eyelid swelling. Per patient's mother at bedside her swellings are already improving, patient had received Benadryl/methylprednisolone/famotidine in the ED. Patient reports breathing okay, reports some throat and chest tightness, no wheezing on exam. Will continue with famotidine/Solu-Medrol/Benadryl as needed/fexofenadine daily. Also continue with the scheduled breathing treatment for now, can be done as needed once patient's throat tightness/chest tightness improves. Reached out to ID, currently busy, will reach out again for antibiotic recommendation. ID consult. Of note, pt is allergic to cefaclor Plateman consultation in AM. Neurologist available over the weekend. Other chronic medical conditions: Vitamin D deficiency, neurological symptoms ---- continue with/resume home meds as and when able. DVT prophylaxis: Heparin subcu Full code History of Present Illness Chief Complaint: ?Allergic reaction Primary Care Provider: Kenji Mccray MD 33-year-old lady with PMH of PCOS, mixed dyslipidemia, obesity class III, vitamin D deficiency, neurological symptoms, history of tethered spinal cord status post surgical repair complicated with infection currently being treated with antibiotic. Patient came in with complaint of waking up from sleep with lip swelling and right eyelid swelling associated with some throat tightness and chest tightness, reports breathing okay. Patient denies chest pain/palpitation/wheezing/belly pain/acute changes in her appetite/bowel/bladder habits/. Patient denies fever. Of note, patient does have history of asthma and uses rescue inhaler up to 2 times a week. 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 Patient was started on vancomycin, at 2 weeks jaja of vancomycin therapy patient had on going/worsening hives and hence vancomycin was discontinued. She was switched to daptomycin, as of today she got 12 days worth of daptomycin [last dose last evening] but she comes in with lip swelling/throat tightness/right eyelid swelling. She was supposed to be on antibiotic for total of 6 weeks per her. Patient does not have ophthalmoplegia on examination. Medications were reviewed with the patient in detail. Plan of care were discussed with the patient and her mother at bedside in detail. They voiced understanding and were agreeable to plan of care. Full code Allergies Allergy/AdvReac Type Severity Reaction Status Date / Time vancomycin Allergy Intermediate Hives Verified 08/25/23 15:47 cefaclor [From Ceclor] Allergy Unknown hands and Unverified 08/25/23 15:26 feet swell Iodinated Contrast Media AdvReac Severe Vomiting Unverified 08/25/23 15:26 Home Medications Medication Instructions Recorded Confirmed Type ondansetron 4 mg disintegrating 4 mg PO Q6H PRN nausea and 05/11/20 08/25/23 Rx tablet vomiting #20 tabs pantoprazole 40 mg tablet,delayed 40 mg PO QAM 05/11/20 08/25/23 History release albuterol sulfate 90 mcg/actuation 2 puff inhalation Q6H PRN 08/25/23 08/25/23 History aerosol inhaler Shortness Of Breath Or Wheezing cholecalciferol (vitamin D3) 1,250 1,250 mcg PO WK 08/25/23 08/25/23 History mcg (50,000 unit) capsule cyclobenzaprine 5 mg tablet 5 mg PO Q8 PRN Muscle Spasm 08/25/23 08/25/23 History daptomycin 1 dose IV UD 08/25/23 08/25/23 History fexofenadine 180 mg tablet 180 mg PO QAM 08/25/23 08/25/23 History gabapentin 100 mg capsule 200 mg PO .EVERY AFTERNOON 08/25/23 08/25/23 History gabapentin 300 mg capsule 300 mg PO QAM 08/25/23 08/25/23 History gabapentin 400 mg capsule 400 mg PO HS 08/25/23 08/25/23 History hydroxyzine HCl 25 mg tablet 12.5 - 25 mg PO Q8 PRN Itching 08/25/23 08/25/23 History ondansetron HCl 4 mg tablet 4 mg PO Q8 PRN Nausea 08/25/23 08/25/23 History sennosides 8.6 mg tablet (Randi-johanna) 17.2 mg PO DAILY 08/25/23 08/25/23 History tramadol 50 mg tablet 50 mg PO Q8 PRN Pain 08/25/23 08/25/23 History Past Med/Surg History Problem List (Updated 08/25/23 @ 16:16 by Deepa Brush MD) Angioedema (Acute) Obesity (Chronic) Medical History Obesity Surgical History History of cholecystectomy History of placement of ear tubes History of tonsillectomy and adenoidectomy Social History Smoking Status: Never smoker Preferred Language: Swazi Feels Safe at Home: Yes Review of Systems Review of Systems: negative otherwise mentioned in HPI. Physical Exam Physical Exam: GENERAL: Alert and oriented x3. NAD, on RA. Obese Class III. HEENT: No pallor, no icterus. Pupils equal, round and reactive to light. Oral mucosa moist. Throat can't be visualized, thick neck/poor opening in general. lower lip swelling x mild to mod and right upper eye lid swelling noted, no erythema of conjunctiva/no pus noted. NECK: No JVD, no neck masses. HEART: S1 and S2 heard. Regular rate and rhythm. tachy noted. No murmur, no gallop. RESPIRATORY SYSTEM: Normal AP diameter. No accessory muscle use. No wheezing, no crackles. ABDOMEN: Soft, bowel sounds present, nontender, no distention. CENTRAL NERVOUS SYSTEM: No facial droop. Speech is clear. Obeys simple commands. Moves extremities. EXTREMITIES: No edema, no erythema seen. Lower back w/ healthy healing surgical scar/no erythema or tenderness on exam. Results & Data Results & Data Vital Signs (Past 12 Hours) Vital Signs Temp Pulse Resp BP Pulse Ox O2 Del Method 08/25/23 15:00 90 17 99 Room Air 08/25/23 15:00 110/74 08/25/23 14:30 101 H 14 96 08/25/23 14:30 112/76 08/25/23 14:08 100 Room Air 08/25/23 14:00 103 H 20 98 08/25/23 14:00 115/78 08/25/23 13:57 108 H 14 97 08/25/23 13:43 36.8 C 116 H 19 125/81 97 Room Air (1) Angioedema Encounter type: initial encounter Qualified Code(s): T78.3XXA - Angioneurotic edema, initial encounter
[2023-08-25] MEDS: ALBUT/IPRATROP 3MG/0.5MG NEB 3 ML VIAL NEB SCH (19:55)
[2023-08-25] MEDS ORDERED: methylPREDNISolone 1000 MG/16 ML IV SCH (20:00)
[2023-08-25] MEDS: methylPREDNISolone 40 MG in SYRINGE 0 ML IV SCH (20:32)
[2023-08-25] MEDS: GABAPENTIN 400 MG CAP PO SCH (20:32)
[2023-08-25] MEDS: FAMOTIDINE 20MG IV PUSH 20 MG/5 ML SYR IV SCH (20:32)
[2023-08-25] MEDS: HEPARIN SOD 5,000 UNIT/0.5 ML VIAL SQ SCH (20:33)
[2023-08-25] MEDS ORDERED: oxyCODONE HCL IR 5 MG TAB (IMMEDIATE RELEASE) PO PRN (20:56)
[2023-08-25] MEDS ORDERED: GLUCOSE 40% GEL 15 GM TUBE PO PRN (20:59)
[2023-08-25] MEDS ORDERED: GLUCAGON FOR INJ 1 MG VIAL SQ PRN (20:59)
[2023-08-25] MEDS ORDERED: DEXTROSE 50% 50 ML SYRINGE IV PRN (20:59)
[2023-08-25] MEDS ORDERED: GLUCOSE 10 TAB/TUBE PO PRN (20:59)
[2023-08-25] MEDS ORDERED: CARBOHYDRATES FOR HYPOGLYCEMIA PO PRN (20:59)
--- NOTE | 2023-08-25 21:00 | Communication Note ---
Date of Service: August 25, 2023 Patient with verbalized concerns of high sugars whenever she she receives steroids as per RN. BSG 300s as per RN Hemoglobin A1c noted to be 6 AP Hyperglycemia Ongoing steroid Rx for angioedema in a prediabetic patient Basal bolus insulin, ISS BG goal 1 10-1 40, carb count coverage
[2023-08-25] MEDS: LINEZOLID 600 MG TAB PO SCH (21:37)
[2023-08-25] MEDS: HYDROCODONE/ACETAMOPHEN 5/325MG TAB PO PRN (21:37)
[2023-08-25] MEDS: MELATONIN 3 MG TAB PO PRN (21:37)
[2023-08-25] MEDS: INSULIN ASPART PER UNIT CHARGE SC SCH (21:38)
[2023-08-25] MEDS: LANTUS PER UNIT CHARGE SQ SCH (21:38)
--- NOTE | 2023-08-25 21:54 | Emergency Department Note ---
Impression & Plan Angioedema ED Provider Note CHIEF COMPLAINT: facial swelling, allergic reaction HISTORY OF PRESENT ILLNESS: This 33 yo female patient with PMH of spina bifida s/p recent spine surgery for a tethered spinal cord with subsequent abscess and now on IV daptomycin through PICC line presents to the emergency department after waking up this morning with a swollen bottom lip and R eye. Pt states she took bendaryl without benefit. She was originally placed on vancomycin but developed a hive like rash and with sloughing of skin on palms of hands. Pt is followed in [place]. She denies throat tightening and SOB at rest, but has some CAPONE. REVIEW OF SYSTEMS: A review of systems was performed with positives and pertinent negatives listed in the history of present illness. 10 systems were reviewed and are otherwise negative. ALLERGIES: see below MEDICATIONS: see below PMH: see below SOCIAL HISTORY: see below DDx: angioedema, medication reaction, allergic reaction, infectious etiology, among others PHYSICAL EXAM: Vital signs reviewed. General: generally well appearing 33 yo female with lower lip swelling and R periorbital swelling, in no significant distress. HEENT: No scleral icterus, PERRLA, neck supple. as above. Post oropharynx is clear without swelling. Cardiovascular: Tachycardic rate and regular rhythm, no extra sounds. Pulmonary: Clear to auscultation bilaterally, normal work of breathing. Abdomen: Soft, nontender, nondistended, positive bowel sounds. Musculoskeletal: Atraumatic, no peripheral edema. well healing incision to lumbar spine Neurologic: Patient awake alert and oriented x 3, speech is clear Skin: Warm, dry, no rash EMERGENCY DEPARTMENT COURSE/MDM: This pt was evaluated and appeared to be in no distress. IV access was obtained and lab work was drawn. Pt was placed on the playground monitor and noted to be in a sinus tachycardia. Pt was given IV pepcid, prednisone and benadryl with minimal if any improvement. After consultation with clinical pharmacist, angioedema from daptomycin is possible but exceedingly rare. She is followed by ID in [place]. CXR and EKG are reassuring. Lab work reveals a normal WBC and pt is afebrile maintaining O2 sats on room air. Case was d/w the hospitalist for further evaluation and management. Pt and mother were informed of the plan and agreed. MONITORING: An order for cardiac monitoring was placed and the patient is noted to be in a sinus tachycardia at 101 beats per minute. RADIOLOGY:CXR to my interpretation reveals no focal lung consolidation, no failure. EKG: to my interpretation reveals a sinus tachycardia at 112 bpm, low voltage QRS, previous inferior infarct. Poor R wave progression. QTc 444, no PVC, no PAC. DISPOSITION: Admit Past Med/Surg History Problem List Prediabetes Spinal abscess Wound dehiscence Spina bifida Allergy to dactinomycin Angioedema (Acute) Obesity (Chronic) Surgical History History of tonsillectomy and adenoidectomy History of placement of ear tubes History of cholecystectomy Social History Smoking Status: Never smoker Do You Dip or Chew Tobacco: No; Hx Alcohol Use: No Hx Substance Use: No Preferred Language: Turkmen Communication Ability: Effective Bilingual Medical Assistant Required: No Beliefs That Will Affect Care: None Current Living Situation: Parent Feels Safe at Home: Yes Assistive Devices: Cane Allergies Allergies Allergy/AdvReac Type Severity Reaction Status Date / Time vancomycin Allergy Intermediate Hives Verified 08/25/23 15:47 cefaclor [From Ceclor] Allergy Unknown hands and Verified 08/25/23 20:50 feet swell Iodinated Contrast Media AdvReac Severe Vomiting Verified 08/25/23 20:50 oxycodone AdvReac Confusion Verified 08/25/23 23:02 Home Meds Home Medications Medication Instructions Recorded Confirmed pantoprazole 40 mg tablet,delayed 40 mg PO QAM 05/11/20 08/25/23 release albuterol sulfate 90 mcg/actuation 2 puff inhalation Q6H PRN 08/25/23 08/25/23 aerosol inhaler Shortness Of Breath Or Wheezing cholecalciferol (vitamin D3) 1,250 1,250 mcg PO WK 08/25/23 08/25/23 mcg (50,000 unit) capsule fexofenadine 180 mg tablet 180 mg PO QAM 08/25/23 08/25/23 gabapentin 100 mg capsule 200 mg PO .EVERY AFTERNOON 08/25/23 08/25/23 gabapentin 300 mg capsule 300 mg PO QAM 08/25/23 08/25/23 gabapentin 400 mg capsule 400 mg PO HS 08/25/23 08/25/23 hydroxyzine HCl 25 mg tablet 12.5 - 25 mg PO Q8 PRN Itching 08/25/23 08/25/23 ondansetron HCl 4 mg tablet 4 mg PO Q8 PRN Nausea 08/25/23 08/25/23 sennosides 8.6 mg tablet (Randi-johanna) 17.2 mg PO DAILY 08/25/23 08/25/23 Previous Rx's Medication Instructions Recorded ondansetron 4 mg disintegrating 4 mg PO Q6H PRN nausea and 05/11/20 tablet vomiting #20 tabs linezolid 600 mg tablet (Zyvox) 600 mg PO BID 16 days #32 tabs 08/27/23 Results & Data (ED) Vital Signs Vital Signs - 24 hr 08/25/23 13:43 08/25/23 13:57 08/25/23 14:00 Temperature 36.8 C Temperature Source Temporal Artery Scan Pulse Rate 116 H 108 H Pulse Rate from SpO2 Sensor 108 H Respiratory Rate 19 14 Respiratory Effort / Characteristics Non-Labored Spontaneous Respiratory Depth Normal Blood Pressure 125/81 115/78 Blood Pressure Mean 95 95 Blood Pressure Position Sitting Pulse Oximetry 97 97 Oxygen Delivery Method Room Air Sepsis Recent Fever Within 48 Hours No Sepsis New/Unexplained Change in Mental Status No Sepsis Action Taken by Nursing No Action Required 08/25/23 14:00 08/25/23 14:08 08/25/23 14:30 Temperature Temperature Source Pulse Rate 103 H Pulse Rate from SpO2 Sensor 104 H Respiratory Rate 20 Respiratory Effort / Characteristics Respiratory Depth Blood Pressure 112/76 Blood Pressure Mean 81 Blood Pressure Position Pulse Oximetry 98 100 Oxygen Delivery Method Room Air Sepsis Recent Fever Within 48 Hours Sepsis New/Unexplained Change in Mental Status Sepsis Action Taken by Nursing 08/25/23 14:30 08/25/23 15:00 08/25/23 15:00 Temperature Temperature Source Pulse Rate 101 H 90 Pulse Rate from SpO2 Sensor 101 H 91 H Respiratory Rate 14 17 Respiratory Effort / Characteristics Respiratory Depth Blood Pressure 110/74 Blood Pressure Mean 86 Blood Pressure Position Pulse Oximetry 96 99 Oxygen Delivery Method Room Air Sepsis Recent Fever Within 48 Hours Sepsis New/Unexplained Change in Mental Status Sepsis Action Taken by Nursing 08/25/23 15:39 08/25/23 16:06 Temperature Temperature Source Pulse Rate 98 H 102 H Pulse Rate from SpO2 Sensor 105 H 102 H Respiratory Rate 10 L 21 Respiratory Effort / Characteristics Respiratory Depth Blood Pressure Blood Pressure Mean Blood Pressure Position Pulse Oximetry 98 97 Oxygen Delivery Method Sepsis Recent Fever Within 48 Hours Sepsis New/Unexplained Change in Mental Status Sepsis Action Taken by Correction Medications Current Medication List: was personally reviewed by me Laboratory Data Attestation: I reviewed the patient's lab results. 08/26/23 20:36 08/26/23 20:36 Lab Results 08/25/23 Range/Units 13:59 WBC 8.16 (4.8-10.8) K/ul RBC 4.17 L (4.20-5.40) M/uL Hgb 10.9 L (12.0-16.0) g/dl Hct 34.7 L (37.0-47.0) % MCV 83.2 (80.0-100.0) fL MCH 26.1 (25.0-34.0) pg MCHC 31.4 L (32.0-36.0) g/dL RDW Std Deviation 44.4 (36.4-46.3) fL RDW Coeff of Brendan 14.7 H (11.5-14.5) % Plt Count 235 (130-400) K/uL MPV 9.9 (9.4-12.4) fL Immature Gran % (Auto) 0.2 % Neut % (Auto) 68.4 % Lymph % (Auto) 24.6 % [place] % (Auto) 5.6 % Eos % (Auto) 0.7 % Baso % (Auto) 0.5 % Neut # (Auto) 5.57 (1.40-6.50) K/uL Lymph # (Auto) 2.01 (1.20-3.40) K/uL [place] # (Auto) 0.46 (0.11-0.59) K/uL Eos # (Auto) 0.06 (0.00-0.50) K/uL Baso # (Auto) 0.04 (0.00-0.20) K/uL Immature Gran # (Auto) 0.02 (0.01-0.20) K/uL Sodium 137 (136-145) mmol/L Potassium 4.3 (3.5-5.1) mmol/L Chloride 104 (98-107) mmol/L Carbon Dioxide 23 (21-32) mmol/L Anion Gap 10 (3-11) BUN 9 (6-23) mg/dl Creatinine 0.79 (0.6-1.2) mg/dl Est Cr Clr Drug Dosing 136.1 ml/min Est GFR ( Amer) 115.6 ml/min Est GFR (Non-Af Amer) 99.8 ml/min BUN/Creatinine Ratio 11.4 (10-20) Glucose 132 H (70-99(Fasting)) mg/dl Estimat Average Glucose 126 mg/dl Hemoglobin A1c 6.0 H (4.5-5.6) % Calcium 9.3 (8.6-10.3) mg/dl Total Bilirubin 0.4 (0.2-1.0) mg/dl AST 23 (13-39) U/L ALT 24 (7-52) U/L Alkaline Phosphatase 83 (34-104) U/L Total Protein 7.9 (6.0-8.3) gm/dl Albumin 4.2 (3.4-5.0) gm/dl Globulin 3.7 (2.5-4.0) gm/dl Albumin/Globulin Ratio 1.1 (0.9-2) Administered Medications Discontinued Medications Hydrocodone Bitart/Acetaminophen (Hydrocodone/Acetamophen 5/325mg Tab) 1 tab PO QID PRN PRN Reason: Pain Stop: 09/08/23 20:58 Last Admin: 08/26/23 21:10 Dose: 1 tab Documented By: Admin: 08/25/23 21:37 Dose: 1 tab Documented By: STARR Albuterol (Albut/Ipratrop 3mg/0.5mg Neb 3 Ml Vial) 3 ml NEB Q6R SHARIFA; Protocol Stop: 09/24/23 18:59 Last Admin: 08/26/23 07:12 Dose: Not Given Documented By: [id number] Admin: 08/26/23 00:32 Dose: Not Given Documented By: Admin: 08/25/23 19:55 Dose: 3 ml Documented By: APOLINAR Albuterol (Albut/Ipratrop 3mg/0.5mg Neb 3 Ml Vial) 3 ml NEB Q6R PRN; Protocol PRN Reason: Shortness Of Breath Or Wheezing Stop: 09/24/23 18:59 Last Admin: 08/26/23 19:42 Dose: 3 ml Documented By: EDILBERTO Diphenhydramine HCl (Diphenhydramine 50 Mg/Ml Vial) 50 mg IV NOW STA Stop: 08/25/23 14:08 Last Admin: 08/25/23 14:17 Dose: 50 mg Documented By: LINA Diphenhydramine HCl (Diphenhydramine 50 Mg/Ml Vial) 25 mg IV Q8H PRN PRN Reason: itching, allergic reaction Stop: 09/24/23 16:21 Last Admin: 08/26/23 04:28 Dose: 25 mg Documented By: STARR Diphenhydramine HCl (Diphenhydramine Capsule 25 Mg Cap) 25 mg PO QID PRN PRN Reason: itch Stop: 09/25/23 21:01 Last Admin: 08/27/23 11:56 Dose: 25 mg Documented By: Admin: 08/26/23 22:17 Dose: 25 mg Documented By: STARR Diphenhydramine HCl (Diphenhydramine 50 Mg/Ml Vial) 25 mg IV NOW STA Stop: 08/26/23 21:11 Last Admin: 08/26/23 22:17 Dose: 25 mg Documented By: STARR Famotidine (Famotidine 20 Mg Tab) 20 mg PO BID SHARIFA Stop: 09/25/23 20:59 Last Admin: 08/27/23 08:40 Dose: 20 mg Documented By: OFritz Admin: 08/26/23 21:10 Dose: 20 mg Documented By: STARR Fexofenadine HCl (Fexofenadine Hcl 180 Mg Tab) 180 mg PO QAM SHARIFA Stop: 09/25/23 08:59 Last Admin: 08/27/23 08:41 Dose: 180 mg Documented By: OFritz Admin: 08/26/23 08:17 Dose: 180 mg Documented By: DECLAN Gabapentin (Gabapentin 400 Mg Cap) 400 mg PO HS SHARIFA Stop: 09/24/23 20:59 Last Admin: 08/26/23 21:10 Dose: 400 mg Documented By: Admin: 08/25/23 20:32 Dose: 400 mg Documented By: STARR Gabapentin (Gabapentin 300 Mg Cap) 300 mg PO QAM SHARIFA Stop: 09/25/23 08:59 Last Admin: 08/27/23 08:40 Dose: 300 mg Documented By: OFritz Admin: 08/26/23 08:17 Dose: 300 mg Documented By: DECLAN Gabapentin (Gabapentin 100 Mg Cap) 200 mg PO TODAY@1500 SHARIFA Stop: 09/25/23 14:59 Last Admin: 08/26/23 15:08 Dose: 200 mg Documented By: DECLAN Heparin Sodium (Beef Lung) (Heparin 10 Unit/Ml 5 Ml Flush) 5 ml FLUSH PRN PRN PRN Reason: Flush Stop: 09/24/23 22:08 Last Admin: 08/27/23 05:19 Dose: 5 ml Documented By: Admin: 08/26/23 22:00 Dose: 5 ml Documented By: Admin: 08/26/23 04:28 Dose: 5 ml Documented By: Admin: 08/25/23 22:40 Dose: 5 ml Documented By: STARR Heparin Sodium (Porcine) (Heparin Sod 5,000 Unit/0.5 Ml Vial) 5,000 units SQ Q8 SHARIFA Stop: 09/24/23 21:59 Last Admin: 08/27/23 05:19 Dose: 5,000 units Documented By: Admin: 08/26/23 21:10 Dose: 5,000 units Documented By: Admin: 08/26/23 15:08 Dose: 5,000 units Documented By: Admin: 08/26/23 06:06 Dose: 5,000 units Documented By: Admin: 08/25/23 20:33 Dose: 5,000 units Documented By: STARR Famotidine (Pepcid 20mg Iv Push) 20 mg in 5 mls @ 2.5 mls/min IV NOW STA Stop: 08/25/23 14:08 Last Admin: 08/25/23 14:17 Dose: 2.5 mls/min Documented By: LINA Sodium Chloride (Nss) 1,000 mls @ 125 mls/hr IV .Q8H SHARIFA Stop: 08/25/23 22:14 Last Infusion: 08/25/23 22:40 Dose: Infused Documented By: Admin: 08/25/23 14:21 Dose: 125 mls/hr Documented By: LINA Famotidine (Pepcid 20mg Iv Push) 20 mg in 5 mls @ 2.5 mls/min IV BID SHARIFA Stop: 09/24/23 20:59 Last Admin: 08/26/23 08:17 Dose: 2.5 mls/min Documented By: Admin: 08/25/23 20:32 Dose: 2.5 mls/min Documented By: STARR Methylprednisolone 40 mg/ (Syringe) 0.64 mls @ 1.5 mls/min IV Q8H SHARIFA Stop: 09/24/23 20:29 Last Admin: 08/26/23 12:29 Dose: 1.5 mls/min Documented By: Admin: 08/26/23 04:28 Dose: 1.5 mls/min Documented By: Admin: 08/25/23 20:32 Dose: 1.5 mls/min Documented By: STARR Sodium Chloride (Nss) 1,000 mls @ 100 mls/hr IV .Q10H ONE Stop: 08/27/23 07:03 Last Admin: 08/26/23 21:38 Dose: Not Given Documented By: STARR Magnesium Sulfate/Dextrose (Magnesium Sulfate / D5w) 1 gm in 100 mls @ 50 mls/hr IV ONE ONE Stop: 08/26/23 23:26 Last Infusion: 08/27/23 00:17 Dose: Infused Documented By: Admin: 08/26/23 22:17 Dose: 50 mls/hr Documented By: STARR Potassium Chloride/Sodium Chloride (Normal Saline W/20 Meq Kcl) 20 meq in 1,000 mls @ 100 mls/hr IV .Q10H ONE; Protocol Stop: 08/27/23 07:26 Last Admin: 08/26/23 21:40 Dose: Not Given Documented By: STARR Potassium Chloride 20 meq/ (Lactated Ringer's) 1,010 mls @ 150 mls/hr IV .Q6H44M ONE Stop: 08/27/23 04:12 Last Infusion: 08/27/23 05:48 Dose: Infused Documented By: Admin: 08/26/23 22:17 Dose: 150 mls/hr Documented By: STARR Insulin Aspart (Insulin Aspart Per Unit Charge) 0 units SC ACHS SHARIFA Stop: 09/24/23 20:59 Last Admin: 08/27/23 12:08 Dose: 7 units Documented By: TREVA Co-signed By: ANU Admin: 08/27/23 08:38 Dose: 4 units Documented By: OFritz Co-signed By: BLAYNE Admin: 08/26/23 21:11 Dose: 3 units Documented By: STARR Co-signed By: SANDRA Admin: 08/26/23 17:20 Dose: 6 units Documented By: DECLAN Co-signed By: QUANG Admin: 08/26/23 12:29 Dose: 6 units Documented By: DTT Co-signed By: QUANG Admin: 08/26/23 08:18 Dose: 4 units Documented By: DECLAN Co-signed By: QUANG Admin: 08/25/23 21:38 Dose: 8 units Documented By: AMW Co-signed By: ANDREEA Insulin Glargine (Lantus Per Unit Charge) 15 units SQ HS [facility] Stop: 09/24/23 21:29 Last Admin: 08/25/23 21:38 Dose: 15 units Documented By: AMW Co-signed By: ANDREEA Insulin Glargine (Lantus Per Unit Charge) 20 units SQ HS [facility] Stop: 09/25/23 20:59 Last Admin: 08/26/23 21:10 Dose: 20 units Documented By: STARR Co-signed By: SANDRA Ioversol (Optiray 320 125ml) 125 ml IV ONCE ONE Stop: 08/26/23 22:55 Last Admin: 08/26/23 22:54 Dose: 119 ml Documented By: KAMAR Lactobacillus Acidophilus (Advanced Probiotic 625 Mg Capsule) 1,250 mg PO DAILY [facility] Stop: 09/25/23 08:59 Last Admin: 08/27/23 08:41 Dose: 1,250 mg Documented By: Admin: 08/26/23 08:17 Dose: 1,250 mg Documented By: DECLAN Levalbuterol HCl (Levalbuterol 1.25 Mg/3 Ml Neb) 1.25 mg NEB Q4H PRN PRN Reason: sob wheeze Stop: 09/26/23 04:12 Last Admin: 08/27/23 10:08 Dose: 1.25 mg Documented By: TELMA Linezolid (Linezolid 600 Mg Tab) 600 mg PO BID [facility] Stop: 09/04/23 20:59 Last Admin: 08/27/23 08:40 Dose: 600 mg Documented By: Admin: 08/26/23 21:10 Dose: 600 mg Documented By: Admin: 08/26/23 08:17 Dose: 600 mg Documented By: Admin: 08/25/23 21:37 Dose: 600 mg Documented By: AMW Melatonin (Melatonin 3 Mg Tab) 6 mg PO HS PRN PRN Reason: Sleep Stop: 09/24/23 20:56 Last Admin: 08/26/23 21:10 Dose: 6 mg Documented By: Admin: 08/25/23 21:37 Dose: 6 mg Documented By: AMW Methylprednisolone (Methylprednisolone 125 Mg/2 Ml Vial) 60 mg IV NOW STA Stop: 08/25/23 14:08 Last Admin: 08/25/23 14:17 Dose: 60 mg Documented By: LKD Ondansetron HCl (Ondansetron Inj 2 Mg/Ml 2 Ml Vial) 4 mg IV NOW STA Stop: 08/26/23 22:15 Last Admin: 08/26/23 22:41 Dose: 4 mg Documented By: AMW Prednisone (Prednisone 20 Mg Tab) 40 mg PO DAILY SHARIFA Stop: 09/26/23 08:59 Last Admin: 08/27/23 08:39 Dose: 40 mg Documented By: OO Sennosides (Senna 8.6 Mg Tab) 17.2 mg PO DAILY SHARIFA Stop: 09/25/23 08:59 Last Admin: 08/27/23 08:41 Dose: 17.2 mg Documented By: Admin: 08/26/23 08:17 Dose: 17.2 mg Documented By: DTT Imaging Data Radiologist's Impression: Chest X-Ray 08/25/23 14:08 XR chest 1V portable HISTORY: 33 years-old Female SOB acute shortness of breath COMPARISON: None TECHNIQUE: AP view the chest FINDINGS: Cardiac silhouette is within normal limits. Lungs are clear. No pneumothorax or pleural effusion. Bones appear grossly intact. IMPRESSION: No acute process. ACT 112: Negative or not required by law. The above report was generated using voice recognition software. It may contain grammatical, syntax or spelling errors. Electronically signed by: Venu Jerez M.D. 08/25/2023 2:30 PM Discharge Plan Visit Data Chief Complaint: Swelling/Edema to Extremity Stated Complaint: SWELLING, LIP AND RIGHT FACE ED Provider: Deepa Brush Discharge Problem: Angioedema Patient Disposition: Admitted As Inpatient Discharge Instructions Interventions: ED Discharge Assessment Last Done: 08/25/23 19:09 Discharge Problem: Angioedema Qualifiers: Encounter type: initial encounter Qualified Code(s): T78.3XXA - Angioneurotic edema, initial encounter
[2023-08-25 22:00] LABS: Estimated Average Glucose 126 mg/dl
[2023-08-26] MEDS: diphenhydrAMINE 50 MG/ML VIAL IV PRN (04:28)
[2023-08-26] MEDS: FEXOFENADINE HCL 180 MG TAB PO SCH (08:17)
[2023-08-26] MEDS: GABAPENTIN 300 MG CAP PO SCH (08:17)
[2023-08-26] MEDS: ADVANCED PROBIOTIC 625 MG CAPSULE PO SCH (08:17)
[2023-08-26] MEDS: SENNA 8.6 MG TAB PO SCH (08:17)
[2023-08-26] MEDS ORDERED: CETIRIZINE HCL 10 MG TABLET PO SCH (09:00)
[2023-08-26] MEDS: GABAPENTIN 100 MG CAP PO SCH (15:08)
--- NOTE | 2023-08-26 16:09 | Hospitalist Progress Note ---
Date of Service August 26, 2023 Assessment & Plan (1) Angioedema: (2) Wound dehiscence: (3) Spinal abscess: (4) Allergy to dactinomycin: (5) Spina bifida: (6) Prediabetes: Plan Patient presented with acute angioedema most likely allergic reaction to daptomycin. Patient on daptomycin for a wound dehiscence and subfascial spinal abscess that resulted after patient underwent laminectomy for tethered cord and spina bifida on 06/22/2023. Patient's allergic reaction angioedema significantly improved/resolved today, transition to oral medications Extensive review of records from outside facility and outside EMR including discharge summary, notes from infectious disease and cultures and sensitivities of her Enterococcus and coag negative staph infections. Of note both of these bacteria were sensitive to linezolid. Continue linezolid, awaiting infectious disease review. Activity as tolerated Case management to evaluate cause for linezolid Hyperglycemia due to steroid use in the setting of prediabetes, will continue to monitor Monitor labs in a.m. 54 minutes spent in evaluation of patient, review of records, coordination of care Admission and Anticipated Discharge Date Admission Date: August 25, 2023 Subjective Patient reports that her facial and lip swelling is significantly resolved and improved Physical Exam Physical Exam: Constitutional: Alert HEENT: Mucous membranes moist., Lips are not swollen. No significant edema around eyes lids Lungs: Clear to auscultation, decreased, no wheezes rales or rhonchi CV: S1-S2, regular Abdomen: Soft, nontender, nondistended Extremities: No significant edema, PICC line left upper extremity Neuro: No focal deficits Psych: Cooperative, normal mood Results & Data Results & Data Vital Signs (Past 12 Hours) Vital Signs Temp Pulse Pulse Resp BP Pulse Ox O2 Del Method 08/26/23 15:36 36.9 C 125 H 18 126/72 94 Room Air 08/26/23 11:09 36.3 C L 106 H 18 114/66 93 Room Air 08/26/23 08:00 77 08/26/23 07:33 37.2 C 93 H 18 111/68 98 Room Air Diagnostic Findings Reviewed imaging, laboratory and diagnostic studies. Pertinent findings as below. Glucose was reviewed Hemoglobin A1c 6.0% (1) Angioedema Encounter type: initial encounter Qualified Code(s): T78.3XXA - Angioneurotic edema, initial encounter
--- NOTE | 2023-08-26 16:58 | Electrocardiogram Report ---
Test Reason : Blood Pressure : / mmHG Vent. Rate : 112 BPM Atrial Rate : 112 BPM P-R Int : 176 ms QRS Dur : 072 ms QT Int : 326 ms P-R-T Axes : 039 011 032 degrees QTc Int : 444 ms Sinus tachycardia Low voltage QRS Inferior infarct , age undetermined Poor R wave progression, consider anterior MT vs. lead placement vs. LVH Abnormal ECG No previous ECGs available Confirmed by Frankie Rodriguez ([id number]) on 08/26/2023 4:58:20 PM Referred By: REFERRED SELF Confirmed By:Frankie Rodriguez
[2023-08-26] MEDS: ALBUT/IPRATROP 3MG/0.5MG NEB 3 ML VIAL NEB PRN (19:42)
--- NOTE | 2023-08-26 20:20 | Communication Note ---
Date of Service: August 26, 2023 Patient noted to be tachycardic as per DRUG COORDINATOR. Heart rate 1 20-1 30s post breathing treatment. Patient supposed to transfer to [facility] floor Patient complaining of shortness of breath and palpitations. Chest x-ray as per my interpretation no congestion EKG as per my interpretation : Rate 125, sinus tachycardia, normal axis, T wave abnormalities septal leads AP Tachycardia with shortness of breath Rule out PE Hold MedSur transfer Keep patient in PCU CT chest PE study rule out PE
[2023-08-26 21:00] LABS: Basophils # (auto) 0.02 K/uL (0.00-0.20); Basophils % (auto) 0.1 %; Hematocrit (blood only) 36.8 % (37.0-47.0); Hemoglobin 11.6 g/dl (12.0-16.0); Immature Granulocytes # (auto) 0.13 K/uL (0.01-0.20); Immature Granulocytes % (auto) 0.8 %; Lymphocytes # (auto) 2.05 K/uL (1.20-3.40); Lymphocytes % (auto) 13.3 %; Mean Corpuscular Hgb Conc 31.5 g/dL (32.0-36.0); Mean Corpuscular Volume 82.5 fL (80.0-100.0); Mean Platelet Volume 9.4 fL (9.4-12.4); Monocytes # (auto) 0.44 K/uL (0.11-0.59); Monocytes % (auto) 2.9 %; Neutrophils # (auto) 12.78 K/uL (1.40-6.50); Neutrophils % (auto) 82.9 %; Platelet Count 309 K/uL (130-400); RDW Coefficient of Variation 14.9 % (11.5-14.5); RDW Standard Deviation 43.8 fL (36.4-46.3); Red Blood Count 4.46 M/uL (4.20-5.40); White Blood Count 15.42 K/ul (4.8-10.8)
[2023-08-26 21:04] LABS: BUN Creatinine Ratio 13.1 (10-20); Calcium 10.1 mg/dl (8.6-10.3); Creatinine Clr Calc Pharmacy 100.6 ml/min; Est GFR (African American) 80.1 ml/min; Est GFR (Non-African American) 69.1 ml/min; Magnesium 1.9 mg/dl (1.7-2.4); Potassium 3.8 mmol/L (3.5-5.1)
[2023-08-26] MEDS: FAMOTIDINE 20 MG TAB PO SCH (21:10)
[2023-08-26] MEDS: LANTUS PER UNIT CHARGE SQ SCH (21:10)
[2023-08-26 21:15] LABS: Partial Thromboplastin Ratio 0.7; Partial Thromboplastin Time 20 Seconds (21-31)
[2023-08-26 21:20] LABS: Thyroid Stimulating Hormone 0.627 uIu/ml (0.300-4.500)
[2023-08-26] MEDS: SODIUM CHLORIDE 0.9% 1,000 ML IV ONE (21:38)
[2023-08-26] MEDS: NSS + 20MEQ KCL 20 MEQ/1,000 ML BAG IV ONE (21:40)
[2023-08-26 22:11] LABS: Troponin I High Sensitivity 2.9 pg/ml (0-14)
[2023-08-26] MEDS: diphenhydrAMINE Capsule 25 MG CAP PO PRN (22:17)
[2023-08-26] MEDS: MAGNESIUM SULFATE / D5W 1 GM/100 ML BAG IV ONE (22:17)
[2023-08-26] MEDS: POTASSIUM CHLORIDE 20 MEQ in LACTATED RINGER'S 1,000 ML IV ONE (22:17)
[2023-08-26] MEDS: diphenhydrAMINE 50 MG/ML VIAL IV STA (22:17)
[2023-08-26] MEDS: ONDANSETRON INJ 2 MG/ML 2 ML VIAL IV STA (22:41)
[2023-08-26] MEDS: OPTIRAY 320 125ml IV ONE (22:54)
[2023-08-27] MEDS ORDERED: LINEZOLID 600 MG TAB PO SCH
--- NOTE | 2023-08-27 02:06 | CT Scan Report ---
Exam(s): CTA CHEST IV Amt: 118 ML OPTIRAY 320 EXAM: CT Angiography Chest With Intravenous Contrast CLINICAL HISTORY: Reason for exam: sob, tachy. TECHNIQUE: Axial computed tomographic angiography images of the chest with intravenous contrast. Automated exposure control was utilized for the study. A dose lowering technique was utilized adhering to the principles of ALARA. MIP reconstructed images were created and reviewed. COMPARISON: No relevant prior studies available. FINDINGS: Pulmonary arteries: Unremarkable. No pulmonary embolism. Aorta: No acute findings. No thoracic aortic aneurysm. Lungs: Unremarkable. No mass. No consolidation. Pleural space: Unremarkable. No significant effusion. No pneumothorax. Heart: Unremarkable. No cardiomegaly. No significant pericardial effusion. No evidence of RV dysfunction. Bones/joints: No acute fracture. No dislocation. Soft tissues: Unremarkable. Lymph nodes: Unremarkable. No enlarged lymph nodes. Liver: Hepatic steatosis. Gallbladder and bile ducts: Cholecystectomy. IMPRESSION: No acute pulmonary embolism. Electronically signed by: Lazaro Arias MD 08/27/23 02:05 AM
--- NOTE | 2023-08-27 07:05 | XRay Report ---
XR chest 1V portable HISTORY: 33 years-old Female sob acute shortness of breath COMPARISON: 08/26/2023 TECHNIQUE: AP view of the chest FINDINGS: Cardiomediastinal and hilar silhouettes are within normal limits. No pneumothorax, pleural effusion o r airspace consolidation. The bones appear grossly intact. IMPRESSION: No acute process. ACT 112: Negative or not required by law. The above report was generated using voice recognition software. It may contain grammatical, syntax o r spelling errors. Electronically signed by: Venu Jerez M.D. 08/27/2023 7:03 AM
[2023-08-27] MEDS: predniSONE 20 MG TAB PO SCH (08:39)
[2023-08-27] MEDS: LEVALBUTEROL 1.25 MG/3 ML NEB NEB PRN (10:08)
--- NOTE | 2023-08-27 12:43 | Electrocardiogram Report ---
Test Reason : Blood Pressure : / mmHG Vent. Rate : 123 BPM Atrial Rate : 123 BPM P-R Int : 166 ms QRS Dur : 080 ms QT Int : 318 ms P-R-T Axes : 063 055 056 degrees QTc Int : 455 ms Sinus tachycardia Low voltage QRS Cannot rule out Anterior infarct (cited on or before 25-AUG-2023) Abnormal ECG When compared with ECG of 25-AUG-2023 13:54, Questionable change in initial forces of Anterior leads Confirmed by Frankie Rodriguez ([id number]) on 08/27/2023 12:42:57 PM Referred By: REFERRED SELF Confirmed By:Frankie Rodriguez
--- NOTE | 2023-08-27 12:56 | Electrocardiogram Report ---
Test Reason : Blood Pressure : / mmHG Vent. Rate : 120 BPM Atrial Rate : 120 BPM P-R Int : 176 ms QRS Dur : 080 ms QT Int : 316 ms P-R-T Axes : 053 027 052 degrees QTc Int : 446 ms Sinus tachycardia Poor R wave progression, consider anterior [place] vs. lead placement vs. LVH Abnormal ECG When compared with ECG of 26-AUG-2023 20:39, (unconfirmed) No significant change was found Confirmed by Frankie Rodriguez ([id number]) on 08/27/2023 12:56:34 PM Referred By: REFERRED SELF Confirmed By:Frankie Rodriguez
--- NOTE | 2023-08-27 13:35 | Infectious Disease Consult ---
Date of Service August 27, 2023 Telehealth Information I performed this visit using a real-time telehealth connection between my location and the patients location ([facility]). After connecting through interactive tele-video, patient was identified by name and date of and/or wristband check.Patient (or authorized healthcare product support sales representative) was informed that this was a telemedicine visit and it was being conducted confidentially over secure lines. My office door was closed and no one else was present in the room with me.Patient (or authorized healthcare product support sales representative) provided consent to proceed with the visit, expressed an understanding of privacy and security of the telemedicine visit, and gave permission to have a hospital product support sales representative in the room in order to assist with the visit and to conduct portions of the visit, as needed. I informed the patient (or authorized healthcare product support sales representative) that I reviewed their record and presented the opportunity for them to ask any questions regarding the visit today. The patient agreed to participate. Assessment & Plan (1) Spinal abscess: Plan: The patient reported that she has already been seen during the current admission by her own [facility] Infectious Disease provider. The [facility] provider has made a plan and is planning to follow the patient after discharge. Therefore, I will sign off the case and defer all further management to [facility] and [facility] hospitalist group. Please relay this message to [facility]. History of Present Illness History of Present Illness The patient was admitted for an allergic reaction (in the context of a spinal infection that occurred after surgery an another hospital that was being treated with vancomycin [which caused hives] then daptomycin). Allergies Allergy/AdvReac Type Severity Reaction Status Date / Time vancomycin Allergy Intermediate Hives Verified 08/25/23 15:47 cefaclor [From Ceclor] Allergy Unknown hands and Verified 08/25/23 20:50 feet swell Iodinated Contrast Media AdvReac Severe Vomiting Verified 08/25/23 20:50 oxycodone AdvReac Confusion Verified 08/25/23 23:02 Home Medications Medication Instructions Recorded Confirmed Type ondansetron 4 mg disintegrating 4 mg PO Q6H PRN nausea and 05/11/20 08/25/23 Rx tablet vomiting #20 tabs pantoprazole 40 mg tablet,delayed 40 mg PO QAM 05/11/20 08/25/23 History release albuterol sulfate 90 mcg/actuation 2 puff inhalation Q6H PRN 08/25/23 08/25/23 History aerosol inhaler Shortness Of Breath Or Wheezing cholecalciferol (vitamin D3) 1,250 1,250 mcg PO WK 08/25/23 08/25/23 History mcg (50,000 unit) capsule cyclobenzaprine 5 mg tablet 5 mg PO Q8 PRN Muscle Spasm 08/25/23 08/25/23 History daptomycin 1 dose IV UD 08/25/23 08/25/23 History fexofenadine 180 mg tablet 180 mg PO QAM 08/25/23 08/25/23 History gabapentin 100 mg capsule 200 mg PO .EVERY AFTERNOON 08/25/23 08/25/23 History gabapentin 300 mg capsule 300 mg PO QAM 08/25/23 08/25/23 History gabapentin 400 mg capsule 400 mg PO HS 08/25/23 08/25/23 History hydroxyzine HCl 25 mg tablet 12.5 - 25 mg PO Q8 PRN Itching 08/25/23 08/25/23 History ondansetron HCl 4 mg tablet 4 mg PO Q8 PRN Nausea 08/25/23 08/25/23 History sennosides 8.6 mg tablet (Randi-johanna) 17.2 mg PO DAILY 08/25/23 08/25/23 History tramadol 50 mg tablet 50 mg PO Q8 PRN Pain 08/25/23 08/25/23 History linezolid 600 mg tablet (Zyvox) 600 mg PO BID 16 days #32 tabs 08/27/23 Rx Patient History Medical History Obesity Surgical History History of cholecystectomy History of placement of ear tubes History of tonsillectomy and adenoidectomy Social History Smoking Status: Never smoker Do You Dip or Chew Tobacco: No; Hx Alcohol Use: No Hx Substance Use: No Preferred Language: Turkmen Communication Ability: Effective Barbecue Cook Required: No Beliefs That Will Affect Care: None Current Living Situation: Parent Other Information That Helps Us Care for You: No Feels Safe at Home: Yes Safety Concerns: Feels Safe At This Time Assistive Devices: Cane Review of Systems As reviewed in HPI; a complete ROS was otherwise negative Physical Exam Vitals: as above (or see EMR) Exam limited due to constraints of telemedicine Gen/Constitutional: appears at stated age, NAD, nontoxic Head: AT, NC Eyes: sclera anicteric, no conjunctival injection ENT: MMM, trachea midline Card: appears to be well-perfused Resp: not tachypneic, nml effort, symmetric chest rise, no accessory muscle use Derm: no visible diaphoresis, no visible rash, no visible jaundice Results & Data Vital Signs (Past 12 Hours) Vital Signs Temp Pulse Resp BP Pulse Ox O2 Del Method O2 Flow Rate 08/27/23 11:27 36.9 C 110 H 18 114/76 94 Room Air 08/27/23 10:08 110 H 20 99 Nasal Cannula 2 08/27/23 07:45 36.3 C L 83 18 114/77 100 Room Air 08/27/23 02:28 36.6 C 78 18 103/66 98 Room Air Laboratory Results SEE EMR Diagnostic Findings SEE EMR
--- NOTE | 2023-08-27 13:55 | Discharge Summary ---
Date of Service August 27, 2023 Admission HPI Per Admitting Provider 33-year-old lady with PMH of PCOS, mixed dyslipidemia, obesity class III, vitamin D deficiency, neurological symptoms, history of tethered spinal cord status post surgical repair complicated with infection currently being treated with antibiotic. Patient came in with complaint of waking up from sleep with lip swelling and right eyelid swelling associated with some throat tightness and chest tightness, reports breathing okay. Patient denies chest pain/palpitation/wheezing/belly pain/acute changes in her appetite/bowel/bladder habits/. Patient denies fever. Of note, patient does have history of asthma and uses rescue inhaler up to 2 times a week. Patient recently had operation for tethered spinal cord at the [facility], complicated with infection, underwent washout at [facility] and was started on vancomycin [patient's side of the portal showed growth of heavy Enterococcus faecalis and heavy Staph epidermidis; psychiatric secretary working on getting formal report from the [facility]]. Patient was started on vancomycin, at 2 weeks jaja of vancomycin therapy patient had ongoing/worsening hives and hence vancomycin was discontinued. She was switched to daptomycin, as of today she got 12 days worth of daptomycin [last dose last evening] but she comes in with lip swelling/throat tightness/right eyelid swelling. She was supposed to be on antibiotic for total of 6 weeks per her. Patient does not have ophthalmoplegia on examination. Medications were reviewed with the patient in detail. Plan of care were discussed with the patient and her mother at bedside in detail. They voiced understanding and were agreeable to plan of care. Full code Admission Exam Per Admitting Provider See H&P Principal Diagnosis Acute allergic reaction/angioedema Discharge Exam Constitutional: Alert HEENT: Mucous membranes moist. Facial swelling, eyelid swelling, severe lip swelling completely resolved and back to baseline Lungs: Clear to auscultation, decreased, no wheezes rales or rhonchi CV: S1-S2, regular Abdomen: Soft, nontender, nondistended Extremities: No significant edema Musculoskeletal: Surgical incision over lumbar spine healing well, no evidence of infection or cellulitis Neuro: No focal deficits Psych: Cooperative, normal mood Discharge Data Allergies Allergy/AdvReac Type Severity Reaction Status Date / Time vancomycin Allergy Intermediate Hives Verified 08/25/23 15:47 cefaclor [From Ceclor] Allergy Unknown hands and Verified 08/25/23 20:50 feet swell Iodinated Contrast Media AdvReac Severe Vomiting Verified 08/25/23 20:50 oxycodone AdvReac Confusion Verified 08/25/23 23:02 Consultations 08/25/23 16:48 Consult Infectious Diseases Routine Ordered Studies 08/26/23 21:04 CT angio chest PE protocol Stat Reviewed imaging, laboratory and diagnostic studies. Pertinent findings as below. WBCs 15.4, increase due to steroids Hemoglobin 11.6 Electrolytes within normal ranges Glucose 199, elevated in the setting of steroid use Hospital Course (1) Angioedema: (2) Wound dehiscence: (3) Spinal abscess: (4) Allergy to dactinomycin: (5) Spina bifida: (6) Prediabetes: Plan Patient presented to the emergency room with acute onset of swelling around her eyelids and severe lip edema. Patient is on IV daptomycin for surgical wound infection. There was concern that this was an allergic reaction to daptomycin. Patient was admitted to the hospital. She was treated aggressively with steroids, H2 blockers and H1 blockers. By the following morning her symptoms completely resolved. The daptomycin was discontinued and she was started on Zyvox. Patient tolerated the Zyvox well. On the day of discharge was able to have a Zoom conversation with the patient and her infectious disease specialist at [facility]. He was agreeable to continuing treatment with Zyvox. He had a low suspicion that this was a true allergy to daptomycin. Patient and family report that she may have had some exposure to campfire smoke or possibly some other airborne allergens she was out in the [place] before this started. Will continue treating her for acute allergic reaction with the H2 sandra H1 sandra and steroids. director professional services and care coordination was involved in her care. We are able to coordinate a cost-effective plan for her to continue the Zyvox. Will remove her PICC line prior to discharge. She will continue the course of Zyvox through September 11 which was her initial recommendations for treatment of her infection. She will follow-up with her outpatient providers as previously arranged. [facility] Attestation I certify that this patient is under my care and that I, or a physicians business banking sales assistant working with me, had a face to-face encounter that meets the [facility] [id number] encounter requirements with this patient. The encounter with the patient was in whole, or in part, for the following medic al condition, which is the primary reason for home health care (list medical condition): I certify that, based on my findings, the following services are medically necessary home health services: My clinical findings support the need for the above services because: Further, I certify that my clinical findings support that this patient is homebound (i.e. absences from home require considerable and taxing effort and are for medical reasons or mandaen services or infrequently or of short duration when for other reasons) because: Certification for Home Health Services: Based on the above findings, I certify that this patient is confined to the home and needs intermittent senior care care, physical therapy and/or speech therapy or continues to need occupational therapy. The patient is under my care, and I have initiated the establishment of the plan of care. This patient will be followed by a physician who will periodically review the plan of care. Total Time Total Time Spent Total Time Spent (In Minutes): 45 Discharge Plan Discharge Items Patient Disposition: Home - Home Health Services Reason For Visit: ? ALLERGIC REACTION Discharge Diagnosis: Acute allergic reaction/angioedema Activity: Resume your previous activity Non-emergency contact: Primary Care Provider Call non-emergency contact if: you have any medication questions Follow-up/Referrals: Jennifer Rodrigez MD [Outside Practitioners] - (Date & Time 09/03/2023 2:00 PM Provider Partha Russo DO Department General Internal Medicine [facility] ) Diet: Other - See Diet Comment Diet Comment: Resume your previous diet Addtl Attending Provider Instructions: Continue with your outpatient specialist appointments as scheduled Pending Studies at Discharge: No Stand-Alone Forms: My [facility], Smoking Cessation Medications and DC Order Prescriptions: New linezolid [Zyvox] 600 mg tablet 600 mg PO BID 16 Days Qty: 32 0RF prednisone 20 mg Tablet 40 mg PO DAILY 3 Days Qty: 6 0RF famotidine 20 mg Tablet 20 mg PO BID 3 Days Qty: 6 0RF Continued pantoprazole 40 mg tablet,delayed release (DR/EC) 40 mg PO QAM ondansetron 4 mg tablet,disintegrating 4 mg PO Q6H PRN (Reason: nausea and vomiting) Qty: 20 0RF sennosides [Randi-johanna] 8.6 mg tablet 17.2 mg PO DAILY fexofenadine 180 mg tablet 180 mg PO QAM Rx Instructions: may take twice a day until rash is better hydroxyzine HCl 25 mg tablet 12.5 - 25 mg PO Q8 PRN (Reason: Itching) gabapentin 300 mg capsule 300 mg PO QAM ondansetron HCl 4 mg tablet 4 mg PO Q8 PRN (Reason: Nausea) cholecalciferol (vitamin D3) 1,250 mcg (50,000 unit) capsule 1,250 mcg PO WK Rx Instructions: sundays albuterol sulfate 90 mcg/actuation Hfa Aerosol Inhaler 2 puff INHALATION Q6H PRN (Reason: Shortness Of Breath Or Wheezing) gabapentin 400 mg capsule 400 mg PO HS gabapentin 100 mg capsule 200 mg PO .EVERY AFTERNOON Discontinued cyclobenzaprine 5 mg tablet 5 mg PO Q8 PRN (Reason: Muscle Spasm) tramadol 50 mg tablet 50 mg PO Q8 PRN (Reason: Pain) daptomycin 1 dose IV UD Rx Instructions: pt is unsure of strength Discharge Orders: Discharge Order (Routine); Ordered 08/27/23 Ordered By: Eriberto Seymour/Other Patient Handouts: Prediabetes, 5 Steps for Eating Healthier Admission Data Admit Date/Time: 08/25/23 16:28 Attending Provider: Eriberto Strong Admit Provider: Brown Simpson Primary Care Provider: Kenji Mccray Other Providers: [facility],Home Healthcare
== END 2023-08-27 15:23 | disposition home health service (06) ==
LOC: ED 13:23 → INTOOBSV 16:28 → SUATTDRO 16:28 → 2E 16:28

== ENCOUNTER 2024-02-25 12:00 | Inpatient (IN) ==
[2024-02-25 12:43] LABS: Appearance Urine Clear (Clear); Bilirubin Urine Negative (Negative); Blood Urine Negative (Negative); Color Urine Yellow; Glucose Urine UA Negative (Negative); Ketones Urine Negative (Negative); Leukocyte Esterase Urine Negative (Negative); Nitrite Urine Negative (Negative); Protein Urine Negative (Negative); Specific Gravity Urine 1.013 (1.000-1.030); Urobilinogen Urine Negative (Negative)
[2024-02-25 12:46] LABS: Basophils # (auto) 0.03 K/uL (0.00-0.20); Basophils % (auto) 0.4 %; Eosinophils # (auto) 0.08 K/uL (0.00-0.50); Hematocrit (blood only) 43.1 % (37.0-47.0); Hemoglobin 13.5 g/dl (12.0-16.0); Immature Granulocytes # (auto) 0.03 K/uL (0.01-0.20); Immature Granulocytes % (auto) 0.4 %; Lymphocytes # (auto) 2.09 K/uL (1.20-3.40); Lymphocytes % (auto) 25.1 %; Mean Corpuscular Hemoglobin 26.1 pg (25.0-34.0); Mean Corpuscular Hgb Conc 31.3 g/dL (32.0-36.0); Mean Corpuscular Volume 83.4 fL (80.0-100.0); Mean Platelet Volume 9.7 fL (9.4-12.4); Monocytes # (auto) 0.37 K/uL (0.11-0.59); Monocytes % (auto) 4.4 %; Neutrophils # (auto) 5.72 K/uL (1.40-6.50); Neutrophils % (auto) 68.7 %; Platelet Count 350 K/uL (130-400); RDW Coefficient of Variation 15.3 % (11.5-14.5); RDW Standard Deviation 46.5 fL (36.4-46.3); Red Blood Count 5.17 M/uL (4.20-5.40); White Blood Count 8.32 K/ul (4.8-10.8)
[2024-02-25 13:15] LABS: Albumin Globulin Ratio 1.3 (0.9-2); Albumin Level 4.7 gm/dl (3.4-5.0); Bilirubin,Total 0.4 mg/dl (0.2-1.0); Calcium 9.7 mg/dl (8.6-10.3); Globulin 3.6 gm/dl (2.5-4.0); Potassium 4.2 mmol/L (3.5-5.1); Total Protein 8.3 gm/dl (6.0-8.3)
[2024-02-25 13:15] LABS: Pregnancy Test, Urine Negative (Negative)
--- NOTE | 2024-02-25 14:15 | CT Scan Report ---
CT abd pelvis wo con CLINICAL HISTORY: Lower abdominal pain TECHNIQUE: Helical axial images of the abdomen and pelvis were obtained. Automated dose lowering tech niques and/or adjustment according to patient size were utilized for this exam. This exam was perfor med without intravenous contrast. CT DOSE: 1835.05 mGy.cm COMPARISON: None available at the time of this dictation. FINDINGS: Lower chest: No acute abnormality. Liver: Hepatic steatosis is noted. Gallbladder and biliary tree: Patient is status post cholecystectomy. No intra- or extrahepatic bilia ry ductal dilation. Pancreas: Unremarkable, no focal lesions. Spleen: Splenule is incidentally noted. Adrenals: Unremarkable. Kidneys and ureters: Unremarkable. Bladder: Unremarkable. Reproductive organs: Unremarkable. Bowel: The appendix is normal. Lymph nodes Retroperitoneal: Subcentimeter lymph nodes are noted. Pelvic: Unremarkable. Mesenteric: Unremarkable. Peritoneum: Normal. Vessels: Unremarkable. Abdominal wall: Unremarkable. Bones: Chronic appearing deformity of the sacrum is again seen. IMPRESSION: 1. No acute abnormalities to explain lower abdominal pain. 2. Hepatic steatosis. ACT 112: Negative or not required by law. Electronically signed by: Anthony Kolb M.D. 02/25/2024 2:14 PM
--- NOTE | 2024-02-25 15:45 | Emergency Department Note ---
History of Present Illness General Chief complaint: Urinary Symptoms Stated complaint: UTI, BURNING/ITCHING, URGENCEY/FREQ WITHOUT GOING Time Seen by Provider: 02/25/24 12:31 Source: patient and family Mode of arrival: ambulatory Limitations: physical limitation History of Present Illness Maximum Pain Intensity: 2 Patient is a 34-year-old female with history of spina bifida who presents with several weeks of burning with urination and increased urinary frequency with incontinence. Recently finished outpatient antibiotics without improvement in symptoms. Denies any fevers, chills, flank pain, body aches, nausea, vomiting. Denies any vaginal discharge. She also tried vaginal Monistat for several days and was told to discontinue. Also recently finished course of Cipro and Flagyl for vaginal abscess. Home Medications Medication Instructions Recorded Confirmed Type albuterol sulfate 90 mcg/actuation 2 puff inhalation Q6H PRN 08/25/23 11/26/23 History aerosol inhaler Shortness Of Breath Or Wheezing cholecalciferol (vitamin D3) 1,250 1,250 mcg PO WK 08/25/23 11/26/23 History mcg (50,000 unit) capsule fexofenadine 180 mg tablet 180 mg PO QAM 08/25/23 11/26/23 History (Mary Allergy) gabapentin 100 mg capsule 300 mg PO .EVERY AFTERNOON 08/25/23 11/26/23 History gabapentin 300 mg capsule 300 mg PO QAM 08/25/23 11/26/23 History gabapentin 400 mg capsule 400 mg PO HS 08/25/23 11/26/23 History hydroxyzine HCl 25 mg tablet 12.5 - 25 mg PO Q8 PRN Itching 08/25/23 11/26/23 History sennosides 8.6 mg tablet (Randi-johanna) 8.6 mg PO DAILY PRN Constipation 08/25/23 11/26/23 History tamsulosin 0.4 mg capsule 0.4 mg PO HS 10/14/23 11/26/23 History mirabegron 25 mg tablet,extended 25 mg PO DAILY 10/28/23 11/26/23 History release 24 hr (Myrbetriq) norethindrone (contraceptive) 0.35 0.35 mg PO DAILY #28 tabs 11/26/23 11/26/23 Rx mg tablet Allergies Allergy/AdvReac Type Severity Reaction Status Date / Time cefaclor [From Ceclor] Allergy Severe hands and Verified 11/26/23 15:40 feet swell daptomycin Allergy Severe eye and Verified 11/26/23 15:40 lip swelling vancomycin Allergy Intermediate Hives Verified 11/26/23 15:40 Iodinated Contrast Media AdvReac Severe Vomiting Verified 11/26/23 15:40 oxycodone AdvReac Intermediate Confusion Verified 11/26/23 15:40 Past Med/Surg History Problem List (Updated 02/25/24 @ 17:41 by Karel Diaz MD) UTI (urinary tract infection) (Acute) Urinary tract infection (Acute) Pleuritic chest pain Wound dehiscence 08/26/23 Angioedema (Acute) 08/25/23 Medical History Nerve pain low back pain and legs-notes improvement since spinal de-tethering surgery Asthma controlled, stable per pt-last rescue inhaler use 10/18/23 PCOS (polycystic ovarian syndrome) Spinal abscess dx 04/2023 Spina bifida Obesity Surgical History History of anesthesia reaction slow to wake up History of esophagogastroduodenoscopy (EGD) History of colonoscopy [place] teeth removed History of surgery (07/02/23) 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>required I&D 07/31/23>incision closed (done at [facility] in [place]) History of tonsillectomy and adenoidectomy History of placement of ear tubes History of cholecystectomy Social History Smoking Status: Never smoker Second Hand Exposure: No; Do You Dip or Chew Tobacco: No; Hx Alcohol Use: No Hx Substance Use: No Preferred Language: Georgian Communication Ability: Effective Equipment Associate Required: No Beliefs That Will Affect Care: None Current Living Situation: Parent Current Living Situation Comment: with parents Feels Safe at Home: Yes Assistive Devices: Cane Review of Systems See HPI for pertinent positives & negatives. Physical Exam Vital Signs Vital Signs - 24 hr 02/25/24 12:05 02/25/24 14:01 02/25/24 16:25 Temperature 36.5 C Temperature Source Temporal Artery Scan Pulse Rate 100 H Pulse Rate [Left Finger] 94 H 98 H Respiratory Rate 20 19 18 Respiratory Effort / Characteristics Non-Labored Spontaneous Respiratory Depth Normal Blood Pressure 157/106 H Blood Pressure [Left Arm] 102/81 122/80 Blood Pressure Mean 123 Blood Pressure Mean [Left Arm] 88 94 Pulse Oximetry 95 96 95 Oxygen Delivery Method Room Air Room Air Room Air Sepsis Recent Fever Within 48 Hours No Sepsis New/Unexplained Change in Mental Status No Sepsis Action Taken by Nursing No Action Required See below Constitutional WD/WN, vitals as above Respiratory normal respiratory effort, lungs clear to auscultation Cardiovascular RRR, no murmur, no edema Chest (Breasts) Chest: normal inspection of chest Gastrointestinal (Abdomen) normal bowel sounds, soft, nontender, no hepatosplenomegaly Genitourinary no vaginal lesions, no adnexal mass + abnormal external appearance Speculum/Bimanual Exam: + abnormal appearance of the vagina and + abnormal appearance of the cervix; no cervical tenderness Medical Decision Making Differential Diagnosis MDR UTI, vaginitis, cystitis Medical Records Attestation: I reviewed the patient's medical records. Laboratory Data Attestation: I reviewed the patient's lab results. 02/25/24 12:25 02/25/24 12:25 Lab Results 02/25/24 02/25/24 02/25/24 Range/Units 12:23 12:25 13:09 WBC 8.32 (4.8-10.8) K/ul RBC 5.17 (4.20-5.40) M/uL Hgb 13.5 (12.0-16.0) g/dl Hct 43.1 (37.0-47.0) % MCV 83.4 (80.0-100.0) fL MCH 26.1 (25.0-34.0) pg MCHC 31.3 L (32.0-36.0) g/dL RDW Std Deviation 46.5 H (36.4-46.3) fL RDW Coeff of Brendan 15.3 H (11.5-14.5) % Plt Count 350 (130-400) K/uL MPV 9.7 (9.4-12.4) fL Immature Gran % (Auto) 0.4 % Neut % (Auto) 68.7 % Lymph % (Auto) 25.1 % [place] % (Auto) 4.4 % Eos % (Auto) 1.0 % Baso % (Auto) 0.4 % Neut # (Auto) 5.72 (1.40-6.50) K/uL Lymph # (Auto) 2.09 (1.20-3.40) K/uL [place] # (Auto) 0.37 (0.11-0.59) K/uL Eos # (Auto) 0.08 (0.00-0.50) K/uL Baso # (Auto) 0.03 (0.00-0.20) K/uL Immature Gran # (Auto) 0.03 (0.01-0.20) K/uL Sodium 137 (136-145) mmol/L Potassium 4.2 (3.5-5.1) mmol/L Chloride 102 (98-107) mmol/L Carbon Dioxide 27 (21-32) mmol/L Anion Gap 8 (3-11) BUN 12 (6-23) mg/dl Creatinine 0.75 (0.6-1.2) mg/dl Est Cr Clr Drug Dosing 144.0 ml/min eGFR 108.41 BUN/Creatinine Ratio 16.0 (10-20) Glucose 108 H (70-99(Fasting)) mg/dl Calcium 9.7 (8.6-10.3) mg/dl Total Bilirubin 0.4 (0.2-1.0) mg/dl AST 40 H (13-39) U/L ALT 42 (7-52) U/L Alkaline Phosphatase 62 (34-104) U/L Total Protein 8.3 (6.0-8.3) gm/dl Albumin 4.7 (3.4-5.0) gm/dl Globulin 3.6 (2.5-4.0) gm/dl Albumin/Globulin Ratio 1.3 (0.9-2) Urine Color Yellow Urine Appearance Clear (Clear) Urine pH 6.0 (4.5-7.5) Ur Specific [place] 1.013 (1.000-1.030) Urine Protein Negative (Negative) Urine Glucose (UA) Negative (Negative) Urine Ketones Negative (Negative) Urine Blood Negative (Negative) Urine Nitrite Negative (Negative) Urine Bilirubin Negative (Negative) Urine Urobilinogen Negative (Negative) Ur Leukocyte Esterase Negative (Negative) Urine Test Negative (Negative) Imaging Data Radiologist's Impression: Abdomen/Pelvis CT 02/25/24 13:28 CT abd pelvis wo con CLINICAL HISTORY: Lower abdominal pain TECHNIQUE: Helical axial images of the abdomen and pelvis were obtained. Automated dose lowering techniques and/or adjustment according to patient size were utilized for this exam. This exam was performed without intravenous contrast. CT DOSE: 1835.05 mGy.cm COMPARISON: None available at the time of this dictation. FINDINGS: Lower chest: No acute abnormality. Liver: Hepatic steatosis is noted. Gallbladder and biliary tree: Patient is status post cholecystectomy. No intra- or extrahepatic biliary ductal dilation. Pancreas: Unremarkable, no focal lesions. Spleen: Splenule is incidentally noted. Adrenals: Unremarkable. Kidneys and ureters: Unremarkable. Bladder: Unremarkable. Reproductive organs: Unremarkable. Bowel: The appendix is normal. Lymph nodes Retroperitoneal: Subcentimeter lymph nodes are noted. Pelvic: Unremarkable. Mesenteric: Unremarkable. Peritoneum: Normal. Vessels: Unremarkable. Abdominal wall: Unremarkable. Bones: Chronic appearing deformity of the sacrum is again seen. IMPRESSION: 1. No acute abnormalities to explain lower abdominal pain. 2. Hepatic steatosis. ACT 112: Negative or not required by law. Electronically signed by: Anthony Kolb M.D. 02/25/2024 2:14 PM MDM Narrative Patient is a 34-year-old female who presents with persistent dysuria and increased urinary frequency. History of left a drug-resistant UTIs. Afebrile nontoxic-appearing here today. No leukocytosis or bandemia noted. Urinalysis here today is negative. exam not consistent with cause of patient's ongoing symptoms. Wet prep and GC chlamydia testing pending. CT of the abdomen and pelvis shows no acute abdominal or pelvic abnormalities related to patient's pain. I did review review her culture results from 02/12/2024 at outside hospital. She did have evidence of multidrug-resistant UTI. Based on her allergies and sensitivities patient does require IV antibiotics at this time. Discussed the case with patient's urologist outpatient who recommends admission and possible ID consultation. Discussed admission with hospitalist service who accepts and will review patient's sensitivities and place orders for antibiotics. Patient stable for admission to general medical floor at this time. Impression & Plan UTI (urinary tract infection) Discharge Plan Visit Data Chief Complaint: Urinary Symptoms Stated Complaint: UTI, BURNING/ITCHING, URGENCEY/FREQ WITHOUT GOING ED Provider: Karel Diaz Discharge Problem: UTI (urinary tract infection) Forms Stand Alone Forms: [facility] [employer] Prescriptions Prescriptions: No Action norethindrone (contraceptive) 0.35 mg tablet 0.35 mg PO DAILY Qty: 28 11RF sennosides [Randi-johanna] 8.6 mg tablet 8.6 mg PO DAILY PRN (Reason: Constipation) fexofenadine [Mary Allergy] 180 mg tablet 180 mg PO QAM Rx Instructions: may take twice a day until rash is better hydroxyzine HCl 25 mg tablet 12.5 - 25 mg PO Q8 PRN (Reason: Itching) gabapentin 300 mg capsule 300 mg PO QAM cholecalciferol (vitamin D3) 1,250 mcg (50,000 unit) capsule 1,250 mcg PO WK Rx Instructions: sundays albuterol sulfate 90 mcg/actuation Hfa Aerosol Inhaler 2 puff INHALATION Q6H PRN (Reason: Shortness Of Breath Or Wheezing) gabapentin 400 mg capsule 400 mg PO HS gabapentin 100 mg capsule 300 mg PO .EVERY AFTERNOON tamsulosin 0.4 mg Capsule 0.4 mg PO HS mirabegron [Myrbetriq] 25 mg Tablet Extended Release 24 Hr 25 mg PO DAILY Referrals Referrals: Kenji Mccray MD [Primary Care Provider] -
--- NOTE | 2024-02-25 17:29 | History & Physical Report ---
Date of Service February 25, 2024 Assessment & Plan (1) UTI (urinary tract infection): (2) PCOS (polycystic ovarian syndrome): (3) Spina bifida: (4) Asthma: (5) Nerve pain: Plan Assessment and plan: Complicated UTIMDR: Hx frequent UTIs/urinary incontinence: Urine culture from 02/12/24 + Proteus Mirabilis Resistant to multiple oral options, continue IV ertapenem Repeat urine cultures pending, no leukocytosis/fevers Consider ID consult if no improvement in symptoms Hx spinal bifida: Supportive care, continue gabapentin/Flomax Hx asthma: Not in acute exacerbation, continue inhaler as needed A total of 45 minutes was spent on chart review/facilitating plan of care/discussion with consultants/reviewing diagnostic data Full code DVT prophylaxis: Lovenox History of Present Illness Chief Complaint: uti, dysuria Primary Care Provider: Kenji Mccray MD The patient is a 34-year-old female with past medical history of spina bifida, PCOS, recent spinal infection July 2023, 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 Patient was seen in the ER on 02/14/2024 and started on cefdinir 300 mg twice a day for 5 days which the patient reports she completed. She also reports being seen outpatient on 02/12/2024 and a urine culture was sent that grew Proteus Mirabella's, resistant to ampicillin/Cipro/Macrobid/tetracycline/Bactrim. She was directed to come to the ER for IV antibiotics. She has completed a full course of cefdinir, Cipro, Flagyl, with no improvement in symptoms. She denies any fever/chills. She does report some lower abdominal pain. She reported feeling some blisters inside of her vagina about a week ago that had yellow pus coming out of them. She reports they have been gone for a few days. She had a pelvic exam in the ER that did not reveal the pustules. She denies any nausea/vomiting/diarrhea. Denies any hematuria. On arrival to the ED, labs are fairly unremarkable. No white count. Urine cultures pending. Abdominal/pelvic CT was negative for any acute findings to explain the patient's abdominal pain. Patient's mother at bedside and reports a history of spinal cord tethering has been ongoing for 4 months causing the loss of sensation in her right leg. Patient reports some numbness below her navel at baseline, left leg has sensation and movement while the right leg does not. She uses a walking boot at home to get around. The patient will be admitted for complicated UTIMDRdue to her allergy to cefaclor patient was started on ertapenem and will be admitted to the floor for further management. Repeat urine cultures pending Allergies Allergy/AdvReac Type Severity Reaction Status Date / Time cefaclor [From Ceclor] Allergy Severe hands and Verified 02/25/24 17:50 feet swell daptomycin Allergy Severe eye and Verified 02/25/24 17:50 lip swelling vancomycin Allergy Intermediate Hives Verified 02/25/24 17:50 Iodinated Contrast Media AdvReac Severe Vomiting Verified 02/25/24 17:50 oxycodone AdvReac Intermediate Confusion Verified 02/25/24 17:50 Home Medications Medication Instructions Recorded Confirmed Type albuterol sulfate 90 mcg/actuation 2 puff inhalation Q6H PRN 08/25/23 02/25/24 History aerosol inhaler Shortness Of Breath Or Wheezing cholecalciferol (vitamin D3) 1,250 1,250 mcg PO WK 08/25/23 02/25/24 History mcg (50,000 unit) capsule fexofenadine 180 mg tablet 180 mg PO QAM 08/25/23 02/25/24 History (Mary Allergy) gabapentin 100 mg capsule 300 mg PO .EVERY AFTERNOON 08/25/23 02/25/24 History gabapentin 300 mg capsule 300 mg PO QAM 08/25/23 02/25/24 History gabapentin 400 mg capsule 400 mg PO HS 08/25/23 02/25/24 History hydroxyzine HCl 25 mg tablet 12.5 - 25 mg PO Q8 PRN Itching 08/25/23 02/25/24 History sennosides 8.6 mg tablet (Randi-johanna) 8.6 mg PO DAILY PRN Constipation 08/25/23 02/25/24 History tamsulosin 0.4 mg capsule 0.4 mg PO HS 10/14/23 02/25/24 History mirabegron 25 mg tablet,extended 25 mg PO DAILY 10/28/23 02/25/24 History release 24 hr (Myrbetriq) norethindrone (contraceptive) 0.35 0.35 mg PO DAILY #28 tabs 11/26/23 02/25/24 Rx mg tablet Past Med/Surg History Problem List (Updated 02/25/24 @ 17:41 by Karel Diaz MD) UTI (urinary tract infection) (Acute) Urinary tract infection (Acute) Pleuritic chest pain Wound dehiscence 08/26/23 Angioedema (Acute) 08/25/23 Medical History Nerve pain low back pain and legs-notes improvement since spinal de-tethering surgery Asthma controlled, stable per pt-last rescue inhaler use 10/18/23 PCOS (polycystic ovarian syndrome) Spinal abscess dx 04/2023 Spina bifida Obesity Surgical History History of anesthesia reaction slow to wake up History of esophagogastroduodenoscopy (EGD) History of colonoscopy [place] teeth removed History of surgery (07/02/23) 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>required I&D 07/31/23>incision closed (done at in [place]) History of tonsillectomy and adenoidectomy History of placement of ear tubes History of cholecystectomy Social History Smoking Status: Never smoker Second Hand Exposure: No; Do You Dip or Chew Tobacco: No; Hx Alcohol Use: No Hx Substance Use: No Preferred Language: Mauritanian Communication Ability: Effective Mutual Fund Sales Agent Required: No Beliefs That Will Affect Care: None Current Living Situation: Parent Current Living Situation Comment: with parents Feels Safe at Home: Yes Assistive Devices: Cane Review of Systems Review of Systems: All systems reviewed & are unremarkable except as noted in HPI & below Physical Exam Constitutional: WD/WN, vitals as above no acute distress Eyes: PERRL, conjunctivae normal, anicteric sclerae ENMT: external ear and nose normal, oropharynx normal Neck: trachea midline, no thyromegaly Respiratory: normal respiratory effort, lungs clear to auscultation Cardiovascular: RRR, no murmur, no edema Gastrointestinal (Abdomen): normal bowel sounds, soft, nontender, no hepatosplenomegaly Musculoskeletal: no cyanosis or clubbing, extremities motor strength 5/5 (Right leg plantar-flexion, no sensation, numbness below Navel) Skin: no rashes, warm and dry (Surgical scar on lower back) Neurologic: PERRL, EOMI, accommodation nl, no face palsy, no dysarthria (Chronic right leg plantarflexion/loss of sensation) Psychiatric: A+Ox3, euthymic affect Lymphatic: no cervical or axillary lymphadenopathy Results & Data Results & Data Vital Signs (Past 12 Hours) Vital Signs Temp Pulse Pulse Resp BP BP Pulse Ox 02/25/24 16:25 98 H 18 122/80 95 02/25/24 14:01 94 H 19 102/81 96 02/25/24 12:05 36.5 C 100 H 20 157/106 H 95 O2 Del Method 02/25/24 16:25 Room Air 02/25/24 14:01 Room Air 02/25/24 12:05 Room Air Diagnostic Findings Laboratory Results WBC 8.32 K/ul (4.8-10.8) 02/25/24 12:25 RBC 5.17 M/uL (4.20-5.40) 02/25/24 12:25 Hgb 13.5 g/dl (12.0-16.0) 02/25/24 12:25 Hct 43.1 % (37.0-47.0) 02/25/24 12:25 MCV 83.4 fL (80.0-100.0) 02/25/24 12:25 MCH 26.1 pg (25.0-34.0) 02/25/24 12:25 MCHC 31.3 g/dL (32.0-36.0) L 02/25/24 12:25 RDW Std Deviation 46.5 fL (36.4-46.3) H 02/25/24 12:25 RDW Coeff of Brendan 15.3 % (11.5-14.5) H 02/25/24 12:25 Plt Count 350 K/uL (130-400) 02/25/24 12:25 MPV 9.7 fL (9.4-12.4) 02/25/24 12:25 Immature Gran % (Auto) 0.4 % 02/25/24 12:25 Neut % (Auto) 68.7 % 02/25/24 12:25 Lymph % (Auto) 25.1 % 02/25/24 12:25 [place] % (Auto) 4.4 % 02/25/24 12:25 Eos % (Auto) 1.0 % 02/25/24 12:25 Baso % (Auto) 0.4 % 02/25/24 12:25 Neut # (Auto) 5.72 K/uL (1.40-6.50) 02/25/24 12:25 Lymph # (Auto) 2.09 K/uL (1.20-3.40) 02/25/24 12:25 [place] # (Auto) 0.37 K/uL (0.11-0.59) 02/25/24 12:25 Eos # (Auto) 0.08 K/uL (0.00-0.50) 02/25/24 12:25 Baso # (Auto) 0.03 K/uL (0.00-0.20) 02/25/24 12:25 Immature Gran # (Auto) 0.03 K/uL (0.01-0.20) 02/25/24 12:25 Sodium 137 mmol/L (136-145) 02/25/24 12:25 Potassium 4.2 mmol/L (3.5-5.1) 02/25/24 12:25 Chloride 102 mmol/L (98-107) 02/25/24 12:25 Carbon Dioxide 27 mmol/L (21-32) 02/25/24 12:25 Anion Gap 8 (3-11) 02/25/24 12:25 BUN 12 mg/dl (6-23) 02/25/24 12:25 Creatinine 0.75 mg/dl (0.6-1.2) 02/25/24 12:25 Est Cr Clr Drug Dosing 144.0 ml/min 02/25/24 12:25 eGFR 108.41 02/25/24 12:25 BUN/Creatinine Ratio 16.0 (10-20) 02/25/24 12:25 Glucose 108 mg/dl (70-99(Fasting)) H 02/25/24 12:25 Calcium 9.7 mg/dl (8.6-10.3) 02/25/24 12:25 Total Bilirubin 0.4 mg/dl (0.2-1.0) 02/25/24 12:25 AST 40 U/L (13-39) H 02/25/24 12:25 ALT 42 U/L (7-52) 02/25/24 12:25 Alkaline Phosphatase 62 U/L (34-104) 02/25/24 12:25 Total Protein 8.3 gm/dl (6.0-8.3) 02/25/24 12:25 Albumin 4.7 gm/dl (3.4-5.0) 02/25/24 12:25 Globulin 3.6 gm/dl (2.5-4.0) 02/25/24 12:25 Albumin/Globulin Ratio 1.3 (0.9-2) 02/25/24 12:25 Urine Color Yellow 02/25/24 12:23 Urine Appearance Clear (Clear) 02/25/24 12:23 Urine pH 6.0 (4.5-7.5) 02/25/24 12:23 Ur Specific [place] 1.013 (1.000-1.030) 02/25/24 12:23 Urine Protein Negative (Negative) 02/25/24 12:23 Urine Glucose (UA) Negative (Negative) 02/25/24 12:23 Urine Ketones Negative (Negative) 02/25/24 12:23 Urine Blood Negative (Negative) 02/25/24 12:23 Urine Nitrite Negative (Negative) 02/25/24 12:23 Urine Bilirubin Negative (Negative) 02/25/24 12:23 Urine Urobilinogen Negative (Negative) 02/25/24 12:23 Ur Leukocyte Esterase Negative (Negative) 02/25/24 12:23 Urine Test Negative (Negative) 02/25/24 13:09 Impressions Abdomen/Pelvis CT 02/25/24 13:28 CT abd pelvis wo con CLINICAL HISTORY: Lower abdominal pain TECHNIQUE: Helical axial images of the abdomen and pelvis were obtained. Automated dose lowering techniques and/or adjustment according to patient size were utilized for this exam. This exam was performed without intravenous contrast. CT DOSE: 1835.05 mGy.cm COMPARISON: None available at the time of this dictation. FINDINGS: Lower chest: No acute abnormality. Liver: Hepatic steatosis is noted. Gallbladder and biliary tree: Patient is status post cholecystectomy. No intra- or extrahepatic biliary ductal dilation. Pancreas: Unremarkable, no focal lesions. Spleen: Splenule is incidentally noted. Adrenals: Unremarkable. Kidneys and ureters: Unremarkable. Bladder: Unremarkable. Reproductive organs: Unremarkable. Bowel: The appendix is normal. Lymph nodes Retroperitoneal: Subcentimeter lymph nodes are noted. Pelvic: Unremarkable. Mesenteric: Unremarkable. Peritoneum: Normal. Vessels: Unremarkable. Abdominal wall: Unremarkable. Bones: Chronic appearing deformity of the sacrum is again seen. IMPRESSION: 1. No acute abnormalities to explain lower abdominal pain. 2. Hepatic steatosis. ACT 112: Negative or not required by law. Electronically signed by: Anthony Kolb M.D. 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 She completed 5-day course of cefdinir on recommendations from urgent care but given cultures growing Proteus mirabilis resistant to multiple drugs, patient was advised to go to ED for further evaluation. Patient had transient dizziness 2 days ago but resolved. She denies any fever, chills, chest pain, dyspnea, nausea, vomiting, abdominal pain. She states that she cannot feel sensation below her umbilical region down to her right lower extremity which has been chronic. Please review HPI for complete details of presentation. I personally reviewed blood work and imaging studies. CT abdomen showed no acute process, findings suggestive of hepatic steatosis. Physical Exam: Vitals signs as noted above General Appearance:Morbidly obese,no apparent distress Head: normocephalic, Atraumatic,+ facial hirsutism Eyes: normal inspection, EOMI Neck: supple, Trachea midline Respiratory/Chest: Normal breath sounds, CTA, No accessory muscle use Cardiovascular: S1, S2, No murmur Abdomen/GI:Soft, Non tender, Bowel sounds present Extremities/Musculoskeletal:normal inspection, no edema,+ right ankle plantarflexion contracture Neurologic/Psych:AAOX3, + loss of sensation mid abdomen, right lower extremity, otherwise grossly no focal deficits. Skin: normal color, warm,+ well-healed surgical scar on lower back Complicated multidrug-resistant urinary tract infection History of multiple UTIs Outpatient urine culture grew Proteus Mirabilis: Resistant to ampicillin, Unasyn, ciprofloxacin, nitrofurantoin, tetracycline, Bactrim Sensitive to amikacin, Azactam, cefazolin, cefepime, ceftriaxone, cefoxitin, ceftazidime, ceftriaxone, cefuroxime, ertapenem, gentamicin, imipenem, Levaquin, Zosyn, t obramycin Given multidrug-resistant, will start on IV ertapenem Gentle IV fluids Repeat urine cultures pending Vaginal exam done in ED by ER staff Vaginal cultures pending Consider ID evaluation if needed I personally interviewed and examined at bedside. Patient's care is coordinated with Luz Elena CRENSHAW. I have reviewed the advanced practitioner's documentation, and I agree with plan of care. Please refer to the documentation above for details of patient's presentation and for discussion of other issues. I spent a total [id number] coordinating, documenting, and providing care for this patient excluding time spent in the performance of separately billed services.
[2024-02-25] MEDS ORDERED: ALBUTEROL HFA 8 GM INHALER INH PRN (18:00)
[2024-02-25] MEDS: ERTAPENEM 1000MG 1,000 MG/10 ML SYR IV SCH (19:11)
[2024-02-25] MEDS: SODIUM CHLORIDE 0.9% 500 ML IV SCH (19:12)
[2024-02-25] MEDS: GABAPENTIN 300 MG CAP PO SCH (20:05)
[2024-02-25] MEDS ORDERED: POLYETHYLENE (MIRALAX) 17 GM PACK PO PRN (20:33)
[2024-02-25] MEDS: GABAPENTIN 400 MG CAP PO SCH (22:03)
[2024-02-25] MEDS: ACETAMINOPHEN 325 MG TAB PO PRN (22:03)
[2024-02-25] MEDS: TAMSULOSIN HCL 0.4 MG CAP PO SCH (22:03)
[2024-02-26 06:02] LABS: Basophils # (auto) 0.03 K/uL (0.00-0.20); Basophils % (auto) 0.5 %; Eosinophils # (auto) 0.11 K/uL (0.00-0.50); Eosinophils % (auto) 1.7 %; Hematocrit (blood only) 36.6 % (37.0-47.0); Hemoglobin 11.7 g/dl (12.0-16.0); Immature Granulocytes # (auto) 0.02 K/uL (0.01-0.20); Immature Granulocytes % (auto) 0.3 %; Lymphocytes # (auto) 2.35 K/uL (1.20-3.40); Mean Corpuscular Hemoglobin 26.7 pg (25.0-34.0); Mean Corpuscular Volume 83.6 fL (80.0-100.0); Mean Platelet Volume 9.7 fL (9.4-12.4); Monocytes % (auto) 7.7 %; Neutrophils # (auto) 3.52 K/uL (1.40-6.50); Neutrophils % (auto) 53.8 %; Platelet Count 282 K/uL (130-400); RDW Coefficient of Variation 15.2 % (11.5-14.5); RDW Standard Deviation 46.8 fL (36.4-46.3); Red Blood Count 4.38 M/uL (4.20-5.40); White Blood Count 6.53 K/ul (4.8-10.8)
[2024-02-26 06:21] LABS: Albumin Globulin Ratio 1.6 (0.9-2); Albumin Level 4.1 gm/dl (3.4-5.0); BUN Creatinine Ratio 18.8 (10-20); Bilirubin,Total 0.3 mg/dl (0.2-1.0); Calcium 8.7 mg/dl (8.6-10.3); Creatinine Clr Calc Pharmacy 168.7 ml/min; Globulin 2.5 gm/dl (2.5-4.0); Potassium 3.9 mmol/L (3.5-5.1); Total Protein 6.6 gm/dl (6.0-8.3)
[2024-02-26] MEDS: ENOXAPARIN INJ 40 MG/0.4 ML SYR SQ SCH (08:31)
[2024-02-26] MEDS: GABAPENTIN 300 MG CAP PO SCH (08:31)
[2024-02-26] MEDS ORDERED: GABAPENTIN 300 MG CAP PO SCH (09:00)
[2024-02-26 11:05] LABS: Bacterial Vaginosis RNA Negative (Negative)
[2024-02-26 11:20] LABS: Candida glabrata RNA Negative (Negative); Candida species group RNA Negative (Negative); Trichomonas vaginalis RNA Negative (Negative)
[2024-02-26] MEDS: ONDANSETRON INJ 2 MG/ML 2 ML VIAL IV PRN (11:46)
[2024-02-26 11:57] LABS: Chlam trach RNA(Genit,Ureth,Ur Not Detected (NotDetected); GC(Neis gon)RNA(Genit,Ureth,Ur Not Detected (NotDetected)
[2024-02-26 12:17] LABS: Mycoplasma Genitalium RNA Negative (Negative)
--- NOTE | 2024-02-26 14:05 | Hospitalist Progress Note ---
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 Patient had urine culture done as outpatient which was positive for Proteus; resistant to multiple oral option. Abdominal pain Possible Complicated UTIMDR: Hx frequent UTIs/urinary incontinence Possible Acute Gastroenteritis Patient presents to the hospital with abdominal pain Urine culture from 02/12/24 + Proteus Mirabilis (Resistant to multiple oral options, continue IV ertapenem) CT abdomen and pelvis on admission did not show any acute finding Repeat urinalysis not suggestive of infection. Culture is pending. Continue IV antibiotics for now; follow-up on urine culture results. Will obtain right upper quadrant ultrasound Also obtain stool PCR for C. difficile and GI panel PCR Hx spinal bifida: Supportive care, continue gabapentin/Flomax Hx asthma: Not in acute exacerbation, continue inhaler as needed Full code DVT prophylaxis: Lovenox Please note the above document was generated using voice recognition software. It may contain grammatical, syntax or spelling errors. Any formal questions or concerns about the content, text or information contained within the body of this dictation should be directly addressed to the provider for clarification Admission and Anticipated Discharge Date Admission Date: February 25, 2024 Subjective Patient seen and examined at bedside. She reports that she had 1 episode of vomiting and has some diarrhea as well. Reports right upper quadrant abdominal pain Reports that her appetite is good and was able to complete her lunch. Review of Systems Review of Systems: All systems reviewed & are unremarkable except as noted in Subjective Physical Exam Physical Exam: Constitutional: Awake, alert oriented x 3; not in distress. Respiratory: Bilateral vesicular breath sound. Cardiovascular: RRR, no murmur, no edema Vessels: no JVD or carotid bruit Chest: normal inspection of chest Abdomen: Mild tenderness in right upper quadrant. Bowel sound present. Musculoskeletal: no cyanosis or clubbing, extremities motor strength 5/5 Skin: no rashes, warm and dry normal turgor Neurologic: PERRL, EOMI, accommodation nl, no face palsy, no dysarthria CN's II- XI intact bilaterally and moves all extremities Psychiatric: A+Ox3, euthymic affect Results & Data Results & Data Vital Signs (Past 12 Hours) Vital Signs Temp Pulse Resp BP BP Pulse Ox O2 Del Method 02/26/24 13:40 36.4 C L 97 H 18 126/85 99 Room Air 02/26/24 12:07 83 16 124/79 97 Room Air 02/26/24 10:00 74 16 117/75 100 Room Air 02/26/24 07:00 71 16 91/61 L 97 Room Air 02/26/24 06:26 74 16 89/60 L 100 Room Air 02/26/24 05:00 87 16 98/54 L 100 Room Air 02/26/24 04:00 68 16 108/54 L 100 Room Air 02/26/24 03:15 71 17 115/82 98 Room Air 02/26/24 02:00 64 16 106/64 97 Room Air
--- NOTE | 2024-02-26 15:49 | Ultrasound Report ---
US liver CLINICAL HISTORY: Right upper quadrant pain. COMPARISON STUDY: CT of the abdomen and pelvis February 25, 2024. FINDINGS: This exam is compromised by suboptimal penetration. Hepatic echogenicity is increased. Live r is enlarged, measuring 20.3 cm in maximal dimension. The common bile duct is obscured but no intrah epatic biliary ductal dilatation is identified. The pancreas is also obscured. There is no right hydr onephrosis. IMPRESSION: 1. Exam compromised given suboptimal penetration. 2. Hepatic steatosis and hepatomegaly. 3. Common bile duct obscured however no intrahepatic biliary ductal dilatation status post cholecyste ctomy. Obscured pancreas. ACT 112: Negative or not required by law. Electronically signed by: Bienvenido Delvalle M.D. 02/26/2024 3:48 PM
[2024-02-26 18:16] LABS: Adenovirus F 40/41 PCR Not Detected (NotDetected); Astrovirus PCR Not Detected (NotDetected); Campylobacter PCR Not Detected (NotDetected); Cryptosporidium PCR Not Detected (NotDetected); Cyclospora cayetanensis PCR Not Detected (NotDetected); Entamoeba histolytica PCR Not Detected (NotDetected); Enteroaggregative E.coli(EAEC) Not Detected (NotDetected); Enteropathogenic E.coli (EPEC) Not Detected (NotDetected); Enterotoxigenic E.coli (ETEC) Not Detected (NotDetected); Giardia lamblia PCR Not Detected (NotDetected); Norovirus GI/GII PCR Not Detected (NotDetected); Plesiomonas shigelloides PCR Not Detected (NotDetected); Rotavirus A PCR Not Detected (NotDetected); Salmonella PCR Not Detected (NotDetected); Sapovirus PCR Not Detected (NotDetected); Shiga-like Toxin E.coli (STEC) Not Detected (NotDetected); Shigella/Enteroinvasive E.coli Not Detected (NotDetected); Vibrio cholerae PCR Not Detected (NotDetected); Vibrio species PCR Not Detected (NotDetected); Yersinia enterocolitica PCR Not Detected (NotDetected)
[2024-02-27 07:17] LABS: Basophils # (auto) 0.02 K/uL (0.00-0.20); Basophils % (auto) 0.3 %; Eosinophils # (auto) 0.13 K/uL (0.00-0.50); Eosinophils % (auto) 1.7 %; Hematocrit (blood only) 37.7 % (37.0-47.0); Hemoglobin 11.8 g/dl (12.0-16.0); Immature Granulocytes # (auto) 0.02 K/uL (0.01-0.20); Immature Granulocytes % (auto) 0.3 %; Lymphocytes # (auto) 2.37 K/uL (1.20-3.40); Lymphocytes % (auto) 30.3 %; Mean Corpuscular Hemoglobin 26.4 pg (25.0-34.0); Mean Corpuscular Hgb Conc 31.3 g/dL (32.0-36.0); Mean Corpuscular Volume 84.3 fL (80.0-100.0); Monocytes # (auto) 0.52 K/uL (0.11-0.59); Monocytes % (auto) 6.6 %; Neutrophils # (auto) 4.77 K/uL (1.40-6.50); Neutrophils % (auto) 60.8 %; Platelet Count 295 K/uL (130-400); RDW Coefficient of Variation 15.2 % (11.5-14.5); RDW Standard Deviation 46.3 fL (36.4-46.3); Red Blood Count 4.47 M/uL (4.20-5.40); White Blood Count 7.83 K/ul (4.8-10.8)
[2024-02-27 07:38] LABS: Albumin Globulin Ratio 1.3 (0.9-2); Albumin Level 3.9 gm/dl (3.4-5.0); BUN Creatinine Ratio 13.7 (10-20); Bilirubin,Total 0.3 mg/dl (0.2-1.0); Calcium 9.1 mg/dl (8.6-10.3); Creatinine Clr Calc Pharmacy 147.9 ml/min; Potassium 3.9 mmol/L (3.5-5.1); Total Protein 6.9 gm/dl (6.0-8.3)
--- NOTE | 2024-02-27 09:09 | Hospitalist Progress Note ---
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 Patient had urine culture done as outpatient which was positive for Proteus; resistant to multiple oral option. Abdominal pain Possible Complicated UTIMDR: Hx frequent UTIs/urinary incontinence Possible Acute Gastroenteritis Patient presents to the hospital with abdominal pain Urine culture from 02/12/24 + Proteus Mirabilis (Resistant to multiple oral options, continue IV ertapenem) CT abdomen and pelvis on admission did not show any acute finding Repeat urinalysis not suggestive of infection. Culture shows more than 3 organisms; repeat collection recommended Right upper quadrant does not show any acute finding C.diff PCR and GI panel PCR negative Patient had episode of urinary retention on 02/25; relieved by straight cath. Will obtain urinalysis again; continue IV antibiotics for now. bladder scan as needed Hx spinal bifida: Supportive care, continue gabapentin/Flomax Hx asthma: Not in acute exacerbation, continue inhaler as needed Full code DVT prophylaxis: Lovenox Please note the above document was generated using voice recognition software. It may contain grammatical, syntax or spelling errors. Any formal questions or concerns about the content, text or information contained within the body of this dictation should be directly addressed to the provider for clarification Admission and Anticipated Discharge Date Admission Date: February 25, 2024 Subjective Patient seen and examined at bedside. Comfortable; not in distress. Denies fever, chills, chest pain, shortness of breath, abdominal pain or urinary symptoms. No significant overnight events Review of Systems Review of Systems: All systems reviewed & are unremarkable except as noted in Subjective Physical Exam Physical Exam: Constitutional: Awake, alert oriented x 3; not in distress. Respiratory: Bilateral vesicular breath sound. Cardiovascular: RRR, no murmur, no edema Vessels: no JVD or carotid bruit Chest: normal inspection of chest Abdomen: Mild tenderness in right upper quadrant. Bowel sound present. Musculoskeletal: no cyanosis or clubbing, extremities motor strength 5/5 Skin: no rashes, warm and dry normal turgor Neurologic: PERRL, EOMI, accommodation nl, no face palsy, no dysarthria CN's II- XI intact bilaterally and moves all extremities Psychiatric: A+Ox3, euthymic affect Results & Data Results & Data Vital Signs (Past 12 Hours) Vital Signs Temp Pulse Resp BP Pulse Ox O2 Del Method 02/27/24 07:36 36.6 C 77 16 101/68 96 Room Air
[2024-02-27 09:38] LABS: Appearance Urine Clear (Clear); Bilirubin Urine Negative (Negative); Blood Urine Negative (Negative); Color Urine Yellow; Glucose Urine UA Negative (Negative); Ketones Urine Negative (Negative); Leukocyte Esterase Urine Negative (Negative); Nitrite Urine Negative (Negative); Protein Urine Negative (Negative); Specific Gravity Urine 1.017 (1.000-1.030); Urobilinogen Urine Negative (Negative); pH Urine 5.5 (4.5-7.5)
[2024-02-27 18:39] LABS: Appearance Urine Clear (Clear); Bilirubin Urine Negative (Negative); Blood Urine Negative (Negative); Color Urine Yellow; Glucose Urine UA Negative (Negative); Ketones Urine Negative (Negative); Leukocyte Esterase Urine Negative (Negative); Nitrite Urine Negative (Negative); Protein Urine Negative (Negative); Specific Gravity Urine 1.004 (1.000-1.030); Urobilinogen Urine Negative (Negative); pH Urine 6.5 (4.5-7.5)
[2024-02-28 06:54] LABS: Basophils # (auto) 0.03 K/uL (0.00-0.20); Basophils % (auto) 0.4 %; Eosinophils # (auto) 0.13 K/uL (0.00-0.50); Eosinophils % (auto) 1.7 %; Hematocrit (blood only) 39.3 % (37.0-47.0); Hemoglobin 12.3 g/dl (12.0-16.0); Immature Granulocytes # (auto) 0.03 K/uL (0.01-0.20); Immature Granulocytes % (auto) 0.4 %; Lymphocytes # (auto) 2.23 K/uL (1.20-3.40); Lymphocytes % (auto) 28.3 %; Mean Corpuscular Hemoglobin 26.4 pg (25.0-34.0); Mean Corpuscular Hgb Conc 31.3 g/dL (32.0-36.0); Mean Corpuscular Volume 84.3 fL (80.0-100.0); Mean Platelet Volume 9.7 fL (9.4-12.4); Monocytes # (auto) 0.39 K/uL (0.11-0.59); Neutrophils # (auto) 5.06 K/uL (1.40-6.50); Neutrophils % (auto) 64.2 %; Platelet Count 307 K/uL (130-400); RDW Coefficient of Variation 15.3 % (11.5-14.5); RDW Standard Deviation 46.6 fL (36.4-46.3); Red Blood Count 4.66 M/uL (4.20-5.40); White Blood Count 7.87 K/ul (4.8-10.8)
[2024-02-28 06:58] LABS: Albumin Globulin Ratio 1.3 (0.9-2); BUN Creatinine Ratio 18.9 (10-20); Bilirubin,Total 0.3 mg/dl (0.2-1.0); Calcium 9.5 mg/dl (8.6-10.3); Creatinine Clr Calc Pharmacy 145.9 ml/min; Globulin 3.2 gm/dl (2.5-4.0); Potassium 4.4 mmol/L (3.5-5.1); Total Protein 7.2 gm/dl (6.0-8.3)
[2024-02-28] MEDS: FAMOTIDINE 20 MG TAB PO SCH (09:34)
--- NOTE | 2024-02-28 10:34 | CT Scan Report ---
CT OF THE ABDOMEN AND PELVIS WITHOUT CONTRAST CLINICAL HISTORY: Recurrent right flank pain. COMPARISON STUDY: CT of the abdomen and pelvis February 25, 2024. Right upper quadrant ultrasound De cember 2023. TECHNIQUE: Axial images of the abdomen and pelvis were obtained without IV contrast. Images were revi ewed in the axial, sagittal, and coronal planes. Automated exposure control was utilized for the simone dy. A dose lowering technique was utilized adhering to the principles of ALARA. FINDINGS: Visualized portions of the lung bases are unremarkable. There are no fractures within the v isualized lower ribs. No pneumatosis, free air or portal venous gas is present. There is no biliary d uctal dilatation status post cholecystectomy. There is hepatic steatosis and hepatomegaly. No hepatic lesions are identified on unenhanced exam. Spleen, adrenal glands, kidneys and pancreas are unremark able. There is no hydronephrosis. No renal, ureteral or bladder calculi are present. The bladder is i s collapsed, containing a Recio. There is a moderate amount of stool within the colon and rectum. The re is no evidence for a bowel obstruction. The appendix is normal. 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 There are no fluid collections. IMPRESSION: 1. No urinary calculi or hydronephrosis. 2. Hepatic steatosis and hepatomegaly. 3. Moderate amount of stool within the colon and rectum. 4. Normal appendix. No evidence for a bowel obstruction. ACT 112: Negative or not required by law. Electronically signed by: Bienvenido Delvalle M.D. 02/28/2024 10:31 AM
--- NOTE | 2024-02-28 10:36 | Urology Consultation ---
Date of Consultation February 28, 2024 Assessment & Plan (1) UTI (urinary tract infection): (2) Urinary retention: 34-year-old female with history of spina bifida, incomplete emptying and urinary retention admitted for urinary tract infection. Afebrile with stable vitals. Labs reviewedcreatinine 0.74, WBC 7.87, hemoglobin 12.3. Urine culture from admission did not identify any specific bacteria. Outpatient urine culture with MDR Proteus. Continue with IV antibiotics per previous culture and sensitivities. Recommend maintain Recio catheter for management of urinary retention. She can keep catheter at discharge to f/u with her urologist or can do removal prior to discharge and resume CIC regimen. She has an established urologist at [facility] and reports she is scheduled for follow-up in March for testing. Recommend continue follow-up with her established urologist for ongoing management. Continue supportive care and medical management per hospital medicine. will sign off, please contact our service with any additional questions or concerns. History of Present Illness Attending Physician: Dmoo Moon MD History of Present Illness This is a 34-year-old female with past medical history of PCOS, spina bifida, and history of incomplete emptying and urinary retention who was admitted for urinary tract infection. She had an outpatient urine culture on 02/12/2024 which grew Proteus mirabilis resistant to ampicillin/Cipro/Macrobid/tetracycline/Bactrim per admitting notes. She was placed on cefdinir for UTI and was also on Cipro and Flagyl for vaginal pust ules. She continued to have UTI symptoms following outpatient treatment prompting ER evaluation. On arrival to ED, she was afebrile, hypertensive. Lab work reviewed and creatinine 0.75, WBC 8.32, hemoglobin 13.5. Urinalysis unremarkable. CT abdomen pelvis without contrast showed no stones or hydronephrosis, bladder unremarkable. She was initiated on IV ertapenem. She was admitted to hospital medicine service for complicated UTI. Urology is consulted for history of spina bifida with recurrent urinary retention. Chart reviewedlabs today show creatinine 0.75, WBC 7.8, hemoglobin 12.3. Urine culture 02/25/2024 did not identify any specific bacteria. She required straight catheterization on 02/25 due to inability to void and bladder scan of 472 mL. She was straight catheterized for 500 mL. Recio catheter was inserted on 02/27/2024. Patient seen and examined at bedside. She reports being diagnosed with spina bifida in April 2023. She had a surgery for tethered cord at [facility] in [place]. She follows with the spina bifida clinic. She also follows with urology at [facility]. She reports she had a spinal infection following surgery. She also reports history of incomplete bladder emptying and urinary retention requiring CIC. She reports frequent UTIs. She is scheduled to see her urologist in March for urodynamics and cystoscopy. Currently has Recio catheter in place. Denies nausea, vomiting, fever or chills. She reports some right abdominal discomfort. Otherwise offers no complaints. No urinary symptoms at present. Allergies Allergy/AdvReac Type Severity Reaction Status Date / Time cefaclor [From [facility]] Allergy Severe hands and Verified 02/25/24 17:50 feet swell daptomycin Allergy Severe eye and Verified 02/25/24 17:50 lip swelling vancomycin Allergy Intermediate Hives Verified 02/25/24 17:50 Iodinated Contrast Media AdvReac Severe Vomiting Verified 02/25/24 17:50 oxycodone AdvReac Intermediate Confusion Verified 02/25/24 17:50 Home Medications Medication Instructions Recorded Confirmed Type albuterol sulfate 90 mcg/actuation 2 puff inhalation Q6H PRN 08/25/23 02/25/24 History aerosol inhaler Shortness Of Breath Or Wheezing cholecalciferol (vitamin D3) 1,250 1,250 mcg PO WK 08/25/23 02/25/24 History mcg (50,000 unit) capsule fexofenadine 180 mg tablet 180 mg PO QAM 08/25/23 02/25/24 History (Mary Allergy) hydroxyzine HCl 25 mg tablet 12.5 - 25 mg PO Q8 PRN Itching 08/25/23 02/25/24 History sennosides 8.6 mg tablet (Randi-johanna) 8.6 mg PO DAILY PRN Constipation 08/25/23 02/25/24 History tamsulosin 0.4 mg capsule 0.4 mg PO HS 10/14/23 02/25/24 History mirabegron 25 mg tablet,extended 25 mg PO DAILY 10/28/23 02/25/24 History release 24 hr (Myrbetriq) norethindrone (contraceptive) 0.35 0.35 mg PO DAILY #28 tabs 11/26/23 02/25/24 Rx mg tablet gabapentin 300 mg capsule 600 mg PO TID 02/26/24 02/26/24 History Patient History Medical History Nerve pain low back pain and legs-notes improvement since spinal de-tethering surgery Asthma controlled, stable per pt-last rescue inhaler use 10/18/23 PCOS (polycystic ovarian syndrome) Spinal abscess dx 04/2023 Spina bifida Obesity Surgical History History of anesthesia reaction slow to wake up History of esophagogastroduodenoscopy (EGD) History of colonoscopy [place] teeth removed History of surgery (07/02/23) 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>required I&D 07/31/23>incision closed (done at [facility] in [place]) History of tonsillectomy and adenoidectomy History of placement of ear tubes History of cholecystectomy Social History Smoking Status: Never smoker Second Hand Exposure: No; Do You Dip or Chew Tobacco: No; Hx Alcohol Use: Yes Alcohol type: wine Hx Substance Use: No Preferred Language: Vietnamese Communication Ability: Effective Ambulance Driver Required: No Beliefs That Will Affect Care: None Current Living Situation: Parent and Family Current Living Situation Comment: with parents Feels Safe at Home: Yes Assistive Devices: Brace/Splint/Immobilizer, Cane and Walker Review of Systems Review of Systems: All systems reviewed & are unremarkable except as noted in HPI & below Physical Exam Constitutional: well developed, well nourished and + morbidly obese; no acute distress Respiratory: normal respiratory effort; no respiratory distress and no labored breathing Gastrointestinal (Abdomen): Inspection/Auscultation: abdomen normal to inspection Percussion/Palpation: abdomen soft; abdomen nontender Musculoskeletal: Head/Neck/Chest: normocephalic Neurologic: moves all extremities and awake Psychiatric: Orientation: alert and oriented x 3 Genitourinary: Recio draining yellow urine Results & Data Vital Signs (Past 12 Hours) Vital Signs Temp Pulse Resp BP Pulse Ox O2 Del Method 02/28/24 07:41 36.6 C 73 16 128/80 95 Room Air PG Care Time/CCT Total # of Minutes Spent Total Time Spent with Patient: Total time spent is greater than 50% in coordination of care (as documented) at patient's floor/unit and/or counseling patient: Coding Level of Care Code 64885 IN/OBS CONSULT LVL 4,60M Diagnoses UTI (urinary tract infection) N39.0 Urinary retention R33.9
[2024-02-28] MEDS: IBUPROFEN 200 MG/10 ML UDC PO PRN (10:42)
[2024-02-28] MEDS: POLYETHYLENE (MIRALAX) 17 GM PACK PO SCH (11:57)
[2024-02-28] MEDS: BACLOFEN 10 MG TAB PO ONE (11:57)
[2024-02-28] MEDS: ACETAMINOPHEN 1,000 MG/100 ML VIAL IV STA (13:15)
[2024-02-28] MEDS: traMADol HCL 50 MG TABLET PO PRN (13:54)
--- NOTE | 2024-02-28 15:10 | Hospitalist Progress Note ---
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 Patient had urine culture done as outpatient which was positive for Proteus; resistant to multiple oral option. Right flank pain UTI ruled out Acute urinary retention status post Recio placement Patient presents to the hospital with right upper quadrant abdominal pain and flank pain Urine culture from 02/12/24 + Proteus Mirabilis (Resistant to multiple oral options, continue IV ertapenem) CT abdomen and pelvis on admission did not show any acute finding Repeat urinalysis not suggestive of infection. Repeat CT abdomen/pelvis on 02/28/2024 doesn't show any acute findings. Patient reported right upper quadrant pain and flank pain for which she had thorough evaluation with 2 CT abdomen/pelvis which did not show any acute finding. Multiple urinalysis/cultures are negative. GI PCR panel and C. difficile are also negative. Liver ultrasound also does not show any acute finding. Suspect that her pain is related with MSK origin; will obtain pain management consultation. Continue Recio catheter for now; follow-up with her urologist as outpatient. She has cystoscopy scheduled in first week of March. pain management with tylenol, ibuprofen and tramadolol as needed Hx spinal bifida: Supportive care, continue gabapentin/Flomax Hx asthma: Not in acute exacerbation, continue inhaler as needed Full code DVT prophylaxis: Lovenox Please note the above document was generated using voice recognition software. It may contain grammatical, syntax or spelling errors. Any formal questions or concerns about the content, text or information contained within the body of this dictation should be directly addressed to the provider for clarification Admission and Anticipated Discharge Date Admission Date: February 25, 2024 Subjective Patient continues to complain of right flank pain which is intermittent in nature. Patient continues to complain of right flank pain which is intermittent in nature. Overnight she had urinary retention for which Recio catheter was placed. Review of Systems Review of Systems: All systems reviewed & are unremarkable except as noted in Subjective Physical Exam Physical Exam: Constitutional: Awake, alert oriented x 3; not in distress. Respiratory: Bilateral vesicular breath sound. Cardiovascular: RRR, no murmur, no edema Vessels: no JVD or carotid bruit Chest: normal inspection of chest Abdomen: Mild tenderness in right flank and upper guadrant Bowel sound present. Musculoskeletal: no cyanosis or clubbing, extremities motor strength 5/5 Skin: no rashes, warm and dry normal turgor Neurologic: PERRL, EOMI, accommodation nl, no face palsy, no dysarthria CN's II- XI intact bilaterally and moves all extremities Psychiatric: A+Ox3, euthymic affect Results & Data Results & Data Vital Signs (Past 12 Hours) Vital Signs Temp Pulse Resp BP Pulse Ox O2 Del Method 02/28/24 07:41 36.6 C 73 16 128/80 95 Room Air
--- NOTE | 2024-02-28 16:34 | Pain Management Consultation ---
Date of Consultation February 28, 2024 Assessment & Plan (1) Myofascial pain on right side: Plan Pain appear myofascial in nature, possibly neuropathic. She has previously tried lidocaine patches without relief. I will place an order for Baclofen 10mg TID PRN muscle spasm. Nothing to offer her interventionally. Could consider increasing the Gabapentin dosage if Baclofen is not effective. Continue Ibuprofen, Tylenol, and Tramadol. History of Present Illness Reason for Consultation: Flank pain Attending Physician: Domo Moon MD History of Present Illness This is a 34 year old female that has been admitted due to urinary retention, urinary tract infection. She states that this pain along the right upper abdomen started 2 days ago prior to a few episodes of vomiting. She describes a burning aching pain along the right upper abdomen going to the suprapubic region and sometimes to the left upper abdomen. The pain is worse with walking and sitting on the commode. She is reporting moderate relief with Tylenol, Ibuprofen, and Tramadol. She does take Gabapentin 600mg TID chronically. Allergies Allergy/AdvReac Type Severity Reaction Status Date / Time cefaclor [From Ceclor] Allergy Severe hands and Verified 02/25/24 17:50 feet swell daptomycin Allergy Severe eye and Verified 02/25/24 17:50 lip swelling vancomycin Allergy Intermediate Hives Verified 02/25/24 17:50 Iodinated Contrast Media AdvReac Severe Vomiting Verified 02/25/24 17:50 oxycodone AdvReac Intermediate Confusion Verified 02/25/24 17:50 Home Medications Medication Instructions Recorded Confirmed Type albuterol sulfate 90 mcg/actuation 2 puff inhalation Q6H PRN 08/25/23 02/25/24 History aerosol inhaler Shortness Of Breath Or Wheezing cholecalciferol (vitamin D3) 1,250 1,250 mcg PO WK 08/25/23 02/25/24 History mcg (50,000 unit) capsule fexofenadine 180 mg tablet 180 mg PO QAM 08/25/23 02/25/24 History (Mary Allergy) hydroxyzine HCl 25 mg tablet 12.5 - 25 mg PO Q8 PRN Itching 08/25/23 02/25/24 History sennosides 8.6 mg tablet (Randi-johanna) 8.6 mg PO DAILY PRN Constipation 08/25/23 02/25/24 History tamsulosin 0.4 mg capsule 0.4 mg PO HS 10/14/23 02/25/24 History mirabegron 25 mg tablet,extended 25 mg PO DAILY 10/28/23 02/25/24 History release 24 hr (Myrbetriq) norethindrone (contraceptive) 0.35 0.35 mg PO DAILY #28 tabs 11/26/23 02/25/24 Rx mg tablet gabapentin 300 mg capsule 600 mg PO TID 02/26/24 02/26/24 History baclofen 10 mg tablet 10 mg PO TID 4 days #12 tabs 02/29/24 Rx famotidine 20 mg tablet 20 mg PO BID 7 days #14 tabs 02/29/24 Rx ibuprofen 600 mg tablet 600 mg PO Q8H PRN pain 7 days #21 02/29/24 Rx tabs tramadol 50 mg tablet 25 mg (1/2 x 50 mg) PO Q6H PRN 02/29/24 Rx pain #20 tabs Patient History Medical History Nerve pain low back pain and legs-notes improvement since spinal de-tethering surgery Asthma controlled, stable per pt-last rescue inhaler use 10/18/23 PCOS (polycystic ovarian syndrome) Spinal abscess dx 04/2023 Spina bifida Obesity Surgical History History of anesthesia reaction slow to wake up History of esophagogastroduodenoscopy (EGD) History of colonoscopy [place] teeth removed History of surgery (07/02/23) 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>required I&D 07/31/23>incision closed (done at [facility] in [place]) History of tonsillectomy and adenoidectomy History of placement of ear tubes History of cholecystectomy Social History Smoking Status: Never smoker Second Hand Exposure: No; Do You Dip or Chew Tobacco: No; Hx Alcohol Use: Yes Alcohol type: wine Hx Substance Use: No Preferred Language: Sammarinese Communication Ability: Effective Advanced Practice Registered Nurse Required: No Beliefs That Will Affect Care: None Current Living Situation: Parent and Family Current Living Situation Comment: with parents Feels Safe at Home: Yes Assistive Devices: Brace/Splint/Immobilizer, Cane and Walker Physical Exam Physical Exam: GENERAL: This is a 34 year old female in no acute distress. HEAD/FACE: Normocephalic and atraumatic. EYES: No drainage or conjunctival injection. ENT: Nose without bleeding or discharge. Oral mucosa moist. NECK: Full ROM without apparent pain. No swelling or masses noted. RESPIRATORY: Patient with unlabored breathing. No signs of respiratory distress. CHEST/AXILLA: Chest movement symmetrical. No deformities noted. CARDIOVASCULAR: Patients heart rate is regular, with pulse rate as documented. No edema noted. ABDOMEN/GI: No distension. Hyperalgesia along the right upper abdomen. No guarding or periotenal signs. BACK: Moves without difficulty SKIN: Shafer, warm and dry. No rash noted. NEURO: Alert and appears oriented. Speech is fluent. Cranial Nerves are grossly intact. PSYCH: Alert, pleasant, affect is calm
[2024-02-28] MEDS: BACLOFEN 10 MG TAB PO SCH (20:05)
[2024-02-29 06:05] LABS: Basophils # (auto) 0.02 K/uL (0.00-0.20); Basophils % (auto) 0.3 %; Eosinophils # (auto) 0.13 K/uL (0.00-0.50); Eosinophils % (auto) 1.8 %; Hematocrit (blood only) 38.2 % (37.0-47.0); Hemoglobin 12.3 g/dl (12.0-16.0); Immature Granulocytes # (auto) 0.02 K/uL (0.01-0.20); Immature Granulocytes % (auto) 0.3 %; Lymphocytes # (auto) 2.23 K/uL (1.20-3.40); Lymphocytes % (auto) 31.2 %; Mean Corpuscular Hemoglobin 26.7 pg (25.0-34.0); Mean Corpuscular Hgb Conc 32.2 g/dL (32.0-36.0); Mean Corpuscular Volume 82.9 fL (80.0-100.0); Mean Platelet Volume 9.8 fL (9.4-12.4); Monocytes # (auto) 0.34 K/uL (0.11-0.59); Monocytes % (auto) 4.8 %; Neutrophils # (auto) 4.41 K/uL (1.40-6.50); Neutrophils % (auto) 61.6 %; Platelet Count 285 K/uL (130-400); RDW Coefficient of Variation 15.2 % (11.5-14.5); RDW Standard Deviation 45.7 fL (36.4-46.3); Red Blood Count 4.61 M/uL (4.20-5.40); White Blood Count 7.15 K/ul (4.8-10.8)
[2024-02-29 06:21] LABS: BUN Creatinine Ratio 20.9 (10-20); Calcium 9.3 mg/dl (8.6-10.3); Creatinine Clr Calc Pharmacy 161.2 ml/min; Potassium 4.2 mmol/L (3.5-5.1)
[2024-02-29 07:24] VITALS: BP 110/72; PULSE 75; RESP 15; TEMP 97.9; O2SAT 94
--- NOTE | 2024-02-29 10:18 | Discharge Summary ---
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 Patient was seen in the ER on 02/14/2024 and started on cefdinir 300 mg twice a day for 5 days which the patient reports she completed. She also reports being seen outpatient on 02/12/2024 and a urine culture was sent that grew Proteus Mirabella's, resistant to ampicillin/Cipro/Macrobid/tetracycline/Bactrim. She was directed to come to the ER for IV antibiotics. She has completed a full course of cefdinir, Cipro, Flagyl, with no improvement in symptoms. She denies any fever/chills. She does report some lower abdominal pain. She reported feeling some blisters inside of her vagina about a week ago that had yellow pus coming out of them. She reports they have been gone for a few days. She had a pelvic exam in the ER that did not reveal the pustules. She denies any nausea/vomiting/diarrhea. Denies any hematuria. On arrival to the ED, labs are fairly unremarkable. No white count. Urine cultures pending. Abdominal/pelvic CT was negative for any acute findings to explain the patient's abdominal pain. Patient's mother at bedside and reports a history of spinal cord tethering has been ongoing for 4 months causing the loss of sensation in her right leg. Patient reports some numbness below her navel at baseline, left leg has sensation and movement while the right leg does not. She uses a walking boot at home to get around. The patient will be admitted for complicated UTIMDRdue to her allergy to cefaclor patient was started on ertapenem and will be admitted to the floor for further management. Repeat urine cultures pending Admission Exam Per Admitting Provider Constitutional: WD/WN, vitals as above no acute distress Eyes: PERRL, conjunctivae normal, anicteric sclerae ENMT: external ear and nose normal, oropharynx normal Neck: trachea midline, no thyromegaly Respiratory: normal respiratory effort, lungs clear to auscultation Cardiovascular: RRR, no murmur, no edema Gastrointestinal (Abdomen): normal bowel sounds, soft, nontender, no hepatosplenomegaly Musculoskeletal: no cyanosis or clubbing, extremities motor strength 5/5 (Right leg plantar-flexion, no sensation, numbness below Navel) Skin: no rashes, warm and dry (Surgical scar on lower back) Neurologic: PERRL, EOMI, accommodation nl, no face palsy, no dysarthria (Chronic right leg plantarflexion/loss of sensation) Psychiatric: A+Ox3, euthymic affect Lymphatic: no cervical or axillary lymphadenopathy Principal Diagnosis Right flank pain, MSK related Discharge Exam Constitutional: Awake, alert oriented x 3; not in distress. Respiratory: Bilateral vesicular breath sound. Cardiovascular: RRR, no murmur, no edema Vessels: no JVD or carotid bruit Chest: normal inspection of chest Abdomen: Mild tenderness in right flank and upper guadrant Bowel sound present. Musculoskeletal: no cyanosis or clubbing, extremities motor strength 5/5 Skin: no rashes, warm and dry normal turgor Neurologic: PERRL, EOMI, accommodation nl, no face palsy, no dysarthria CN's II- XI intact bilaterally and moves all extremities Psychiatric: A+Ox3, euthymic affect Discharge Data Allergies Allergy/AdvReac Type Severity Reaction Status Date / Time cefaclor [From Ceclor] Allergy Severe hands and Verified 02/25/24 17:50 feet swell daptomycin Allergy Severe eye and Verified 02/25/24 17:50 lip swelling vancomycin Allergy Intermediate Hives Verified 02/25/24 17:50 Iodinated Contrast Media AdvReac Severe Vomiting Verified 02/25/24 17:50 oxycodone AdvReac Intermediate Confusion Verified 02/25/24 17:50 Consultations 02/25/24 17:17 ED Decision to Admit Stat 02/28/24 07:18 Consult Urology Routine 02/28/24 12:54 Consult Pain Management Routine Ordered Studies 02/25/24 13:28 CT Abd and Pelvis [CT abd pelvis wo con] Stat 02/26/24 13:34 US liver Routine 02/28/24 08:54 CT Abd and Pelvis [CT abd pelvis wo con] Urgent Hospital Course (1) UTI (urinary tract infection): (2) PCOS (polycystic ovarian syndrome): (3) Spina bifida: (4) Asthma: (5) Nerve pain: Plan Patient is a 34 year-old female with history of Spina bifida, PCOS, recent spinal infection July 2023, 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 Patient had a urine culture from February 11 which was positive for Proteus Mirabella's; resistant to multiple oral options. Patient was started on ertapenem for suspicion of UTI. However, multiple urinalysis did not suggest infection. Antibiotic was subsequently discontinued. Patient reported intermittent right flank pain and right upper quadrant pain. Patient underwent evaluation with CT scan of the abdomen/pelvis during the hospitalization twice without any acute finding. She also underwent liver ultrasound which did not show any acute finding. The pain was positional in nature; increased with more movement. She did not have guarding/rigidity on abdominal exam. Patient did not have any new neurological deficit /signs (numbness/tingling) to suggest that it is related with radiculopathy. Pain management was also consulted; thought the pain was likely MSK related as well. Patient was treated with baclofen and tramadol which provide significant relief. Patient was provided prescription for both at the time of the discharge. Patient also had episode of urinary retention for which Recio catheter was placed and urology was consulted; patient has appointment with her urologist in early March for cystoscopy. Trial of void was done at the day of the discharge;It was unsuccessful; Recio was reinserted and patient was asked to follow-up with her urologist. Discussed the discharge plan with her parents over the phone at bedside; both are agreeable with the plan. Please note the above document was generated using voice recognition software. It may contain grammatical, syntax or spelling errors. Any formal questions or concerns about the content, text or information contained within the body of this dictation should be directly addressed to the provider for clarification Total Time Total Time Spent Total Time Spent (In Minutes): 45 Total Time Includes: Examination of the Patient, Discharge Planning, Medication Reconciliation, Communication With Other Providers and Other Discharge Plan Discharge Items Patient Disposition: Home - Self-Care Reason For Visit: UTI, MDR Discharge Diagnosis: Right flank pain, likely MSK related. Activity: Resume your previous activity Non-emergency contact: Primary Care Provider Call non-emergency contact if: you have any medication questions and your symptoms worsen Follow-up/Referrals: Kenji Mccray MD [Primary Care Provider] - Diet: Regular Addtl Attending Provider Instructions: You were admitted to the hospital for abdominal pain. You underwent evaluation for urinary tract infection which was negative. He also underwent CT scans of your abdomen which did not show any acute findings. The likely cause for the pain is musculoskeletal related. You are prescribed following medications for pain control: 1) Ibuprofen 600 mg every 8 hours as needed 2) Tramadol 25 mg every 6 hours as needed. You can also use Tylenol alternatively with ibuprofen and tramadol. Please limit the use of tramadol as much as possible; use it when you have severe pain. You are also prescribed baclofen 10 mg 3 times a day. It is a muscle relaxant. Please follow-up with your urologist as scheduled. Please follow-up with neurosurgery . Pending Studies at Discharge: No Stand-Alone Forms: [employer] [place], Work/School Release, Smoking Cessation Medications and DC Order Prescriptions: New tramadol 50 mg Tablet 25 mg PO Q6H PRN (Reason: pain) Qty: 20 0RF famotidine 20 mg Tablet 20 mg PO BID 7 Days Qty: 14 0RF baclofen 10 mg Tablet 10 mg PO TID 4 Days Qty: 12 0RF ibuprofen 600 mg tablet 600 mg PO Q8H PRN (Reason: pain) 7 Days Qty: 21 0RF Continued norethindrone (contraceptive) 0.35 mg tablet 0.35 mg PO DAILY Qty: 28 11RF sennosides [Randi-johanna] 8.6 mg tablet 8.6 mg PO DAILY PRN (Reason: Constipation) fexofenadine [Mary Allergy] 180 mg tablet 180 mg PO QAM Rx Instructions: may take twice a day until rash is better hydroxyzine HCl 25 mg tablet 12.5 - 25 mg PO Q8 PRN (Reason: Itching) cholecalciferol (vitamin D3) 1,250 mcg (50,000 unit) capsule 1,250 mcg PO WK Rx Instructions: sundays albuterol sulfate 90 mcg/actuation Hfa Aerosol Inhaler 2 puff INHALATION Q6H PRN (Reason: Shortness Of Breath Or Wheezing) tamsulosin 0.4 mg Capsule 0.4 mg PO HS mirabegron [Myrbetriq] 25 mg Tablet Extended Release 24 Hr 25 mg PO DAILY gabapentin 300 mg capsule 600 mg PO TID Discharge Orders: Discharge Order (Routine); Ordered 02/29/24 Ordered By: Domo Moon Admission Data Admit Date/Time: 02/25/24 17:46 Attending Provider: Domo Moon Admit Provider: Scott Hauser Primary Care Provider: Kenji Mccray Other Providers: Scott Hauser; Jeffery Guevara; Lea Rodas Other Interventions: Discharge Summary Assessment (RN) Last Done: 02/29/24 16:40
== END 2024-02-29 17:49 | disposition home or self-care (01) | DRG 690 ==
LOC: ED 12:00 → SUATTDRO 17:46 → EDINP 17:46 → 3E 19:34

== ENCOUNTER 2024-12-16 16:17 | Observation (INO) ==
--- NOTE | 2024-12-16 16:53 | Emergency Department Note ---
Impression & Plan Complicated urinary tract infection, Back pain ED Provider Note Provider: Ren Vick MD CHIEF COMPLAINT: Urinary symptoms, back pain HISTORY OF PRESENT ILLNESS: Patient is a 34-year-old female history of spina bifida, UTI, migraine presenting here today reporting that she has had ongoing urinary symptoms and concern for UTI over the past approximately 5 weeks. Patient has been seen here as well as [facility]. She has been on antibiotics most recently cefdinir which she finished last Saturday. Reports since then we will did not clear things up she has had worsening with right greater than left back pain. Reports some urinary discomfort. No longer straight cathing. She has been following with specialist including urology in [place]. Patient states this feels different as of her chronic back pain. Denies nausea or fevers but has been feeling hot and cold. Mother tried to get her to come in a Saturday but she they are short at work but she decided given worsening to come here today. No recent trauma. PAST MEDICAL HISTORY: As noted above MEDICATIONS: Reviewed home medications. 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 NECK: Trachea midline. ENT: Mucous membranes pink and moist. LUNGS: Airway patent. No retractions or tachypnea HEART: Regular tachycardic rate and rhythm. ABDOMEN: Soft mild suprapubic tenderness. Some tenderness extending to the right flank to touch. SKIN: Acyanotic, warm, dry, without rashes EXTREMITIES: Without swelling, tenderness or deformity NEUROLOGICAL: No focal deficits. No aphasia. No facial droop or slurred speech. . Ambulatory. Patient's laboratory studies and imaging reviewed. Differential includes Appendicitis, ovarian cyst, ovarian torsion, ectopic , TOA, PID, infections, diverticulitis, UTI, obstruction, mesenteric ischemia, aortic pathology, inflammatory bowel disease, renal colic, PUD, pancreatitis, biliary pathology, hernia, volvulus, constipation, as well as other pathologies. IMPRESSION/MEDICAL DECISION MAKING: Patient complex history. History of multiple resistances in the past reported. Just finished cefdinir without resolution and now worsening off antibiotics. Afebrile here but borderline tachycardia. Will obtain urine sample. Given her complaint of right greater than left flank pain will obtain CT scan to exclude kidney stone or other intra-abdominal/retroperitoneal process. There is no concerning trauma history. She does not appear hypotensive or febrile at this time. Blood work is sent including cultures, procalcitonin, and lactate. Given some IV fluid and a small metal panel for pain. Blood work here without anemia or leukocytosis. Lactate elevated 2.4 given some IV fluid. No significant lecture light abnormality signs of renal dysfunction. No signs of transaminitis. Procalcitonin not elevated. No evidence of hepatitis or pancreatitis. Urinalysis without nitrates as well leuk esterase and some white blood cells. No blood noted. No bacteria noted. Urine culture is sent. Will cover with cefepime discussed with ED pharmacist given multiple outpatient antibiotics and recurrent symptoms. Hopefully urine culture will provide more information as it grows. Patient's pain has improved some after fentanyl. CT of the abdomen pelvis without evidence of mass or stone by report. Discussed with the patient and her mother who is his ride the findings. Discussed ongoing symptoms of failure of multiple outpatient antibiotics. After discussion, she was agreeable to stay for further observation and treatment of symptoms. [facility] hospitalist contacted. DIAGNOSIS: Complicated UTI, back pain, spina bifida DISPOSITION: Hospitalist will evaluate Patient was agreeable with this plan. Past Med/Surg History Problem List (Updated 12/16/24 @ 18:50 by Ren Vick M.D.) Back pain (Acute) Complicated urinary tract infection (Acute) Conductive hearing loss, bilateral UTI (urinary tract infection) (Acute) Migraine with aura B12 deficiency Anemia Vitamin D deficiency Hypomagnesemia Hypertrophy of both inferior nasal turbinates Deviated nasal septum Conductive hearing loss of right ear with restricted hearing of left ear Headache Pressure-related ear pain Dizziness Popping of left ear Vertigo Urinary retention Pleuritic chest pain Wound dehiscence 08/26/23 Angioedema (Acute) 08/25/23 Medical History TMJ (dislocation of temporomandibular joint) Myofascial pain on right side Nerve pain low back pain and legs-notes improvement since spinal de-tethering surgery Asthma controlled, stable per pt-last rescue inhaler use 10/18/23 PCOS (polycystic ovarian syndrome) Spinal abscess dx 04/2023 Spina bifida Obesity Surgical History Hx of tonsillectomy (~2006) H/O adenoidectomy (~1997) History of anesthesia reaction slow to wake up History of esophagogastroduodenoscopy (EGD) History of colonoscopy [place] teeth removed History of surgery (07/02/23) 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>required I&D 07/31/23>incision closed (done at [facility] in [place]) History of placement of ear tubes (~1997) History of cholecystectomy (2012) Family History Mother Thyroid cancer Father CLL (chronic lymphocytic leukemia) Diabetes Grandmother (Paternal) Ovarian cancer Grandfather (Paternal) Oral-mouth cancer Diabetes Grandfather (Maternal) Heart disease Grandmother (Paternal) Heart disease Grandmother (Maternal) Family history of adverse reaction to anesthesia Aunt Family history of adverse reaction to anesthesia MATERNAL Other No family history of bleeding disorder Social History Smoking Status: Never smoker Second Hand Exposure: No; Do You Dip or Chew Tobacco: No; Hx Alcohol Use: Yes Alcohol type: wine Alcohol Intake Frequency Comment: Special occasions Hx Substance Use: No Preferred Language: Uzbek Communication Ability: Effective Emergency Communications Dispatcher Required: No Beliefs That Will Affect Care: None marital status: Single Current Living Situation: Parent and Family Current Living Situation Comment: with parents 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 Feels Safe at Home: Yes Diet: regular during the past year weight has: remained stable Assistive Devices: Brace/Splint/Immobilizer, Cane and Walker Allergies Allergies Allergy/AdvReac Type Severity Reaction Status Date / Time cefaclor [From Ceclor] Allergy Severe hands and Verified 10/02/24 09:01 feet swell daptomycin Allergy Severe eye and Verified 10/02/24 09:01 lip swelling vancomycin Allergy Intermediate Hives Verified 10/02/24 09:01 Iodinated Contrast Media AdvReac Severe Vomiting Verified 10/02/24 09:01 oxycodone AdvReac Intermediate Confusion Verified 10/02/24 09:01 Home Meds Home Medications Medication Instructions Recorded Confirmed albuterol sulfate 90 mcg/actuation 2 puff inhalation Q6H PRN 08/25/23 12/16/24 aerosol inhaler Shortness Of Breath Or Wheezing sennosides 8.6 mg tablet (Randi-johanna) 8.6 mg PO DAILY PRN Constipation 08/25/23 12/16/24 gabapentin 300 mg capsule 600 mg PO TID 02/26/24 12/16/24 cranberry 500 mg capsule 1,000 mg PO BID PRN URINARY 05/28/24 12/16/24 SYMPTOMS fexofenadine 180 mg tablet 180 mg PO QAM PRN RASH/CONGESTION 05/28/24 12/16/24 (Mary Allergy) spironolactone 100 mg tablet 100 mg PO DAILY 05/28/24 12/16/24 semaglutide (weight loss) 1 mg/0.5 1 mg subcut WK 06/19/24 12/16/24 mL subcutaneous pen injector (Lili) cyanocobalamin (vitamin B-12) 1,000 mcg IM MONTHLY 12/16/24 12/16/24 1,000 mcg/mL injection solution hydroxyzine HCl 25 mg tablet 25 mg PO HS 12/16/24 12/16/24 Previous Rx's Medication Instructions Recorded rizatriptan 5 mg tablet 5 mg PO .COMPLEX PRN migraine 10/02/24 headache #9 tabs topiramate 25 mg tablet (Topamax) 25 mg PO .COMPLEX #60 tabs 10/02/24 cholecalciferol (vitamin D3) 1,250 50,000 unit PO .weekly 12 weeks 10/15/24 mcg (50,000 unit) tablet #12 tabs syringe with needle, safety 3 mL #100 ea 10/15/24 25 gauge x 5/8" (BD Integra Syringe) norethindrone (contraceptive) 0.35 0.35 mg PO DAILY #84 tabs 12/07/24 mg tablet Results & Data (ED) Vital Signs Vital Signs - 24 hr 12/16/24 16:19 12/16/24 17:38 Temperature 36.7 C Temperature Source Temporal Artery Scan Pulse Rate 108 H Pulse Rate [Apical] 89 Respiratory Rate 18 19 Respiratory Effort / Characteristics Non-Labored Spontaneous Non-Labored Spontaneous Respiratory Depth Normal Normal Respiratory Pattern Regular Blood Pressure 126/75 Blood Pressure [Right Arm] 101/75 Blood Pressure Mean 92 Blood Pressure Mean [Right Arm] 83 Pulse Oximetry 97 97 Oxygen Delivery Method Room Air Room Air Sepsis Recent Fever Within 48 Hours No Sepsis New/Unexplained Change in Mental Status N/A Sepsis Action Taken by Nursing No Action Required Laboratory Data 12/16/24 17:08 12/16/24 17:08 Lab Results 12/16/24 12/16/24 12/16/24 Range/Units 17:00 17:08 17:15 WBC 8.64 (4.8-10.8) K/ul RBC 5.34 (4.20-5.40) M/uL Hgb 14.4 (12.0-16.0) g/dl POC Hgb 14.6 (12.0-16.0) g/dl Hct 45.3 (37.0-47.0) % POC Hct 43 (37-47) % MCV 84.8 (80.0-100.0) fL MCH 27.0 (25.0-34.0) pg MCHC 31.8 L (32.0-36.0) g/dL RDW Std Deviation 45.6 (36.4-46.3) fL RDW Coeff of Brendan 14.9 H (11.5-14.5) % Plt Count 339 (130-400) K/uL MPV 9.7 (9.4-12.4) fL Immature Gran % (Auto) 0.2 % Neut % (Auto) 65.2 % Lymph % (Auto) 29.1 % [place] % (Auto) 4.2 % Eos % (Auto) 0.8 % Baso % (Auto) 0.5 % Neut # (Auto) 5.64 (1.40-6.50) K/uL Lymph # (Auto) 2.51 (1.20-3.40) K/uL [place] # (Auto) 0.36 (0.11-0.59) K/uL Eos # (Auto) 0.07 (0.00-0.50) K/uL Baso # (Auto) 0.04 (0.00-0.20) K/uL Immature Gran # (Auto) 0.02 (0.01-0.20) K/uL POC Sodium 140 (135-144) mmol/L Sodium 138 (136-145) mmol/L POC Potassium 4.2 (3.3-5.0) mmol/L Potassium 4.1 (3.5-5.1) mmol/L POC Chloride 104 (101-112) mmol/L Chloride 103 (98-107) mmol/L Carbon Dioxide 26 (21-32) mmol/L POC Total CO2 25 (24-31) mmol/L Anion Gap 9 (3-11) POC Anion Gap 17.0 (16-25) mmol/L POC BUN 8 (7-18) mg/dl BUN 8 (6-23) mg/dl Creatinine 0.75 (0.6-1.2) mg/dl POC Creatinine 0.9 (0.6-1.3) mg/dl Est Cr Clr Drug Dosing 138.6 ml/min eGFR 108.41 BUN/Creatinine Ratio 10.7 (10-20) Glucose 156 H (70-99(Fasting)) mg/dl POC Glucose (other) 156 H (70-99) mg/dl Lactate 2.4 H* (0.4-2.0) mmol/L Calcium 10.4 H (8.6-10.3) mg/dl POC Ioniz Calcium Yaneli 1.26 (1.12-1.32) mmol/l Magnesium 1.8 (1.7-2.4) mg/dl Total Bilirubin 0.3 (0.2-1.0) mg/dl AST 25 (13-39) U/L ALT 32 (7-52) U/L Alkaline Phosphatase 71 (34-104) U/L Total Protein 8.5 H (6.0-8.3) gm/dl Albumin 4.7 (3.4-5.0) gm/dl Globulin 3.8 (2.5-4.0) gm/dl Albumin/Globulin Ratio 1.2 (0.9-2) Lipase 75 (11-82) U/L Procalcitonin 0.02 (0-0.5) ng/ml HCG, Qual Negative (Negative) Urine Color Dark Yellow Urine Appearance Clear (Clear) Urine pH 7.0 (4.5-7.5) Ur Specific [place] 1.013 (1.000-1.030) Urine Protein Negative (Negative) Urine Glucose (UA) Negative (Negative) Urine Ketones Negative (Negative) Urine Blood Negative (Negative) Urine Nitrite Positive A (Negative) Urine Bilirubin Negative (Negative) Urine Urobilinogen Negative (Negative) Ur Leukocyte Esterase Trace H (Negative) Urine WBC (Auto) 6-10 H (0-5) /hpf Urine RBC (Auto) 0-2 (0-2) /hpf U Hyaline Cast (Auto) 0-2 (0-2) /lpf U Epithel Cells (Auto) 0-2 (0-2) /hpf Urine Bacteria (Auto) None Seen (None Seen) Urine Comment 12/16/24 Range/Units 19:08 WBC (4.8-10.8) K/ul RBC (4.20-5.40) M/uL Hgb (12.0-16.0) g/dl POC Hgb (12.0-16.0) g/dl Hct (37.0-47.0) % POC Hct (37-47) % MCV (80.0-100.0) fL MCH (25.0-34.0) pg MCHC (32.0-36.0) g/dL RDW Std Deviation (36.4-46.3) fL RDW Coeff of Brendan (11.5-14.5) % Plt Count (130-400) K/uL MPV (9.4-12.4) fL Immature Gran % (Auto) % Neut % (Auto) % Lymph % (Auto) % [place] % (Auto) % Eos % (Auto) % Baso % (Auto) % Neut # (Auto) (1.40-6.50) K/uL Lymph # (Auto) (1.20-3.40) K/uL [place] # (Auto) (0.11-0.59) K/uL Eos # (Auto) (0.00-0.50) K/uL Baso # (Auto) (0.00-0.20) K/uL Immature Gran # (Auto) (0.01-0.20) K/uL POC Sodium (135-144) mmol/L Sodium (136-145) mmol/L POC Potassium (3.3-5.0) mmol/L Potassium (3.5-5.1) mmol/L POC Chloride (101-112) mmol/L Chloride (98-107) mmol/L Carbon Dioxide (21-32) mmol/L POC Total CO2 (24-31) mmol/L Anion Gap (3-11) POC Anion Gap (16-25) mmol/L POC BUN (7-18) mg/dl BUN (6-23) mg/dl Creatinine (0.6-1.2) mg/dl POC Creatinine (0.6-1.3) mg/dl Est Cr Clr Drug Dosing ml/min eGFR BUN/Creatinine Ratio (10-20) Glucose (70-99(Fasting)) mg/dl POC Glucose (other) (70-99) mg/dl Lactate 1.8 (0.4-2.0) mmol/L Calcium (8.6-10.3) mg/dl POC Ioniz Calcium [place] (1.12-1.32) mmol/l Magnesium (1.7-2.4) mg/dl Total Bilirubin (0.2-1.0) mg/dl AST (13-39) U/L ALT (7-52) U/L Alkaline Phosphatase (34-104) U/L Total Protein (6.0-8.3) gm/dl Albumin (3.4-5.0) gm/dl Globulin (2.5-4.0) gm/dl Albumin/Globulin Ratio (0.9-2) Lipase (11-82) U/L Procalcitonin (0-0.5) ng/ml HCG, Qual (Negative) Urine Color Urine Appearance (Clear) Urine pH (4.5-7.5) Ur Specific [place] (1.000-1.030) Urine Protein (Negative) Urine Glucose (UA) (Negative) Urine Ketones (Negative) Urine Blood (Negative) Urine Nitrite (Negative) Urine Bilirubin (Negative) Urine Urobilinogen (Negative) Ur Leukocyte Esterase (Negative) Urine WBC (Auto) (0-5) /hpf Urine RBC (Auto) (0-2) /hpf U Hyaline Cast (Auto) (0-2) /lpf U Epithel Cells (Auto) (0-2) /hpf Urine Bacteria (Auto) (None Seen) Urine Comment Administered Medications Discontinued Medications Fentanyl Citrate (Fentanyl Citrate Pf 100 Mcg/2 Ml Vial) 25 mcg IV NOW STA Stop: 12/16/24 16:54 Last Admin: 12/16/24 17:10 Dose: 25 mcg Documented By: CAP Fentanyl Citrate (Fentanyl Citrate Pf 100 Mcg/2 Ml Vial) 25 mcg IV NOW STA Stop: 12/16/24 17:44 Last Admin: 12/16/24 18:12 Dose: 25 mcg Documented By: sam Sodium Chloride (Nss) 500 mls @ 999 mls/hr IV .Q31M ONE Stop: 12/16/24 17:24 Last Infusion: 12/16/24 18:28 Dose: Infused Documented By: Admin: 12/16/24 17:10 Dose: 999 mls/hr Documented By: ADAN Cefepime HCl (Maxipime 2000mg) 2,000 mg in 20 mls @ 5 mls/min IV NOW STA; Protocol Stop: 12/16/24 18:51 Last Admin: 12/16/24 19:22 Dose: 5 mls/min Documented By: LCD Imaging Data Radiologist's Impression: Abdomen/Pelvis CT 12/16/24 16:42 Clinical History: Abdominal pain Technique: Axial computed tomography images were obtained of the abdomen and pelvis without intravenous contrast. Comparison is made to the prior CT dated 02/28/2024 Findings: The liver is overall of normal size, attenuation, and contour with no sign of cirrhosis or significant fatty infiltration. No definite liver mass lesion is seen on this noncontrast study. The gallbladder has been removed. No bile duct dilatation is noted. The spleen is of normal size. No focal splenic lesion is evident. The pancreas appears normal with no sign of acute or chronic pancreatitis and no mass lesion noted. The pancreatic duct is of normal caliber. The adrenal glands appear unremarkable. No renal or proximal ureteral calculi are seen. There is no hydronephrosis or perinephric stranding. No definite renal mass lesion is identified. The aorta is of normal caliber. No abdominal adenopathy is seen. The stomach appears normal. There is no sign of small bowel obstruction. The colon appears unremarkable. The appendix appears normal also. No free intraperitoneal fluid or air is identified. No distal ureteral or bladder calculi are seen. No obvious bladder mass lesion is evident. The iliac arteries are of normal caliber. No pelvic adenopathy is noted. The lungs bases appear clear. No fracture is identified. No focal osseous lesion is seen Impression: Unremarkable noncontrast CT of the abdomen and pelvis Electronically signed by Steve Fitzpatrick 12-16-2024 5:44 PM Discharge Plan Visit Data Chief Complaint: Urinary Symptoms Stated Complaint: UTI PAST 5 WKS ED Provider: Ren Vick Discharge Problem: Complicated urinary tract infection, Back pain Patient Disposition: Being Evaluated by Hospitalist Condition: Fair Forms Stand Alone Forms: [facility]ert Prescriptions Prescriptions: No Action cholecalciferol (vitamin D3) 1,250 mcg (50,000 unit) tablet 50,000 unit PO .weekly 84 Days Qty: 12 0RF (DME) BD Integra Syringe 3 mL 25 gauge x 5/8" syringe See Rx Instructions .Route Qty: 100 0RF Rx Instructions: As directed norethindrone (contraceptive) 0.35 mg tablet 0.35 mg PO DAILY Qty: 84 3RF cranberry 500 mg capsule 1,000 mg PO BID PRN (Reason: URINARY SYMPTOMS) Rx Instructions: administer with meals spironolactone 100 mg tablet 100 mg PO DAILY topiramate [Topamax] 25 mg tablet 25 mg PO .COMPLEX Qty: 60 5RF Rx Instructions: 1 tab po at bedtime x 1 week, then increase to 1 tab po BID. rizatriptan 5 mg tablet 5 mg PO .COMPLEX PRN (Reason: migraine headache) Qty: 9 5RF Patient Comments: 12/16- PER PT, SHE IS TAKING the medication twice a day, one in the morning and one in the evening. Rx Instructions: 5 mg PO PRN migraine; may repeat after two hrs prn. No more than 20mg in 24 hrs. Limit use to 2-3 days per week. sennosides [Randi-johanna] 8.6 mg tablet 8.6 mg PO DAILY PRN (Reason: Constipation) albuterol sulfate 90 mcg/actuation Hfa Aerosol Inhaler 2 puff INHALATION Q6H PRN (Reason: Shortness Of Breath Or Wheezing) fexofenadine [Mary Allergy] 180 mg tablet 180 mg PO QAM PRN (Reason: RASH/CONGESTION) Rx Instructions: may take twice a day until rash is better hydroxyzine HCl 25 mg tablet 25 mg PO HS cyanocobalamin (vitamin B-12) 1,000 mcg/mL solution 1,000 mcg IM MONTHLY Rx Instructions: then monthly thereafter gabapentin 300 mg capsule 600 mg PO TID Wegovy 1 mg/0.5 mL pen injector 1 mg SUBCUT WK Rx Instructions: SUNDAYS Referrals Referrals: Ramesh Callahan PA-C [Outside Practitioners] -
[2024-12-16] MEDS: SODIUM CHLORIDE 0.9% 500 ML IV ONE (17:10)
[2024-12-16 17:27] LABS: Hematocrit (blood only) 45.3 % (37.0-47.0); Hemoglobin 14.4 g/dl (12.0-16.0); Immature Granulocytes # (auto) 0.02 K/uL (0.01-0.20); Immature Granulocytes % (auto) 0.2 %; Mean Corpuscular Hemoglobin 27.0 pg (25.0-34.0); Mean Corpuscular Volume 84.8 fL (80.0-100.0); Platelet Count 339 K/uL (130-400); RDW Standard Deviation 45.6 fL (36.4-46.3); Red Blood Count 5.34 M/uL (4.20-5.40); White Blood Count 8.64 K/ul (4.8-10.8)
--- NOTE | 2024-12-16 17:45 | CT Scan Report ---
Clinical History: Abdominal pain Technique: Axial computed tomography images were obtained of the abdomen and pelvis without intravenous contrast. Comparison is made to the prior CT dated 02/28/2024 Findings: The liver is overall of normal size, attenuation, and contour with no sign of cirrhosis or significant fatty infiltration. No definite liver mass lesion is seen on this noncontrast study. The gallbladder has been removed. No bile duct dilatation is noted. The spleen is of normal size. No focal splenic lesion is evident. The pancreas appears normal with no sign of acute or chronic pancreatitis and no mass lesion noted. The pancreatic duct is of normal caliber. The adrenal glands appear unremarkable. No renal or proximal ureteral calculi are seen. There is no hydronephrosis or perinephric stranding. No definite renal mass lesion is identified. The aorta is of normal caliber. No abdominal adenopathy is seen. The stomach appears normal. There is no sign of small bowel obstruction. The colon appears unremarkable. The appendix appears normal also. No free intraperitoneal fluid or air is identified. No distal ureteral or bladder calculi are seen. No obvious bladder mass lesion is evident. The iliac arteries are of normal caliber. No pelvic adenopathy is noted. The lungs bases appear clear. No fracture is identified. No focal osseous lesion is seen Impression: Unremarkable noncontrast CT of the abdomen and pelvis Electronically signed by Steve Fitzpatrick 12-16-2024 5:44 PM
[2024-12-16 17:47] LABS: Alanine Aminotransferase 32.0 U/L (7-52); Albumin Globulin Ratio 1.2 (0.9-2); Albumin Level 4.7 gm/dl (3.4-5.0); Alkaline Phosphatase 71.0 U/L (34-104); Anion Gap 9.0 (3-11); Bilirubin,Total 0.3 mg/dl (0.2-1.0); Blood Urea Nitrogen 8.0 mg/dl (6-23); Calcium 10.4 mg/dl (8.6-10.3); Carbon Dioxide 26.0 mmol/L (21-32); Chloride 103.0 mmol/L (98-107); Creatinine Clr Calc Pharmacy 138.6 ml/min; Globulin 3.8 gm/dl (2.5-4.0); Glucose 156.0 mg/dl (70-99(Fasting)); Lipase 75.0 U/L (11-82); Magnesium 1.8 mg/dl (1.7-2.4); Potassium 4.1 mmol/L (3.5-5.1); Sodium 138.0 mmol/L (136-145); Total Protein 8.5 gm/dl (6.0-8.3)
[2024-12-16 18:06] LABS: Appearance Urine Clear (Clear); Bacteria Urine Automated None Seen (None Seen); Cast Urine Automated 0-2 /lpf (0-2); Epithelial Cell Urine Auto 0-2 /hpf (0-2); Glucose Urine UA Negative (Negative); RBC Urine Automated 0-2 /hpf (0-2)
[2024-12-16 18:22] LABS: Pregnancy Test, Serum Negative (Negative)
[2024-12-16] MEDS: CEFEPIME 2000MG 2,000 MG/20 ML SYR IV STA (19:22)
--- NOTE | 2024-12-16 19:27 | History & Physical Report ---
Date of Service December 16, 2024 Assessment & Plan (1) Dysuria: Plan: #Dysuria: #Right flank pain #History recurrent UTIs #History urinary retention Patient is a 34-year-old female with history of spina bifida, urinary retention, recurrent UTI's, asthma, PCOS, obesity presented to ER with c/o dysuria x 5 weeks. Initial symptoms dysuria, discolored urine, right flank and suprapubic tenderness. 03/09/24 urine culture: + Proteus mirabilis resistant to multiple antibiotics Patient pulls up test results from [facility] on her phone: 11/16/2024 urine culture: greater than 100,000 E. coli/mixed jerrell was resistant to ampicillin, intermittent to Augmentin and ampicillin/sulbactam. 11/27/2024 urine culture: greater than 100,000 mixed jerrell Outpatient 11/20/2024 given Cipro 1 twice daily x 5 days. 11/23/2024 nitrofurantoin x 5 days. 12/03/2024 given cefdinir 300 mg twice daily x 7 days Today in ER afebrile, vitals stable. No leukocytosis, Lactate: 2.4-->1.8. UA: positive nitrite, trace leuk esterase, 6-10 WBC, No bacteria CT Abd/pelvis: Unremarkable with No renal or proximal ureteral calculi are seen. There is no hydronephrosis or perinephric stranding. No definite renal mass lesion is identified. The appendix appears normal also. No free intraperitoneal fluid or air is identified. No distal ureteral or bladder calculi are seen. No obvious bladder mass lesion is evident. In ER afebrile, vitals stable. No leukocytosis R/O UTI Today in ER given cefepime, 500ml NSS, fentanyl Urine culture pending. Blood culture pending Continue cefepime empirically for now. Allergy cefaclor listed. Pt has tolerated cefdinir, Augmentin in past Trial dose of toradol. Following with [facility] urology H/O Self caths in past but denies recently Bladder scan #Spina bifida spina bifida with tethered cord diagnosed in 2023 and underwent L3 laminectomy developed urinary retention thereafter and had reported infection and wound dehiscence requiring debridement 07/2023 Continue gabapentin #Hx asthma: No signs acute exacerbation Continue albuterol inhaler as needed #PCOS Continue spironolactone #H/O Migraine HAWK Continue topiramate #Obesity BMI: 46 Hold semaglutide while hospitalized DVT Prophylaxis SCDs Admit med surg Full code Follows with Dr Valdes for routine care Pt was seen and care coordinated with Dr Oneil. See addendum I spent a total of 65 minutes reviewing notes, outpatient records, labs, medication, coordinating, documenting and providing care for this patient excluding time spent in the performance of separately billed services and excluding time spent by another provider/QHP. History of Present Illness Chief Complaint: dysuria Primary Care Provider: Haile Valdes MD Patient is a 34-year-old female with history of spina bifida, urinary retention, recurrent UTI's, asthma, PCOS, obesity presented to ER with c/o dysuria x 5 weeks. Per inpatient review History [facility] hospitalization 02/25/2024-02/29/2024 for right flank pain, concern for possible UTI. At that time had unremarkable CT abdomen pelvis. Liver ultrasound unremarkable. Urine culture possible contamination. Suspected flank pain was likely musculoskeletal related and was treated with baclofen and tramadol. Recio catheter was placed secondary to urinary retention. Patient Denies needed Recio cath since 03/2024 and states has not been self cath recently. Patient states 5 weeks ago started with orange color urine and had some dysuria. She reports at baseline has to "push" to empty her bladder. She is unsure if she is fully emptying her bladder. She reports following with [facility] and had urine sample that she reports being diagnosed with UTI and was started on Cipro x 5 days. Her symptoms of dysuria, discolored urine and also with right flank discomfort, suprapubic pressure continued and was given nitrofurantoin. She states had another urine sample done. Was seen at [facility] ER on 12/02/2024 with UA 6-10 WBC,> 20 epithelial cells no bacteria seen and was given cefdinir 300 mg twice daily x 7 days. Patient states symptoms continue and does not feel has had any relief. Denies fever/chills, diaphoresis, N/V/D/C, HAWK, dizziness, CP, SOB, orthopnea, palpitations, cough, sore throat, rhinorrhea, extremity paresthesias, weakness, extremity edema, rashes. Allergies Allergy/AdvReac Type Severity Reaction Status Date / Time cefaclor [From Ceclor] Allergy Severe hands and Verified 10/02/24 09:01 feet swell daptomycin Allergy Severe eye and Verified 10/02/24 09:01 lip swelling vancomycin Allergy Intermediate Hives Verified 10/02/24 09:01 Iodinated Contrast Media AdvReac Severe Vomiting Verified 10/02/24 09:01 oxycodone AdvReac Intermediate Confusion Verified 10/02/24 09:01 Home Medications Medication Instructions Recorded Confirmed Type albuterol sulfate 90 mcg/actuation 2 puff inhalation Q6H PRN 08/25/23 12/16/24 History aerosol inhaler Shortness Of Breath Or Wheezing sennosides 8.6 mg tablet (Randi-johanna) 8.6 mg PO DAILY PRN Constipation 08/25/23 12/16/24 History cranberry 500 mg capsule 1,000 mg PO BID PRN URINARY 05/28/24 12/16/24 History SYMPTOMS fexofenadine 180 mg tablet 180 mg PO QAM PRN RASH/CONGESTION 05/28/24 12/16/24 History (Mary Allergy) spironolactone 100 mg tablet 100 mg PO DAILY 05/28/24 12/16/24 History semaglutide (weight loss) 1 mg/0.5 1 mg subcut WK 06/19/24 12/16/24 History mL subcutaneous pen injector (Lili) rizatriptan 5 mg tablet 5 mg PO .COMPLEX PRN migraine 10/02/24 12/16/24 Rx headache #9 tabs cholecalciferol (vitamin D3) 1,250 50,000 unit PO .weekly 12 weeks 10/15/24 12/16/24 Rx mcg (50,000 unit) tablet #12 tabs syringe with needle, safety 3 mL #100 ea 10/15/24 12/16/24 Rx 25 gauge x 5/8" (BD Integra Syringe) norethindrone (contraceptive) 0.35 0.35 mg PO DAILY #84 tabs 12/07/24 12/16/24 Rx mg tablet cyanocobalamin (vitamin B-12) 1,000 mcg IM MONTHLY 12/16/24 12/16/24 History 1,000 mcg/mL injection solution gabapentin 600 mg tablet 600 mg PO TID 12/16/24 12/16/24 History hydroxyzine HCl 25 mg tablet 25 mg PO HS 12/16/24 12/16/24 History topiramate 25 mg tablet (Topamax) 25 mg PO BID 12/16/24 12/16/24 History Past Med/Surg History Problem List (Updated 12/16/24 @ 21:35 by Jane Cruz PA-C) Dysuria Back pain (Acute) Complicated urinary tract infection (Acute) Conductive hearing loss, bilateral UTI (urinary tract infection) (Acute) Migraine with aura B12 deficiency Anemia Vitamin D deficiency Hypomagnesemia Hypertrophy of both inferior nasal turbinates Deviated nasal septum Conductive hearing loss of right ear with restricted hearing of left ear Headache Pressure-related ear pain Dizziness Popping of left ear Vertigo Urinary retention Pleuritic chest pain Wound dehiscence 08/26/23 Angioedema (Acute) 08/25/23 Medical History TMJ (dislocation of temporomandibular joint) Myofascial pain on right side Nerve pain low back pain and legs-notes improvement since spinal de-tethering surgery Asthma controlled, stable per pt-last rescue inhaler use 10/18/23 PCOS (polycystic ovarian syndrome) Spinal abscess dx 04/2023 Spina bifida Obesity Surgical History Hx of tonsillectomy (~2006) H/O adenoidectomy (~1997) History of anesthesia reaction slow to wake up History of esophagogastroduodenoscopy (EGD) History of colonoscopy [place] teeth removed History of surgery (07/02/23) 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>required I&D 07/31/23>in cision closed (done at [facility] in [place]) History of placement of ear tubes (~1997) History of cholecystectomy (2012) Family History Mother Thyroid cancer Father CLL (chronic lymphocytic leukemia) Diabetes Grandmother (Paternal) Ovarian cancer Grandfather (Paternal) Oral-mouth cancer Diabetes Grandfather (Maternal) Heart disease Grandmother (Paternal) Heart disease Grandmother (Maternal) Family history of adverse reaction to anesthesia Aunt Family history of adverse reaction to anesthesia MATERNAL Other No family history of bleeding disorder Social History Smoking Status: Never smoker Second Hand Exposure: No; Do You Dip or Chew Tobacco: No; Hx Alcohol Use: Yes Alcohol type: wine Alcohol Intake Frequency Comment: Special occasions Hx Substance Use: No Preferred Language: Serbian Communication Ability: Effective 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 Required: No Beliefs That Will Affect Care: None marital status: Single Current Living Situation: Parent and Family Current Living Situation Comment: with parents 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 Feels Safe at Home: Yes Diet: regular during the past year weight has: remained stable Assistive Devices: Brace/Splint/Immobilizer, Cane and Walker Review of Systems Review of Systems: All systems reviewed & are unremarkable except as noted in HPI & below Physical Exam Physical Exam: General: no distress, obese female Head: normocephalic, atraumatic Eyes: conjunctiva non-injected, anicteric ENT: normal inspection external ears, nose, mucous membranes moist Neck: supple, trachea midline, non-tender Lungs: clear, no respiratory distress, no wheezing/rhonchi/rales CV: RRR, no murmur, no pretibial edema Abd: protuberant, normal BS, soft, reported tenderness to palpation suprapubic without rebound or guarding, +diffuse right flank tenderness and entire bilateral lumbar spinous region with tenderness to palpation. no other abdominal tenderness to palpation noted. Ext: no cyanosis, no calf tenderness Neuro: A&O x 3, no focal deficits noted, normal affect Skin: warm, dry Results & Data Results & Data Vital Signs (Past 12 Hours) Vital Signs Temp Pulse Pulse Resp BP BP Pulse Ox 12/16/24 17:38 89 19 101/75 97 12/16/24 16:19 36.7 C 108 H 18 126/75 97 O2 Del Method 12/16/24 17:38 Room Air 12/16/24 16:19 Room Air Laboratory Results Short CBC 12/16/24 Range/Units 17:08 WBC 8.64 (4.8-10.8) K/ul Hgb 14.4 (12.0-16.0) g/dl Hct 45.3 (37.0-47.0) % Plt Count 339 (130-400) K/uL BMP 12/16/24 17:08 Sodium 138 Potassium 4.1 Chloride 103 Carbon Dioxide 26 BUN 8 Creatinine 0.75 Glucose 156 H Calcium 10.4 H Liver Function 12/16/24 Range/Units 17:08 Total Bilirubin 0.3 (0.2-1.0) mg/dl AST 25 (13-39) U/L ALT 32 (7-52) U/L Alkaline Phosphatase 71 (34-104) U/L Albumin 4.7 (3.4-5.0) gm/dl Urine 12/16/24 Range/Units 17:08 Urine Color Dark Yellow Urine Appearance Clear (Clear) Urine pH 7.0 (4.5-7.5) Ur Specific [place] 1.013 (1.000-1.030) Urine Protein Negative (Negative) Urine Glucose (UA) Negative (Negative) Diagnostic Findings Abdomen/Pelvis CT 12/16/24 16:42 Clinical History: Abdominal pain Technique: Axial computed tomography images were obtained of the abdomen and pelvis without intravenous contrast. Comparison is made to the prior CT dated 02/28/2024 Findings: The liver is overall of normal size, attenuation, and contour with no sign of cirrhosis or significant fatty infiltration. No definite liver mass lesion is seen on this noncontrast study. The gallbladder has been removed. No bile duct dilatation is noted. The spleen is of normal size. No focal splenic lesion is evident. The pancreas appears normal with no sign of acute or chronic pancreatitis and no mass lesion noted. The pancreatic duct is of normal caliber. The adrenal glands appear unremarkable. No renal or proximal ureteral calculi are seen. There is no hydronephrosis or perinephric stranding. No definite renal mass lesion is identified. The aorta is of normal caliber. No abdominal adenopathy is seen. The stomach appears normal. There is no sign of small bowel obstruction. The colon appears unremarkable. The appendix appears normal also. No free intraperitoneal fluid or air is identified. No distal ureteral or bladder calculi are seen. No obvious bladder mass lesion is evident. The iliac arteries are of normal caliber. No pelvic adenopathy is noted. The lungs bases appear clear. No fracture is identified. No focal osseous lesion is seen Impression: Unremarkable noncontrast CT of the abdomen and pelvis Electronically signed by Steve Fitzpatrick 12-16-2024 5:44 PM Supervising Physician Co-Signing Physician Notes Patient seen and examined at bedside. Patient laying comfortably in bed. States urinary discomfort and right flank pain. On exam, hemodynamically unremarakble, no leukocytosis or left shift noted, UA w ith nitrites/leuks but with minimal WBC noted and no urine bacteria. CT abdomen/pelvis without concern for pyelonephritis. Patient has urodynamic testing in February with urology for possible urinary retention. Patient with Spina Bifida, chronic pain syndrome in lower back, presenting with concern for recurrent UTIs and concern for pyelonephritis. UA and imaging not strongly supportive of pyelonephritis and only mildly supportive of ongoing urinary tract infection. Given subjective UTI symptoms with mild UA correlate, follow culture results, continue cefepime empirically. ID consult in AM given symptoms without strong imaging/strong UA correlate. Suspect chronic pain syndrome in back is possible etiology of flank pain as well. Possible discharge tomorrow pending workup and medical stability. I have seen and discussed the case with the collaborating advanced practitioner. I agree with the above H&P. I have reviewed and confirmed the patients medical history, the findings on physical examination, and the patients diagnosis and treatment plan with Jane Cruz PA-C and agree with the information documented. I spent a total of 20 minutes coordinating, documenting, and providing care for this patient excluding time spent in the performance of separately billed services. All of the aforementioned completed outside of collaborating with the assigned advanced practitioner for a full treatment plan. I have reviewed the advanced practitioner's documentation, and I agree with, and take responsibility for the plan of care
[2024-12-16] MEDS: KETOROLAC TROMETHAMINE 15 MG/ML VIAL IV ONE (20:14)
[2024-12-16] MEDS ORDERED: ONDANSETRON INJ 2 MG/ML 2 ML VIAL IV PRN (21:51)
[2024-12-16] MEDS ORDERED: POLYETHYLENE (MIRALAX) 17 GM PACK PO PRN (21:51)
[2024-12-16] MEDS ORDERED: ALBUTEROL HFA 8 GM INHALER INH PRN (21:51)
[2024-12-16] MEDS ORDERED: MAGNESIUM HYDROXIDE SUSP 30 ML UDC PO PRN (21:51)
[2024-12-16] MEDS: ACETAMINOPHEN 500 MG TAB PO SCH (23:49)
[2024-12-16] MEDS: TOPIRAMATE 25 MG TAB PO SCH (23:50)
[2024-12-16] MEDS: GABAPENTIN 600 MG TAB PO SCH (23:50)
[2024-12-17 04:40] LABS: Hematocrit (blood only) 38.5 % (37.0-47.0); Hemoglobin 12.4 g/dl (12.0-16.0); Mean Corpuscular Hemoglobin 27.9 pg (25.0-34.0); Mean Corpuscular Volume 86.7 fL (80.0-100.0); Platelet Count 292 K/uL (130-400); RDW Standard Deviation 46.5 fL (36.4-46.3); Red Blood Count 4.44 M/uL (4.20-5.40); White Blood Count 7.97 K/ul (4.8-10.8)
[2024-12-17 04:59] LABS: Anion Gap 6.0 (3-11); Blood Urea Nitrogen 10.0 mg/dl (6-23); Calcium 9.4 mg/dl (8.6-10.3); Carbon Dioxide 27.0 mmol/L (21-32); Chloride 106.0 mmol/L (98-107); Creatinine Clr Calc Pharmacy 125.2 ml/min; Glucose 108.0 mg/dl (70-99(Fasting)); Potassium 4.2 mmol/L (3.5-5.1); Sodium 139.0 mmol/L (136-145)
[2024-12-17] MEDS: CEFEPIME 2000MG 2,000 MG/20 ML SYR IV SCH (05:51)
[2024-12-17] MEDS: SPIRONOLACTONE 100 MG TAB PO SCH (09:00)
--- NOTE | 2024-12-17 11:58 | Hospitalist Progress Note ---
Date of Service December 17, 2024 Assessment & Plan (1) Dysuria: Plan: Ms Aldana is a 34-year-old female with history of spina bifida, urinary retention, recurrent UTI's, asthma, PCOS, obesity presented to ER with c/o dysuria x 5 weeks. Initial symptoms dysuria, discolored urine, right flank and suprapubic tenderness. Patient remains with stable labs and afebril. Awaiting urine culture and possible dispo tomorrow am. #Dysuria: #Right flank pain #History recurrent UTIs #History urinary retention Outpatient 11/20/2024 given Cipro 1 twice daily x 5 days. 11/23/2024 nitrofurantoin x 5 days. 12/03/2024 given cefdinir 300 mg twice daily x 7 days No leukocytosis, Lactate: 2.4-->1.8. UA: positive nitrite, trace leuk esterase, 6-10 WBC, No bacteria CT Abd/pelvis: Unremarkable with No renal or proximal ureteral calculi are seen. There is no hydronephrosis or perinephric stranding. No definite renal mass lesion is identified. The appendix appears normal also. No free intraperitoneal fluid or air is identified. No distal ureteral or bladder calculi are seen. No obvious bladder mass lesion is evident. In ER afebrile, vitals stable. No leukocytosis follow urine culture #Spina bifida spina bifida with tethered cord diagnosed in 2023 and underwent L3 laminectomy developed urinary retention thereafter and had reported infection and wound dehiscence requiring debridement 07/2023 Continue gabapentin #Hx asthma: No signs acute exacerbation Continue albuterol inhaler as needed #PCOS Continue spironolactone #H/O Migraine HAWK Continue topiramate #Obesity BMI: 46 Hold semaglutide while hospitalized DVT Prophylaxis SCDs Full code Follows with Dr Valdes for routine care Admission and Anticipated Discharge Date Admission Date: December 16, 2024 Subjective reports feeling generally unwell and still with suprapubic discomfort no ready to go home at this time Physical Exam Constitutional: WD/WN, vitals as above Respiratory: normal respiratory effort, lungs clear to auscultation Cardiovascular: RRR, no murmur, no edema Gastrointestinal (Abdomen): suprapubic discomfort noted Results & Data Results & Data Vital Signs (Past 12 Hours) Vital Signs Temp Pulse Resp BP Pulse Ox O2 Del Method 12/17/24 08:00 Room Air 12/17/24 07:37 36.4 C 76 16 107/68 96 Room Air Laboratory Results Short CBC 12/16/24 12/17/24 Range/Units 17:08 04:19 WBC 8.64 7.97 (4.8-10.8) K/ul Hgb 14.4 12.4 (12.0-16.0) g/dl Hct 45.3 38.5 (37.0-47.0) % Plt Count 339 292 (130-400) K/uL BMP 12/16/24 12/17/24 17:08 04:19 Sodium 138 139 Potassium 4.1 4.2 Chloride 103 106 Carbon Dioxide 26 27 BUN 8 10 Creatinine 0.75 0.83 Glucose 156 H 108 H Calcium 10.4 H 9.4 Liver Function 12/16/24 Range/Units 17:08 Total Bilirubin 0.3 (0.2-1.0) mg/dl AST 25 (13-39) U/L ALT 32 (7-52) U/L Alkaline Phosphatase 71 (34-104) U/L Albumin 4.7 (3.4-5.0) gm/dl Urine 12/16/24 Range/Units 17:08 Urine Color Dark Yellow Urine Appearance Clear (Clear) Urine pH 7.0 (4.5-7.5) Ur Specific [place] 1.013 (1.000-1.030) Urine Protein Negative (Negative) Urine Glucose (UA) Negative (Negative) Medications Administered Home Medications Medication Instructions Recorded Confirmed Last Taken albuterol sulfate 90 mcg/actuation 2 puff inhalation Q6H PRN 08/25/23 12/16/24 Unknown aerosol inhaler Shortness Of Breath Or Wheezing sennosides 8.6 mg tablet (Randi-johanna) 8.6 mg PO DAILY PRN Constipation 08/25/23 12/16/24 10/22/23 cranberry 500 mg capsule 1,000 mg PO BID PRN URINARY 05/28/24 12/16/24 Unknown SYMPTOMS fexofenadine 180 mg tablet 180 mg PO QAM PRN RASH/CONGESTION 05/28/24 12/16/24 12/16/24 09:00 (Mary Allergy) spironolactone 100 mg tablet 100 mg PO DAILY 05/28/24 12/16/24 06/19/24 semaglutide (weight loss) 1 mg/0.5 1 mg subcut WK 06/19/24 12/16/24 06/14/24 mL subcutaneous pen injector (Lili) rizatriptan 5 mg tablet 5 mg PO .COMPLEX PRN migraine 10/02/24 12/16/24 Unknown headache #9 tabs cholecalciferol (vitamin D3) 1,250 50,000 unit PO .weekly 12 weeks 10/15/24 12/16/24 Unknown mcg (50,000 unit) tablet #12 tabs syringe with needle, safety 3 mL #100 ea 10/15/24 12/16/24 Unknown 25 gauge x 5/8" (BD Integra Syringe) norethindrone (contraceptive) 0.35 0.35 mg PO DAILY #84 tabs 12/07/24 12/16/24 Unknown mg tablet cyanocobalamin (vitamin B-12) 1,000 mcg IM MONTHLY 12/16/24 12/16/24 12/14/24 1,000 mcg/mL injection solution gabapentin 600 mg tablet 600 mg PO TID 12/16/24 12/16/24 12/16/24 hydroxyzine HCl 25 mg tablet 25 mg PO HS 12/16/24 12/16/24 Unknown topiramate 25 mg tablet (Topamax) 25 mg PO BID 12/16/24 12/16/24 Unknown Active Medications Generic Name Dose Route Start Last Admin Trade Name Freq PRN Reason Stop Dose Admin Acetaminophen 1,000 mg 12/16/24 22:00 12/17/24 05:58 Acetaminophen 500 Mg Tab PO 01/15/25 21:59 1,000 mg Q8H SHARIFA Administration Gabapentin 600 mg 12/16/24 21:51 12/17/24 09:00 Gabapentin 600 Mg Tab PO 01/15/25 21:50 600 mg TID SHARIFA Administration Hydroxyzine HCl 25 mg 12/16/24 21:51 12/16/24 23:50 Hydroxyzine Hcl 25 Mg Tab PO 01/15/25 21:50 25 mg HS SHARIFA Administration Cefepime HCl 2,000 mg in 20 mls @ 5 mls/min 12/17/24 06:00 12/17/24 05:51 Maxipime 2000mg IV 12/19/24 05:59 5 mls/min Q12H SHARIFA Administration Protocol Miscellaneous 1 each 10/09/25 00:00 12/17/24 08:59 Norethindrone (Contraceptive) 0.35 Mg - Order Awaiting Action N/A 01/16/25 00:00 Not Given QS SHARIFA Spironolactone 100 mg 12/17/24 09:00 12/17/24 09:00 Spironolactone 100 Mg Tab PO 01/16/25 08:59 100 mg DAILY SHARIFA Administration Topiramate 25 mg 12/16/24 21:51 12/17/24 09:00 Topiramate 25 Mg Tab PO 01/15/25 21:50 25 mg BID SHARIFA Administration
--- NOTE | 2024-12-17 13:03 | Infectious Disease Consult ---
Date of Service December 17, 2024 Telehealth Information I performed this visit using a real-time telehealth connection between my location and the patients location ([facility]). After connecting through interactive tele-video, patient was identified by name and date of and/or wristband check.Patient (or authorized healthcare group sales representative) was informed that this was a telemedicine visit and it was being conducted confidentially over secure lines. My office door was closed and no o ne else was present in the room with me.Patient (or authorized healthcare group sales representative) provided consent to proceed with the visit, expressed an understanding of privacy and security of the telemedicine visit, and gave permission to have a hospital group sales representative in the room in order to assist with the visit and to conduct portions of the visit, as needed. I informed the patient (or authorized healthcare group sales representative) that I reviewed their record and presented the opportunity for them to ask any questions regarding the visit today. The patient agreed to participate. Assessment & Plan (1) Dysuria: (2) Back pain: (3) Complicated urinary tract infection: Plan Assessment: Patient is a 34-year-old female with history of spina bifida, urinary retention, recurrent UTI's, asthma, PCOS, obesity who presented to [facility] on 12/16/2024 with c/o dysuria x 5 weeks. Initial symptoms dysuria, discolored urine, right flank and suprapubic tenderness. At [facility], UA concerning for mild infection and urine culture pending, re- incubating for pin-point growth. Plan: - Recommend continuing Cefepime IV for now and awaiting urine culture for narrowed antibiotic management and de-escalated. However, if patient continues to improve on Cefepime IV alone, you can consider switching pt to ciprofloxacin PO to complete treatment course of 7 days of antibiotics and f/u culture in outpatient setting. - we will not actively monitor patient, if additional recommendations are required please reach out to ID physician on teledoc service for additional recommendations via phone or tiger text. History of Present Illness History of Present Illness Reason for consult: recurrent UTI symptoms without strong UA Patient is a 34-year-old female with history of spina bifida, urinary retention, recurrent UTI's, asthma, PCOS, obesity who presented to [facility] on 12/16/2024 with c/o dysuria x 5 weeks. Initial symptoms dysuria, discolored urine, right flank and suprapubic tenderness. 03/09/24 urine culture: + Proteus mirabilis resistant to multiple antibiotics Patient pulls up test results from [facility] on her phone: 11/16/2024 urine culture: greater than 100,000 E. coli/mixed jerrell was resistant to ampicillin, intermittent to Augmentin and ampicillin/sulbactam. 11/27/2024 urine culture: greater than 100,000 mixed jerrell Outpatient 11/20/2024 given Cipro 1 twice daily x 5 days. 11/23/2024 nitrofurantoin x 5 days. 12/03/2024 given cefdinir 300 mg twice daily x 7 days In the ED, pt was afebrile, vitals stable. No leukocytosis, Lactate: 2.4-->1.8. UA: positive nitrite, trace leuk esterase, 6-10 WBC, No bacteria CT Abd/pelvis: Unremarkable with No renal or proximal ureteral calculi are seen. There is no hydronephrosis or perinephric stranding. No definite renal mass lesion is identified. The appendix appears normal also. No free intraperitoneal fluid or air is identified. No distal ureteral or bladder calculi are seen. No obvious bladder mass lesion is evident. At [facility], UA concerning for mild infection and urine culture pending, re- incubating for pin-point growth. ID consulted for evaluation and management. Allergies Allergy/AdvReac Type Severity Reaction Status Date / Time cefaclor [From Ceclor] Allergy Severe hands and Verified 10/02/24 09:01 feet swell daptomycin Allergy Severe eye and Verified 10/02/24 09:01 lip swelling vancomycin Allergy Intermediate Hives Verified 10/02/24 09:01 Iodinated Contrast Media AdvReac Severe Vomiting Verified 10/02/24 09:01 oxycodone AdvReac Intermediate Confusion Verified 10/02/24 09:01 Home Medications Medication Instructions Recorded Confirmed Type albuterol sulfate 90 mcg/actuation 2 puff inhalation Q6H PRN 08/25/23 12/16/24 History aerosol inhaler Shortness Of Breath Or Wheezing sennosides 8.6 mg tablet (Randi-johanna) 8.6 mg PO DAILY PRN Constipation 08/25/23 12/16/24 History cranberry 500 mg capsule 1,000 mg PO BID PRN URINARY 05/28/24 12/16/24 History SYMPTOMS fexofenadine 180 mg tablet 180 mg PO QAM PRN RASH/CONGESTION 05/28/24 12/16/24 History (Mary Allergy) spironolactone 100 mg tablet 100 mg PO DAILY 05/28/24 12/16/24 History semaglutide (weight loss) 1 mg/0.5 1 mg subcut WK 06/19/24 12/16/24 History mL subcutaneous pen injector (Wegovy) rizatriptan 5 mg tablet 5 mg PO .COMPLEX PRN migraine 10/02/24 12/16/24 Rx headache #9 tabs cholecalciferol (vitamin D3) 1,250 50,000 unit PO .weekly 12 weeks 10/15/24 12/16/24 Rx mcg (50,000 unit) tablet #12 tabs syringe with needle, safety 3 mL #100 ea 10/15/24 12/16/24 Rx 25 gauge x 5/8" (BD Integra Syringe) norethindrone (contraceptive) 0.35 0.35 mg PO DAILY #84 tabs 12/07/24 12/16/24 Rx mg tablet cyanocobalamin (vitamin B-12) 1,000 mcg IM MONTHLY 12/16/24 12/16/24 History 1,000 mcg/mL injection solution gabapentin 600 mg tablet 600 mg PO TID 12/16/24 12/16/24 History hydroxyzine HCl 25 mg tablet 25 mg PO HS 12/16/24 12/16/24 History topiramate 25 mg tablet (Topamax) 25 mg PO BID 12/16/24 12/16/24 History Patient History Medical History TMJ (dislocation of temporomandibular joint) Myofascial pain on right side Nerve pain low back pain and legs-notes improvement since spinal de-tethering surgery Asthma controlled, stable per pt-last rescue inhaler use 10/18/23 PCOS (polycystic ovarian syndrome) Spinal abscess dx 04/2023 Spina bifida Obesity Surgical History Hx of tonsillectomy (~2006) H/O adenoidectomy (~1997) History of anesthesia reaction slow to wake up History of esophagogastroduodenoscopy (EGD) History of colonoscopy [place] teeth removed History of surgery (07/02/23) 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>required I&D 07/31/23>incision closed (done at [facility] in [place]) History of placement of ear tubes (~1997) History of cholecystectomy (2012) Family History Mother Thyroid cancer Father CLL (chronic lymphocytic leukemia) Diabetes Grandmother (Paternal) Ovarian cancer Grandfather (Paternal) Oral-mouth cancer Diabetes Grandfather (Maternal) Heart disease Grandmother (Paternal) Heart disease Grandmother (Maternal) Family history of adverse reaction to anesthesia Aunt Family history of adverse reaction to anesthesia MATERNAL Other No family history of bleeding disorder Social History Smoking Status: Never smoker Second Hand Exposure: No; Do You Dip or Chew Tobacco: No; Hx Alcohol Use: No Hx Substance Use: No Preferred Language: Maori Communication Ability: Effective Cant Hooker Required: No Beliefs That Will Affect Care: None marital status: Single Current Living Situation: Parent Current Living Situation Comment: with parents 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 Feels Safe at Home: Yes Safety Concerns: Feels Safe At This Time Diet: regular during the past year weight has: remained stable Assistive Devices: None Review of Systems ROS all negative except for right flank pain and burning with urination Physical Exam NA Results & Data Vital Signs (Past 12 Hours) Vital Signs Temp Pulse Resp BP Pulse Ox O2 Del Method 12/17/24 08:00 Room Air 12/17/24 07:37 36.4 C 76 16 107/68 96 Room Air Laboratory Results 12/16/24 17:08 Urine Culture - Preliminary Urine,Straight Cath Pin-point growth present, reincubating. 12/16/24 17:08 Aerobic Blood Culture - Pending Blood Anaerobic Blood Culture - Pending 12/16/24 17:08 Aerobic Blood Culture - Pending Blood Anaerobic Blood Culture - Pending 12/17/24 12/16/24 12/16/24 04:19 19:08 17:15 WBC 7.97 RBC 4.44 Hgb 12.4 POC Hgb 14.6 Hct 38.5 POC Hct 43 MCV 86.7 MCH 27.9 MCHC 32.2 RDW Std Deviation 46.5 H RDW Coeff of Brendan 14.6 H Plt Count 292 MPV 9.7 Immature Gran % (Auto) Neut % (Auto) Lymph % (Auto) [place] % (Auto) Eos % (Auto) Baso % (Auto) Neut # (Auto) Lymph # (Auto) [place] # (Auto) Eos # (Auto) Baso # (Auto) Immature Gran # (Auto) POC Sodium 140 Sodium 139 POC Potassium 4.2 Potassium 4.2 POC Chloride 104 Chloride 106 Carbon Dioxide 27 POC Total CO2 25 Anion Gap 6 POC Anion Gap 17.0 POC BUN 8 BUN 10 Creatinine 0.83 POC Creatinine 0.9 Est Cr Clr Drug Dosing 125.2 eGFR 96.00 BUN/Creatinine Ratio 12.0 Glucose 108 H POC Glucose (other) 156 H Lactate 1.8 Calcium 9.4 POC Ioniz Calcium Yaneli 1.26 Magnesium Total Bilirubin AST ALT Alkaline Phosphatase Total Protein Albumin Globulin Albumin/Globulin Ratio Lipase Procalcitonin HCG, Qual Urine Color Urine Appearance Urine pH Ur Specific [place] Urine Protein Urine Glucose (UA) Urine Ketones Urine Blood Urine Nitrite Urine Bilirubin Urine Urobilinogen Ur Leukocyte Esterase Urine WBC (Auto) Urine RBC (Auto) U Hyaline Cast (Auto) U Epithel Cells (Auto) Urine Bacteria (Auto) Urine Comment 12/16/24 12/16/24 17:08 17:00 WBC 8.64 RBC 5.34 Hgb 14.4 POC Hgb Hct 45.3 POC Hct MCV 84.8 MCH 27.0 MCHC 31.8 L RDW Std Deviation 45.6 RDW Coeff of Brendan 14.9 H Plt Count 339 MPV 9.7 Immature Gran % (Auto) 0.2 Neut % (Auto) 65.2 Lymph % (Auto) 29.1 [place] % (Auto) 4.2 Eos % (Auto) 0.8 Baso % (Auto) 0.5 Neut # (Auto) 5.64 Lymph # (Auto) 2.51 [place] # (Auto) 0.36 Eos # (Auto) 0.07 Baso # (Auto) 0.04 Immature Gran # (Auto) 0.02 POC Sodium Sodium 138 POC Potassium Potassium 4.1 POC Chloride Chloride 103 Carbon Dioxide 26 POC Total CO2 Anion Gap 9 POC Anion Gap POC BUN BUN 8 Creatinine 0.75 POC Creatinine Est Cr Clr Drug Dosing 138.6 eGFR 108.41 BUN/Creatinine Ratio 10.7 Glucose 156 H POC Glucose (other) Lactate 2.4 H* Calcium 10.4 H POC Ioniz Calcium Yaneli Magnesium 1.8 Total Bilirubin 0.3 AST 25 ALT 32 Alkaline Phosphatase 71 Total Protein 8.5 H Albumin 4.7 Globulin 3.8 Albumin/Globulin Ratio 1.2 Lipase 75 Procalcitonin 0.02 HCG, Qual Negative Urine Color Dark Yellow Urine Appearance Clear Urine pH 7.0 Ur Specific [place] 1.013 Urine Protein Negative Urine Glucose (UA) Negative Urine Ketones Negative Urine Blood Negative Urine Nitrite Positive A Urine Bilirubin Negative Urine Urobilinogen Negative Ur Leukocyte Esterase Trace H Urine WBC (Auto) 6-10 H Urine RBC (Auto) 0-2 U Hyaline Cast (Auto) 0-2 U Epithel Cells (Auto) 0-2 Urine Bacteria (Auto) None Seen Urine Comment Diagnostic Findings Abdomen/Pelvis CT 12/16/24 16:42 Clinical History: Abdominal pain Technique: Axial computed tomography images were obtained of the abdomen and pelvis without intravenous contrast. Comparison is made to the prior CT dated 02/28/2024 Findings: The liver is overall of normal size, attenuation, and contour with no sign of cirrhosis or significant fatty infiltration. No definite liver mass lesion is seen on this noncontrast study. The gallbladder has been removed. No bile duct dilatation is noted. The spleen is of normal size. No focal splenic lesion is evident. The pancreas appears normal with no sign of acute or chronic pancreatitis and no mass lesion noted. The pancreatic duct is of normal caliber. The adrenal glands appear unremarkable. No renal or proximal ureteral calculi are seen. There is no hydronephrosis or perinephric stranding. No definite renal mass lesion is identified. The aorta is of normal caliber. No abdominal adenopathy is seen. The stomach appears normal. There is no sign of small bowel obstruction. The colon appears unremarkable. The appendix appears normal also. No free intraperitoneal fluid or air is identified. No distal ureteral or bladder calculi are seen. No obvious bladder mass lesion is evident. The iliac arteries are of normal caliber. No pelvic adenopathy is noted. The lungs bases appear clear. No fracture is identified. No focal osseous lesion is seen Impression: Unremarkable noncontrast CT of the abdomen and pelvis Electronically signed by Steve Fitzpatrick 12-16-2024 5:44 PM Medications Administered Home Medications Medication Instructions Recorded Confirmed Last Taken albuterol sulfate 90 mcg/actuation 2 puff inhalation Q6H PRN 08/25/23 12/16/24 Unknown aerosol inhaler Shortness Of Breath Or Wheezing sennosides 8.6 mg tablet (Randi-johanna) 8.6 mg PO DAILY PRN Constipation 08/25/23 12/16/24 10/22/23 cranberry 500 mg capsule 1,000 mg PO BID PRN URINARY 05/28/24 12/16/24 Unknown SYMPTOMS fexofenadine 180 mg tablet 180 mg PO QAM PRN RASH/CONGESTION 05/28/24 12/16/24 1 09:00 (Mary Allergy) spironolactone 100 mg tablet 100 mg PO DAILY 05/28/24 12/16/24 06/19/24 semaglutide (weight loss) 1 mg/0.5 1 mg subcut WK 06/19/24 12/16/24 06/14/24 mL subcutaneous pen injector (Lili) rizatriptan 5 mg tablet 5 mg PO .COMPLEX PRN migraine 10/02/24 12/16/24 Unknown headache #9 tabs cholecalciferol (vitamin D3) 1,250 50,000 unit PO .weekly 12 weeks 10/15/24 12/16/24 Unknown mcg (50,000 unit) tablet #12 tabs syringe with needle, safety 3 mL #100 ea 10/15/24 12/16/24 Unknown 25 gauge x 5/8" (BD Integra Syringe) norethindrone (contraceptive) 0.35 0.35 mg PO DAILY #84 tabs 12/07/24 12/16/24 Unknown mg tablet cyanocobalamin (vitamin B-12) 1,000 mcg IM MONTHLY 12/16/24 12/16/24 12/14/24 1,000 mcg/mL injection solution gabapentin 600 mg tablet 600 mg PO TID 12/16/24 12/16/24 12/16/24 hydroxyzine HCl 25 mg tablet 25 mg PO HS 12/16/24 12/16/24 Unknown topiramate 25 mg tablet (Topamax) 25 mg PO BID 12/16/24 12/16/24 Unknown Active Medications Generic Name Dose Route Start Last Admin Trade Name Freq PRN Reason Stop Dose Admin Acetaminophen 1,000 mg 10/08/25 22:00 12/17/24 13:02 Acetaminophen 500 Mg Tab PO 01/15/25 21:59 1,000 mg Q8H SHARIFA Administration Gabapentin 600 mg 12/16/24 21:51 12/17/24 13:03 Gabapentin 600 Mg Tab PO 01/15/25 21:50 600 mg TID SHARIFA Administration Hydroxyzine HCl 25 mg 12/16/24 21:51 12/16/24 23:50 Hydroxyzine Hcl 25 Mg Tab PO 01/15/25 21:50 25 mg HS SHARIFA Administration Cefepime HCl 2,000 mg in 20 mls @ 5 mls/min 12/17/24 06:00 12/17/24 05:51 Maxipime 2000mg IV 12/19/24 05:59 5 mls/min Q12H SHARIFA Administration Protocol Miscellaneous 1 each 12/17/24 00:00 12/17/24 08:59 Norethindrone (Contraceptive) 0.35 Mg - Order Awaiting Action N/A 01/16/25 00:00 Not Given QS SHARIFA Spironolactone 100 mg 12/17/24 09:00 12/17/24 09:00 Spironolactone 100 Mg Tab PO 01/16/25 08:59 100 mg DAILY SHARIFA Administration Topiramate 25 mg 12/16/24 21:51 12/17/24 09:00 Topiramate 25 Mg Tab PO 01/15/25 21:50 25 mg BID SHARIFA Administration
[2024-12-17 15:56] VITALS: RESP 18
[2024-12-18 04:36] LABS: Hematocrit (blood only) 40.6 % (37.0-47.0); Hemoglobin 13.1 g/dl (12.0-16.0); Mean Corpuscular Hemoglobin 27.8 pg (25.0-34.0); Mean Corpuscular Volume 86.0 fL (80.0-100.0); Platelet Count 302 K/uL (130-400); RDW Standard Deviation 45.7 fL (36.4-46.3); Red Blood Count 4.72 M/uL (4.20-5.40); White Blood Count 9.19 K/ul (4.8-10.8)
[2024-12-18 04:52] LABS: Anion Gap 5.0 (3-11); Blood Urea Nitrogen 13.0 mg/dl (6-23); Calcium 9.7 mg/dl (8.6-10.3); Carbon Dioxide 28.0 mmol/L (21-32); Chloride 103.0 mmol/L (98-107); Creatinine Clr Calc Pharmacy 106.0 ml/min; Glucose 113.0 mg/dl (70-99(Fasting)); Potassium 4.0 mmol/L (3.5-5.1); Sodium 136.0 mmol/L (136-145)
--- NOTE | 2024-12-18 17:10 | Hospitalist Progress Note ---
Date of Service December 18, 2024 Assessment & Plan (1) Dysuria: Plan: Ms Aldana is a 34-year-old female with history of spina bifida, urinary retention, recurrent UTI's, asthma, PCOS, obesity presented to ER with c/o dysuria x 5 weeks. Initial symptoms dysuria, discolored urine, right flank and suprapubic tenderness. Patient remains with stable labs and afebrile urine will pin point growth. Following ID recommendations and will transition to ciprofloxacin for total of 7 days. #Dysuria: #Right flank pain #History recurrent UTIs #History urinary retention Outpatient 11/20/2024 given Cipro 1 twice daily x 5 days. 11/23/2024 nitrofurantoin x 5 days. 12/03/2024 given cefdinir 300 mg twice daily x 7 days No leukocytosis, Lactate: 2.4-->1.8. UA: positive nitrite, trace leuk esterase, 6-10 WBC, No bacteria CT Abd/pelvis: Unremarkable with No renal or proximal ureteral calculi are seen. There is no hydronephrosis or perinephric stranding. No definite renal mass lesion is identified. The appendix appears normal also. No free intraperitoneal fluid or air is identified. No distal ureteral or bladder calculi are seen. No obvious bladder mass lesion is evident. In ER afebrile, vitals stable. No leukocytosis transition to ciprofloxacin trial oxybutynin 2.5mg bid for bladder like spasm #Spina bifida spina bifida with tethered cord diagnosed in 2023 and underwent L3 laminectomy developed urinary retention thereafter and had reported infection and wound dehiscence requiring debridement 07/2023 Continue gabapentin #Hx asthma: No signs acute exacerbation Continue albuterol inhaler as needed #PCOS Continue spironolactone #H/O Migraine HAWK Continue topiramate #Obesity BMI: 46 Hold semaglutide while hospitalized DVT Prophylaxis SCDs Full code Follows with Dr Valdes for routine care Admission and Anticipated Discharge Date Admission Date: December 16, 2024 Subjective NAEO reports still some suprapubic pain worse in mornings and evenings wiling to trial oxybutynin for spasm like discomfort Physical Exam Constitutional: WD/WN, vitals as above Respiratory: normal respiratory effort, lungs clear to auscultation Cardiovascular: RRR, no murmur, no edema Gastrointestinal (Abdomen): normal bowel sounds, soft, nontender, no hepatosplenomegaly Results & Data Results & Data Vital Signs (Past 12 Hours) Vital Signs Temp Pulse Resp BP Pulse Ox O2 Del Method 12/18/24 15:33 36.7 C 76 18 100/66 95 Room Air 12/18/24 07:20 36.6 C 62 18 104/72 97 Room Air
[2024-12-18] MEDS: CIPROFLOXACIN 500 MG TAB PO SCH (21:03)
[2024-12-19 07:55] VITALS: BP 102/70; PULSE 84; TEMP 97.7; O2SAT 94
--- NOTE | 2024-12-19 13:36 | Discharge Summary ---
Discharge Summary Date of Service December 19, 2024 Principal Dx & Hospital Course #1 = Principal Diagnosis (1) Dysuria: Ms Aldana is a 34-year-old female with history of spina bifida, urinary retention, recurrent UTI's, asthma, PCOS, obesity presented to ER with c/o dysuria x 5 weeks. Initial symptoms dysuria, discolored urine, right flank and suprapubic tenderness. Patient remains with stable labs and afebrile urine will pin point growth. Following ID recommendations and will transition to ciprofloxacin for total of 7 days. Patient with reported discomfort, appears to be more of a chronic concern. Discussed that it would be pruduent to follow up with [facility] urology. Patientt verbalized understanding. She stated oxybutynin didn't help. Agreed to short course of tramadol and close specialist follow up Patient otherwise eating well and denies any acute concerns on day of discharge. #Dysuria: #Right flank pain #History recurrent UTIs #History urinary retention Outpatient 11/20/2024 given Cipro 1 twice daily x 5 days. 11/23/2024 nitrofurantoin x 5 days. 12/03/2024 given cefdinir 300 mg twice daily x 7 days No leukocytosis, Lactate: 2.4-->1.8. UA: positive nitrite, trace leuk esterase, 6-10 WBC, No bacteria CT Abd/pelvis: Unremarkable with No renal or proximal ureteral calculi are seen. There is no hydronephrosis or perinephric stranding. No definite renal mass lesion is identified. The appendix appears normal also. No free intraperitoneal fluid or air is identified. No distal ureteral or bladder calculi are seen. No obvious bladder mass lesion is evident. In ER afebrile, vitals stable. No leukocytosis transition to ciprofloxacin tramadol q 6 hours for pain Plan to aid in scheduling follow up with [facility] urology come saturday #Spina bifida spina bifida with tethered cord diagnosed in 2023 and underwent L3 laminectomy developed urinary retention thereafter and had reported infection and wound dehiscence requiring debridement 07/2023 Continue gabapentin #Hx asthma: No signs acute exacerbation Continue albuterol inhaler as needed #PCOS Continue spironolactone #H/O Migraine HAWK Continue topiramate #Obesity BMI: 46 resume semaglutide Notes For Next Care Provider Medication Changes From Visit Ciprofloxacin 500mg bid x 4 more days Admission HPI Per Admitting Provider Patient is a 34-year-old female with history of spina bifida, urinary retention, recurrent UTI's, asthma, PCOS, obesity presented to ER with c/o dysuria x 5 weeks. Per inpatient review History [facility] hospitalization 02/25/2024-02/29/2024 for right flank pain, concern for possible UTI. At that time had unremarkable CT abdomen pelvis. Liver ultrasound unremarkable. Urine culture possible contamin ation. Suspected flank pain was likely musculoskeletal related and was treated with baclofen and tramadol. Recio catheter was placed secondary to urinary retention. Patient Denies needed Recio cath since 03/2024 and states has not been self cath recently. Patient states 5 weeks ago started with orange color urine and had some dysuria. She reports at baseline has to "push" to empty her bladder. She is unsure if she is fully emptying her bladder. She reports following with [facility] and had urine sample that she reports being diagnosed with UTI and was started on Cipro x 5 days. Her symptoms of dysuria, discolored urine and also with right flank discomfort, suprapubic pressure continued and was given nitrofurantoin. She states had another urine sample done. Was seen at [facility] ER on 12/02/2024 with UA 6-10 WBC,> 20 epithelial cells no bacteria seen and was given cefdinir 300 mg twice daily x 7 days. Patient states symptoms continue and does not feel has had any relief. Denies fever/chills, diaphoresis, N/V/D/C, HAWK, dizziness, CP, SOB, orthopnea, palpitations, cough, sore throat, rhinorrhea, extremity paresthesias, weakness, extremity edema, rashes. Admission Exam Per Admitting Provider General: no distress, obese female Head: normocephalic, atraumatic Eyes: conjunctiva non-injected, anicteric ENT: normal inspection external ears, nose, mucous membranes moist Neck: supple, trachea midline, non-tender Lungs: clear, no respiratory distress, no wheezing/rhonchi/rales CV: RRR, no murmur, no pretibial edema Abd: protuberant, normal BS, soft, reported tenderness to palpation suprapubic without rebound or guarding, +diffuse right flank tenderness and entire bilateral lumbar spinous region with tenderness to palpation. no other abdominal tenderness to palpation noted. Ext: no cyanosis, no calf tenderness Neuro: A&O x 3, no focal deficits noted, normal affect Skin: warm, dry Discharge Exam Constitutional WD/WN, vitals as above Respiratory normal respiratory effort, lungs clear to auscultation Cardiovascular RRR, no murmur, no edema Gastrointestinal (Abdomen) normal bowel sounds, soft, nontender, no hepatosplenomegaly Updated Medication List Medication Instructions Recorded Confirmed Type albuterol sulfate 90 mcg/actuation 2 puff inhalation Q6H PRN 08/25/23 12/16/24 History aerosol inhaler Shortness Of Breath Or Wheezing sennosides 8.6 mg tablet (Randi-johanna) 8.6 mg PO DAILY PRN Constipation 08/25/23 12/16/24 History cranberry 500 mg capsule 1,000 mg PO BID PRN URINARY 05/28/24 12/16/24 History SYMPTOMS fexofenadine 180 mg tablet 180 mg PO QAM PRN RASH/CONGESTION 05/28/24 12/16/24 History (Mary Allergy) spironolactone 100 mg tablet 100 mg PO DAILY 05/28/24 12/16/24 History semaglutide (weight loss) 1 mg/0.5 1 mg subcut WK 06/19/24 12/16/24 History mL subcutaneous pen injector (Wegovy) rizatriptan 5 mg tablet 5 mg PO .COMPLEX PRN migraine 10/02/24 12/16/24 Rx headache #9 tabs cholecalciferol (vitamin D3) 1,250 50,000 unit PO .weekly 12 weeks 10/15/24 12/16/24 Rx mcg (50,000 unit) tablet #12 tabs syringe with needle, safety 3 mL #100 ea 10/15/24 12/16/24 Rx 25 gauge x 5/8" (BD Integra Syringe) norethindrone (contraceptive) 0.35 0.35 mg PO DAILY #84 tabs 12/07/24 12/16/24 Rx mg tablet cyanocobalamin (vitamin B-12) 1,000 mcg IM MONTHLY 12/16/24 12/16/24 History 1,000 mcg/mL injection solution gabapentin 600 mg tablet 600 mg PO TID 12/16/24 12/16/24 History hydroxyzine HCl 25 mg tablet 25 mg PO HS 12/16/24 12/16/24 History topiramate 25 mg tablet (Topamax) 25 mg PO BID 12/16/24 12/16/24 History acetaminophen 500 mg tablet 1,000 mg (2 x 500 mg) PO Q8H #0 12/19/24 Rx (Tylenol Extra Strength) tabs ciprofloxacin HCl 500 mg tablet 500 mg PO BID 4 days #8 tabs 12/19/24 Rx tramadol 50 mg tablet 50 mg PO Q4H PRN severe pain 12/19/24 Rx (scale score 7-10) #20 tabs Hospital Stay Data Consultations 12/16/24 19:07 ED Decision to Admit Stat 12/16/24 21:41 Consult Infectious Diseases Routine Diagnostic Imagining Performed 12/16/24 16:42 CT abd pelvis wo con Stat Pending Results Patient Have Any Pending Studies at Discharge: No Discharge Instructions Given to Patient (Per Discharging Provider) You were admitted with urinary symptoms and evaluated by Infectious disease You will complete 4 more days of oral antibiotics You were noted to have continued suprapubic and flank discomfort We will work to schedule sooner follow up with your Urologist. Please anticipate a call saturday with those details please continue use tylenol 500-1000mg every 6-8 hours You will recieve a script for Tramadol 25-50mg as needed 6-12 hours for severe pain Total Time Total Time Spent Total Time Spent (In Minutes): 45
== END 2024-12-19 11:12 | disposition home or self-care (01) | DRG 690 ==
LOC: ED 16:17 → SUATTDRO 19:53 → INTOOBSV 19:53 → 3W 19:53 → SUATTDRO 12-18 18:52